=== PATIENT | female | born 1950 | race Two or more races ===

== ENCOUNTER 2017-11-10 07:34 | Emergency (ER) | payer MEDICAID, MEDICARE ==
[~2017-11-10] VITALS: Ht 162.6 cm; Wt 81.6 kg
[2017-11-10 07:50] VITALS: BP 157/88
--- NOTE | 2017-11-10 08:16 | Emergency Room Report ---
History of Present Illness General Chief Complaint: Upper Respiratory Illness Source: Patient, Family Member Present Illness HPI 67-year-old female walks in with approximately one week of URI symptoms including cough, and documented fever yesterday. Was seen by PMD, given Z-Cruz, ibuprofen and cough medicine which she has taken without improvement. Denies chest pain, shortness of breath, sore throat, ear infection, headache, abdominal pain, nausea vomiting. Patient's also here with similar symptoms - he was prescribed Tamiflu from this facility a few days ago but unable to find it to shortage of medicine. Allergies: Coded Allergies: No Known Allergies (Unverified , 11/10/17) Patient History Past Medical History: none Past Surgical History: none Pertinent Family History: none Social History: Denies: smoking, alcohol use, drug use Last Menstrual Period: na Now: No Immunizations: UTD Reviewed Nursing Documentation: PMH: Agreed, PSxH: Agreed Nursing Documentation-PMH Past Medical History: No History, Except For Hx Hypertension: Yes Review of Systems All Other Systems: negative except mentioned in HPI Physical Exam Vital Signs Date Time Temp Pulse Resp B/P (MAP) Pulse Ox O2 Delivery O2 Flow Rate FiO2 11/10/17 07:41 101.3 105 20 157/88 97 Room Air Sp02 EP Interpretation: reviewed, normal General Appearance: normal inspection, well appearing, no apparent distress, alert, GCS 15, non-toxic Head: normocephalic, atraumatic Eyes: bilateral eye PERRL, bilateral eye EOMI ENT: normal ENT inspection, hearing grossly normal, normal pharynx, no angioedema, normal voice, TMs + canals normal, uvula midline, moist mucus membranes Neck: normal inspection, full range of motion, supple, thyroid normal, no meningismus, no bony tend Respiratory: normal inspection, no rhonchi, no respiratory distress, no retraction, no accessory muscle use, no wheezing, crackles, speaking full sentences Cardiovascular #1: regular rate, rhythm, no edema, no JVD, normal capillary refill Gastrointestinal: normal inspection, normal bowel sounds, non tender, soft, no mass, no peritonitis, non-distended, no guarding, no hernia, no pulsatile mass Genitourinary: no CVA tenderness Musculoskeletal: normal inspection, back normal, normal range of motion, no calf tenderness, pelvis stable, Javier's Sign negative Neurologic: normal inspection, alert, oriented x3, responsive, hemp fiber taker off III-XII nml as tested, motor strength/tone normal, cerebellar normal, normal gait, speech normal Psychiatric: normal inspection, judgement/insight normal, mood/affect normal, no suicidal/homicidal ideation, no delusions Skin: normal inspection, normal color, no rash Lymphatic: normal inspection, no adenopathy Medical Decision Making Diagnostic Impression: Primary Impression: Upper respiratory infection Qualified Codes: J06.9 - Acute upper respiratory infection, unspecified; B97.89 - Other viral agents as the cause of diseases classified elsewhere Additional Impressions: Influenza-like illness Atypical pneumonia ER Course 67-year-old female with influenza-like symptoms, vital signs significant for fever and tachycardia. On exam, auscultation of lungs indicates some crackles however chest x-ray does not show any obvious lobar pneumonia strong concern for atypical pneumonia versus influenza however is already on z- pack Will treat withTamiflu given fever yesterday Otherwise well-appearing, nonseptic appearing close primary care followup disposition: Patient is to be discharged to home. Prescriptions given are tamiflu Patient is instructed to follow up with their primary care doctor within 5 days. Strict return precautions discussed with patient such as fever, chills, worsening/severe pain, nausea, vomiting, which may indicate severe illness. Patient verbalizes understanding and agrees with plan. Please note that this Emergency Department Report was dictated using [employer] technology software, occasionally this can lead to erroneous entry secondary to interpretation by the dictation equipment Chest X-Ray Diagnostic Results Chest X-Ray Diagnostic Results : Chest X-Ray Ordered: Yes # of Views/Limited/Complete: 1 View Indication: Other - fever EP Interpretation: Yes Interpretation: no consolidation, no effusion, no pneumothorax, no acute cardiopulmonary disease Impression: No acute disease Electronically Signed by: Dr Dylon Lorenzo MD Last Vital Signs Date Time Temp Pulse Resp B/P (MAP) Pulse Ox O2 Delivery O2 Flow Rate FiO2 11/10/17 07:41 101.3 105 20 157/88 97 Room Air Status: improved Disposition: HOME, SELF-CARE DYLON LORENZO M.D. Nov 10, 2017 08:16
[2017-11-10] MEDS ORDERED: TAMIFLU75 MG ORAL (08:17)
[2017-11-10 08:30] VITALS: BP 131/77
--- NOTE | 2017-11-10 10:17 | Diagnostic Imaging Report ---
Indication: Shortness of breath Technique: One view of the chest Comparison: none Findings: Lungs and pleural spaces are clear. Heart size is normal Impression: No acute process
== END 2017-11-10 08:25 | disposition home or self-care (01) ==
LOC: EMR 08:20
DX: J06.9 Acute upper respiratory infection, unspecified (principal); J11.1 Influenza due to unidentified influenza virus with other respiratory manifestations; J18.9 Pneumonia, unspecified organism; I10 Essential (primary) hypertension
CPT/HCPCS: 71045; 99283

== ENCOUNTER 2018-12-01 13:55 | Emergency (ER) | payer MEDICARE, MEDICAID ==
[~2018-12-01] VITALS: Ht 162.6 cm; Wt 81.6 kg
[~2018-12-01 13:55] MED LIST: TAMIFLU75 MG ORAL
--- NOTE | 2018-12-01 14:08 | NUR ---
ED Nurse Note: Pt came in from home due to ALEXANDER on L side x 10 days, no head injury recently. Pt takes Tylenol and Advil at home but pain still persists. AOx4, VSS. Will cont to monitor.
[2018-12-01] MEDS ORDERED: Acetaminophen 500mg (ES) tab ORAL ONE (14:15)
[2018-12-01 14:49] VITALS: BP 151/75
--- NOTE | 2018-12-01 15:43 | Emergency Room Report ---
History of Present Illness General Chief Complaint: Headache Source: Patient Present Illness HPI 66-year-old female presents ED for evaluation. Complaining of headache 10 days. Denies any trauma. Headache is left-sided, throbbing, 10 out of 10, nonradiating. Denies photophobia or blurry vision. Denies nausea or vomiting. Denies neck stiffness. Denies earache or sore throat. Denies fevers or chills. No other aggravating relieving factors. Denies any other associated symptoms Allergies: Coded Allergies: No Known Allergies (Unverified , 11/10/17) Patient History Past Medical History: HTN Past Surgical History: none Pertinent Family History: none Social History: Denies: smoking, alcohol use, drug use Now: No Immunizations: UTD Reviewed Nursing Documentation: PMH: Agreed; PSxH: Agreed Nursing Documentation-PMH Hx Hypertension: Yes Review of Systems All Other Systems: negative except mentioned in HPI Physical Exam Vital Signs Date Time Temp Pulse Resp B/P (MAP) Pulse Ox O2 Delivery O2 Flow Rate FiO2 12/01/18 13:57 98.2 100 22 170/91 96 Room Air Sp02 EP Interpretation: reviewed, normal General Appearance: no apparent distress, alert, GCS 15, non-toxic Head: normocephalic, atraumatic Eyes: bilateral eye normal inspection, bilateral eye PERRL ENT: hearing grossly normal, normal pharynx, no angioedema, normal voice Neck: full range of motion, supple, no meningismus, no bony tend, supple/symm/ no masses Respiratory: chest non-tender, lungs clear, normal breath sounds, speaking full sentences Cardiovascular #1: regular rate, rhythm, no edema Cardiovascular #2: 2+ carotid (R), 2+ carotid (L), 2+ radial (R), 2+ radial (L) , 2+ dorsalis pedis (R), 2+ dorsalis pedis (L) Gastrointestinal: normal bowel sounds, non tender, soft, non-distended, no guarding, no rebound Rectal: deferred Genitourinary: normal inspection, no CVA tenderness Musculoskeletal: back normal, gait/station normal, normal range of motion, non- tender Neurologic: alert, oriented x3, responsive, motor strength/tone normal, sensory intact, speech normal Psychiatric: judgement/insight normal, memory normal, mood/affect normal, no suicidal/homicidal ideation Reflexes: 3+ bicep (R), 3+ bicep (L), 3+ tricep (R), 3+ tricep (L), 3+ knee (R) , 3+ knee (L) Skin: normal color, no rash, warm/dry, well hydrated Lymphatic: no adenopathy Medical Decision Making Diagnostic Impression: Primary Impression: Headache Qualified Codes: R51 - Headache ER Course Hospital Course 66 yo F presents with headache x 1 days Differential diagnoses include: tension headache, migraine, dehydration, intracranial bleed Clinical course Patient placed on stretcher. After initial history and physical I ordered pain meds, CT CT head no acute process On reassessment headache is improved. No focal deficits. No blurry vision, no nuchal rigidity. Reassurance given. Safe for discharge or close outpatient follow-up. States she has a PMD i. I feel this is a highly complex case requiring extensive working including EKG/Rhythm strip, Xray/CT/US, Blood/urine lab work, repeat exams while in ED, and administration of strong opiates/narcotics for pain control, admission to hospital or close patient follow up. Diagnosis - headache stable and discharged to home with Rx Tylenol. f/up with PMD. return to ED if symptoms recur/worsen. CT/MRI/US Diagnostic Results CT/MRI/US Diagnostic Results : Imaging Test Ordered: CT Head Impression no acute process Last Vital Signs Date Time Temp Pulse Resp B/P (MAP) Pulse Ox O2 Delivery O2 Flow Rate FiO2 12/01/18 14:49 98.3 93 20 151/75 95 Room Air Status: improved Disposition: HOME, SELF-CARE Condition: Stable Scripts Acetaminophen* (TYLENOL EXTRA STRENGTH*) 500 Mg Tablet 500 MG ORAL Q8H PRN for Prn Headache/Temp > 101, #30 TAB 0 Refills Prov: Jean-Paul Stuart MD 12/01/18 Referrals: NON PHYSICIAN (PCP) Jean-Paul Stuart MD Dec 01, 2018 15:43
--- NOTE | 2018-12-01 15:58 | Diagnostic Imaging Report ---
Indications: Headache Technique: Spiral acquisitions obtained through the brain. Angled axial and coronal 5 x 5 mm slices were reconstructed. Total dose length product 1298.67 mGycm. CTDI vol(s) 70.38 mGy. Dose reduction achieved using automated exposure control Comparison: None. Findings: No acute intracranial hemorrhage or edema. No mass effect nor midline shift. Normal carrera-white differentiation. Visualized orbits and sinuses are unremarkable. Impression: Negative The CT scanner at [facility] is accredited by the [employer] and the scans are performed using protocols designed to limit radiation exposure to as low as reasonably achievable to attain images of sufficient resolution adequate for diagnostic evaluation.
[2018-12-01] MEDS ORDERED: TYLENOL EXTRA500 MG ORAL (16:19)
[2018-12-01 16:22] VITALS: BP 144/79
--- NOTE | 2018-12-01 16:22 | NUR ---
ED Nurse Note: Pt is ready to be discharged by ERMD. Discharge paper and prescription given, patient verbalized understanding of discharge instruction. AOx4, VSS. Wristband removed. Pt ambulated out with steady gait with all belongings.
== END 2018-12-01 16:22 | disposition home or self-care (01) ==
LOC: EDBD 13:55 → EMR 14:35
DX: R51 Headache (principal); I10 Essential (primary) hypertension
CPT/HCPCS: 70450; 99284

== ENCOUNTER 2020-05-27 13:51 | Emergency (ER) | payer MEDICAID, MEDICARE, OTHER ==
[~2020-05-27] VITALS: Ht 154.9 cm; Wt 82.1 kg
[~2020-05-27 13:51] MED LIST changes: +TYLENOL EXTRA500 MG ORAL
--- NOTE | 2020-05-27 14:41 | Emergency Room Report ---
History of Present Illness General Chief Complaint: Lower Extremity Injury Source: Patient, Family Member Present Illness HPI History of present illness: 88-year-old female with no prior medical history presents status post mechanical trip and fall 1 month ago. Patient was accompanied by her [id number] who states that patient has been reluctant to come to the emergency department for her pain. She has been ambulating on her left lower extremity despite pain. She took an over-the- counter medication this morning that seemed to help. When she saw her primary care doctor, he sent her to the emergency department for possible ultrasound for a mass on her lateral left calf. Patient denies chest pain, hemoptysis, history of blood clots, recent surgery, recent immobilization, fever, cough, chills, head trauma, loss of consciousness, weakness, vision changes, neck/back pain, or other complaints. Patient is not on blood thinner medications. She states that the fall happened 1 month ago when she was coming down the stairs and slipped at the bottom and got her leg stuck in the door. She denies pain anywhere else in her body. The patient's symptoms were [gradual] onset, severity was moderate, duration since 30 days. Past medical history: Denies Past surgical history: Denies Smoking: Denies Alcohol use: Denies Drug use: Denies Review of systems: CONST: No fevers or chills, No night sweats PULMONARY: No productive cough, No shortness of breath CARDIAC: No chest pain, No palpitations GI: No vomiting, No diarrhea , No melena_or_BRBPR : No dysuria, No hematuria, No discharge NEURO: No new_focal_weakness_or_numbness, No confusion, No vision changes Musculoskeletal: Left lower extremity pain and swelling 14 point Review of Systems is otherwise negative except per HPI Physical Exam: GENERAL: Awake_alert_ nontoxic, no acute distress Spo2 96% on [RA], [normal] EYES: Extraocular muscles are intact. Conjunctivae clear. Lids without swelling ENT: External nose and ear normal_in_appearance. Oropharynx clear. Head_ atraumatic, Moist_oral_mucosa NECK: No JVD. No meningismus. No thyromegaly. Supple. Trachea midline RESP: Normal respiratory effort. Symmetric rise. No stridor. Clear_to_ auscultation_No_rales_No_wheezes CARDIAC: Regular rate and regular rhythm on_auscultation No_significant pedal edema. ABDOMEN: Soft. Nondistended. Nontender_No_rebound_or_guarding. MSK: Normal muscle tone, without rigidity. Left lower extremity: Patient has mild nonfluctuant/ indurated mass to the lateral mid calf. No pain with palpation. No cellulitis. No palpable crepitus. Ecchymosis to the left medial ankle proximal to the medial malleolus. Compartments are soft and compressible. No deformity. Full range of motion of the ankle and the knee. Sensation is intact to light touch. Cap refill less than 2 seconds x 5 toes. No cellulitis. SKIN: Warm and dry. No visible cyanosis or pallor NEUROLOGIC: Alert, oriented x3. Motor_and_sensation_grossly_intact. No truncal ataxia. Gait_normal Psych: Normal mood and affect, normal judgment and insight - COORDINATION OF CARE Case was discussed with: Patient and family Any imaging that were ordered were interpreted as part of the medical decision making: Medical Decision Making/Plan: Differential diagnosis includes musculoskeletal pain, fracture, dislocation, soft tissue infection such as cellulitis or abscess, cyst vs DVT DOUBT necrotizing fasciitis, compartment syndrome, septic arthritis, arterial occlusion, among others. Patient is hemodynamically stable and well-appearing. Xrays of the ankle and tib/fib are within normal limits, compartments are soft, the patient is able to bear weight and has no neurologic deficits. No evidence of fracture, dislocation or compartment syndrome at this time. There is mild ecchymosis to the medial malleolus also noted to have . Small possibly drainable fluid collection to the left mid calf. Ultrasound of the left lower extremity shows hematoma versus abscess. Patient has follow-up with PMD for referral to IR for consultation. Offered bedside incision and drainage, however patient declines because she wants a more sterile environment. Will discharge with clindamycin. Recommend wound check in 2 to 3 days.. Distally the patient has capillary refill <2 seconds and strong pulses. There is no pallor or pain out of proportion to exam. There is no significant swelling or venous engorgement. The patient has no significant DVT risk factors or known hypercoagulable disorder. No evidence of arterial occlusion or deep venous thrombosis. The associated joints have full range of motion without any significant pain or restriction in mobility. There is no crepitus or pain out of proportion to exam and the patient is afebrile and nontoxic. No evidence of septic arthritis , necrotizing fasciitis, or soft tissue infection such as abscess or cellulitis. However, the patient was informed that occult fractures or foreign bodies are not always apparent on their first visit and understand to follow up with their regular doctor for a reevaluation within the next 2-3 days for a reevaluation, to ensure their symptoms completely resolve. Allergies: Coded Allergies: No Known Allergies (Unverified , 11/10/17) COVID-19 Screening Contact w/high risk pt: No Experienced COVID-19 symptoms?: No COVID-19 Testing performed ENVIRONMENTAL MARKETER: No Nursing Documentation-[facility] Past Medical History: No Stated History Hx Hypertension: Yes Physical Exam Vital Signs Date Time Temp Pulse Resp B/P (MAP) Pulse Ox O2 Delivery O2 Flow Rate FiO2 05/27/20 14:07 98.2 82 16 161/75 (103) 94 Room Air Medical Decision Making Diagnostic Impression: Primary Impression: Hematoma of left lower leg Additional Impression: Leg pain Other X-Ray Diagnostic Results Other X-Ray Diagnostic Results : PA Scribe Text Left tibia /Fibula X-ray: Views: [ 2 ] view(s) No fracture. Normal alignment. Soft tissues normal. Joint spaces normal. Indication: [Pain] Impression: [no acute disease] The X-ray(s) were independently viewed and interpreted contemporaneously - Electronically signed by Shereen marsh DO Left ankle x-ray: Views: [ 2 ] view(s) No fracture. Normal alignment. Soft tissues normal. Joint spaces normal. Indication: [Pain] Impression: [no acute disease] The X-ray(s) were independently viewed and interpreted contemporaneously - Electronically signed by Shereen marsh DO Reevaluation Time: 16:01 Last Vital Signs Date Time Temp Pulse Resp B/P (MAP) Pulse Ox O2 Delivery O2 Flow Rate FiO2 05/27/20 14:07 98.2 82 16 161/75 (103) 94 Room Air Status: improved Disposition: HOME, SELF-CARE Admit Decision Time: 16:01 Condition: Stable Scripts Clindamycin Hcl (CLINDAMYCIN HCL) 300 Mg Capsule 300 MG ORAL THREE TIMES A DAY, #21 CAP Prov: Shereen Barreto D.O. 05/27/20 Naproxen* (NAPROXEN*) 500 Mg Tablet.dr 500 MG ORAL TWICE A DAY for 10 Days, #22 TAB Prov: Shereen Barreto D.O. 05/27/20 Acetaminophen* (TYLENOL EXTRA STRENGTH*) 500 Mg Tablet 500 MG ORAL Q8HR PRN for Mild Pain/Temp > 100.5 for 7 Days, #28 TAB 0 Refills Prov: Shereen Barreto D.O. 05/27/20 Patient Instructions: Foot Contusion Shereen Barreto D.O. May 27, 2020 14:41
[2020-05-27] MEDS ORDERED: Acetaminophen 500mg (ES) tab ORAL ONE (14:45)
[2020-05-27] MEDS ORDERED: TYLENOL EXTRA500 MG ORAL (14:58)
[2020-05-27] MEDS ORDERED: NAPROXEN500 M1 ORAL ×2 (14:58→16:09)
--- NOTE | 2020-05-27 16:57 | Diagnostic Imaging Report ---
History: MASS Exam: US VENOUS LEFT LOWER EXTREMITY Comparison: None available IMPRESSION: No evidence of DVT within the left lower extremity. Complex hypoechoic area measuring 4.5 x 1.4 x 5 cm lateral left calf is nonspecific with considerations including hematoma or abscess among others and requires further clinical correlation.
[2020-05-27 17:05] VITALS: BP 150/72
[2020-05-27] MEDS ORDERED: CLINDAMYCIN HC300 MG ORAL (17:05)
--- NOTE | 2020-05-27 19:06 | Diagnostic Imaging Report ---
INDICATION: Pain TECHNIQUE: XRAY Ankle Compl Min 3v L Multiple views of the None were obtained COMPARISON: None FINDINGS: No acute fracture or dislocation. Talar dome is maintained. Ankle mortise is preserved on these nonstress views. No significant ankle joint effusion. Mild diffuse soft tissue swelling around the ankle. IMPRESSION: No acute fracture or dislocation.
--- NOTE | 2020-05-27 19:10 | Diagnostic Imaging Report ---
INDICATION: Pain TECHNIQUE: XRAY Leg Lower Tib Fib 2v L Multiple views of the None were obtained COMPARISON: None FINDINGS: No acute fracture or dislocation. Joint spaces are maintained. There is focal soft tissue swelling with increased subcutaneous density overlying the mid and posterior fibula. IMPRESSION: 1. No acute fracture or dislocation. 2. Focal soft tissue swelling overlying posterolateral fibula which could reflect soft tissue infection or hematoma.
== END 2020-05-27 17:05 | disposition home or self-care (01) ==
LOC: EMR 14:30
DX: M79.605 Pain in left leg (principal); S80.12XA Contusion of left lower leg, initial encounter; W01.0XXA Fall on same level from slipping, tripping and stumbling without subsequent striking against object, initial encounter; Y92.9 Unspecified place or not applicable; I10 Essential (primary) hypertension
CPT/HCPCS: 93971; 99284

== ENCOUNTER 2020-11-14 01:31 | Inpatient (IN) | payer MEDICARE ==
[2020-11-14] VITALS (7 sets, daily range): BP systolic 130–140; BP diastolic 60–83
[~2020-11-14] VITALS: Ht 154.9 cm; Wt 81.6 kg
[~2020-11-14 01:31] MED LIST changes: +CLINDAMYCIN HC300 MG ORAL; +NAPROXEN500 M1 ORAL
[2020-11-14] MEDS ORDERED: dexAMETHasone 10mg/ml Inj IV ONE (01:45)
[2020-11-14] MEDS ORDERED: Albuterol/Ipratropium 3ml neb HHN ONE (01:45)
--- NOTE | 2020-11-14 01:50 | Emergency Room Report ---
History of Present Illness General Chief Complaint: SOB Source: Patient Present Illness HPI Patient is a 68-year-old female past medical history of obesity, hypertension and diagnosed with COVID-19 on November 07, 2020 who presents to the ER complaining of shortness of breath. Patient states that her symptoms have been getting progressively worse since the time of her diagnosis. She complains of body aches, chills, fatigue, chest pain, shortness of breath and cough. She states that she feels like her shortness of breath is getting worse. Patient also states that she is a current smoker. She states that her is sick with COVID-19 at home as well. She denies any abdominal pain, vomiting or diarrhea. She states that she has not taken any medications today. Allergies: Coded Allergies: No Known Allergies (Unverified , 11/10/17) COVID-19 Screening Contact w/high risk pt: No Experienced COVID-19 symptoms?: No Patient History Reviewed Nursing Documentation: PMH: Agreed; PSxH: Agreed Nursing Documentation-PMH Hx Hypertension: Yes Review of Systems All Other Systems: negative except mentioned in HPI Physical Exam Sp02 EP Interpretation: abnormal General Appearance: alert, GCS 15, non-toxic, moderate distress Head: normocephalic, atraumatic Eyes: bilateral eye normal inspection, bilateral eye PERRL ENT: hearing grossly normal, normal pharynx, no angioedema, normal voice Neck: full range of motion, supple/symm/no masses Respiratory: respiratory distress, rhonchi, other - Tachypneic Cardiovascular #1: tachycardia Gastrointestinal: normal bowel sounds, non tender, soft, non-distended, no guarding, no rebound Rectal: deferred Genitourinary: no CVA tenderness Musculoskeletal: normal range of motion Neurologic: passport support manager III-XII nml as tested, oriented x3 Psychiatric: no suicidal/homicidal ideation Skin: no rash Lymphatic: no adenopathy Procedures Critical Care Time Critical Care Time Total critical care time: Approximately [] minutes. Due to a high probability of clinically significant, life threatening deterioration, the patient required my highest level of preparedness to intervene emergently and I personally spent this critical care time directly and personally managing the patient. This critical care time included obtaining a history; examining the patient; pulse oximetry; ordering and review of studies; arranging urgent treatment with de velopment of a management plan; evaluation of patient's response to treatment; frequent reassessment; and, discussions with other providers.This critical care time was performed to assess and manage the high probability of imminent, life- threatening deterioration that could result in multi-organ failure. It was exclusive of separately billable procedures and treating other patients and teaching time. Please see MDM section and the rest of the note for further information on patient assessment and treatment. Total critical care time: Approximately 35 minutes. Due to a high probability of clinically significant, life threatening deterioration, the patient required my highest level of preparedness to intervene emergently and I personally spent this critical care time directly and personally managing the patient. This critical care time included obtaining a history; examining the patient; pulse oximetry; ordering and review of studies; arranging urgent treatment with development of a management plan; evaluation of patient's response to treatment; frequent reassessment; and, discussions with other providers.This critical care time was performed to assess and manage the high probability of imminent, life- threatening deterioration that could result in multi-organ failure. It was exclusive of separately billable procedures and treating other patients and teaching time. Please see MDM section and the rest of the note for further information on patient assessment and treatment. Medical Decision Making Diagnostic Impression: Primary Impression: COVID-19 Additional Impressions: Pneumonia Hypoxia ER Course Patient given nebulizer treatment, IV Decadron and supplemental oxygen. Patient satting 96% and respiratory rate is improved to the low to mid 20s. Patient's chest x-ray demonstrates bilateral pulmonary infiltrates. Blood cultures have been sent. Lactate is normal. Patient started on vancomycin as well as ceftri axone. Patient has reported history of positive COVID-19 test 8 days ago. Patient's D-dimer elevated and patient started on Lovenox. Patient will be admitted for further treatment and evaluation. Laboratory Tests Test 11/14/20 01:51 11/14/20 01:54 Arterial Blood pH 7.511 (7.350-7.450) Arterial Blood Partial Pressure CO2 32.1 mmHg (35.0-45.0) L Arterial Blood Partial Pressure O2 55.4 mmHg (75.0-100.0) L Arterial Blood HCO3 25.4 mmol/L (22.0-26.0) Arterial Blood Oxygen Saturation 91.4 % (95-100) L Arterial Blood Base Excess 2.7 (-2-2) H Ted Test Positive White Blood Count 5.7 K/UL (4.8-10.8) Red Blood Count 4.44 M/UL (4.20-5.40) Hemoglobin 13.5 G/DL (12.0-16.0) Hematocrit 39.5 % (37.0-47.0) Mean Corpuscular Volume 89 FL (80-99) Mean Corpuscular Hemoglobin 30.4 PG (27.0-31.0) Mean Corpuscular Hemoglobin Concent 34.2 G/DL (32.0-36.0) Red Cell Distribution Width 11.9 % (11.6-14.8) Platelet Count 189 K/UL (150-450) Mean Platelet Volume 6.7 FL (6.5-10.1) Neutrophils (%) (Auto) % (45.0-75.0) Lymphocytes (%) (Auto) % (20.0-45.0) Monocytes (%) (Auto) % (1.0-10.0) Eosinophils (%) (Auto) % (0.0-3.0) Basophils (%) (Auto) % (0.0-2.0) Prothrombin Time 11.4 SEC (9.30-11.50) Prothrombin Time INR 1.0 (0.9-1.1) Activated Partial Thromboplast Time 33 SEC (23-33) D-Dimer 0.58 mg/L FEU (0.00-0.49) H Urine Color Pale yellow Urine Appearance Clear Urine pH 8 (4.5-8.0) Urine Specific Manning 1.015 (1.005-1.035) Urine Protein 2+ (NEGATIVE) H Urine Glucose (UA) Negative (NEGATIVE) Urine Ketones Negative (NEGATIVE) Urine Blood 1+ (NEGATIVE) H Urine Nitrite Negative (NEGATIVE) Urine Bilirubin Negative (NEGATIVE) Urine Urobilinogen Normal MG/DL (0.0-1.0) Urine Leukocyte Esterase Negative (NEGATIVE) Urine RBC 0-2 /HPF (0 - 2) Urine WBC 0-2 /HPF (0 - 2) Urine Squamous Epithelial Cells Few /LPF (NONE/OCC) Urine Bacteria None /HPF (NONE) Sodium Level 134 MMOL/L (136-145) L Potassium Level 3.3 MMOL/L (3.5-5.1) L Chloride Level 100 MMOL/L (98-107) Carbon Dioxide Level 29 MMOL/L (21-32) Anion Gap 5 mmol/L (5-15) Blood Urea Nitrogen 7 mg/dL (7-18) Creatinine 0.8 MG/DL (0.55-1.30) Estimated Glomerular Filtration Rate > 60 mL/min (>60) Glucose Level 188 MG/DL (74-106) H Lactic Acid Level 0.70 mmol/L (0.4-2.0) Calcium Level 8.3 MG/DL (8.5-10.1) L Magnesium Level 1.7 MG/DL (1.8-2.4) L Ferritin 787 NG/ML (8-388) H Total Bilirubin 0.4 MG/DL (0.2-1.0) Aspartate Amino Transferase (AST) 71 U/L (15-37) H Alanine Aminotransferase (ALT) 65 U/L (12-78) Alkaline Phosphatase 136 U/L (46-116) H Lactate Dehydrogenase 413 U/L (81-234) H Total Creatine Kinase 206 U/L (26-308) Troponin I 0.007 ng/mL (0.000-0.056) C-Reactive Protein, Quantitative Pending Pro-B-Type Natriuretic Peptide 233 pg/mL (0-125) H Total Protein 7.2 G/DL (6.4-8.2) Albumin 3.1 G/DL (3.4-5.0) L Globulin 4.1 g/dL Albumin/Globulin Ratio 0.8 (1.0-2.7) L Lipase 207 U/L (73-393) Microbiology Date/Time Source Procedure Growth Status 11/14/20 01:54 Nasal Nares - Final Complete 11/14/20 01:54 Nasal Nares - Final Complete EKG Diagnostic Results Troponin ordered: Yes When was troponin ordered?: Nov 14, 2020 EKG Time: 01:46 EP Interpretation: Dannielle Bermudez MD Rate: tachycardiac - 109 bpm Rhythm: other - Sinus tachycardia ST Segments: no acute changes ASA given to the pt in ED: No Rhythm Strip Diag. Results Rhythm Strip Time: 01:50 EP Interpretation: yes - Dannielle Bermudez MD Rate: 108 bpm Rhythm: no PVC's, no ectopy, other - Sinus tachycardia Chest X-Ray Diagnostic Results Chest X-Ray Diagnostic Results : Chest X-Ray Ordered: Yes # of Views/Limited/Complete: 1 View Indication: Shortness of Breath EP Interpretation: Yes Interpretation: no pneumothorax, other - bilateral patchy infiltrates Impression: Other - pneumonia Electronically Signed by: Dannielle Bermudez MD Disposition: ADMITTED INPATIENT - SDU Condition: Critical Physician Consult: Dr. Gannon Additional Instructions: Please note that this report is being documented using [employer] technology. This can lead to erroneous entry secondary to incorrect interpretation by the dictating instrument. Dannielel Bermudez M.D. Nov 14, 2020 01:50
--- NOTE | 2020-11-14 02:05 | NUR ---
ED Nurse Note: PT walked in from home, she is ambulatory and walks with a steady gait, states that she has been tested positive for covid a couple of days ago. She says that she has been feeling short of breath with chest pain. Pt was hypoxic on assement placed on 2LNC SPO2 99%. EKG done at bedside, labs sent, urine sent, line placed. RT did ABG. Pt is resting comfortably, tachypneic, vitals stable as docuemented
[2020-11-14 02:08] LABS: HEMATOCRIT 39.5 % (37.0-47.0); HEMOGLOBIN 13.5 G/DL (12.0-16.0); MEAN CORPUSCULAR VOLUME 89 FL (80-99); PLATELET COUNT 189 K/UL (150-450); RED BLOOD COUNT 4.44 M/UL (4.20-5.40); RED CELL DISTRIBUTION WIDTH 11.9 % (11.6-14.8); WHITE BLOOD COUNT 5.7 K/UL (4.8-10.8)
[2020-11-14 02:11] LABS: APPEARANCE,URINE CLEAR; BILIRUBIN, URINE NEGATIVE (NEGATIVE); COLOR,URINE PALE YELLOW; GLUCOSE, URINE (UA) NEGATIVE (NEGATIVE); KETONES,URINE NEGATIVE (NEGATIVE); LEUKOCYTE ESTERASE ,URINE NEGATIVE (NEGATIVE); NITRITE,URINE NEGATIVE (NEGATIVE); PH,URINE 8 (4.5-8.0); PROTEIN,URINE 2+ (NEGATIVE); UROBILINOGEN,URINE NORMAL MG/DL (0.0-1.0)
[2020-11-14 02:32] LABS: ANION GAP 5 mmol/L (5-15); BLOOD UREA NITROGEN 7 mg/dL (7-18); CALCIUM 8.3 MG/DL (8.5-10.1); CARBON DIOXIDE 29 MMOL/L (21-32); CHLORIDE 100 MMOL/L (98-107); CREATININE 0.8 MG/DL (0.55-1.30); POTASSIUM 3.3 MMOL/L (3.5-5.1); SODIUM 134 MMOL/L (136-145)
[2020-11-14 02:38] LABS: ALANINE AMINOTRANSFERASE 65 U/L (12-78); ALBUMIN 3.1 G/DL (3.4-5.0); ALBUMIN/GLOBULIN RATIO 0.8 (1.0-2.7); ALKALINE PHOSPHATASE 136 U/L (46-116); ASPARTATE AMINO TRANSFERASE 71 U/L (15-37); BILIRUBIN,TOTAL 0.4 MG/DL (0.2-1.0); CREATINE KINASE 206 U/L (26-308); FERRITIN 787 NG/ML (8-388); LACTATE DEHYDROGENASE 413 U/L (81-234)
[2020-11-14] MEDS ORDERED: cefTRIAXone 2 GM in NS 55 ML IVPB ONE (02:45)
[2020-11-14] MEDS ORDERED: Azithromycin 500 MG in NS 275 ML IV ONE (02:45)
[2020-11-14] MEDS ORDERED: Enoxaparin 40mg Inj SUBQ SCH (03:00)
--- NOTE | 2020-11-14 04:18 | NUR ---
ED Nurse Note: PT is resting comfortably. Request to lower her bed and turn off the lights. Breathing is even, unlabored, with less chest pain.
--- NOTE | 2020-11-14 06:43 | NUR ---
ED Nurse Note: Gave report to Julia GOMES
--- NOTE | 2020-11-14 06:45 | NUR ---
NURSE NOTES: Received report from ELISEO Goetz. awaiting negative pressure room set up by engineering
--- NOTE | 2020-11-14 07:02 | NUR ---
TRANSFER TO FLOOR: Patient transferred to [facility] as ordered, per ER MD . Report given to Julia GOMES. Belongings sent with pt. She is axox4 vitals are stable as documented. Plan of care endorsed. We wish her well on her journey.
--- NOTE | 2020-11-14 07:24 | NUR ---
NURSE NOTES: Found Pt in room from ER. Pt is stable on 4LPM NC, even respirations. no s/s or complaint of distress. skin intact. LFA 20g SL, asymptomatic and intact. Pt asking to use bathroom, BSC provided bedside. Pt supervised back to bed without assistance required, steady gait. tele monitor applied. Pt reports being comfortable, Pt placed in bed, low and locked, call light in reach and bed alarm on. Pt verbalized understanding to call for help.
--- NOTE | 2020-11-14 07:29 | NUR ---
NURSE NOTES: Contacted [facility] for admitting orders. Addendum: 11/14/20 at 0731 by Julia Alarcon RN RN BOWEN Story to put in admitting orders.
--- NOTE | 2020-11-14 11:47 | Diagnostic Imaging Report ---
Indication: Shortness of breath Technique: XRAY Chest 1v Comparison: 11/10/2017 Findings: There are patchy bilateral infiltrates, right greater than left. Heart is enlarged but stable in size compared to prior exam. No significant pleural effusion. No pneumothorax. No acute stenotic. Impression: Patchy bilateral digits concerning for multifocal pneumonia, particularly viral pneumonia. Clinical correlation and follow-up recommended.
--- NOTE | 2020-11-14 12:36 | NUR ---
CASE MANAGEMENT:REVIEW 68 YR OLD FEMALE WALKED IN TO ER CC: SUBSTERNAL CHEST PAIN. SATS 88% ON RA PMH: TESTED COVID POSITIVE AT THE BEGINNING OF THE MONTH SI: COVID PNA. HYPOXIA 98.4 115 26 125/73 89% ON RA K-3.3 GLUCOSE+188 CA-8.3 MAG-1.7 PH+7.5 PCO2-32.1 PO2-55.4 IS: PLACED ON 2L/NC DUONEB HHN IV DECADRON X1 IV AZITHROMYCIN X1 IV ROCEPHIN X1 LOVENOX SQ X1 CXR BLOOD CX : TO TELEMETRY UNIT DCP: FROM HOME
--- NOTE | 2020-11-14 12:53 | Cardiology Report ---
APPROVED REPORT EKG Measurement Heart [id number] <Conclusion> Sinus tachycardia Otherwise normal ECG
--- NOTE | 2020-11-14 13:05 | History & Physical ---
History and Physical History & Physicial Attending physician: Dr. Gannon Reason for admission: COVID-19, hypoxia HPI: This is a 68-year-old female with past medical history of obesity, and hypertension, who presented to the ER for evaluation of shortness of breath. Patient reported that she tested positive for COVID-19 on 11/07/2020 from an outsi de source. She states that her symptoms have been progressively worsening since the time of diagnosis. Associated symptoms include body aches, chills, fatigue, chest pain, shortness of breath, and cough. She reports that she is a current smoker. She also reports her is sick with COVID-19 at home as well. She denies any abdominal pain, vomiting, or diarrhea. Initial laboratory studies show unremarkable CBC, mild hyponatremia, mild hypokalemia, hyperglycemia, mild hypocalcemia, elevated AST, elevated alk phos, elevated LDH, mildly elevated BNP, elevated D-dimer, and respiratory alkalosis. Chest x-ray shows patchy bilateral infiltrates. Patient received Lovenox, ceftriaxone and azithromycin, dexamethasone, and albuterol in the ER and was admitted for further management. PMHx: Obesity, hypertension Meds: Acetaminophen, naproxen Allergies: No known allergies FHx: Unknown Personal/Social Hx: Current smoker ROS: Negative except mentioned in HPI PE: VS: BP 135/72, HR 103, RR 26, wt 81 kg, ht 155 cm General: On evaluation today patient is laying in bed with normal work of breathing on 3 L of oxygen via nasal cannula. Patient is not in acute distress. HEENT: Head examination reveals that the head is normocephalic, atraumatic without deformity or unusual swelling. Pupils are round, reactive to light and accomodation normally. There is no nystagmus, lid lag or exophthalmos. Nasal mucosa is pink. Vision is normal. Chest and Lung: regular work of breathing, rhonchi noted Cardiovascular: Revelas normal S1, S2 without murmurs, rubs or clicks. Tachycardia Abdomen: Soft with no tenderness or organomegaly Rectal: Deferred Musculoskeletal: There is no tenderness to plapation. Range of motion is normal Neurological: Cranial nerves II to XII are intact. Gait is normal without ataxia. DTRs are normal. Babinski is downgoing. Laboratory data: Lab testing shows WBC 5.7, hemoglobin 13.5, hematocrit 39.5 Chemistries sodium 134, potassium 3.3, glucose 188, calcium 8.3, magnesium 1.7, ferritin 787, AST 71, alk phos 136, LDH 413, BNP 233 Coagulation panel shows D-dimer of 0.58 ABG shows pH of 7.5, PCO2 32.1, PO2 55.4 Impression and recommendation: 1. Elevated inflammatory markers -We will initiate Lovenox 2. Elevated AST, possibly secondary to #4 - trend LFTs - pt also c/o mild abd pain and back pain - Would appreciate GI consult 3. Hyperglycemia without history of diabetes mellitus - A1c ordered - Accu-checks - we will initate insuline sliding scale 4. Pneumonia, likely COVID-19 related - observe off Abx 5. Hypoxia -Currently saturating well on 2-3L NC -Continue monitoring SaO2 and keep it >90% -We will initiate dexamethasone (11/14-) The care for this patient was discussed with my supervising physician. Time spent for this case was approximately 31 minutes. Dominic Toro Nov 14, 2020 13:05
[2020-11-14] MEDS: NovoLOG Insulin Flexpen SUBQ SCH ×2 (16:19→20:25)
--- NOTE | 2020-11-14 17:20 | NUR ---
NURSE HAND-OFF REPORT: Important Events on Shift: admission from ER Patient Status: fc, stable Diet: ccho low, regular texture Pending Orders: Pending Results/Labs: Pending MD notification: Latest Vital Signs: Temperature 98.4 , Pulse 100 , B/P 137 /70 , Respiratory Rate 24 , O2 SAT 93 , Nasal Cannula, O2 Flow Rate 4.0 . Vital Sign Comment: EKG Rhythm: Sinus Rhythm Rhythm change?: N MD Notified?: - MD Response: Latest Rosen Fall Score: 20 Fall Risk: Low Risk Safety Measures: Call light , Bed Alarm Zone 1, Side Rails Side Rails x2, Bed position Low and Locked. Fall Precautions: Yellow Socks Yellow Gown Door Sign Patient Fall Education Report to be given.. Addendum: 11/14/20 at 1944 by Julia Alarcon RN RN NURSE NOTES: Pt stable. Report given to ismael GOMES
--- NOTE | 2020-11-14 18:11 | NUR ---
NURSE NOTES: Pt blood sugar elevated at 1600, left message for Dr Gannon/Muna to see if we could change fluids from d5ns w/kcl to ns w/kcl. awaiting call back Addendum: 11/14/20 at 1943 by Julia Alarcon RN RN Dr Gannon agree, order akcnowledged and carried ouit
--- NOTE | 2020-11-14 19:55 | NUR ---
NURSE NOTES: Report received from Julia GOMES. Patient is laying in bed awake. Patient is AOX4 and able to make needs known, but is only Vietnamese speaking. IV site is asymptomatic, patent, and intact in left AC 20G; no bleeding or erythema noted. no SOB noted.Patient is on 2 l NC. S/l at this time. Patient is not reporting pain at this time. Bed in lowest position locked and side rails up x2. Belonging and call light with in reach. Patient is on wound care mattress for wound care management. Will continue plan of care.
[2020-11-14] MEDS: NS w/KCl 20mEq 1000ml 1,000 ML IV SCH (20:24)
[2020-11-15] VITALS: BP 131/71
[2020-11-15 04:00] VITALS: BP 143/73
--- NOTE | 2020-11-15 05:04 | NUR ---
NURSE NOTES: Left message for Dr. Gannon regarding pt change in O2. pt was on NC 3L but desaturated to 88-89% called RT and pt was placed on Non-rebreather 15L and is now Saturating at 94%. Will continue to monitor.
[2020-11-15] MEDS: NovoLOG Insulin Flexpen SUBQ SCH ×4 (06:23→21:04)
--- NOTE | 2020-11-15 07:22 | NUR ---
NURSE NOTES: Received patient in bed. Awake, A/O x4. Serbian speaking. On 5L NC. Patient denies pain. IV in the Left AC, infusing IVF as ordered. Bed low and locked, side rails up x2, call light within reach with return demonstration.
--- NOTE | 2020-11-15 07:58 | General Progress Note ---
Subjective ROS Limited/Unobtainable: Yes Allergies: Coded Allergies: No Known Allergies (Unverified , 11/10/17) Objective Last 24 Hour Vital Signs Date Time Temp Pulse Resp B/P (MAP) Pulse Ox O2 Delivery O2 Flow Rate FiO2 11/15/20 04:00 98.4 92 24 143/73 (96) 97 11/15/20 04:00 98 11/15/20 00:00 92 11/15/20 00:00 98.1 92 24 131/71 (91) 96 11/14/20 21:00 Nasal Cannula 4.0 11/14/20 20:00 97 11/14/20 20:00 98.4 90 24 130/72 (91) 90 11/14/20 16:00 98.4 100 24 137/70 (92) 93 11/14/20 15:58 98 11/14/20 12:00 98.6 103 26 135/72 (93) 93 11/14/20 12:00 97 11/14/20 09:00 Nasal Cannula 4.0 11/14/20 08:53 Nasal Cannula 4.0 11/14/20 08:00 98.9 100 28 138/67 (90) 93 Intake and Output 11/14/20 11/15/20 19:00 07:00 Intake Total 620 ml 325 ml Balance 620 ml 325 ml Intake Oral 620 ml IV Total 325 ml # Voids 5 Laboratory Tests 11/14/20 16:14: POC Whole Blood Glucose 347H 11/14/20 20:22: POC Whole Blood Glucose 316H Height (Feet): 5 Height (Inches): 1.00 Weight (Pounds): 180 General Appearance: alert EENT: normal ENT inspection Neck: supple Cardiovascular: normal rate Respiratory/Chest: decreased breath sounds Abdomen: hypoactive bowel sounds Extremities: non-tender Assessment/Plan Assessment/Plan: Covid positive PNA mild transaminitismost likely due to above DM smoker repeat lfys abd us if needed covid care will Jose Armando Huffman MD Nov 15, 2020 07:58
[2020-11-15 08:00] VITALS: BP 128/66
--- NOTE | 2020-11-15 08:06 | NUR ---
NURSE HAND-OFF REPORT: Important Events on Shift: patient was placed on non-rebreather 15L message was left Tirmizi. Patient Status: O2 saturation 95% Diet: CCHO Low Pending Orders: Pending Results/Labs: AM labs Pending MD notification: Latest Vital Signs: Temperature 98.4 , Pulse 98 , B/P 143 /73 , Respiratory Rate 24 , O2 SAT 97 , Nasal Cannula, O2 Flow Rate 4.0 . Vital Sign Comment: EKG Rhythm: Sinus Rhythm Rhythm change?: N MD Notified?: - MD Response: Latest Rosen Fall Score: 20 Fall Risk: Low Risk Safety Measures: Call light , Bed Alarm Zone 1, Side Rails Side Rails x2, Bed position Low and Locked. Fall Precautions: Yellow Socks Yellow Gown Door Sign Patient Fall Education Report given to .
[2020-11-15] MEDS: dexAMETHasone 10mg/ml Inj IV SCH (08:29)
[2020-11-15] MEDS: Enoxaparin 40mg Inj SUBQ SCH (08:38)
[2020-11-15 08:39] LABS: HEMATOCRIT 40.4 % (37.0-47.0); HEMOGLOBIN 13.9 G/DL (12.0-16.0); MEAN CORPUSCULAR VOLUME 88 FL (80-99); PLATELET COUNT 252 K/UL (150-450); RED BLOOD COUNT 4.57 M/UL (4.20-5.40); RED CELL DISTRIBUTION WIDTH 12.7 % (11.6-14.8)
[2020-11-15 08:59] LABS: ALANINE AMINOTRANSFERASE 84 U/L (12-78); ALBUMIN 2.8 G/DL (3.4-5.0); ALBUMIN/GLOBULIN RATIO 0.7 (1.0-2.7); ALKALINE PHOSPHATASE 131 U/L (46-116); ANION GAP 7 mmol/L (5-15); ASPARTATE AMINO TRANSFERASE 114 U/L (15-37); BILIRUBIN,TOTAL 0.3 MG/DL (0.2-1.0); BLOOD UREA NITROGEN 15 mg/dL (7-18); CALCIUM 8.8 MG/DL (8.5-10.1); CARBON DIOXIDE 28 MMOL/L (21-32); CHLORIDE 107 MMOL/L (98-107); CREATININE 0.7 MG/DL (0.55-1.30); POTASSIUM 3.5 MMOL/L (3.5-5.1); SODIUM 142 MMOL/L (136-145)
[2020-11-15] MEDS ORDERED: Enoxaparin 40mg Inj SUBQ SCH (09:00)
--- NOTE | 2020-11-15 10:52 | Pulmonology Progress Note ---
Subjective ROS Limited/Unobtainable: Yes Interval Events: Saturations wprse today Constitutional: Reports: no symptoms HEENT: Repors: no symptoms Respiratory: Reports: shortness of breath Cardiovascular: Reports: no symptoms Gastrointestinal/Abdominal: Reports: no symptoms Neurologic: Reports: other - Dizziness Allergies: Coded Allergies: No Known Allergies (Unverified , 11/10/17) Objective Last 24 Hour Vital Signs Date Time Temp Pulse Resp B/P (MAP) Pulse Ox O2 Delivery O2 Flow Rate FiO2 11/15/20 08:00 112 11/15/20 08:00 Nasal Cannula 5.0 11/15/20 08:00 98.2 99 24 128/66 (86) 91 11/15/20 04:00 98.4 92 24 143/73 (96) 97 11/15/20 04:00 98 11/15/20 00:00 92 11/15/20 00:00 98.1 92 24 131/71 (91) 96 11/14/20 21:00 Nasal Cannula 4.0 11/14/20 20:00 97 11/14/20 20:00 98.4 90 24 130/72 (91) 90 11/14/20 16:00 98.4 100 24 137/70 (92) 93 11/14/20 15:58 98 11/14/20 12:00 98.6 103 26 135/72 (93) 93 11/14/20 12:00 97 Intake and Output 11/14/20 11/15/20 19:00 07:00 Intake Total 620 ml 485 ml Balance 620 ml 485 ml Intake Oral 620 ml 160 ml IV Total 325 ml # Voids 5 2 General Appearance: no acute distress HEENT: normocephalic Respiratory: chest wall non-tender Cardiovascular: normal peripheral pulses Abdomen: normal bowel sounds Microbiology Date/Time Source Procedure Growth Status 11/14/20 01:54 Nasal Nares - Final Complete 11/14/20 01:54 Nasal Nares - Final Complete Laboratory Tests 11/14/20 16:14: POC Whole Blood Glucose 347H 11/14/20 20:22: POC Whole Blood Glucose 316H 11/15/20 07:05: White Blood Count 13.0#H, Red Blood Count 4.57, Hemoglobin 13.9, Hematocrit 40.4, Mean Corpuscular Volume 88, Mean Corpuscular Hemoglobin 30.4, Mean Corpuscular Hemoglobin Concent 34.4, Red Cell Distribution Width 12.7, Platelet Count 252, Mean Platelet Volume 5.4L, Neutrophils (%) (Auto) , Lymphocytes (%) (Auto) , Monocytes (%) (Auto) , Eosinophils (%) (Auto) , Basophils (%) (Auto) , Differential Total Cells Counted 100, Neutrophils % (Manual) 89H, Lymphocytes % (Manual) 5L, Monocytes % (Manual) 6, Eosinophils % (Manual) 0, Basophils % (Manual) 0, Band Neutrophils 0, Platelet Estimate Adequate, Platelet Morphology Normal, Red Blood Cell Morphology Normal, Sodium Level 142, Potassium Level 3.5, Chloride Level 107, Carbon Dioxide Level 28, Anion Gap 7, Blood Urea Nitrogen 15, Creatinine 0.7, Estimat Glomerular Filtration Rate > 60, Glucose Level 272H, Calcium Level 8.8, Total Bilirubin 0.3, Aspartate Amino Transf (AST/SGOT) 114H, Alanine Aminotransferase (ALT/SGPT) 84H, Alkaline Phosphatase 131H, Total Protein 7.0, Albumin 2.8L, Globulin 4.2, Albumin/Globulin Ratio 0.7L Current Medications Medications (Trade) Dose Ordered Sig/Kayla Route PRN Reason Start Time Stop Time Status Last Admin Dose Admin Acetaminophen (Tylenol) 650 mg Q6H PRN ORAL For Headache 11/14/20 13:15 12/14/20 13:14 11/15/20 10:28 Albuterol Sulfate (Proventil MDI) 2 puff Q4H PRN INH Shortness of Breath 11/15/20 10:30 02/13/21 10:29 UNV Dexamethasone Sodium Phosphate (Decadron 10mg/ ml Inj) 6 mg DAILY IV 11/15/20 09:00 11/23/20 09:01 11/15/20 08:29 Dextrose (Dextrose 50%) 25 ml Q30M PRN IV Hypoglycemia 11/14/20 13:15 02/12/21 13:14 Dextrose (Dextrose 50%) 50 ml Q30M PRN IV Hypoglycemia 11/14/20 13:15 02/12/21 13:14 Enoxaparin Sodium (Lovenox) 40 mg DAILY SUBQ 11/15/20 09:00 02/13/21 08:59 11/15/20 08:38 Insulin Aspart (NovoLOG) BEFORE MEALS AND HS SUBQ 11/14/20 16:30 02/12/21 16:29 11/15/20 06:23 Potassium Chloride/Sodium Chloride 1,000 ml @ 50 mls/hr Q20H IV 11/14/20 20:00 12/14/20 19:59 11/14/20 20:24 Assessment/Plan Assessment/Plan Impression 1. Elevated inflammatory markers -Continue Lovenox 2. Elevated AST - trend LFTs - pt also c/o mild abd pain and back pain - Would appreciate GI consult 3. Hyperglycemia without history of diabetes mellitus - A1c ordered - Accu-checks - we will initate insuline sliding scale 4. Pneumonia, likely COVID-19 related 5. Hypoxia - PLAN: Contd current treatment plan WBC 13.0 Secondary to steroids Currently saturating 90% at 5L/min refusing non breather Continue monitoring SaO2 and keep it >90% The care for this patient was discussed with my supervising physician. Thien Patterson NP Nov 15, 2020 10:52 Jose Elias Gannon MD Nov 15, 2020 15:12
[2020-11-15 12:00] VITALS: BP 155/74
[2020-11-15] MEDS: Albuterol 90mcg Inhaler 8gm INH PRN ×3 (12:18→21:17)
[2020-11-15 16:00] VITALS: BP 153/76
[2020-11-15] MEDS: NS w/KCl 20mEq 1000ml 1,000 ML IV SCH (16:11)
[2020-11-15] MEDS: Azithromycin 500 MG in D5W 275 ML IV SCH (16:58)
[2020-11-15] MEDS: cefTRIAXone 1 GM in D5W 55 ML IVPB SCH (16:58)
--- NOTE | 2020-11-15 19:22 | NUR ---
NURSE HAND-OFF REPORT: Important Events on Shift:[IV antibiotics, proventil inhaler, tylenol, nonrebreather] Patient Status: [FULL CODE/stable] Diet: [CCHO low] Pending Orders: [] Pending Results/Labs:[] Pending MD notification:[] Latest Vital Signs: Temperature 97.8 , Pulse 109 , B/P 153 /76 , Respiratory Rate 23 , O2 SAT 92 , Nasal Cannula, O2 Flow Rate 5.0 . Vital Sign Comment: [] EKG Rhythm: Sinus Tachycardia Rhythm change?: N Notified?: Eitan Bansal NP, MD Response: No New Orders Received Latest Rosen Fall Score: 20 Fall Risk: Low Risk Safety Measures: Call light , Bed Alarm Zone 1, Side Rails Side Rails x2, Bed position Low and Locked. Fall Precautions: Yellow Socks Yellow Gown Door Sign Patient Fall Education Report given to [Kailash GOMES].
--- NOTE | 2020-11-15 19:30 | NUR ---
NURSE NOTES: Report received from ELISEO Preciado. Patient is awake on bed, alert and oriented x 4. Cardica monitor is in place, shows sinus tachycardia, on 110's-120-'s and MD aware. On CCHO (Low), instructed and amenable. Per RN, patient can ambulate with steady gait. IV site is on left AC g-20 running NS + 20 meqs @ 50 cc/hour that is patent and intact. Safety measures are in place, bed in lowest and locked position, side rails up x 2, bedside table and call light button place within reach, will continue plan of care.
[2020-11-15 20:00] VITALS: BP 159/92
[2020-11-15] MEDS ORDERED: Loading Dose:Remdesivir 200mg/NS 210ml IV SCH ×2 (21:00)
--- NOTE | 2020-11-15 21:50 | NUR ---
NURSE NOTES: Noted that patient desaturate even on a little exertion, 86-88% on non rebreather mask, instructed on bedrest, place purewick on. Will closely monitor.
[2020-11-16] VITALS: BP 156/90
--- NOTE | 2020-11-16 | NUR ---
NURSE NOTES: Patient is sating 88-89% at this time denies any shortness of breath nor chest pain, place on high fowlers position, instructed to call for any assistance needed. Will closely monitor.
[2020-11-16 04:00] VITALS: BP 160/85
--- NOTE | 2020-11-16 04:10 | NUR ---
NURSE NOTES: Noted patient's oxygen saturation is 84-85%, using her accessory muscle to breath, called RT and spoke with Roberta and informed me that no BIPAP available at this time, will call MD.
--- NOTE | 2020-11-16 04:30 | NUR ---
NURSE NOTES: Received order from Dr. Gannon, to place the patient on a prone position.
[2020-11-16 05:35] LABS: HEMATOCRIT 40.6 % (37.0-47.0); HEMOGLOBIN 13.7 G/DL (12.0-16.0); MEAN CORPUSCULAR VOLUME 88 FL (80-99); PLATELET COUNT 279 K/UL (150-450); RED BLOOD COUNT 4.63 M/UL (4.20-5.40); RED CELL DISTRIBUTION WIDTH 13.4 % (11.6-14.8); WHITE BLOOD COUNT 14.5 K/UL (4.8-10.8)
[2020-11-16 05:36] LABS: INR 1.1 (0.9-1.1)
[2020-11-16 05:40] LABS: ALANINE AMINOTRANSFERASE 83 U/L (12-78); ALBUMIN 2.5 G/DL (3.4-5.0); ALBUMIN/GLOBULIN RATIO 0.6 (1.0-2.7); ALKALINE PHOSPHATASE 123 U/L (46-116); ANION GAP 7 mmol/L (5-15); ASPARTATE AMINO TRANSFERASE 89 U/L (15-37); BILIRUBIN,TOTAL 0.3 MG/DL (0.2-1.0); BLOOD UREA NITROGEN 12 mg/dL (7-18); CALCIUM 8.4 MG/DL (8.5-10.1); CARBON DIOXIDE 29 MMOL/L (21-32); CHLORIDE 107 MMOL/L (98-107); CREATININE 0.7 MG/DL (0.55-1.30); POTASSIUM 3.7 MMOL/L (3.5-5.1); SODIUM 142 MMOL/L (136-145)
[2020-11-16] MEDS: NovoLOG Insulin Flexpen SUBQ SCH ×4 (05:55→20:11)
[2020-11-16] MEDS: NS w/KCl 20mEq 1000ml 1,000 ML IV SCH (06:09)
--- NOTE | 2020-11-16 06:28 | General Progress Note ---
Subjective ROS Limited/Unobtainable: No Allergies: Coded Allergies: No Known Allergies (Unverified , 11/10/17) Objective Last 24 Hour Vital Signs Date Time Temp Pulse Resp B/P (MAP) Pulse Ox O2 Delivery O2 Flow Rate FiO2 11/16/20 04:00 97.9 117 20 160/85 (110) 87 11/16/20 03:54 123 11/16/20 00:00 97.7 104 20 156/90 (112) 88 11/15/20 23:52 102 11/15/20 21:00 Non-Rebreather 15.0 11/15/20 20:00 102 11/15/20 20:00 97.2 117 22 159/92 (114) 88 11/15/20 16:00 97.8 116 23 153/76 (101) 92 11/15/20 16:00 109 11/15/20 12:00 98.6 112 22 155/74 (101) 93 11/15/20 12:00 117 11/15/20 08:00 112 11/15/20 08:00 Nasal Cannula 5.0 11/15/20 08:00 98.2 99 24 128/66 (86) 91 Intake and Output 11/15/20 11/16/20 19:00 07:00 Intake Total 950 ml 360 ml Balance 950 ml 360 ml Intake Oral 400 ml 360 ml IV Total 550 ml # Voids 2 3 Laboratory Tests 11/15/20 07:05: White Blood Count 13.0#H, Red Blood Count 4.57, Hemoglobin 13.9, Hematocrit 40.4, Mean Corpuscular Volume 88, Mean Corpuscular Hemoglobin 30.4, Mean Corpuscular Hemoglobin Concent 34.4, Red Cell Distribution Width 12.7, Platelet Count 252, Mean Platelet Volume 5.4L, Neutrophils (%) (Auto) , Lymphocytes (%) (Auto) , Monocytes (%) (Auto) , Eosinophils (%) (Auto) , Basophils (%) (Auto) , Differential Total Cells Counted 100, Neutrophils % (Manual) 89H, Lymphocytes % (Manual) 5L, Monocytes % (Manual) 6, Eosinophils % (Manual) 0, Basophils % (Manual) 0, Band Neutrophils 0, Platelet Estimate Adequate, Platelet Morphology Normal, Red Blood Cell Morphology Normal, Sodium Level 142, Potassium Level 3.5, Chloride Level 107, Carbon Dioxide Level 28, Anion Gap 7, Blood Urea Nitrogen 15, Creatinine 0.7, Estimat Glomerular Filtration Rate > 60, Glucose Level 272H, Calcium Level 8.8, Total Bilirubin 0.3, Aspartate Amino Transf (AST/SGOT) 114H, Alanine Aminotransferase (ALT/SGPT) 84H, Alkaline Phosphatase 131H, Total Protein 7.0, Albumin 2.8L, Globulin 4.2, Albumin/Globulin Ratio 0.7L 11/15/20 12:05: POC Whole Blood Glucose [Pending] 11/16/20 04:00: White Blood Count 14.5H, Red Blood Count 4.63, Hemoglobin 13.7, Hematocrit 40.6, Mean Corpuscular Volume 88, Mean Corpuscular Hemoglobin 29.6, Mean Corpuscular Hemoglobin Concent 33.7, Red Cell Distribution Width 13.4, Platelet Count 279, Mean Platelet Volume 5.5L, Neutrophils (%) (Auto) , Lymphocytes (%) (Auto) , Monocytes (%) (Auto) , Eosinophils (%) (Auto) , Basophils (%) (Auto) , Neutrophils % (Manual) [Pending], Lymphocytes % (Manual) [Pending], Platelet Estimate [Pending], Platelet Morphology [Pending], Sodium Level 142, Potassium Level 3.7, Chloride Level 107, Carbon Dioxide Level 29, Anion Gap 7, Blood Urea Nitrogen 12, Creatinine 0.7, Estimat Glomerular Filtration Rate > 60, Glucose Level 220H, Calcium Level 8.4L, Total Bilirubin 0.3, Aspartate Amino Transf (AST/SGOT) 89H, Alanine Aminotransferase (ALT/SGPT) 83H, Alkaline Phosphatase 123H, Total Protein 6.8, Albumin 2.5L, Globulin 4.3, Albumin/Globulin Ratio 0.6L , Prothrombin Time 11.7H, Prothromb Time International Ratio 1.1, Hepatitis A IgM Antibody [Pending], Hepatitis B Surface Antigen [Pending], Hepatitis B Core IgM Antibody [Pending], Hepatitis C Antibody [Pending] Height (Feet): 5 Height (Inches): 1.00 Weight (Pounds): 180 General Appearance: no apparent distress EENT: normal ENT inspection Neck: supple Cardiovascular: normal rate Respiratory/Chest: decreased breath sounds Abdomen: hypoactive bowel sounds Extremities: non-tender Assessment/Plan Assessment/Plan: Covid positive PNA mild transaminitis most likely due to above>>>>improving DM smoker repeat LFTS abd us if needed fu hepatitis panel covid care will fu Jose Armando Andrews MD Nov 16, 2020 06:28
[2020-11-16] MEDS: Albuterol 90mcg Inhaler 8gm INH PRN ×4 (07:30→19:32)
--- NOTE | 2020-11-16 07:30 | NUR ---
NURSE HAND-OFF REPORT: Important Events on Shift: Patient has beed desaturating the whole night, lowest is 84% and Dr. Gannon aware, ordered to position the patient in prone position and oxygen went up to 87-89 %. Patient Status: Patient is awake still having a hard time to catch up her breath, plan of care endorsed. Diet: CCHO(Low) Pending Orders: Chest xray Pending Results/Labs:AM lab result Pending MD notification:stable Latest Vital Signs: Temperature 97.9 , Pulse 117 , B/P 160 /85 , Respiratory Rate 20 , O2 SAT 87 , Nasal Cannula, O2 Flow Rate 15.0 . Vital Sign Comment: EKG Rhythm: Sinus Tachycardia Rhythm change?: N MD Notified?: Eitan Bansal NP, MD Response: No New Orders Received Latest Rosen Fall Score: 30 Fall Risk: Medium Risk Safety Measures: Call light Within Reach, Bed Alarm Zone 1, Side Rails Side Rails x2, Bed position Low and Locked. Fall Precautions: Yellow Socks Yellow Gown Door Sign Patient Fall Education Report given to ELISEO Preciado.
--- NOTE | 2020-11-16 07:39 | NUR ---
NURSE NOTES: Received patient in bed. Awake, A/O x4. On Nonrebreather 15 L. Patient denies pain. IV in the Left AC, infusing IVF as ordered. Bed low and locked, side rails up x2, call lighty within reach with return demonstration.
[2020-11-16 08:00] VITALS: BP 155/78
[2020-11-16] MEDS: dexAMETHasone 10mg/ml Inj IV SCH (08:09)
[2020-11-16] MEDS: Enoxaparin 40mg Inj SUBQ SCH (08:21)
--- NOTE | 2020-11-16 10:00 | Diagnostic Imaging Report ---
EXAM: XR Chest, 1 View CLINICAL HISTORY: ABN CHST TECHNIQUE: Frontal view of the chest. COMPARISON: Chest radiograph November 14, 2020. FINDINGS/IMPRESSION: Severe bilateral airspace consolidations, consistent with severe multifocal infiltrates, which have significantly increased when compared to November 14, 2020. Respiratory status should be evaluated. No pneumothorax. Cardiomegaly.
--- NOTE | 2020-11-16 10:16 | NUR ---
NURSE NOTES: Patient laying in prone position. Patient educated on deep breathing exercises with frequent reminders. O2 sat at 94% in prone position. Dr alcazar made aware with new order for high flow O2 with nonrebreather, hold off on ICU transfer.
--- NOTE | 2020-11-16 10:59 | Pulmonology Progress Note ---
Subjective ROS Limited/Unobtainable: No Interval Events: Saturations wprse today Constitutional: Reports: no symptoms HEENT: Repors: no symptoms Respiratory: Reports: shortness of breath, dyspnea at rest Cardiovascular: Reports: no symptoms Gastrointestinal/Abdominal: Reports: no symptoms Neurologic: Reports: other - Dizziness Allergies: Coded Allergies: No Known Allergies (Unverified , 11/10/17) Objective Last 24 Hour Vital Signs Date Time Temp Pulse Resp B/P (MAP) Pulse Ox O2 Delivery O2 Flow Rate FiO2 11/16/20 08:02 Non-Rebreather 15.0 11/16/20 08:00 97.2 120 26 155/78 (103) 90 11/16/20 08:00 128 11/16/20 04:00 97.9 117 20 160/85 (110) 87 11/16/20 03:54 123 11/16/20 00:00 97.7 104 20 156/90 (112) 88 11/15/20 23:52 102 11/15/20 21:00 Non-Rebreather 15.0 11/15/20 20:00 102 11/15/20 20:00 97.2 117 22 159/92 (114) 88 11/15/20 16:00 97.8 116 23 153/76 (101) 92 11/15/20 16:00 109 11/15/20 12:00 98.6 112 22 155/74 (101) 93 11/15/20 12:00 117 Intake and Output 11/15/20 11/16/20 19:00 07:00 Intake Total 950 ml 360 ml Balance 950 ml 360 ml Intake Oral 400 ml 360 ml IV Total 550 ml # Voids 2 3 General Appearance: no acute distress HEENT: normocephalic Respiratory: chest wall non-tender Cardiovascular: normal peripheral pulses Abdomen: normal bowel sounds Microbiology Date/Time Source Procedure Growth Status 11/14/20 01:54 Nasal Nares - Final Complete 11/14/20 01:54 Nasal Nares - Final Complete 11/14/20 01:54 Blood Blood Culture - Preliminary NO GROWTH AFTER 48 HOURS Resulted 11/14/20 01:40 Blood Blood Culture - Preliminary NO GROWTH AFTER 48 HOURS Resulted Laboratory Tests 11/15/20 12:05: POC Whole Blood Glucose [Pending] 11/16/20 04:00: White Blood Count 14.5H, Red Blood Count 4.63, Hemoglobin 13.7, Hematocrit 40.6, Mean Corpuscular Volume 88, Mean Corpuscular Hemoglobin 29.6, Mean Corpuscular Hemoglobin Concent 33.7, Red Cell Distribution Width 13.4, Platelet Count 279, Mean Platelet Volume 5.5L, Neutrophils (%) (Auto) , Lymphocytes (%) (Auto) , Monocytes (%) (Auto) , Eosinophils (%) (Auto) , Basophils (%) (Auto) , Differential Total Cells Counted 100, Neutrophils % (Manual) 89H, Lymphocytes % (Manual) 4L, Monocytes % (Manual) 7, Eosinophils % (Manual) 0, Basophils % (Manual) 0, Band Neutrophils 0, Platelet Estimate Adequate, Platelet Morphology Normal, Red Blood Cell Morphology Normal, Prothrombin Time 11.7H, Prothromb Time International Ratio 1.1, Sodium Level 142, Potassium Level 3.7, Chloride Level 107, Carbon Dioxide Level 29, Anion Gap 7, Blood Urea Nitrogen 12, Creatinine 0.7, Estimat Glomerular Filtration Rate > 60, Glucose Level 220H, Calcium Level 8.4L, Total Bilirubin 0.3, Aspartate Amino Transf (AST/SGOT) 89H, Alanine Ren otransferase (ALT/SGPT) 83H, Alkaline Phosphatase 123H, Total Protein 6.8, Albumin 2.5L, Globulin 4.3, Albumin/Globulin Ratio 0.6L, Hepatitis A IgM Antibody [Pending], Hepatitis B Surface Antigen [Pending], Hepatitis B Core IgM Antibody [Pending], Hepatitis C Antibody [Pending] Current Medications Medications (Trade) Dose Ordered Sig/Kayla Route PRN Reason Start Time Stop Time Status Last Admin Dose Admin Acetaminophen (Tylenol) 650 mg Q6H PRN ORAL For Headache 11/14/20 13:15 12/14/20 13:14 11/16/20 08:10 Albuterol Sulfate (Proventil MDI) 2 puff Q4H PRN INH Shortness of Breath 11/15/20 10:30 02/13/21 10:29 11/16/20 07:30 Azithromycin 500 mg/Dextrose 275 ml @ 275 mls/hr Q24HRS IV 11/15/20 16:30 11/21/20 17:29 11/15/20 16:58 Ceftriaxone Sodium 1 gm/ Dextrose 55 ml @ 110 mls/hr Q24H IVPB 11/15/20 16:30 11/22/20 16:29 11/15/20 16:58 Dexamethasone Sodium Phosphate (Decadron 10mg/ ml Inj) 6 mg DAILY IV 11/15/20 09:00 11/23/20 09:01 11/16/20 08:09 Dextrose (Dextrose 50%) 25 ml Q30M PRN IV Hypoglycemia 11/14/20 13:15 02/12/21 13:14 Dextrose (Dextrose 50%) 50 ml Q30M PRN IV Hypoglycemia 11/14/20 13:15 02/12/21 13:14 Enoxaparin Sodium (Lovenox) 40 mg DAILY SUBQ 11/15/20 09:00 02/13/21 08:59 11/16/20 08:21 Insulin Aspart (NovoLOG) BEFORE MEALS AND HS SUBQ 11/14/20 16:30 02/12/21 16:29 11/16/20 05:55 Potassium Chloride/Sodium Chloride 1,000 ml @ 50 mls/hr Q20H IV 11/14/20 20:00 12/14/20 19:59 11/16/20 06:09 Remdesivir 100 mg/ Sodium Chloride 250 ml @ 250 mls/hr Q24H IV 11/16/20 21:00 11/19/20 21:59 Assessment/Plan Assessment/Plan Impression 1. Elevated inflammatory markers -We will initiate Lovenox 2. Elevated AST - trend LFTs - pt also c/o mild abd pain and back pain - Would appreciate GI consult 3. Hyperglycemia without history of diabetes mellitus - A1c ordered - Accu-checks - we will initate insuline sliding scale 4. Pneumonia, likely COVID-19 related CXR Severe bilateral airspace consolidations, consistent with severe multifocal infiltrates, which have significantly increased. No pneumothorax. Cardiomegaly. 5. Hypoxia 6. Elevated WBC Defer to ID - PLAN Currently saturating 92-94% non breather 15L pron position, will add Hi Flow oxygen therapy, if condition doesn't improve will transfer patient to ICU Continue monitoring SaO2 and keep it >92% Started on Azithromycin and Ceftriaxone I/V Will monitor closely Above plan was discussed with supervising physician. Thien Patterson NP Nov 16, 2020 10:58
[2020-11-16 12:00] VITALS: BP 132/86
[2020-11-16 16:00] VITALS: BP 150/64
[2020-11-16] MEDS ORDERED: NS 275ml ONE (16:12)
[2020-11-16] MEDS: Azithromycin 500 MG in D5W 275 ML IV SCH (17:09)
[2020-11-16] MEDS: cefTRIAXone 1 GM in D5W 55 ML IVPB SCH (17:10)
--- NOTE | 2020-11-16 19:32 | NUR ---
NURSE HAND-OFF REPORT: Important Events on Shift:[HIGH flow O2 NC, transfer to ICU] Patient Status: [FULL CODE] Diet: [CCHO low] Pending Orders: [transfer to ICU] Pending Results/Labs:[] Pending MD notification:[] Latest Vital Signs: Temperature 97.9 , Pulse 114 , B/P 150 /64 , Respiratory Rate 25 , O2 SAT 92 , Nasal Cannula, O2 Flow Rate 50.0 . Vital Sign Comment: [] EKG Rhythm: Sinus Tachycardia Rhythm change?: N MD Notified?: Eitan Bansal NP, MD Response: No New Orders Received Latest Rosen Fall Score: 30 Fall Risk: Medium Risk Safety Measures: Call light Within Reach, Bed Alarm Zone 1, Side Rails Side Rails x2, Bed position Low and Locked. Fall Precautions: Yellow Socks Yellow Gown Door Sign Patient Fall Education Report given to [Kailash GOMES].
--- NOTE | 2020-11-16 19:35 | NUR ---
NURSE NOTES: Report received from ELISEO Preciado. Patient is awake on bed, alert and oriented x 4. On oxygen via non rebreather with high flow 50L, 100% Fi02 and sating 91-92% at this time. On CCHO (Low), instructed and amenable. IV site is on right hand running NS + 20 meqs kcl @ 50 cc/hour and IV site is on left AC g-20 saline locked that is patent and intact. Safety measures are in place, bed in lowest and locked position, side rails up x 2, call light button and bedside table within reach, instructed to call for any assistance needed, will continue plan of care.
[2020-11-16 20:00] VITALS: BP 145/65
[2020-11-16] MEDS: Maintenance Dose:Remdesivir 100mg/NS 230ml x 4 Doses IV SCH ×2 (20:07)
--- NOTE | 2020-11-16 20:45 | NUR ---
NURSE NOTES: Patient has a fever of 100.6, cooling measures provided. Will call MD for order.
--- NOTE | 2020-11-16 20:50 | NUR ---
NURSE NOTES: Called Dr. Gannon and awaiting for call back.
[2020-11-17] VITALS: BP 147/60
[2020-11-17] MEDS: Albuterol 90mcg Inhaler 8gm INH PRN ×2 (00:46→06:04)
[2020-11-17 04:00] VITALS: BP 148/67
[2020-11-17 05:11] LABS: HEMATOCRIT 40.6 % (37.0-47.0); HEMOGLOBIN 14.1 G/DL (12.0-16.0); MEAN CORPUSCULAR VOLUME 87 FL (80-99); PLATELET COUNT 270 K/UL (150-450); RED BLOOD COUNT 4.68 M/UL (4.20-5.40); RED CELL DISTRIBUTION WIDTH 13.3 % (11.6-14.8); WHITE BLOOD COUNT 17.4 K/UL (4.8-10.8)
[2020-11-17 05:31] LABS: INR 1.1 (0.9-1.1)
[2020-11-17 05:42] LABS: ALANINE AMINOTRANSFERASE 89 U/L (12-78); ALBUMIN 2.5 G/DL (3.4-5.0); ALBUMIN/GLOBULIN RATIO 0.6 (1.0-2.7); ALKALINE PHOSPHATASE 127 U/L (46-116); ANION GAP 8 mmol/L (5-15); ASPARTATE AMINO TRANSFERASE 84 U/L (15-37); BILIRUBIN,TOTAL 0.5 MG/DL (0.2-1.0); BLOOD UREA NITROGEN 16 mg/dL (7-18); CALCIUM 8.4 MG/DL (8.5-10.1); CARBON DIOXIDE 28 MMOL/L (21-32); CHLORIDE 105 MMOL/L (98-107); CREATININE 0.8 MG/DL (0.55-1.30); POTASSIUM 3.3 MMOL/L (3.5-5.1); SODIUM 141 MMOL/L (136-145)
[2020-11-17] MEDS: NovoLOG Insulin Flexpen SUBQ SCH ×4 (06:07→21:17)
--- NOTE | 2020-11-17 07:39 | NUR ---
NURSE HAND-OFF REPORT: Important Events on Shift: Patient has been sating 88-90% on non-rebreather and 15 Liters and high flow 50L and Fio2 100%. Patient hasd a fever as well band resolved on cooling measures. Patient Status: Patient is awake on bed, sating 89-90%. Plan of care endorsed. Diet: CCHO (Low) Pending Orders: none Pending Results/Labs:AM lab result Pending MD notification:none Latest Vital Signs: Temperature 99.5 , Pulse 100 , B/P 148 /67 , Respiratory Rate 32 , O2 SAT 90 , Nasal Cannula, O2 Flow Rate 50.0 . Vital Sign Comment: stable EKG Rhythm: Sinus Rhythm Rhythm change?: N MD Notified?: Eitan Bansal NP, MD Response: No New Orders Received Latest Rosen Fall Score: 30 Fall Risk: Medium Risk Safety Measures: Call light Within Reach, Bed Alarm Zone 1, Side Rails Side Rails x2, Bed position Low and Locked. Fall Precautions: Yellow Socks Yellow Gown Door Sign Patient Fall Education Report given to ELISEO Hollis.
--- NOTE | 2020-11-17 07:55 | NUR ---
NURSE NOTES: Report received from Katie GOMES. Patient seen on rounds, awake and sitting up in bed, on NRM at 15lpm and high flow at Fi02 100% sats 88%. PIV on left AC patent and intact, PIV on right hand infusing NS + 20meqs KCL at 50cc/hr. Purewick on and draining. Commode at bedside. Bed low and locked, siderails up x2, call light placed within reach and instructed to call nurse for assistance. Will continue to monitor.
[2020-11-17 08:00] VITALS: BP 99/79
--- NOTE | 2020-11-17 08:06 | NUR ---
NURSE NOTES: Placed call to RT to reassess patient and inquire about bipap. RT will call back.
[2020-11-17] MEDS: dexAMETHasone 10mg/ml Inj IV SCH (09:14)
[2020-11-17] MEDS: Enoxaparin 40mg Inj SUBQ SCH (09:16)
[2020-11-17] MEDS: NS w/KCl 20mEq 1000ml 1,000 ML IV SCH (09:18)
[2020-11-17 12:00] VITALS: BP 166/82
--- NOTE | 2020-11-17 13:15 | Consultation ---
DATE OF CONSULTATION: 11/17/2020 INFECTIOUS DISEASES CONSULTATION CONSULTING PHYSICIAN: Arthur Blair MD. REFERRING PHYSICIAN: Jose Elias Gannon MD. REASON FOR CONSULTATION: COVID-19 pneumonia. HISTORY OF PRESENTING ILLNESS: This is a 68-year-old lady with history of obesity and hypertension who came in with shortness of breath. She was found to have COVID-19 pneumonia. She also has body aches, fever and chills along with fatigue, chest pain, and cough. An Infectious Diseases consultation has been obtained for antibiotics. PAST MEDICAL HISTORY: 1. History of obesity. 2. Hypertension. SOCIAL HISTORY: She is a smoker. She does not drink or use drugs. FAMILY HISTORY: Noncontributory. REVIEW OF SYSTEMS: RESPIRATORY: She has fever and chills. She has cough. She has shortness of breath. She has chest pain. CARDIAC: She has chest pain. No palpitation. No dizziness. No syncope. GASTROINTESTINAL: No nausea. No vomiting. No abdominal pain. No diarrhea. MUSCULOSKELETAL: She has body aches and fatigue. MEDICATIONS: As an inpatient, she is on Remdesivir, azithromycin, ceftriaxone, albuterol dexamethasone, enoxaparin, potassium, insulin, Tylenol. ALLERGIES: No known drug allergies. PHYSICAL EXAMINATION: VITAL SIGNS: Temperature 98.6, T-max of 100.6, pulse of 85, respiratory rate 24, blood pressure 99/79, O2 saturation of 92% on 15 liters of oxygen. Examination deferred due to COVID-19. LABORATORY AND DIAGNOSTIC DATA: White count 17.4, hemoglobin 14.1, hematocrit 40.6, MCV 87, platelet count 270, neutrophils of 85%. Sodium 141, potassium 3.3, chloride 105, bicarb 28, BUN 16, creatinine 0.8, glucose 190, calcium 8.4. Total bilirubin 0.5, AST 84, ALT 89, alkaline phosphatase 127. Total protein 6.6, albumin 2.5. Lipase 207. UA showing 0 to 2 white cells. Blood cultures are negative. Nasal swab was negative for influenza A and B. Chest x-ray on 11/16/2019 showed severe bilateral airspace consolidations consistent with severe multifocal infiltrate. ASSESSMENT: This is a 68-year-old lady with history of obesity and hypertension who comes in with fever, cough, shortness of breath, and chest pain and is found to have. 1. COVID-19 pneumonia. She is on 15 liters of oxygen with O2 saturation of 92%. 2. Obesity. 3. Hypertension. 4. Leukocytosis is likely secondary to steroids. PLAN: 1. Continue Remdesivir day #3. 2. Continue dexamethasone day#4. 3. Continue ceftriaxone. 4. Discontinue azithromycin. 5. Continue isolation. I would like to thank, Dr. Gannon, for this consultation. Arthur Blair M.D. DR: Shahid JOB#: [id number] CC: Jose Elias Gannon M.D.; Fax#: [phone]
--- NOTE | 2020-11-17 13:39 | NUR ---
NURSE NOTES: Updated PA Dominic Toro, sats ranging from 85-92%. Pt sats drop to 85% when sitting up, eating and with exertion. Spoke with RT and currently no bipap machine available. Also given contact number for daughter Tonya, they would like to speak with him or Dr. Gannon re: updates.
[2020-11-17] MEDS ORDERED: Tubing IV Secondary IV ONE (13:41)
--- NOTE | 2020-11-17 13:55 | NUR ---
NURSE NOTES: Patient placed on prone position, sats at 86-87%. Notified RT.
[2020-11-17] MEDS ORDERED: Enoxaparin 80mg Inj SUBQ SCH ×2 (14:00→21:00)
--- NOTE | 2020-11-17 14:05 | Pulmonology Progress Note ---
Subjective ROS Limited/Unobtainable: Yes Interval Events: Saturations worse today Constitutional: Reports: no symptoms HEENT: Repors: no symptoms Respiratory: Reports: shortness of breath, dyspnea at rest Cardiovascular: Reports: no symptoms Gastrointestinal/Abdominal: Reports: no symptoms Neurologic: Reports: other - Dizziness Allergies: Coded Allergies: No Known Allergies (Unverified , 11/10/17) Objective Last 24 Hour Vital Signs Date Time Temp Pulse Resp B/P (MAP) Pulse Ox O2 Delivery O2 Flow Rate FiO2 11/17/20 12:00 99.7 115 24 166/82 (110) 90 11/17/20 12:00 113 11/17/20 09:00 Non-Rebreather 15.0 11/17/20 08:00 112 11/17/20 08:00 98.6 85 24 99/79 (86) 92 11/17/20 07:30 92 High Flow 50.0 100 11/17/20 07:30 108 22 92 High Flow 50.0 100 11/17/20 04:00 100 11/17/20 04:00 99.5 114 32 148/67 (94) 90 11/17/20 02:44 96 High Flow 50.0 100 11/17/20 00:00 113 11/17/20 00:00 99.6 112 35 147/60 (89) 91 11/16/20 23:26 87 High Flow 50.0 100 11/16/20 23:00 99.8 11/16/20 22:00 100.3 11/16/20 21:00 Non-Rebreather 15.0 11/16/20 20:00 100.6 108 37 145/65 (91) 91 11/16/20 20:00 110 11/16/20 19:41 115 26 91 High Flow 50.0 100 11/16/20 19:41 91 High Flow 50.0 100 11/16/20 16:00 114 11/16/20 16:00 97.9 114 25 150/64 (92) 92 11/16/20 14:08 92 High Flow 50.0 100 Intake and Output 11/16/20 11/17/20 19:00 07:00 Intake Total 400 ml 350 ml Balance 400 ml 350 ml Intake Oral 400 ml 350 ml # Voids 2 3 General Appearance: no acute distress HEENT: normocephalic Respiratory: chest wall non-tender Cardiovascular: normal peripheral pulses Abdomen: normal bowel sounds Laboratory Tests 11/17/20 04:00: White Blood Count 17.4H, Red Blood Count 4.68, Hemoglobin 14.1, Hematocrit 40.6, Mean Corpuscular Volume 87, Mean Corpuscular Hemoglobin 30.2, Mean Corpuscular Hemoglobin Concent 34.7, Red Cell Distribution Width 13.3, Platelet Count 270, Mean Platelet Volume 5.2L, Neutrophils (%) (Auto) , Lymphocytes (%) (Auto) , Monocytes (%) (Auto) , Eosinophils (%) (Auto) , Basophils (%) (Auto) , Differential Total Cells Counted 100, Neutrophils % (Manual) 85H, Lymphocytes % (Manual) 7L, Monocytes % (Manual) 8, Eosinophils % (Manual) 0, Basophils % (Manual) 0, Band Neutrophils 0, Platelet Estimate Adequate, Platelet Morphology Normal, Red Blood Cell Morphology Normal, Prothrombin Time 12.3H, Prothromb Time International Ratio 1.1, Sodium Level 141, Potassium Level 3.3L, Chloride Level 105, Carbon Dioxide Level 28, Anion Gap 8, Blood Urea Nitrogen 16, Creatinine 0.8, Estimat Glomerular Filtration Rate > 60, Glucose Level 190H, Calcium Level 8.4L, Total Bilirubin 0.5, Aspartate Amino Transf (AST/SGOT) 84H, Alanine Aminotransferase (ALT/SGPT) 89H, Alkaline Phosphatase 127H, Total Protein 6.6, Albumin 2.5L, Globulin 4.1, Albumin/Globulin Ratio 0.6L 11/17/20 06:06: POC Whole Blood Glucose [Pending] Current Medications Medications (Trade) Dose Ordered Sig/Kayla Route PRN Reason Start Time Stop Time Status Last Admin Dose Admin Acetaminophen (Tylenol) 650 mg Q6H PRN ORAL For Headache 11/14/20 13:15 12/14/20 13:14 11/16/20 08:10 Albuterol Sulfate (Proventil MDI) 2 puff Q4H PRN INH Shortness of Breath 11/15/20 10:30 02/13/21 10:29 11/17/20 06:04 Ceftriaxone Sodium 1 gm/ Dextrose 55 ml @ 110 mls/hr Q24H IVPB 11/15/20 16:30 11/22/20 16:29 11/16/20 17:10 Dexamethasone Sodium Phosphate (Decadron 10mg/ ml Inj) 6 mg DAILY IV 11/15/20 09:00 11/23/20 09:01 11/17/20 09:14 Dextrose (Dextrose 50%) 25 ml Q30M PRN IV Hypoglycemia 11/14/20 13:15 02/12/21 13:14 Dextrose (Dextrose 50%) 50 ml Q30M PRN IV Hypoglycemia 11/14/20 13:15 02/12/21 13:14 Enoxaparin Sodium (Lovenox) 40 mg DAILY SUBQ 11/15/20 09:00 02/13/21 08:59 11/17/20 09:16 Insulin Aspart (NovoLOG) BEFORE MEALS AND HS SUBQ 11/14/20 16:30 02/12/21 16:29 11/17/20 12:21 Potassium Chloride/Sodium Chloride 1,000 ml @ 50 mls/hr Q20H IV 11/14/20 20:00 12/14/20 19:59 11/17/20 09:18 Remdesivir 100 mg/ Sodium Chloride 250 ml @ 250 mls/hr Q24H IV 11/16/20 21:00 11/19/20 21:59 11/16/20 20:07 Assessment/Plan Assessment/Plan 1. Elevated inflammatory markers -Will increase Lovenox to full dose 2. Elevated AST - trend LFTs 3. Hyperglycemia without history of diabetes mellitus - A1c ordered - Accu-checks - Continue insulin sliding scale 4. Pneumonia, likely COVID-19 related CXR Severe bilateral airspace consolidations, consistent with severe multifocal infiltrates, which have significantly increased. No pneumothorax. Cardiomegaly. Seen by ID On Remdesiver, broad spectrum abx and steroids 5. Hypoxia; on Hi flow o2 and NRBM Jose Elias Gannon MD Nov 17, 2020 14:05
[2020-11-17] MEDS ORDERED: Enoxaparin 40mg Inj SUBQ SCH (14:06)
--- NOTE | 2020-11-17 14:12 | NUR ---
CASE MANAGEMENT:REVIEW SI;COVID PNA. HYPOXIA. 100.6 115 37 99/79 87% 50L HIGH FLOW FIO2 100% WBC 17.4 K+ 3.3 GLU+ 190 AST 84 ALT 89 ALP 127 ALB 2.5 CXR 11/16/20 ~ Severe bilateral airspace consolidations, consistent with severe multifocal infiltrates, which have significantly increased when compared to November 14, 2020. Respiratory status should be evaluated. IS;LOVENOX SQ Q12 LASIX IV QD REMDESIVIR IV Q24 ROCEPHIN IV QD DECADRON IV QDC KCL IV TELE STATUS DCP;FROM HOME
[2020-11-17] MEDS: Docusate 100mg cap ORAL SCH ×2 (14:19→18:00)
--- NOTE | 2020-11-17 14:45 | NUR ---
NURSE NOTES: Left urgent message with Dr. Gannon, patient sats 87-89% on high flow O2 and NRM, pt placed on proning position. RT came to reassess and hightest O2 sat 89%. Awaiting callback.
--- NOTE | 2020-11-17 15:07 | NUR ---
NURSE NOTES: Charge nurse Alicja Hughes updated re: patient's sats (85-87%) and she placed another call to Dr. Gannon. Awaiting response.
[2020-11-17 16:00] VITALS: BP 153/82
[2020-11-17] MEDS: cefTRIAXone 1 GM in D5W 55 ML IVPB SCH (17:26)
--- NOTE | 2020-11-17 19:26 | NUR ---
NURSE HAND-OFF REPORT: Important Events on Shift: Patient pending transfer to ICU; ER MD ordered another stat ABG; endorsed to NOC shift Patient Status: Guarded Diet: CCHO Low Pending Orders: Transfer to ICU Pending Results/Labs: Stat ABG Pending notification: ABG results Latest Vital Signs: Temperature 98.4 , Pulse 128 , B/P 153 /82 , Respiratory Rate 22 , O2 SAT 93 , Nasal Cannula, O2 Flow Rate 50.0 . Vital Sign Comment: EKG Rhythm: Sinus Tachycardia Rhythm change?: N Notified?: Eitan Bansal NP, MD Response: No New Orders Received Latest Rosen Fall Score: 30 Fall Risk: Medium Risk Safety Measures: Call light Within Reach, Bed Alarm Zone 1, Side Rails Side Rails x2, Bed position Low and Locked. Fall Precautions: Yellow Socks Yellow Gown Door Sign Patient Fall Education Report given to Ki GOMES.
--- NOTE | 2020-11-17 19:30 | NUR ---
NURSE NOTES: Report received from Rosangela GOMES. Pt A+OX4 [place] speaking. Patient seen lying down in bed, on NonRebreather at 15 LPM and High Flow at 50 LPM Fi02 100% saturating 91%. PIV on left AC patent and intact, PIV on right hand patent and intact. Purewick on and draining. Commode at bedside. Bed low and locked, siderails up x2, call light placed within reach and instructed to call nurse for assistance. Will continue to monitor.
[2020-11-17 20:00] VITALS: BP 153/82
--- NOTE | 2020-11-17 20:30 | NUR ---
NURSE NOTES: Stat ABG's done by RT Nicole ordered by Dr. Barreto in ED. saw ABG results. She ordered pt to go to ICU to be intubated but since there are no nurses in ICU she said pt has to stay in Tele overnight. Pt saturating 91% on Nonrebreather 15L and High Flow 50 LPM FiO2 100%. Continue to monitor.
[2020-11-17] MEDS: Maintenance Dose:Remdesivir 100mg/NS 230ml x 4 Doses IV SCH ×2 (21:00)
[2020-11-18] VITALS (30 sets, daily range): BP systolic 76–177; BP diastolic 50–140
[2020-11-18] MEDS: NovoLOG Insulin Flexpen SUBQ SCH ×4 (06:30→21:20)
[2020-11-18 07:09] LABS: HEMATOCRIT 43.3 % (37.0-47.0); HEMOGLOBIN 14.6 G/DL (12.0-16.0); MEAN CORPUSCULAR VOLUME 90 FL (80-99); PLATELET COUNT 290 K/UL (150-450); RED BLOOD COUNT 4.81 M/UL (4.20-5.40); RED CELL DISTRIBUTION WIDTH 11.7 % (11.6-14.8); WHITE BLOOD COUNT 19.2 K/UL (4.8-10.8)
[2020-11-18 07:28] LABS: INR 1.2 (0.9-1.1)
[2020-11-18 07:36] LABS: ALANINE AMINOTRANSFERASE 80 U/L (12-78); ALBUMIN 2.5 G/DL (3.4-5.0); ALBUMIN/GLOBULIN RATIO 0.6 (1.0-2.7); ALKALINE PHOSPHATASE 153 U/L (46-116); ANION GAP 9 mmol/L (5-15); ASPARTATE AMINO TRANSFERASE 65 U/L (15-37); BILIRUBIN,DIRECT 0.3 MG/DL (0.0-0.3); BILIRUBIN,TOTAL 0.9 MG/DL (0.2-1.0); BLOOD UREA NITROGEN 18 mg/dL (7-18); CALCIUM 7.7 MG/DL (8.5-10.1); CARBON DIOXIDE 29 MMOL/L (21-32); CHLORIDE 102 MMOL/L (98-107); CREATININE 0.6 MG/DL (0.55-1.30); SODIUM 140 MMOL/L (136-145)
--- NOTE | 2020-11-18 08:00 | NUR ---
NURSE HAND-OFF REPORT: Important Events on Shift:[TRANSFER TO ICU] Patient Status: [] Diet: [NPO] Pending Orders: [] Pending Results/Labs:[] Pending MD notification:[] Latest Vital Signs: Temperature 97.9 , Pulse 110 , B/P 157 /80 , Respiratory Rate 22 , O2 SAT 90 , Nasal Cannula, O2 Flow Rate 50.0 . Vital Sign Comment: [] EKG Rhythm: Sinus Tachycardia Rhythm change?: N MD Notified?: Eitan Bansal NP, MD Response: No New Orders Received Latest Rosen Fall Score: 30 Fall Risk: Medium Risk Safety Measures: Call light Within Reach, Bed Alarm Zone 1, Side Rails Side Rails x2, Bed position Low and Locked. Fall Precautions: Yellow Socks Yellow Gown Door Sign Patient Fall Education Report given to [MILES GOMES].
--- NOTE | 2020-11-18 08:07 | General Progress Note ---
Subjective ROS Limited/Unobtainable: No Allergies: Coded Allergies: No Known Allergies (Unverified , 11/10/17) Objective Last 24 Hour Vital Signs Date Time Temp Pulse Resp B/P (MAP) Pulse Ox O2 Delivery O2 Flow Rate FiO2 11/18/20 04:00 113 11/18/20 04:00 97.9 110 22 157/80 (105) 90 11/18/20 03:42 86 High Flow 50.0 100 11/18/20 00:00 97.1 112 22 159/81 (107) 90 11/18/20 00:00 132 11/17/20 23:42 89 High Flow 50.0 100 11/17/20 21:00 Non-Rebreather 15.0 11/17/20 20:00 96.8 110 22 153/82 (105) 91 11/17/20 20:00 122 11/17/20 18:58 94 High Flow 50.0 100 11/17/20 18:58 110 22 94 High Flow 50.0 100 11/17/20 16:00 98.4 123 22 153/82 (105) 93 11/17/20 16:00 128 11/17/20 14:20 89 High Flow 50.0 100 11/17/20 12:00 99.7 115 24 166/82 (110) 90 11/17/20 12:00 113 11/17/20 11:30 90 High Flow 50.0 100 11/17/20 09:00 Non-Rebreather 15.0 Intake and Output 11/17/20 11/18/20 19:00 07:00 Intake Total 300 ml Output Total 1200 ml Balance -900 ml Intake Oral 300 ml Output Urine Total 1200 ml # Voids 2 Laboratory Tests 11/17/20 16:55: Arterial Blood pH 7.500H, Arterial Blood Partial Pressure CO2 39.2, Arterial Blood Partial Pressure O2 40.3*L, Arterial Blood HCO3 29.9H, Arterial Blood Oxygen Saturation 81.3*L, Arterial Blood Base Excess 6.3H, Ted Test Positive 11/17/20 19:35: Arterial Blood pH 7.520H, Arterial Blood Partial Pressure CO2 31.4L, Arterial Blood Partial Pressure O2 50.9L, Arterial Blood HCO3 25.1, Arterial Blood Oxygen Saturation 88.6*L, Arterial Blood Base Excess 3.0H, Ted Test Positive 11/18/20 06:48: White Blood Count 19.2H, Red Blood Count 4.81, Hemoglobin 14.6, Hematocrit 43.3, Mean Corpuscular Volume 90, Mean Corpuscular Hemoglobin 30.4, Mean Corpuscular Hemoglobin Concent 33.8, Red Cell Distribution Width 11.7, Platelet Count 290, Mean Platelet Volume 6.0L, Neutrophils (%) (Auto) , Lymphocytes (%) (Auto) , Monocytes (%) (Auto) , Eosinophils (%) (Auto) , Basophils (%) (Auto) , Neutrophils % (Manual) [Pending], Lymphocytes % (Manual) [Pending], Platelet Estimate [Pending], Platelet Morphology [Pending], Prothrombin Time 12.8H, Prothromb Time International Ratio 1.2H, Sodium Level 140, Potassium Level 3.0L, Chloride Level 102, Carbon Dioxide Level 29, Anion Gap 9, Blood Urea Nitrogen 18, Creatinine 0.6, Estimat Glomerular Filtration Rate > 60, Glucose Level 175H, Calcium Level 7.7L, Total Bilirubin 0.9, Direct Bilirubin 0.3, Aspartate Amino Transf (AST/SGOT) 65H, Alanine Aminotransferase (ALT/SGPT) 80H, Alkaline Phosphatase 153H, Total Protein 6.8, Albumin 2.5L, Globulin 4.3, Albumin/Globulin Ratio 0.6L Height (Feet): 5 Height (Inches): 1.00 Weight (Pounds): 180 General Appearance: no apparent distress EENT: normal ENT inspection Neck: supple Cardiovascular: normal rate Respiratory/Chest: decreased breath sounds Abdomen: normal bowel sounds, non tender, soft Extremities: non-tender Assessment/Plan Assessment/Plan: Covid positive PNA mild transaminitis most likely due to above>>>>improving DM smoker repeat LFTS abd us if needed fu hepatitis panel>>> neg covid care will fu Jose Armando Andrews MD Nov 18, 2020 08:07
--- NOTE | 2020-11-18 08:38 | NUR ---
NURSE NOTES: Pt received report from ELISEO Emerson. Transferred from for respiratory distress. Pt on high flow 50L/min 100%, with a non rebreather on top; O2sat remains 88-90%. Will collect STAT ABG and report to Dr Gannon for further orders.
[2020-11-18] MEDS: Docusate 100mg cap ORAL SCH ×2 (09:00→17:35)
--- NOTE | 2020-11-18 09:22 | Infectious Diseases Prog Note ---
Assessment/Plan Assessment/Plan A; 1. COVID-19 pneumonia. 2. Obesity. 3. Hypertension. 4. Leukocytosis is likely secondary to steroids. 5. Hypoxemia 6. Elevated transaminase PLAN: 1. Continue Remdesivir day #4 2. Continue dexamethasone day#5 3. Continue ceftriaxone. 4. Continue isolation. Subjective ROS Limited/Unobtainable: Yes Constitutional: Denies: fever Respiratory: Reports: shortness of breath Allergies: Coded Allergies: No Known Allergies (Unverified , 11/10/17) Objective Last 24 Hour Vital Signs Date Time Temp Pulse Resp B/P (MAP) Pulse Ox O2 Delivery O2 Flow Rate FiO2 11/18/20 08:30 109 38 167/69 (101) 88 11/18/20 08:00 99.1 113 43 154/77 (102) 89 11/18/20 04:00 113 11/18/20 04:00 97.9 110 22 157/80 (105) 90 11/18/20 03:42 86 High Flow 50.0 100 11/18/20 00:00 97.1 112 22 159/81 (107) 90 11/18/20 00:00 132 11/17/20 23:42 89 High Flow 50.0 100 11/17/20 21:00 Non-Rebreather 15.0 11/17/20 20:00 96.8 110 22 153/82 (105) 91 11/17/20 20:00 122 11/17/20 18:58 94 High Flow 50.0 100 11/17/20 18:58 110 22 94 High Flow 50.0 100 11/17/20 16:00 98.4 123 22 153/82 (105) 93 11/17/20 16:00 128 11/17/20 14:20 89 High Flow 50.0 100 11/17/20 12:00 99.7 115 24 166/82 (110) 90 11/17/20 12:00 113 11/17/20 11:30 90 High Flow 50.0 100 Height (Feet): 5 Height (Inches): 1.00 Weight (Pounds): 180 HEENT: mucous membranes moist Respiratory/Chest: other - oxyen with NRB , high flow nasal cannula Cardiovascular: tachycardia Abdomen: soft, non tender Extremities: no edema Neurologic/Psychiatric: alert, responsive Laboratory Tests Test 11/17/20 16:55 11/17/20 19:35 11/18/20 06:48 Arterial Blood pH 7.500 (7.350-7.450) 7.520 (7.350-7.450) Arterial Blood Partial Pressure CO2 39.2 mmHg (35.0-45.0) 31.4 mmHg (35.0-45.0) L Arterial Blood Partial Pressure O2 40.3 mmHg (75.0-100.0) 50.9 mmHg (75.0-100.0) L Arterial Blood HCO3 29.9 mmol/L (22.0-26.0) H 25.1 mmol/L (22.0-26.0) Arterial Blood Oxygen Saturation 81.3 % (95-100) *L 88.6 % (95-100) *L Arterial Blood Base Excess 6.3 (-2-2) H 3.0 (-2-2) H Ted Test Positive Positive White Blood Count 19.2 K/UL (4.8-10.8) H Red Blood Count 4.81 M/UL (4.20-5.40) Hemoglobin 14.6 G/DL (12.0-16.0) Hematocrit 43.3 % (37.0-47.0) Mean Corpuscular Volume 90 FL (80-99) Mean Corpuscular Hemoglobin 30.4 PG (27.0-31.0) Mean Corpuscular Hemoglobin Concent 33.8 G/DL (32.0-36.0) Red Cell Distribution Width 11.7 % (11.6-14.8) Platelet Count 290 K/UL (150-450) Mean Platelet Volume 6.0 FL (6.5-10.1) L Neutrophils (%) (Auto) % (45.0-75.0) Lymphocytes (%) (Auto) % (20.0-45.0) Monocytes (%) (Auto) % (1.0-10.0) Eosinophils (%) (Auto) % (0.0-3.0) Basophils (%) (Auto) % (0.0-2.0) Neutrophils % (Manual) Pending Lymphocytes % (Manual) Pending Platelet Estimate Pending Platelet Morphology Pending Prothrombin Time 12.8 SEC (9.30-11.50) H Prothromb Time International Ratio 1.2 (0.9-1.1) H Sodium Level 140 MMOL/L (136-145) Potassium Level 3.0 MMOL/L (3.5-5.1) L Chloride Level 102 MMOL/L (98-107) Carbon Dioxide Level 29 MMOL/L (21-32) Anion Gap 9 mmol/L (5-15) Blood Urea Nitrogen 18 mg/dL (7-18) Creatinine 0.6 MG/DL (0.55-1.30) Estimat Glomerular Filtration Rate > 60 mL/min (>60) Glucose Level 175 MG/DL (74-106) H Calcium Level 7.7 MG/DL (8.5-10.1) L Total Bilirubin 0.9 MG/DL (0.2-1.0) Direct Bilirubin 0.3 MG/DL (0.0-0.3) Aspartate Amino Transf (AST/SGOT) 65 U/L (15-37) H Alanine Aminotransferase (ALT/SGPT) 80 U/L (12-78) H Alkaline Phosphatase 153 U/L (46-116) H Total Protein 6.8 G/DL (6.4-8.2) Albumin 2.5 G/DL (3.4-5.0) L Globulin 4.3 g/dL Albumin/Globulin Ratio 0.6 (1.0-2.7) L Current Medications Medications (Trade) Dose Ordered Sig/Kayla Route PRN Reason Start Time Stop Time Status Last Admin Dose Admin Acetaminophen (Tylenol) 650 mg Q6H PRN ORAL For Headache 11/14/20 13:15 12/14/20 13:14 11/16/20 08:10 Albuterol Sulfate (Proventil MDI) 2 puff Q4H PRN INH Shortness of Breath 11/15/20 10:30 02/13/21 10:29 11/17/20 06:04 Ceftriaxone Sodium 1 gm/ Dextrose 55 ml @ 110 mls/hr Q24H IVPB 11/15/20 16:30 11/22/20 16:29 11/17/20 17:26 Dexamethasone Sodium Phosphate (Decadron 10mg/ ml Inj) 6 mg DAILY IV 11/15/20 09:00 11/23/20 09:01 11/17/20 09:14 Dextrose (Dextrose 50%) 25 ml Q30M PRN IV Hypoglycemia 11/14/20 13:15 02/12/21 13:14 Dextrose (Dextrose 50%) 50 ml Q30M PRN IV Hypoglycemia 11/14/20 13:15 02/12/21 13:14 Docusate Sodium (Colace) 100 mg TWICE A DAY ORAL 11/17/20 14:15 12/17/20 14:14 11/17/20 14:19 Enoxaparin Sodium (Lovenox) 80 mg EVERY 12 HOURS SUBQ 11/17/20 21:00 02/15/21 20:59 11/17/20 21:06 Furosemide (Lasix) 40 mg DAILY IV 11/17/20 14:00 12/17/20 13:59 11/17/20 14:08 Insulin Aspart (NovoLOG) BEFORE MEALS AND HS SUBQ 11/14/20 16:30 02/12/21 16:29 11/17/20 21:17 Remdesivir 100 mg/ Sodium Chloride 250 ml @ 250 mls/hr Q24H IV 11/16/20 21:00 11/19/20 21:59 11/17/20 21:00 Herminio Reid MD Nov 18, 2020 09:22
[2020-11-18] MEDS: dexAMETHasone 10mg/ml Inj IV SCH (09:58)
[2020-11-18] MEDS: Enoxaparin 100mg Inj SUBQ SCH ×2 (10:00→21:06)
--- NOTE | 2020-11-18 10:00 | NUR ---
NURSE NOTES: Helped pt onto bedpan. Had a BM. Awaiting ABG draw. Pt remains on high flow with a non rebreather. O2sat 87%
--- NOTE | 2020-11-18 10:15 | NUR ---
NURSE NOTES: Dr Gannon at bedside assessing pt. Updated him on pt's current condition. Advised for pt to be proned and/or try to lay side to side. Pt currently placed on her left side and tolerating.
--- NOTE | 2020-11-18 10:54 | NUR ---
NURSE NOTES: Left message for Dr Gannon in regards to pt's ABG
--- NOTE | 2020-11-18 12:27 | Pulmonology Progress Note ---
Subjective ROS Limited/Unobtainable: Yes Interval Events: Now in ICU; on BiPAP HEENT: Repors: no symptoms Respiratory: Reports: no symptoms, shortness of breath, dyspnea at rest Cardiovascular: Reports: no symptoms Gastrointestinal/Abdominal: Reports: no symptoms Neurologic: Reports: other - Dizziness Allergies: Coded Allergies: No Known Allergies (Unverified , 11/10/17) Objective Last 24 Hour Vital Signs Date Time Temp Pulse Resp B/P (MAP) Pulse Ox O2 Delivery O2 Flow Rate FiO2 11/18/20 11:30 114 18 76/61 (66) 85 11/18/20 11:00 113 39 160/90 (113) 87 11/18/20 10:30 109 43 153/64 (93) 92 11/18/20 10:00 117 42 155/79 (104) 91 11/18/20 09:30 116 40 170/129 (143) 90 11/18/20 09:00 108 38 168/65 (99) 90 11/18/20 08:30 109 38 167/69 (101) 88 11/18/20 08:00 Non-Rebreather 15.0 11/18/20 08:00 99.1 113 43 154/77 (102) 89 11/18/20 08:00 113 11/18/20 06:50 111 24 92 High Flow 55.0 100 11/18/20 06:50 92 High Flow 55.0 100 11/18/20 04:00 113 11/18/20 04:00 97.9 110 22 157/80 (105) 90 11/18/20 03:42 86 High Flow 50.0 100 11/18/20 00:00 97.1 112 22 159/81 (107) 90 11/18/20 00:00 132 11/17/20 23:42 89 High Flow 50.0 100 11/17/20 21:00 Non-Rebreather 15.0 11/17/20 20:00 96.8 110 22 153/82 (105) 91 11/17/20 20:00 122 11/17/20 18:58 94 High Flow 50.0 100 11/17/20 18:58 110 22 94 High Flow 50.0 100 11/17/20 16:00 98.4 123 22 153/82 (105) 93 11/17/20 16:00 128 11/17/20 14:20 89 High Flow 50.0 100 Intake and Output 11/17/20 11/18/20 18:59 06:59 Intake Total 300 ml Output Total 1200 ml Balance -900 ml Intake Oral 300 ml Output Urine Total 1200 ml # Voids 2 General Appearance: no acute distress HEENT: normocephalic Respiratory: chest wall non-tender Cardiovascular: normal peripheral pulses Abdomen: normal bowel sounds Laboratory Tests 11/17/20 16:55: Arterial Blood pH 7.500H, Arterial Blood Partial Pressure CO2 39.2, Arterial Blood Partial Pressure O2 40.3*L, Arterial Blood HCO3 29.9H, Arterial Blood Oxygen Saturation 81.3*L, Arterial Blood Base Excess 6.3H, Ted Test Positive 11/17/20 19:35: Arterial Blood pH 7.520H, Arterial Blood Partial Pressure CO2 31.4L, Arterial Blood Partial Pressure O2 50.9L, Arterial Blood HCO3 25.1, Arterial Blood Oxygen Saturation 88.6*L, Arterial Blood Base Excess 3.0H, Ted Test Positive 11/18/20 06:48: White Blood Count 19.2H, Red Blood Count 4.81, Hemoglobin 14.6, Hematocrit 43.3, Mean Corpuscular Volume 90, Mean Corpuscular Hemoglobin 30.4, Mean Corpuscular Hemoglobin Concent 33.8, Red Cell Distribution Width 11.7, Platelet Count 290, Mean Platelet Volume 6.0L, Neutrophils (%) (Auto) , Lymphocytes (%) (Auto) , Monocytes (%) (Auto) , Eosinophils (%) (Auto) , Basophils (%) (Auto) , Differential Total Cells Counted 100, Neutrophils % (Manual) 83H, Lymphocytes % (Manual) 5L, Monocytes % (Manual) 12H, Eosinophils % (Manual) 0, Basophils % (Manual) 0, Band Neutrophils 0, Platelet Estimate Adequate, Platelet Morphology Normal, Red Blood Cell Morphology Normal, Prothrombin Time 12.8H, Prothromb Time International Ratio 1.2H, Sodium Level 140, Potassium Level 3.0L, Chloride Level 102, Carbon Dioxide Level 29, Anion Gap 9, Blood Urea Nitrogen 18, Creatinine 0.6, Estimat Glomerular Filtration Rate > 60, Glucose Level 175H, Calcium Level 7.7L, Total Bilirubin 0.9, Direct Bilirubin 0.3, Aspartate Amino Transf (AST/SGOT) 65H, Alanine Aminotransferase (ALT/SGPT) 80H, Alkaline Phosphatase 153H, Total Protein 6.8, Albumin 2.5L, Globulin 4.3, Albumin/Globulin Ratio 0.6L 11/18/20 10:14: Arterial Blood pH 7.485H, Arterial Blood Partial Pressure CO2 42.3, Arterial Blood Partial Pressure O2 47.2*L, Arterial Blood HCO3 31.2H, Arterial Blood Oxygen Saturation 85.2*L, Arterial Blood Base Excess 7.0H, Ted Test Positive 11/18/20 12:12: POC Whole Blood Glucose 226H Current Medications Medications (Trade) Dose Ordered Sig/Kayla Route PRN Reason Start Time Stop Time Status Last Admin Dose Admin Acetaminophen (Tylenol) 650 mg Q6H PRN ORAL For Headache 11/14/20 13:15 12/14/20 13:14 11/16/20 08:10 Albuterol Sulfate (Proventil MDI) 2 puff Q4H PRN INH Shortness of Breath 11/15/20 10:30 02/13/21 10:29 11/17/20 06:04 Ceftriaxone Sodium 1 gm/ Dextrose 55 ml @ 110 mls/hr Q24H IVPB 11/15/20 16:30 11/22/20 16:29 11/17/20 17:26 Dexamethasone Sodium Phosphate (Decadron 10mg/ ml Inj) 6 mg DAILY IV 11/15/20 09:00 11/23/20 09:01 11/18/20 09:58 Dextrose (Dextrose 50%) 25 ml Q30M PRN IV Hypoglycemia 11/14/20 13:15 02/12/21 13:14 Dextrose (Dextrose 50%) 50 ml Q30M PRN IV Hypoglycemia 11/14/20 13:15 02/12/21 13:14 Docusate Sodium (Colace) 100 mg TWICE A DAY ORAL 11/17/20 14:15 12/17/20 14:14 11/17/20 14:19 Enoxaparin Sodium (Lovenox) 80 mg EVERY 12 HOURS SUBQ 11/18/20 10:00 02/16/21 09:59 11/18/20 10:00 Furosemide (Lasix) 40 mg DAILY IV 11/17/20 14:00 12/17/20 13:59 11/18/20 09:58 Insulin Aspart (NovoLOG) BEFORE MEALS AND HS SUBQ 11/14/20 16:30 02/12/21 16:29 11/17/20 21:17 Remdesivir 100 mg/ Sodium Chloride 250 ml @ 250 mls/hr Q24H IV 11/16/20 21:00 11/19/20 21:59 11/17/20 21:00 Assessment/Plan Assessment/Plan 1. Elevated inflammatory markers -Will continue Lovenox to full dose 2. Elevated AST - trend LFTs 3. Hyperglycemia without history of diabetes mellitus - A1c ordered - Accu-checks - Continue insulin sliding scale 4. Pneumonia, likely COVID-19 related CXR Severe bilateral airspace consolidations, consistent with severe multifocal infiltrates, which have significantly increased. No pneumothorax. Cardiomegaly. Seen by ID On Remdesiver, broad spectrum abx and steroids 5. Hypoxia; started on BiPAP Jose Elias Gannon MD Nov 18, 2020 12:27
--- NOTE | 2020-11-18 12:30 | NUR ---
NURSE NOTES: Pt placed on BiPAP /, 100%; O2sat reads 95% on coater brake linings.
[2020-11-18] MEDS: LORazepam Inj 2mg/ml 1ml IV PRN (12:54)
--- NOTE | 2020-11-18 14:10 | NUR ---
NURSE NOTES: Pt anxious at times, taking off her BiPAP and then desaturating to the 70's. Pt requires frequent reminders to keep mask on.
--- NOTE | 2020-11-18 15:17 | NUR ---
CASE MANAGEMENT:REVIEW 11/18/20 SI: PNA LIKELY COVID 99.3 116 27 159/71 99% ON BIPAP W/100% FIO2 WBC+19.2 K-3.0 IS: IV REMDESIVIR Q24 IV LASIX QD LOVENOX SQ Q12 IV ROCEPHIN Q24 IV DECADRON QD : ICU STATUS DCP: FROM HOME
--- NOTE | 2020-11-18 15:55 | NUR ---
NURSE NOTES: Pt remains on BiPAP 28/04, 100%. O2sat varies between 88-96%. Pt continues to require frequent reminders to keep mask on. Pt remains NPO while on BiPAP.
[2020-11-18] MEDS: cefTRIAXone 1 GM in D5W 55 ML IVPB SCH (16:16)
[2020-11-18] MEDS ORDERED: Azithromycin 500 MG in NS 275 ML IV SCH (16:30)
--- NOTE | 2020-11-18 16:50 | NUR ---
NURSE NOTES: Spoke to pt's daughter in law, Shivani. Updated her on pt's current condition and answered all of her questions
--- NOTE | 2020-11-18 17:31 | NUR ---
NURSE NOTES: Pt cleaned and linens changed. Gown changed. Ice packs put on pt for c/o feeling hot. temp 99.3. Will continue to monitor.
--- NOTE | 2020-11-18 19:03 | NUR ---
NURSE HAND-OFF REPORT: Latest Vital Signs: Temperature 99.3 , Pulse 110 , B/P 161 /95 , Respiratory Rate 36 , O2 SAT 96 , BiPAP 100%. Vital Sign Comment: EKG Rhythm: Sinus Tachycardia Rhythm change?: N MD Notified?: MD Response: Latest Rosen Fall Score: 30 Fall Risk: Medium Risk Safety Measures: Call light Within Reach, Bed Alarm Zone 1, Side Rails Side Rails x2, Bed position Low and Locked. Fall Precautions: Yellow Socks Yellow Gown Door Sign Patient Fall Education Report given to ELISEO Nugent.
--- NOTE | 2020-11-18 19:17 | NUR ---
NURSE NOTES: Received patient from ELISEO Shahid. Will continue plan of care.
--- NOTE | 2020-11-18 20:00 | NUR ---
NURSE NOTES: Received patient on BiPAP 28/04 @ 100%. O2sat:93% Alert and oriented x4 mainly belarusian speaking. NPO status at the moment. IV sites: Left A/C 20g and right hand 22g running TKO. Isolation precautions noted. Patient able to turn and reposition herself, encourage to prone position but patient gets anxiety and becomes tachycardic. Safety measures in place; bed low, locked and alarm is on. Will continue plan of care.
[2020-11-18] MEDS: Dyna-Hex 2% Top Sol 2oz TOPIC SCH (20:40)
[2020-11-18] MEDS: Maintenance Dose:Remdesivir 100mg/NS 230ml x 4 Doses IV SCH ×2 (21:06)
--- NOTE | 2020-11-18 22:00 | NUR ---
NURSE NOTES: Oral care provided and small amount of ice chips given.
[2020-11-19] VITALS (24 sets, daily range): BP systolic 117–167; BP diastolic 50–95
--- NOTE | 2020-11-19 | NUR ---
NURSE NOTES: Patient is comfortable in bed and watching TV. Shows no signs of distress. O2sat:100%
--- NOTE | 2020-11-19 02:00 | NUR ---
NURSE NOTES: Patient is now sleeping, encouraged to turn and reposition.
--- NOTE | 2020-11-19 04:00 | NUR ---
NURSE NOTES: Patient is sleeping comfortably on BiPAP, no changes in settings.
[2020-11-19 05:44] LABS: HEMATOCRIT 43.3 % (37.0-47.0); HEMOGLOBIN 14.4 G/DL (12.0-16.0); INR 1.3 (0.9-1.1); MEAN CORPUSCULAR VOLUME 87 FL (80-99); PLATELET COUNT 299 K/UL (150-450); RED BLOOD COUNT 4.96 M/UL (4.20-5.40); RED CELL DISTRIBUTION WIDTH 11.8 % (11.6-14.8); WHITE BLOOD COUNT 16.6 K/UL (4.8-10.8)
--- NOTE | 2020-11-19 06:00 | NUR ---
NURSE NOTES: Assisted in repositioning/pulled up in bed. Patient is now awake and watching TV. Accucheck resulted 192; 4 units Novolog given subq
[2020-11-19] MEDS: NovoLOG Insulin Flexpen SUBQ SCH ×4 (06:15→21:30)
[2020-11-19 06:18] LABS: ALANINE AMINOTRANSFERASE 58 U/L (12-78); ALBUMIN 2.4 G/DL (3.4-5.0); ALBUMIN/GLOBULIN RATIO 0.6 (1.0-2.7); ALKALINE PHOSPHATASE 147 U/L (46-116); ANION GAP 9 mmol/L (5-15); ASPARTATE AMINO TRANSFERASE 48 U/L (15-37); BILIRUBIN,DIRECT 0.3 MG/DL (0.0-0.3); BILIRUBIN,TOTAL 0.7 MG/DL (0.2-1.0); BLOOD UREA NITROGEN 25 mg/dL (7-18); CALCIUM 8.7 MG/DL (8.5-10.1); CARBON DIOXIDE 32 MMOL/L (21-32); CHLORIDE 105 MMOL/L (98-107); CREATININE 0.7 MG/DL (0.55-1.30); POTASSIUM 2.8 MMOL/L (3.5-5.1); SODIUM 145 MMOL/L (136-145)
--- NOTE | 2020-11-19 07:18 | NUR ---
NURSE HAND-OFF REPORT: Latest Vital Signs: Temperature 99.3 , Pulse 101 , B/P 153 /63 , Respiratory Rate 33 , O2 SAT 83 , BiPAP 22/6 @ 100%FiO2 . Vital Sign Comment: EKG Rhythm: Sinus Tachycardia Rhythm change?: N Notified?: Eitan Bansal NP, MD Response: No New Orders Received Latest Rosen Fall Score: 30 Fall Risk: Medium Risk Safety Measures: Call light Within Reach, Bed Alarm Zone 1, Side Rails Side Rails x2, Bed position Low and Locked. Fall Precautions: Yellow Socks Yellow Gown Door Sign Patient Fall Education Report given to .
[2020-11-19] MEDS: dexAMETHasone 10mg/ml Inj IV SCH (08:56)
[2020-11-19] MEDS: Docusate 100mg cap ORAL SCH ×2 (08:57→16:49)
[2020-11-19] MEDS: Enoxaparin 100mg Inj SUBQ SCH ×2 (08:58→21:51)
--- NOTE | 2020-11-19 09:13 | General Progress Note ---
Subjective ROS Limited/Unobtainable: No Allergies: Coded Allergies: No Known Allergies (Unverified , 11/10/17) Objective Last 24 Hour Vital Signs Date Time Temp Pulse Resp B/P (MAP) Pulse Ox O2 Delivery O2 Flow Rate FiO2 11/19/20 07:00 101 33 153/63 (93) 83 11/19/20 06:00 107 39 153/74 (100) 87 11/19/20 05:00 101 35 158/62 (94) 98 11/19/20 04:00 Bi-pap 11/19/20 04:00 99.3 104 36 155/75 (101) 91 11/19/20 03:06 103 11/19/20 03:00 104 33 144/66 (92) 84 11/19/20 02:30 109 42 93 100 11/19/20 02:00 96 31 130/51 (77) 84 11/19/20 01:00 92 29 150/65 (93) 97 11/19/20 00:00 99.0 101 35 141/84 (103) 100 11/19/20 00:00 Bi-pap 11/18/20 23:44 98 11/18/20 23:08 97 38 100 100 11/18/20 23:00 92 34 135/50 (78) 100 11/18/20 22:00 108 34 143/60 (87) 91 11/18/20 21:00 104 37 126/78 (94) 86 11/18/20 20:30 98 30 130/61 (84) 90 11/18/20 20:19 105 11/18/20 20:00 98.9 106 22 122/62 (82) 97 11/18/20 20:00 Bi-pap 11/18/20 19:28 94 Bi-Pap 100 11/18/20 19:28 101 37 94 Bi-Pap 100 11/18/20 19:27 101 37 94 100 11/18/20 19:00 99 35 124/67 (86) 100 11/18/20 18:30 104 12 177/140 (152) 98 11/18/20 18:00 110 36 161/95 (117) 96 11/18/20 17:30 111 37 121/93 (102) 100 11/18/20 17:00 110 38 121/93 (102) 90 11/18/20 17:00 106 33 144/67 (92) 86 11/18/20 16:30 110 32 147/111 (123) 86 11/18/20 16:00 99.3 108 30 148/107 (121) 95 11/18/20 16:00 104 11/18/20 16:00 Bi-pap 11/18/20 15:30 130 31 132/117 (122) 68 11/18/20 15:00 115 42 153/68 (96) 90 11/18/20 14:30 100 33 138/68 (91) 94 11/18/20 14:00 117 36 141/79 (99) 90 11/18/20 13:30 113 28 141/79 (99) 95 11/18/20 13:24 108 24 121/81 98 11/18/20 13:00 104 44 156/135 (142) 97 11/18/20 12:54 104 35 144/65 91 11/18/20 12:35 102 50 91 100 11/18/20 12:30 102 40 144/66 (92) 93 11/18/20 12:00 108 11/18/20 12:00 Bi-pap 11/18/20 12:00 99.3 116 27 159/71 (100) 99 11/18/20 11:30 114 18 76/61 (66) 85 11/18/20 11:00 88 High Flow 55.0 100 11/18/20 11:00 113 39 160/90 (113) 87 11/18/20 10:30 109 43 153/64 (93) 92 11/18/20 10:00 117 42 155/79 (104) 91 11/18/20 09:30 116 40 170/129 (143) 90 Intake and Output 11/18/20 11/19/20 19:00 07:00 Intake Total 55 ml 250 ml Output Total 490 ml 480 ml Balance -435 ml -230 ml IV Total 55 ml 250 ml Output Urine Total 490 ml 480 ml # Voids 2 # Bowel Movements 1 Laboratory Tests 11/18/20 10:14: Arterial Blood pH 7.485H, Arterial Blood Partial Pressure CO2 42.3, Arterial Blood Partial Pressure O2 47.2*L, Arterial Blood HCO3 31.2H, Arterial Blood Oxy gen Saturation 85.2*L, Arterial Blood Base Excess 7.0H, Ted Test Positive 11/18/20 12:12: POC Whole Blood Glucose 226H 11/18/20 16:27: POC Whole Blood Glucose 200H 11/19/20 04:15: White Blood Count 16.6H, Red Blood Count 4.96, Hemoglobin 14.4, Hematocrit 43.3, Mean Corpuscular Volume 87, Mean Corpuscular Hemoglobin 29.1, Mean Corpuscular Hemoglobin Concent 33.3, Red Cell Distribution Width 11.8, Platelet Count 299, Mean Platelet Volume 6.6, Neutrophils (%) (Auto) , Lymphocytes (%) (Auto) , Monocytes (%) (Auto) , Eosinophils (%) (Auto) , Basophils (%) (Auto) , Differential Total Cells Counted 100, Neutrophils % (Manual) 89H, Lymphocytes % (Manual) 4L, Monocytes % (Manual) 7, Eosinophils % (Manual) 0, Basophils % (Manual) 0, Band Neutrophils 0, Platelet Estimate Adequate, Platelet Morphology Normal, Red Blood Cell Morphology Normal, Prothrombin Time 13.7H, Prothromb Time International Ratio 1.3H, Sodium Level 145, Potassium Level 2.8L, Chloride Level 105, Carbon Dioxide Level 32, Anion Gap 9, Blood Urea Nitrogen 25H, Creatinine 0.7, Estimat Glomerular Filtration Rate > 60, Glucose Level 204H, Calcium Level 8.7, Total Bilirubin 0.7, Direct Bilirubin 0.3, Aspartate Amino Transf (AST/ SGOT) 48H, Alanine Aminotransferase (ALT/SGPT) 58, Alkaline Phosphatase 147H, Total Protein 6.7, Albumin 2.4L, Globulin 4.3, Albumin/Globulin Ratio 0.6L 11/19/20 05:59: POC Whole Blood Glucose [Pending] 11/19/20 09:04: Arterial Blood pH [Pending], Arterial Blood Partial Pressure CO2 [Pending], Arterial Blood Partial Pressure O2 [Pending], Arterial Blood HCO3 [Pending], Arterial Blood Oxygen Saturation [Pending], Arterial Blood Base Excess [Pending], Ted Test [Pending] Height (Feet): 5 Height (Inches): 1.00 Weight (Pounds): 180 General Appearance: mild distress EENT: normal ENT inspection Neck: supple Cardiovascular: normal rate Respiratory/Chest: decreased breath sounds Abdomen: hypoactive bowel sounds Extremities: non-tender Assessment/Plan Assessment/Plan: Covid positive PNA mild transaminitis most likely due to above>>>>improving DM smoker on BIPAP NPO repeat LFTS abd us if needed fu hepatitis panel>>> neg covid care NPO plan NGT if gets intubated will fu Jose Armando Andrews MD Nov 19, 2020 09:13
--- NOTE | 2020-11-19 09:34 | NUR ---
NURSE NOTES: Dr. Gannon called and reported. Orders recieved. Addendum: 11/19/20 at 1939 by ANALI CURRY RN Reported Dawson.
--- NOTE | 2020-11-19 10:15 | NUR ---
NURSE NOTES: Bipap settings changed. Addendum: 11/19/20 at 1938 by ANALI CURRY RN Patient proned at this time.
--- NOTE | 2020-11-19 10:48 | Infectious Diseases Prog Note ---
Assessment/Plan Assessment/Plan antibiotics : ceftriaxone, remdesivir A 1. covid 19 pneumonia on 100 % Fi O2 with saturation 100 % 2. Obesity. 3. Hypertension. 4. Leukocytosis improving P 1. Complete Remdesivir day # 5. 2. Continue dexamethasone day#6. 3. Continue ceftriaxone. 4. Continue isolation. Subjective ROS Limited/Unobtainable: Yes Allergies: Coded Allergies: No Known Allergies (Unverified , 11/10/17) Objective Last 24 Hour Vital Signs Date Time Temp Pulse Resp B/P (MAP) Pulse Ox O2 Delivery O2 Flow Rate FiO2 11/19/20 10:00 102 32 151/75 (100) 100 11/19/20 09:00 104 35 149/57 (87) 100 11/19/20 08:00 Bi-pap 11/19/20 08:00 101 11/19/20 08:00 102 33 133/58 (83) 88 11/19/20 07:24 107 39 97 Bi-Pap 100 11/19/20 07:24 107 39 97 100 11/19/20 07:24 97 Bi-Pap 100 11/19/20 07:00 101 33 153/63 (93) 83 11/19/20 06:00 107 39 153/74 (100) 87 11/19/20 05:00 101 35 158/62 (94) 98 11/19/20 04:00 Bi-pap 11/19/20 04:00 99.3 104 36 155/75 (101) 91 11/19/20 03:06 103 11/19/20 03:00 104 33 144/66 (92) 84 11/19/20 02:30 109 42 93 100 11/19/20 02:00 96 31 130/51 (77) 84 11/19/20 01:00 92 29 150/65 (93) 97 11/19/20 00:00 99.0 101 35 141/84 (103) 100 11/19/20 00:00 Bi-pap 11/18/20 23:44 98 11/18/20 23:08 97 38 100 100 11/18/20 23:00 92 34 135/50 (78) 100 11/18/20 22:00 108 34 143/60 (87) 91 11/18/20 21:00 104 37 126/78 (94) 86 11/18/20 20:30 98 30 130/61 (84) 90 11/18/20 20:19 105 11/18/20 20:00 98.9 106 22 122/62 (82) 97 11/18/20 20:00 Bi-pap 11/18/20 19:28 94 Bi-Pap 100 11/18/20 19:28 101 37 94 Bi-Pap 100 11/18/20 19:27 101 37 94 100 11/18/20 19:00 99 35 124/67 (86) 100 11/18/20 18:30 104 12 177/140 (152) 98 11/18/20 18:00 110 36 161/95 (117) 96 11/18/20 17:30 111 37 121/93 (102) 100 11/18/20 17:00 110 38 121/93 (102) 90 11/18/20 17:00 106 33 144/67 (92) 86 11/18/20 16:30 110 32 147/111 (123) 86 11/18/20 16:00 99.3 108 30 148/107 (121) 95 11/18/20 16:00 104 11/18/20 16:00 Bi-pap 11/18/20 15:30 130 31 132/117 (122) 68 11/18/20 15:00 115 42 153/68 (96) 90 11/18/20 14:30 100 33 138/68 (91) 94 11/18/20 14:00 117 36 141/79 (99) 90 11/18/20 13:30 113 28 141/79 (99) 95 11/18/20 13:24 108 24 121/81 98 11/18/20 13:00 104 44 156/135 (142) 97 11/18/20 12:54 104 35 144/65 91 11/18/20 12:35 102 50 91 100 11/18/20 12:30 102 40 144/66 (92) 93 11/18/20 12:00 108 11/18/20 12:00 Bi-pap 11/18/20 12:00 99.3 116 27 159/71 (100) 99 11/18/20 11:30 114 18 76/61 (66) 85 11/18/20 11:00 88 High Flow 55.0 100 11/18/20 11:00 113 39 160/90 (113) 87 Height (Feet): 5 Height (Inches): 1.00 Weight (Pounds): 180 HEENT: other - on bipap Laboratory Tests Test 11/18/20 12:12 11/18/20 16:27 11/19/20 04:15 11/19/20 05:59 POC Whole Blood Glucose 226 MG/DL (74-106) H 200 MG/DL (74-106) H Pending White Blood Count 16.6 K/UL (4.8-10.8) H Red Blood Count 4.96 M/UL (4.20-5.40) Hemoglobin 14.4 G/DL (12.0-16.0) Hematocrit 43.3 % (37.0-47.0) Mean Corpuscular Volume 87 FL (80-99) Mean Corpuscular Hemoglobin 29.1 PG (27.0-31.0) Mean Corpuscular Hemoglobin Concent 33.3 G/DL (32.0-36.0) Red Cell Distribution Width 11.8 % (11.6-14.8) Platelet Count 299 K/UL (150-450) Mean Platelet Volume 6.6 FL (6.5-10.1) Neutrophils (%) (Auto) % (45.0-75.0) Lymphocytes (%) (Auto) % (20.0-45.0) Monocytes (%) (Auto) % (1.0-10.0) Eosinophils (%) (Auto) % (0.0-3.0) Basophils (%) (Auto) % (0.0-2.0) Differential Total Cells Counted 100 Neutrophils % (Manual) 89 % (45-75) H Lymphocytes % (Manual) 4 % (20-45) L Monocytes % (Manual) 7 % (1-10) Eosinophils % (Manual) 0 % (0-3) Basophils % (Manual) 0 % (0-2) Band Neutrophils 0 % (0-8) Platelet Estimate Adequate Platelet Morphology Normal Red Blood Cell Morphology Normal Prothrombin Time 13.7 SEC (9.30-11.50) H Prothromb Time International Ratio 1.3 (0.9-1.1) H Sodium Level 145 MMOL/L (136-145) Potassium Level 2.8 MMOL/L (3.5-5.1) L Chloride Level 105 MMOL/L (98-107) Carbon Dioxide Level 32 MMOL/L (21-32) Anion Gap 9 mmol/L (5-15) Blood Urea Nitrogen 25 mg/dL (7-18) H Creatinine 0.7 MG/DL (0.55-1.30) Estimat Glomerular Filtration Rate > 60 mL/min (>60) Glucose Level 204 MG/DL (74-106) H Calcium Level 8.7 MG/DL (8.5-10.1) Total Bilirubin 0.7 MG/DL (0.2-1.0) Direct Bilirubin 0.3 MG/DL (0.0-0.3) Aspartate Amino Transf (AST/SGOT) 48 U/L (15-37) H Alanine Aminotransferase (ALT/SGPT) 58 U/L (12-78) Alkaline Phosphatase 147 U/L (46-116) H Total Protein 6.7 G/DL (6.4-8.2) Albumin 2.4 G/DL (3.4-5.0) L Globulin 4.3 g/dL Albumin/Globulin Ratio 0.6 (1.0-2.7) L Test 11/19/20 09:04 Arterial Blood pH 7.543 (7.350-7.450) Arterial Blood Partial Pressure CO2 39.3 mmHg (35.0-45.0) Arterial Blood Partial Pressure O2 56.0 mmHg (75.0-100.0) L Arterial Blood HCO3 33.1 mmol/L (22.0-26.0) H Arterial Blood Oxygen Saturation 90.2 % (95-100) L Arterial Blood Base Excess 9.8 (-2-2) *H Ted Test Positive Current Medications Medications (Trade) Dose Ordered Sig/Kayla Route PRN Reason Start Time Stop Time Status Last Admin Dose Admin Acetaminophen (Tylenol) 650 mg Q6H PRN ORAL For Headache 11/14/20 13:15 12/14/20 13:14 11/16/20 08:10 Albuterol Sulfate (Proventil MDI) 2 puff Q4H PRN INH Shortness of Breath 11/15/20 10:30 02/13/21 10:29 11/17/20 06:04 Ceftriaxone Sodium 1 gm/ Dextrose 55 ml @ 110 mls/hr Q24H IVPB 11/15/20 16:30 11/22/20 16:29 11/18/20 16:16 Chlorhexidine Gluconate (Leora-Hex 2%) 1 applic BEDTIME TOPIC 11/18/20 21:00 02/16/21 20:59 Dexamethasone Sodium Phosphate (Decadron 10mg/ ml Inj) 6 mg DAILY IV 11/15/20 09:00 11/23/20 09:01 11/19/20 08:56 Dextrose (Dextrose 50%) 25 ml Q30M PRN IV Hypoglycemia 11/14/20 13:15 02/12/21 13:14 Dextrose (Dextrose 50%) 50 ml Q30M PRN IV Hypoglycemia 11/14/20 13:15 02/12/21 13:14 Docusate Sodium (Colace) 100 mg TWICE A DAY ORAL 11/17/20 14:15 12/17/20 14:14 11/17/20 14:19 Enoxaparin Sodium (Lovenox) 80 mg EVERY 12 HOURS SUBQ 11/18/20 10:00 02/16/21 09:59 11/19/20 08:58 Furosemide (Lasix) 40 mg DAILY IV 11/17/20 14:00 12/17/20 13:59 11/18/20 09:58 Insulin Aspart (NovoLOG) BEFORE MEALS AND HS SUBQ 11/14/20 16:30 02/12/21 16:29 11/19/20 06:15 Lorazepam (Ativan 2mg/ml 1ml) 0.25 mg Q6H PRN IV For Anxiety 11/18/20 12:45 11/25/20 12:44 11/18/20 12:54 Remdesivir 100 mg/ Sodium Chloride 250 ml @ 250 mls/hr Q24H IV 11/16/20 21:00 11/19/20 21:59 11/18/20 21:06 Arthur Blair MD Nov 19, 2020 10:48
--- NOTE | 2020-11-19 11:06 | NUR ---
RADIOLOGY DEPT., CHEST X-RAY DONE.-P.DYE
--- NOTE | 2020-11-19 12:26 | Diagnostic Imaging Report ---
Indication: Cough Technique: One view of the chest Comparison: 11/16/2020 Findings: Bilateral infiltrates are extensive, but nonetheless have improved considerably since the previous exam. Previously demonstrated left upper lung area of air trapping is not evident. Pleural spaces are clear. Heart size is upper limits of normal. Impression: Considerably improved but still extensive bilateral infiltrates, since prior exam of 3 days earlier
[2020-11-19] MEDS: NS 200 ML IVPB SCH ×2 (12:27→13:00)
--- NOTE | 2020-11-19 13:00 | NUR ---
NURSE NOTES: Patient stable at this time. No s/sx of pain or distress.
--- NOTE | 2020-11-19 13:28 | NUR ---
Operations Systems SpecialistCsw SI: COVID PNA T 99.5 9(ax), HR 112, RR 28, BP 131/74 BIPAP 22/6 FiO2 100%, O@ sat 98% WBC 16.6, K+ 2.8L, BUN 25 IS: Remdisivir IV QD Lasix IV QD Lovenox SQ q12h Rocephin IV q 24 h Decadron IV QD ICU Status
--- NOTE | 2020-11-19 15:00 | NUR ---
NURSE NOTES: ABG obtained after patient complaining of feeling dizzy and lightheaded. ABG improved. Patient now states that she feels better after patient was repositioned.
[2020-11-19] MEDS: cefTRIAXone 1 GM in D5W 55 ML IVPB SCH (16:49)
--- NOTE | 2020-11-19 17:00 | NUR ---
NURSE NOTES: Patient cleaned and repositioned.
--- NOTE | 2020-11-19 17:12 | Pulmonology Progress Note ---
Subjective ROS Limited/Unobtainable: Yes Interval Events: Now in ICU; on BiPAP HEENT: Repors: no symptoms Respiratory: Reports: no symptoms, shortness of breath, dyspnea at rest Cardiovascular: Reports: no symptoms Gastrointestinal/Abdominal: Reports: no symptoms Neurologic: Reports: other - Dizziness Allergies: Coded Allergies: No Known Allergies (Unverified , 11/10/17) Objective Last 24 Hour Vital Signs Date Time Temp Pulse Resp B/P (MAP) Pulse Ox O2 Delivery O2 Flow Rate FiO2 11/19/20 16:00 93 11/19/20 15:35 100 33 96 100 11/19/20 15:00 96 27 131/58 (82) 92 11/19/20 14:00 97 34 122/62 (82) 94 11/19/20 13:00 112 28 131/74 (93) 98 11/19/20 12:00 Bi-pap 11/19/20 12:00 96 30 132/60 (84) 98 11/19/20 12:00 102 11/19/20 11:05 99 34 98 100 11/19/20 11:00 102 22 117/85 (96) 98 11/19/20 10:00 102 32 151/75 (100) 100 11/19/20 10:00 99 33 139/55 (83) 100 11/19/20 09:00 104 35 149/57 (87) 100 11/19/20 09:00 107 33 159/84 (109) 89 11/19/20 08:00 Bi-pap 11/19/20 08:00 101 11/19/20 08:00 99.5 101 30 152/67 (95) 100 11/19/20 08:00 102 33 133/58 (83) 88 11/19/20 07:24 107 39 97 Bi-Pap 100 11/19/20 07:24 107 39 97 100 11/19/20 07:24 97 Bi-Pap 100 11/19/20 07:00 101 33 153/63 (93) 83 11/19/20 06:00 107 39 153/74 (100) 87 11/19/20 05:00 101 35 158/62 (94) 98 11/19/20 04:00 Bi-pap 11/19/20 04:00 99.3 104 36 155/75 (101) 91 11/19/20 03:06 103 11/19/20 03:00 104 33 144/66 (92) 84 11/19/20 02:30 109 42 93 100 11/19/20 02:00 96 31 130/51 (77) 84 11/19/20 01:00 92 29 150/65 (93) 97 11/19/20 00:00 99.0 101 35 141/84 (103) 100 11/19/20 00:00 Bi-pap 11/18/20 23:44 98 11/18/20 23:08 97 38 100 100 11/18/20 23:00 92 34 135/50 (78) 100 11/18/20 22:00 108 34 143/60 (87) 91 11/18/20 21:00 104 37 126/78 (94) 86 11/18/20 20:30 98 30 130/61 (84) 90 11/18/20 20:19 105 11/18/20 20:00 98.9 106 22 122/62 (82) 97 11/18/20 20:00 Bi-pap 11/18/20 19:28 94 Bi-Pap 100 11/18/20 19:28 101 37 94 Bi-Pap 100 11/18/20 19:27 101 37 94 100 11/18/20 19:00 99 35 124/67 (86) 100 11/18/20 18:30 104 12 177/140 (152) 98 11/18/20 18:00 110 36 161/95 (117) 96 11/18/20 17:30 111 37 121/93 (102) 100 Intake and Output 11/18/20 11/19/20 19:00 07:00 Intake Total 55 ml 250 ml Output Total 490 ml 480 ml Balance -435 ml -230 ml IV Total 55 ml 250 ml Output Urine Total 490 ml 480 ml # Voids 2 # Bowel Movements 1 General Appearance: no acute distress HEENT: normocephalic Respiratory: chest wall non-tender Cardiovascular: normal peripheral pulses Abdomen: normal bowel sounds Laboratory Tests 11/19/20 04:15: White Blood Count 16.6H, Red Blood Count 4.96, Hemoglobin 14.4, Hematocrit 43.3, Mean Corpuscular Volume 87, Mean Corpuscular Hemoglobin 29.1, Mean Corpuscular Hemoglobin Concent 33.3, Red Cell Distribution Width 11.8, Platelet Count 299, Mean Platelet Volume 6.6, Neutrophils (%) (Auto) , Lymphocytes (%) (Auto) , Monocytes (%) (Auto) , Eosinophils (%) (Auto) , Basophils (%) (Auto) , Differential Total Cells Counted 100, Neutrophils % (Manual) 89H, Lymphocytes % (Manual) 4L, Monocytes % (Manual) 7, Eosinophils % (Manual) 0, Basophils % (Manu al) 0, Band Neutrophils 0, Platelet Estimate Adequate, Platelet Morphology Normal, Red Blood Cell Morphology Normal, Prothrombin Time 13.7H, Prothromb Time International Ratio 1.3H, Sodium Level 145, Potassium Level 2.8L, Chloride Level 105, Carbon Dioxide Level 32, Anion Gap 9, Blood Urea Nitrogen 25H, Creatinine 0.7, Estimat Glomerular Filtration Rate > 60, Glucose Level 204H, Calcium Level 8.7, Total Bilirubin 0.7, Direct Bilirubin 0.3, Aspartate Amino Transf (AST/SGOT) 48H, Alanine Aminotransferase (ALT/SGPT) 58, Alkaline Phosphatase 147H, Total Protein 6.7, Albumin 2.4L, Globulin 4.3, Albumin/Globulin Ratio 0.6L 11/19/20 05:59: POC Whole Blood Glucose [Pending] 11/19/20 09:04: Arterial Blood pH 7.543H, Arterial Blood Partial Pressure CO2 39.3, Arterial Blood Partial Pressure O2 56.0L, Arterial Blood HCO3 33.1H, Arterial Blood Oxygen Saturation 90.2L, Arterial Blood Base Excess 9.8*H, Ted Test Positive 11/19/20 12:46: Arterial Blood pH 7.461H, Arterial Blood Partial Pressure CO2 50.2H, Arterial Blood Partial Pressure O2 109.4H, Arterial Blood HCO3 35.0H, Arterial Blood Oxygen Saturation 98.1, Arterial Blood Base Excess 9.4*H, Ted Test Positive Current Medications Medications (Trade) Dose Ordered Sig/Kayla Route PRN Reason Start Time Stop Time Status Last Admin Dose Admin Acetaminophen (Tylenol) 650 mg Q6H PRN ORAL For Headache 11/14/20 13:15 12/14/20 13:14 11/16/20 08:10 Albuterol Sulfate (Proventil MDI) 2 puff Q4H PRN INH Shortness of Breath 11/15/20 10:30 02/13/21 10:29 11/17/20 06:04 Ceftriaxone Sodium 1 gm/ Dextrose 55 ml @ 110 mls/hr Q24H IVPB 11/15/20 16:30 11/22/20 16:29 11/19/20 16:49 Chlorhexidine Gluconate (Leora-Hex 2%) 1 applic BEDTIME TOPIC 11/18/20 21:00 02/16/21 20:59 Dexamethasone Sodium Phosphate (Decadron 10mg/ ml Inj) 6 mg DAILY IV 11/15/20 09:00 11/23/20 09:01 11/19/20 08:56 Dextrose (Dextrose 50%) 25 ml Q30M PRN IV Hypoglycemia 11/14/20 13:15 02/12/21 13:14 Dextrose (Dextrose 50%) 50 ml Q30M PRN IV Hypoglycemia 11/14/20 13:15 02/12/21 13:14 Docusate Sodium (Colace) 100 mg TWICE A DAY ORAL 11/17/20 14:15 12/17/20 14:14 11/17/20 14:19 Enoxaparin Sodium (Lovenox) 80 mg EVERY 12 HOURS SUBQ 11/18/20 10:00 02/16/21 09:59 11/19/20 08:58 Furosemide (Lasix) 40 mg DAILY IV 11/17/20 14:00 12/17/20 13:59 11/18/20 09:58 Insulin Aspart (NovoLOG) BEFORE MEALS AND HS SUBQ 11/14/20 16:30 02/12/21 16:29 11/19/20 06:15 Lorazepam (Ativan 2mg/ml 1ml) 0.25 mg Q6H PRN IV For Anxiety 11/18/20 12:45 11/25/20 12:44 11/18/20 12:54 Potassium Chloride 100 ml @ 100 mls/hr Q1H IVPB 11/19/20 16:00 11/19/20 19:59 11/19/20 16:49 Remdesivir 100 mg/ Sodium Chloride 250 ml @ 250 mls/hr Q24H IV 11/16/20 21:00 11/19/20 21:59 11/18/20 21:06 Assessment/Plan Assessment/Plan 1. Elevated inflammatory markers -Will continue Lovenox to full dose 2. Elevated AST - trend LFTs 3. Hyperglycemia without history of diabetes mellitus - A1c ordered - Accu-checks - Continue insulin sliding scale 4. Pneumonia, likely COVID-19 related CXR 11/16. Severe bilateral airspace consolidations, consistent with severe multifocal infiltrates, which have significantly increased. No pneumothorax. Cardiomegaly. Seen by ID On Remdesiver, broad spectrum abx and steroids 5. Hypoxia; continue on BiPAP; settings adjusted Jose Elias Gannon MD Nov 19, 2020 17:12
--- NOTE | 2020-11-19 19:15 | NUR ---
NURSE NOTES: Received patient from ELISEO Beckett. Will continue plan of care.
--- NOTE | 2020-11-19 19:34 | NUR ---
NURSE HAND-OFF REPORT: Latest Vital Signs: Temperature 98.6 , Pulse 100 , B/P 139 /80 , Respiratory Rate 31 , O2 SAT 86 , Nasal Cannula, O2 Flow Rate 55.0 . Vital Sign Comment: STABLE EKG Rhythm: Sinus Rhythm Rhythm change?: N Notified?: Eitan Bansal NP, MD Response: No New Orders Received Latest Rosen Fall Score: 30 Fall Risk: Medium Risk Safety Measures: Call light Within Reach, Bed Alarm Zone 1, Side Rails Side Rails x2, Bed position Low and Locked. Fall Precautions: Yellow Socks Yellow Gown Door Sign Patient Fall Education Report given to Jovanna wilks. Plan of care endorsed.
--- NOTE | 2020-11-19 19:37 | NUR ---
NURSE NOTES: Patient proned for 45 min. Unable to tolerated more. Will attempt again later.
--- NOTE | 2020-11-19 20:00 | NUR ---
NURSE NOTES: Received patient on BiPAP 24/10 @ 100%. O2sat:92% Alert and oriented x4 mainly stateless speaking. NPO status at the moment. IV sites: Left A/C 20g and right hand 22g running TKO and KCL @ 100ml/hr. Isolation precautions noted. Patient able to turn and reposition herself, encourage to prone position but unable to tolerate earlier and states she becomes dizzy. Safety measures in place; bed low, locked and alarm is on. Will continue plan of care.
[2020-11-19] MEDS: Dyna-Hex 2% Top Sol 2oz TOPIC SCH (21:00)
--- NOTE | 2020-11-19 22:00 | NUR ---
NURSE NOTES: IV infiltrated earlier and patient complains of discomfort on the left upper arm. Warm packs placed; no complaints since.
[2020-11-19] MEDS: Maintenance Dose:Remdesivir 100mg/NS 230ml x 4 Doses IV SCH ×2 (22:11)
[2020-11-20] VITALS (24 sets, daily range): BP systolic 132–180; BP diastolic 46–117
--- NOTE | 2020-11-20 | NUR ---
NURSE NOTES: Patient turns and repositions herself and attempts to get into the prone position as much as she can tolerate. RT at bedside to change into a bigger BiPAP mask.
--- NOTE | 2020-11-20 02:00 | NUR ---
NURSE NOTES: BiPAP remains at 18/12 @ 100%, oral care and a&d given to prevent from dryness and cracking of the lips and mouth.
--- NOTE | 2020-11-20 04:00 | NUR ---
NURSE NOTES: Patient did not tolerate supine, prone and side lying positions. She is currently in high fowlers and tolerating; O2sat:98% BiPAP 18/12 @ 80%.
[2020-11-20] MEDS: NovoLOG Insulin Flexpen SUBQ SCH ×4 (05:40→20:35)
--- NOTE | 2020-11-20 06:00 | NUR ---
NURSE NOTES: Bed bath given, linens changed, oral care. Patient is comfortable in high fowlers position; FiO2: 80% O2sat:97%. ABG and CXR follow up ordered for this AM
[2020-11-20 06:13] LABS: HEMATOCRIT 43.6 % (37.0-47.0); HEMOGLOBIN 14.1 G/DL (12.0-16.0); MEAN CORPUSCULAR VOLUME 90 FL (80-99); PLATELET COUNT 307 K/UL (150-450); RED BLOOD COUNT 4.87 M/UL (4.20-5.40); RED CELL DISTRIBUTION WIDTH 12.3 % (11.6-14.8); WHITE BLOOD COUNT 15.7 K/UL (4.8-10.8)
[2020-11-20 06:24] LABS: ALANINE AMINOTRANSFERASE 56 U/L (12-78); ALBUMIN 2.3 G/DL (3.4-5.0); ALBUMIN/GLOBULIN RATIO 0.5 (1.0-2.7); ALKALINE PHOSPHATASE 125 U/L (46-116); ANION GAP 6 mmol/L (5-15); ASPARTATE AMINO TRANSFERASE 38 U/L (15-37); BILIRUBIN,TOTAL 0.5 MG/DL (0.2-1.0); BLOOD UREA NITROGEN 30 mg/dL (7-18); CALCIUM 8.6 MG/DL (8.5-10.1); CARBON DIOXIDE 33 MMOL/L (21-32); CHLORIDE 110 MMOL/L (98-107); CREATININE 0.7 MG/DL (0.55-1.30); POTASSIUM 3.5 MMOL/L (3.5-5.1); SODIUM 148 MMOL/L (136-145)
--- NOTE | 2020-11-20 07:09 | NUR ---
NURSE HAND-OFF REPORT: Latest Vital Signs: Temperature 97.4 , Pulse 90 , B/P 172 /84 , Respiratory Rate 30 , O2 SAT 98 , Nasal Cannula, O2 Flow Rate 55.0 . Vital Sign Comment: Stable EKG Rhythm: Sinus Rhythm Rhythm change?: N Notified?: Eitan Bansal NP, MD Response: No New Orders Received Latest Rosen Fall Score: 30 Fall Risk: Medium Risk Safety Measures: Call light Within Reach, Bed Alarm Zone 1, Side Rails Side Rails x2, Bed position Low and Locked. Fall Precautions: Yellow Socks Yellow Gown Door Sign Patient Fall Education Report given to .
--- NOTE | 2020-11-20 07:20 | NUR ---
RESPIRATORY NOTE: PT received stable on BIPAP 24/10 RR:14, 80%. Alarms are on and audible. Foam tape replaced. Face inspected no wounds found. PT is refusing Full face mask and she says she prefers facial mask. No s/s of respiratory distress noted at this time. Will continue to monitor.
--- NOTE | 2020-11-20 08:28 | Infectious Diseases Prog Note ---
Assessment/Plan Assessment/Plan A; 1. COVID-19 pneumonia. 2. Obesity. 3. Hypertension. 4. Leukocytosis is likely secondary to steroids. 5. Hypoxemia 6. Elevated transaminase PLAN: 1. Finished Remdesivir course 2. Continue dexamethasone day#7 3. Continue ceftriaxone. 4. Continue isolation. Subjective ROS Limited/Unobtainable: Yes Constitutional: Reports: other - looks better today; Denies: fever Allergies: Coded Allergies: No Known Allergies (Unverified , 11/10/17) Objective Last 24 Hour Vital Signs Date Time Temp Pulse Resp B/P (MAP) Pulse Ox O2 Delivery O2 Flow Rate FiO2 11/20/20 07:00 90 30 172/84 (113) 98 11/20/20 06:00 77 20 159/69 (99) 97 11/20/20 05:00 76 23 152/75 (100) 98 11/20/20 04:00 97.4 85 28 161/74 (103) 97 11/20/20 04:00 Bi-pap 11/20/20 03:31 79 11/20/20 03:30 82 30 97 80 11/20/20 03:00 90 28 169/117 (134) 97 11/20/20 02:00 79 21 176/82 (113) 99 11/20/20 01:00 86 28 167/97 (120) 82 11/20/20 00:00 Bi-pap 11/20/20 00:00 98.2 77 21 161/104 (123) 84 11/19/20 23:20 82 11/19/20 23:10 95 31 98 100 11/19/20 23:00 94 27 167/58 (94) 86 11/19/20 22:00 96 30 146/73 (97) 91 11/19/20 21:00 101 32 138/79 (98) 84 11/19/20 20:16 93 32 91 Bi-Pap 100 11/19/20 20:15 Bi-Pap 11/19/20 20:00 97.9 95 32 123/87 (99) 94 11/19/20 20:00 Bi-pap 11/19/20 19:48 92 11/19/20 19:20 93 32 91 100 11/19/20 19:00 100 31 139/80 (99) 86 11/19/20 18:00 98.6 99 29 153/95 (114) 99 1/13/21 17:00 99 24 122/50 (74) 99 11/19/20 16:00 Bi-pap 11/19/20 16:00 98 26 153/65 (94) 87 11/19/20 16:00 93 11/19/20 15:35 100 33 96 100 11/19/20 15:00 96 27 131/58 (82) 92 11/19/20 14:00 97 34 122/62 (82) 94 11/19/20 13:00 112 28 131/74 (93) 98 11/19/20 12:00 Bi-pap 11/19/20 12:00 96 30 132/60 (84) 98 11/19/20 12:00 102 11/19/20 11:05 99 34 98 100 11/19/20 11:00 102 22 117/85 (96) 98 11/19/20 10:00 102 32 151/75 (100) 100 11/19/20 10:00 99 33 139/55 (83) 100 11/19/20 09:00 104 35 149/57 (87) 100 11/19/20 09:00 107 33 159/84 (109) 89 Height (Feet): 5 Height (Inches): 1.00 Weight (Pounds): 180 HEENT: mucous membranes moist Respiratory/Chest: other - on BIPAP Cardiovascular: normal rate Abdomen: soft, non tender Extremities: no edema Neurologic/Psychiatric: other - sleeping Laboratory Tests Test 11/19/20 09:04 11/19/20 12:46 11/20/20 04:00 Arterial Blood pH 7.543 (7.350-7.450) 7.461 (7.350-7.450) Arterial Blood Partial Pressure CO2 39.3 mmHg (35.0-45.0) 50.2 mmHg (35.0-45.0) H Arterial Blood Partial Pressure O2 56.0 mmHg (75.0-100.0) L 109.4 mmHg (75.0-100.0) H Arterial Blood HCO3 33.1 mmol/L (22.0-26.0) H 35.0 mmol/L (22.0-26.0) H Arterial Blood Oxygen Saturation 90.2 % (95-100) L 98.1 % (95-100) Arterial Blood Base Excess 9.8 (-2-2) *H 9.4 (-2-2) *H Ted Test Positive Positive White Blood Count 15.7 K/UL (4.8-10.8) H Red Blood Count 4.87 M/UL (4.20-5.40) Hemoglobin 14.1 G/DL (12.0-16.0) Hematocrit 43.6 % (37.0-47.0) Mean Corpuscular Volume 90 FL (80-99) Mean Corpuscular Hemoglobin 29.0 PG (27.0-31.0) Mean Corpuscular Hemoglobin Concent 32.3 G/DL (32.0-36.0) Red Cell Distribution Width 12.3 % (11.6-14.8) Platelet Count 307 K/UL (150-450) Mean Platelet Volume 6.5 FL (6.5-10.1) Neutrophils (%) (Auto) % (45.0-75.0) Lymphocytes (%) (Auto) % (20.0-45.0) Monocytes (%) (Auto) % (1.0-10.0) Eosinophils (%) (Auto) % (0.0-3.0) Basophils (%) (Auto) % (0.0-2.0) Neutrophils % (Manual) Pending Lymphocytes % (Manual) Pending Platelet Estimate Pending Platelet Morphology Pending Sodium Level 148 MMOL/L (136-145) H Potassium Level 3.5 MMOL/L (3.5-5.1) Chloride Level 110 MMOL/L (98-107) H Carbon Dioxide Level 33 MMOL/L (21-32) H Anion Gap 6 mmol/L (5-15) Blood Urea Nitrogen 30 mg/dL (7-18) H Creatinine 0.7 MG/DL (0.55-1.30) Estimat Glomerular Filtration Rate > 60 mL/min (>60) Glucose Level 250 MG/DL (74-106) H Calcium Level 8.6 MG/DL (8.5-10.1) Total Bilirubin 0.5 MG/DL (0.2-1.0) Aspartate Amino Transf (AST/SGOT) 38 U/L (15-37) H Alanine Aminotransferase (ALT/SGPT) 56 U/L (12-78) Alkaline Phosphatase 125 U/L (46-116) H Total Protein 6.5 G/DL (6.4-8.2) Albumin 2.3 G/DL (3.4-5.0) L Globulin 4.2 g/dL Albumin/Globulin Ratio 0.5 (1.0-2.7) L Current Medications Medications (Trade) Dose Ordered Sig/Kayla Route PRN Reason Start Time Stop Time Status Last Admin Dose Admin Acetaminophen (Tylenol) 650 mg Q6H PRN ORAL For Headache 11/14/20 13:15 12/14/20 13:14 11/16/20 08:10 Albuterol Sulfate (Proventil MDI) 2 puff Q4H PRN INH Shortness of Breath 11/15/20 10:30 02/13/21 10:29 11/17/20 06:04 Ceftriaxone Sodium 1 gm/ Dextrose 55 ml @ 110 mls/hr Q24H IVPB 11/15/20 16:30 11/22/20 16:29 11/19/20 16:49 Chlorhexidine Gluconate (Leora-Hex 2%) 1 applic BEDTIME TOPIC 11/18/20 21:00 02/16/21 20:59 Dexamethasone Sodium Phosphate (Decadron 10mg/ ml Inj) 6 mg DAILY IV 11/15/20 09:00 11/23/20 09:01 11/19/20 08:56 Dextrose (Dextrose 50%) 25 ml Q30M PRN IV Hypoglycemia 11/14/20 13:15 02/12/21 13:14 Dextrose (Dextrose 50%) 50 ml Q30M PRN IV Hypoglycemia 11/14/20 13:15 02/12/21 13:14 Docusate Sodium (Colace) 100 mg TWICE A DAY ORAL 11/17/20 14:15 12/17/20 14:14 11/17/20 14:19 Enoxaparin Sodium (Lovenox) 80 mg EVERY 12 HOURS SUBQ 11/18/20 10:00 02/16/21 09:59 11/19/20 21:51 Furosemide (Lasix) 40 mg DAILY IV 11/17/20 14:00 12/17/20 13:59 11/18/20 09:58 Insulin Aspart (NovoLOG) BEFORE MEALS AND HS SUBQ 11/14/20 16:30 02/12/21 16:29 11/20/20 05:40 Lorazepam (Ativan 2mg/ml 1ml) 0.25 mg Q6H PRN IV For Anxiety 11/18/20 12:45 11/25/20 12:44 11/18/20 12:54 Herminio Reid MD Nov 20, 2020 08:28
--- NOTE | 2020-11-20 08:39 | NUR ---
RD ASSESSMENT & RECOMMENDATIONS SEE CARE ACTIVITY FOR COMPLETE ASSESSMENT DAILY ESTIMATED NEEDS: Needs based on Pulmonary 56.3kg abw 22-28 kcals/kg 0960-2047 total kcals 1.2-2 g protein/kg 68-113 g total protein Fluid per MD, on lasix mL/kg total fluid mLs NUTRITION DIAGNOSIS: Predicted inadequate energy intake r/t Covid 19 PNA as evidenced by pt in resp distress, on bipap, NPO unable to tolerate oral po. CURRENT DIET: NPO (PO DIET RECOMMENDATIONS: CCHO LOW DIET/ TEXTURE PER VINYL WELDER AND FABRICATOR) ENTERAL NUTRITION RECOMMENDATIONS: Glucerna 1.5 @40ml/hr x24 hrs to provide 960ml, 1440 kcal, 79g pro, 729ml free H2O - As medically appropriate or should pt require oral intubation rec to obtain GI access, initiate non oral feeds of Glucerna 1.5 @20ml/hr for 6 hrs. - Advance as tolerated 10ml/hr q4-6 hrs to goal. - Flush per MD. HOB over 30 degrees TPN Comment: Consult RD for TPN recs w/ prolonged BIPAP use and prolonged NPO status ADDITIONAL RECOMMENDATIONS: 1) On lasix, monitor lytes, replete as needed Check weight daily on calibrated bed scale 2) NPO, on bipap-> rec TPN w/ prolonged NPO status (TF recs above should pt require oral intubation)
[2020-11-20] MEDS: Docusate 100mg cap ORAL SCH ×2 (09:00→16:31)
--- NOTE | 2020-11-20 09:12 | NUR ---
RADIOLOGY DEPT., CHEST X-RAY DONE.-P.DYE
[2020-11-20] MEDS: dexAMETHasone 10mg/ml Inj IV SCH (09:52)
[2020-11-20] MEDS: Enoxaparin 100mg Inj SUBQ SCH ×2 (09:53→20:31)
--- NOTE | 2020-11-20 11:28 | NUR ---
[facility] SPECIALIST NOTE Pt is currently on bibap and she is monolingual Tajik. SW spoke w/ pt's daughter Tonya and daughter in law, Shivani and obtained information. Pt resides w/ her at [address] [place] [address]. Pt does not have AD. Pt has financial POA, her . PT is ambulatory w/o DME and independent w/ ADLs. PT does not have hx of mental illness and substance abuse. PT remains full code. Primary contact: Tonya Diego (daughter) [phone] Secondary contact: Shivani Diego (daughter in law) [phone]
--- NOTE | 2020-11-20 13:14 | General Progress Note ---
Subjective ROS Limited/Unobtainable: No Allergies: Coded Allergies: No Known Allergies (Unverified , 11/10/17) Objective Last 24 Hour Vital Signs Date Time Temp Pulse Resp B/P (MAP) Pulse Ox O2 Delivery O2 Flow Rate FiO2 11/20/20 11:00 91 26 167/86 (113) 89 11/20/20 10:00 88 22 180/89 (119) 97 11/20/20 09:00 93 30 167/79 (108) 94 11/20/20 08:00 Bi-pap 11/20/20 08:00 97.9 86 26 176/79 (111) 100 11/20/20 07:00 90 30 172/84 (113) 98 11/20/20 06:00 77 20 159/69 (99) 97 11/20/20 05:00 76 23 152/75 (100) 98 11/20/20 04:00 97.4 85 28 161/74 (103) 97 11/20/20 04:00 Bi-pap 11/20/20 03:31 79 11/20/20 03:30 82 30 97 80 11/20/20 03:00 90 28 169/117 (134) 97 11/20/20 02:00 79 21 176/82 (113) 99 11/20/20 01:00 86 28 167/97 (120) 82 11/20/20 00:00 Bi-pap 11/20/20 00:00 98.2 77 21 161/104 (123) 84 11/19/20 23:20 82 11/19/20 23:10 95 31 98 100 11/19/20 23:00 94 27 167/58 (94) 86 11/19/20 22:00 96 30 146/73 (97) 91 11/19/20 21:00 101 32 138/79 (98) 84 11/19/20 20:16 93 32 91 Bi-Pap 100 11/19/20 20:15 Bi-Pap 11/19/20 20:00 97.9 95 32 123/87 (99) 94 11/19/20 20:00 Bi-pap 11/19/20 19:48 92 11/19/20 19:20 93 32 91 100 11/19/20 19:00 100 31 139/80 (99) 86 11/19/20 18:00 98.6 99 29 153/95 (114) 99 11/19/20 17:00 99 24 122/50 (74) 99 11/19/20 16:00 Bi-pap 11/19/20 16:00 98 26 153/65 (94) 87 11/19/20 16:00 93 11/19/20 15:35 100 33 96 100 11/19/20 15:00 96 27 131/58 (82) 92 11/19/20 14:00 97 34 122/62 (82) 94 Intake and Output 11/19/20 11/20/20 19:00 07:00 Intake Total 200 ml Output Total 400 ml 685 ml Balance -200 ml -685 ml IV Total 200 ml Output Urine Total 400 ml 685 ml Laboratory Tests 11/20/20 04:00: White Blood Count 15.7H, Red Blood Count 4.87, Hemoglobin 14.1, Hematocrit 43.6, Mean Corpuscular Volume 90, Mean Corpuscular Hemoglobin 29.0, Mean Corpuscular Hemoglobin Concent 32.3, Red Cell Distribution Width 12.3, Platelet Count 307, Mean Platelet Volume 6.5, Neutrophils (%) (Auto) , Lymphocytes (%) (Auto) , Monocytes (%) (Auto) , Eosinophils (%) (Auto) , Basophils (%) (Auto) , Differential Total Cells Counted 100, Neutrophils % (Manual) 93H, Lymphocytes % (Manual) 4L, Monocytes % (Manual) 3, Eosinophils % (Manual) 0, Basophils % (Manual) 0, Band Neutrophils 0, Platelet Estimate Adequate, Platelet Morphology Normal, Red Blood Cell Morphology Normal, Sodium Level 148H, Potassium Level 3.5, Chloride Level 110H, Carbon Dioxide Level 33H, Anion Gap 6, Blood Urea Nitrogen 30H, Creatinine 0.7, Estimat Glomerular Filtration Rate > 60, Glucose Level 250H, Calcium Level 8.6, Total Bilirubin 0.5, Aspartate Amino Transf (AST/SGOT) 38H, Alanine Aminotransferase (ALT/SGPT) 56, Alkaline Phosphatase 125H, Total Protein 6.5, Albumin 2.3L, Globulin 4.2, Albumin/Globulin Ratio 0.5L 11/20/20 09:20: Arterial Blood pH 7.459H, Arterial Blood Partial Pressure CO2 44.5, Arterial Blood Partial Pressure O2 91.6, Arterial Blood HCO3 30.9H, Arterial Blood Oxygen Saturation 96.8, Arterial Blood Base Excess 6.2H, Ted Test Positive Height (Feet): 5 Height (Inches): 1.00 Weight (Pounds): 180 General Appearance: lethargic EENT: TMs normal Neck: supple Cardiovascular: tachycardia Respiratory/Chest: decreased breath sounds Abdomen: hypoactive bowel sounds Extremities: non-tender Assessment/Plan Assessment/Plan: Covid positive PNA mild transaminitis most likely due to above>>>>improving DM smoker on BIPAP NPO repeat LFTS abd us if needed fu hepatitis panel>>> neg covid care NPO plan NGT if gets intubated will fu Jose Armando Andrews MD Nov 20, 2020 13:14
--- NOTE | 2020-11-20 13:23 | Diagnostic Imaging Report ---
Indication: Cough Technique: One view of the chest Comparison: 11/19/2020 Findings: Bilateral infiltrates are unchanged. The heart size is normal. Impression: Unchanged, over one day, findings as above.
--- NOTE | 2020-11-20 15:16 | NUR ---
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
[2020-11-20] MEDS: cefTRIAXone 1 GM in D5W 55 ML IVPB SCH (16:30)
--- NOTE | 2020-11-20 16:56 | Pulmonology Progress Note ---
Subjective ROS Limited/Unobtainable: No Interval Events: Now in ICU; on BiPAP Constitutional: Reports: other - looks better today; Denies: fever HEENT: Repors: no symptoms Respiratory: Reports: no symptoms, shortness of breath, dyspnea at rest Cardiovascular: Reports: no symptoms Gastrointestinal/Abdominal: Reports: no symptoms Neurologic: Reports: other - Dizziness Allergies: Coded Allergies: No Known Allergies (Unverified , 11/10/17) Objective Last 24 Hour Vital Signs Date Time Temp Pulse Resp B/P (MAP) Pulse Ox O2 Delivery O2 Flow Rate FiO2 11/20/20 16:00 97.7 98 27 166/78 (107) 95 11/20/20 16:00 100 11/20/20 16:00 Bi-pap 11/20/20 15:00 100 34 166/78 (107) 91 11/20/20 14:00 84 23 158/72 (100) 92 11/20/20 13:00 81 26 149/58 (88) 86 11/20/20 12:00 83 11/20/20 12:00 83 28 150/82 (104) 86 11/20/20 12:00 Bi-pap 11/20/20 11:00 91 26 167/86 (113) 89 11/20/20 10:00 88 22 180/89 (119) 97 11/20/20 09:00 93 30 167/79 (108) 94 11/20/20 08:00 82 11/20/20 08:00 Bi-pap 11/20/20 08:00 97.9 86 26 176/79 (111) 100 11/20/20 07:00 90 30 172/84 (113) 98 11/20/20 06:00 77 20 159/69 (99) 97 11/20/20 05:00 76 23 152/75 (100) 98 11/20/20 04:00 97.4 85 28 161/74 (103) 97 11/20/20 04:00 Bi-pap 11/20/20 03:31 79 11/20/20 03:30 82 30 97 80 11/20/20 03:00 90 28 169/117 (134) 97 11/20/20 02:00 79 21 176/82 (113) 99 11/20/20 01:00 86 28 167/97 (120) 82 11/20/20 00:00 Bi-pap 11/20/20 00:00 98.2 77 21 161/104 (123) 84 11/19/20 23:20 82 11/19/20 23:10 95 31 98 100 11/19/20 23:00 94 27 167/58 (94) 86 11/19/20 22:00 96 30 146/73 (97) 91 11/19/20 21:00 101 32 138/79 (98) 84 11/19/20 20:16 93 32 91 Bi-Pap 100 11/19/20 20:15 Bi-Pap 11/19/20 20:00 97.9 95 32 123/87 (99) 94 11/19/20 20:00 Bi-pap 11/19/20 19:48 92 11/19/20 19:20 93 32 91 100 11/19/20 19:00 100 31 139/80 (99) 86 11/19/20 18:00 98.6 99 29 153/95 (114) 99 11/19/20 17:00 99 24 122/50 (74) 99 Intake and Output 11/19/20 11/20/20 19:00 07:00 Intake Total 200 ml Output Total 400 ml 685 ml Balance -200 ml -685 ml IV Total 200 ml Output Urine Total 400 ml 685 ml General Appearance: no acute distress HEENT: normocephalic Respiratory: chest wall non-tender Cardiovascular: normal peripheral pulses Abdomen: normal bowel sounds Laboratory Tests 11/20/20 04:00: White Blood Count 15.7H, Red Blood Count 4.87, Hemoglobin 14.1, Hematocrit 43.6, Mean Corpuscular Volume 90, Mean Corpuscular Hemoglobin 29.0, Mean Corpuscular Hemoglobin Concent 32.3, Red Cell Distribution Width 12.3, Platelet Count 307, Mean Platelet Volume 6.5, Neutrophils (%) (Auto) , Lymphocytes (%) (Auto) , Monocytes (%) (Auto) , Eosinophils (%) (Auto) , Basophils (%) (Auto) , Differential Total Cells Counted 100, Neutrophils % (Manual) 93H, Lymphocytes % (Manual) 4L, Monocytes % (Manual) 3, Eosinophils % (Manual) 0, Basophils % (Manual) 0, Band Neutrophils 0, Platelet Estimate Adequate, Platelet Morphology Normal, Red Blood Cell Morphology Normal, Sodium Level 148H, Potassium Level 3.5, Chloride Level 110H, Carbon Dioxide Level 33H, Anion Gap 6, Blood Urea Nitrogen 30H, Creatinine 0.7, Estimat Glomerular Filtration Rate > 60, Glucose Level 250H, Calcium Level 8.6, Total Bilirubin 0.5, Aspartate Amino Transf (AST/SGOT) 38H, Alanine Aminotransferase (ALT/SGPT) 56, Alkaline Phosphatase 125H, Total Protein 6.5, Albumin 2.3L, Globulin 4.2, Albumin/Globulin Ratio 0.5L 11/20/20 09:20: Arterial Blood pH 7.459H, Arterial Blood Partial Pressure CO2 44.5, Arterial Blood Partial Pressure O2 91.6, Arterial Blood HCO3 30.9H, Arterial Blood Oxygen Saturation 96.8, Arterial Blood Base Excess 6.2H, Ted Test Positive Current Medications Medications (Trade) Dose Ordered Sig/Kayla Route PRN Reason Start Time Stop Time Status Last Admin Dose Admin Acetaminophen (Tylenol) 650 mg Q6H PRN ORAL For Headache 11/14/20 13:15 12/14/20 13:14 11/16/20 08:10 Albuterol Sulfate (Proventil MDI) 2 puff Q4H PRN INH Shortness of Breath 11/15/20 10:30 02/13/21 10:29 11/17/20 06:04 Ceftriaxone Sodium 1 gm/ Dextrose 55 ml @ 110 mls/hr Q24H IVPB 11/15/20 16:30 11/22/20 16:29 11/20/20 16:30 Chlorhexidine Gluconate (Leora-Hex 2%) 1 applic BEDTIME TOPIC 11/18/20 21:00 02/16/21 20:59 Dexamethasone Sodium Phosphate (Decadron 10mg/ ml Inj) 6 mg DAILY IV 11/15/20 09:00 11/23/20 09:01 11/20/20 09:52 Dextrose (Dextrose 50%) 25 ml Q30M PRN IV Hypoglycemia 11/14/20 13:15 02/12/21 13:14 Dextrose (Dextrose 50%) 50 ml Q30M PRN IV Hypoglycemia 11/14/20 13:15 02/12/21 13:14 Docusate Sodium (Colace) 100 mg TWICE A DAY ORAL 11/17/20 14:15 12/17/20 14:14 11/17/20 14:19 Enoxaparin Sodium (Lovenox) 80 mg EVERY 12 HOURS SUBQ 11/18/20 10:00 02/16/21 09:59 11/20/20 09:53 Furosemide (Lasix) 40 mg DAILY IV 11/17/20 14:00 12/17/20 13:59 11/20/20 09:53 Insulin Aspart (NovoLOG) BEFORE MEALS AND HS SUBQ 11/14/20 16:30 02/12/21 16:29 11/20/20 16:31 Lorazepam (Ativan 2mg/ml 1ml) 0.25 mg Q6H PRN IV For Anxiety 11/18/20 12:45 11/25/20 12:44 11/18/20 12:54 Assessment/Plan Assessment/Plan 1. Elevated inflammatory markers -Will continue Lovenox to full dose 2. Elevated AST - trend LFTs 3. Hyperglycemia without history of diabetes mellitus - A1c ordered - Accu-checks - Continue insulin sliding scale 4. Pneumonia, likely COVID-19 related CXR Severe bilateral airspace consolidations, consistent with severe multifocal infiltrates, which have significantly increased. No pneumothorax. Cardiomegaly. Seen by ID On Remdesiver, broad spectrum abx and steroids 5. Hypoxia; continue on BiPAP; settings adjusted Jose Elias Gannon MD Nov 20, 2020 16:56
--- NOTE | 2020-11-20 19:24 | NUR ---
NURSE HAND-OFF REPORT: Latest Vital Signs: Temperature 97.7 , Pulse 93 , B/P 135 /46 , Respiratory Rate 36 , O2 SAT 91 , Nasal Cannula, O2 Flow Rate 55.0 . Vital Sign Comment: STABLE EKG Rhythm: Sinus Rhythm Rhythm change?: N Notified?: Eitan Bansal NP, MD Response: No New Orders Received Latest Rosen Fall Score: 30 Fall Risk: Medium Risk Safety Measures: Call light Within Reach, Bed Alarm Zone 1, Side Rails Side Rails x2, Bed position Low and Locked. Fall Precautions: Yellow Socks Yellow Gown Door Sign Patient Fall Education Report given to Jovanna GOMES. Patient stable. Plan of care endorsed.
--- NOTE | 2020-11-20 19:25 | NUR ---
NURSE NOTES: Received report from ELISEO Beckett. Will monitor and assess pt.
--- NOTE | 2020-11-20 20:00 | NUR ---
NURSE NOTES: Upon assessment pt is A/Ox4, [place] speaking. Able to make needs known. Responsive to verbal and tactile stimuli. PERRLA. EKG shows SR at 91 BPM. Pt on BiPAP with settings of 18/12 at 60% fiO2 saturating 98%. Currently NPO. Right hand IV #20 and AC #22 gauge patent and intact currently TKO. Garcia draining well to gravity. Bed kept in lowest and locked position. Bed alarm on. Side rails up x3. Call light within reach. Will continue to monitor.
--- NOTE | 2020-11-20 22:04 | NUR ---
NURSE NOTES: No cardiopulmonary distress noted. Pt self repositioned to prone position. Will monitor.
[2020-11-21] VITALS (24 sets, daily range): BP systolic 100–166; BP diastolic 50–100
--- NOTE | 2020-11-21 00:20 | NUR ---
NURSE NOTES: Pt appears to be resting comfortably in bed. RT observed at bedside. Continued at current settings saturating 100%. Will monitor.
--- NOTE | 2020-11-21 02:28 | NUR ---
NURSE NOTES: Pt request for bedpan but no BM after 30 minutes. Bed bath provided. No distress noted.
--- NOTE | 2020-11-21 04:33 | NUR ---
NURSE NOTES: Pt resting comfortably. When asked if patient has pain she nods her head. V/S Stable. Will monitor.
[2020-11-21 05:36] LABS: HEMATOCRIT 44.9 % (37.0-47.0); HEMOGLOBIN 14.4 G/DL (12.0-16.0); MEAN CORPUSCULAR VOLUME 90 FL (80-99); PLATELET COUNT 336 K/UL (150-450); RED BLOOD COUNT 4.98 M/UL (4.20-5.40); RED CELL DISTRIBUTION WIDTH 12.3 % (11.6-14.8); WHITE BLOOD COUNT 12.9 K/UL (4.8-10.8)
[2020-11-21] MEDS: NovoLOG Insulin Flexpen SUBQ SCH ×4 (05:42→21:20)
[2020-11-21 05:53] LABS: ANION GAP 7 mmol/L (5-15); BLOOD UREA NITROGEN 33 mg/dL (7-18); CALCIUM 8.8 MG/DL (8.5-10.1); CARBON DIOXIDE 34 MMOL/L (21-32); CHLORIDE 114 MMOL/L (98-107); CREATININE 0.8 MG/DL (0.55-1.30); POTASSIUM 3.2 MMOL/L (3.5-5.1); SODIUM 155 MMOL/L (136-145)
--- NOTE | 2020-11-21 06:59 | NUR ---
NURSE HAND-OFF REPORT: Latest Vital Signs: Temperature 98.1 , Pulse 106 , B/P 130 /84 , Respiratory Rate 28 , O2 SAT 98 , Nasal Cannula, O2 Flow Rate 55.0 . Vital Sign Comment: WNL EKG Rhythm: Sinus Rhythm Rhythm change?: N Notified?: Eitan Bansal NP, MD Response: No New Orders Received Latest Rosen Fall Score: 30 Fall Risk: Medium Risk Safety Measures: Call light Within Reach, Bed Alarm Zone 1, Side Rails Side Rails x3, Bed position Low and Locked. Fall Precautions: Yellow Socks Yellow Gown Door Sign Patient Fall Education Report given to ELISEO Beckett.
[2020-11-21] MEDS: Docusate 100mg cap ORAL SCH ×2 (08:48→17:36)
[2020-11-21] MEDS: dexAMETHasone 10mg/ml Inj IV SCH (08:48)
[2020-11-21] MEDS: Enoxaparin 100mg Inj SUBQ SCH ×2 (08:49→21:19)
--- NOTE | 2020-11-21 11:02 | NUR ---
NURSE NOTES: NOK callled and phone given to Dr. Gannon who updated them on patient condition.
--- NOTE | 2020-11-21 11:43 | Infectious Diseases Prog Note ---
Assessment/Plan Assessment/Plan antibiotics : ceftriaxone A 1. covid 19 pneumonia on 50 % Fi O2 with saturation 99 % s/p remdesivir 2. Obesity. 3. Hypertension. 4. Leukocytosis improving P 1. Continue dexamethasone day#8. 2. Continue ceftriaxone. 3. Continue isolation. Subjective ROS Limited/Unobtainable: Yes Allergies: Coded Allergies: No Known Allergies (Unverified , 11/10/17) Objective Last 24 Hour Vital Signs Date Time Temp Pulse Resp B/P (MAP) Pulse Ox O2 Delivery O2 Flow Rate FiO2 11/21/20 08:16 Bi-pap 11/21/20 08:16 50 11/21/20 07:00 104 24 134/81 (98) 99 11/21/20 06:00 106 28 130/84 (99) 98 11/21/20 05:00 86 25 137/55 (82) 100 11/21/20 04:50 50 11/21/20 04:00 Bi-pap 11/21/20 04:00 87 11/21/20 04:00 98.1 100 27 143/54 (83) 100 11/21/20 03:54 97 27 100 60 11/21/20 03:00 89 26 153/62 (92) 100 11/21/20 02:00 94 26 140/100 (113) 99 11/21/20 01:00 96 20 162/82 (108) 95 11/21/20 00:00 Bi-pap 11/21/20 00:00 98.6 93 27 152/82 (105) 97 11/21/20 00:00 104 11/21/20 00:00 60 11/20/20 23:54 91 32 96 60 11/20/20 23:00 84 15 139/60 (86) 95 11/20/20 22:00 100 15 159/70 (99) 100 11/20/20 21:00 88 27 151/52 (85) 98 11/20/20 20:00 99.1 98 27 145/62 (89) 97 11/20/20 20:00 91 11/20/20 20:00 Bi-pap 11/20/20 20:00 60 11/20/20 19:54 96 33 98 60 11/20/20 19:00 93 36 135/46 (75) 91 11/20/20 18:00 99 30 146/63 (90) 97 11/20/20 17:00 108 30 132/109 (117) 86 11/20/20 16:00 97.7 98 27 166/78 (107) 95 11/20/20 16:00 100 11/20/20 16:00 Bi-pap 11/20/20 15:00 100 34 166/78 (107) 91 11/20/20 14:34 98 33 93 60 11/20/20 14:00 84 23 158/72 (100) 92 11/20/20 13:00 81 26 149/58 (88) 86 11/20/20 12:00 83 11/20/20 12:00 83 28 150/82 (104) 86 11/20/20 12:00 98.0 11/20/20 12:00 Bi-pap Height (Feet): 5 Height (Inches): 1.00 Weight (Pounds): 180 HEENT: other - on bipap Laboratory Tests Test 11/21/20 03:46 11/21/20 07:54 White Blood Count 12.9 K/UL (4.8-10.8) H Red Blood Count 4.98 M/UL (4.20-5.40) Hemoglobin 14.4 G/DL (12.0-16.0) Hematocrit 44.9 % (37.0-47.0) Mean Corpuscular Volume 90 FL (80-99) Mean Corpuscular Hemoglobin 29.0 PG (27.0-31.0) Mean Corpuscular Hemoglobin Concent 32.1 G/DL (32.0-36.0) Red Cell Distribution Width 12.3 % (11.6-14.8) Platelet Count 336 K/UL (150-450) Mean Platelet Volume 6.9 FL (6.5-10.1) Neutrophils (%) (Auto) % (45.0-75.0) Lymphocytes (%) (Auto) % (20.0-45.0) Monocytes (%) (Auto) % (1.0-10.0) Eosinophils (%) (Auto) % (0.0-3.0) Basophils (%) (Auto) % (0.0-2.0) Sodium Level 155 MMOL/L (136-145) H Potassium Level 3.2 MMOL/L (3.5-5.1) L Chloride Level 114 MMOL/L (98-107) H Carbon Dioxide Level 34 MMOL/L (21-32) H Anion Gap 7 mmol/L (5-15) Blood Urea Nitrogen 33 mg/dL (7-18) H Creatinine 0.8 MG/DL (0.55-1.30) Estimat Glomerular Filtration Rate > 60 mL/min (>60) Glucose Level 218 MG/DL (74-106) H Calcium Level 8.8 MG/DL (8.5-10.1) Arterial Blood pH 7.529 (7.350-7.450) Arterial Blood Partial Pressure CO2 45.1 mmHg (35.0-45.0) H Arterial Blood Partial Pressure O2 75.6 mmHg (75.0-100.0) Arterial Blood HCO3 36.8 mmol/L (22.0-26.0) H Arterial Blood Oxygen Saturation 95.4 % (95-100) Arterial Blood Base Excess 12.4 (-2-2) *H Ted Test Positive Current Medications Medications (Trade) Dose Ordered Sig/Kayla Route PRN Reason Start Time Stop Time Status Last Admin Dose Admin Acetaminophen (Tylenol) 650 mg Q6H PRN ORAL For Headache 11/14/20 13:15 12/14/20 13:14 11/16/20 08:10 Albuterol Sulfate (Proventil MDI) 2 puff Q4H PRN INH Shortness of Breath 11/15/20 10:30 02/13/21 10:29 11/17/20 06:04 Ceftriaxone Sodium 1 gm/ Dextrose 55 ml @ 110 mls/hr Q24H IVPB 11/15/20 16:30 11/22/20 16:29 11/20/20 16:30 Dexamethasone Sodium Phosphate (Decadron 10mg/ ml Inj) 6 mg DAILY IV 11/15/20 09:00 11/23/20 09:01 11/21/20 08:48 Dextrose (Dextrose 50%) 25 ml Q30M PRN IV Hypoglycemia 11/14/20 13:15 02/12/21 13:14 Dextrose (Dextrose 50%) 50 ml Q30M PRN IV Hypoglycemia 11/14/20 13:15 02/12/21 13:14 Docusate Sodium (Colace) 100 mg TWICE A DAY ORAL 11/17/20 14:15 12/17/20 14:14 11/21/20 08:48 Enoxaparin Sodium (Lovenox) 80 mg EVERY 12 HOURS SUBQ 11/18/20 10:00 02/16/21 09:59 11/21/20 08:49 Furosemide (Lasix) 40 mg DAILY IV 11/17/20 14:00 12/17/20 13:59 11/21/20 08:49 Insulin Aspart (NovoLOG) BEFORE MEALS AND HS SUBQ 11/14/20 16:30 02/12/21 16:29 11/21/20 05:42 Lorazepam (Ativan 2mg/ml 1ml) 0.25 mg Q6H PRN IV For Anxiety 11/18/20 12:45 11/25/20 12:44 11/18/20 12:54 Arthur Blair MD Nov 21, 2020 11:43
--- NOTE | 2020-11-21 12:32 | General Progress Note ---
Subjective ROS Limited/Unobtainable: No Allergies: Coded Allergies: No Known Allergies (Unverified , 11/10/17) Objective Last 24 Hour Vital Signs Date Time Temp Pulse Resp B/P (MAP) Pulse Ox O2 Delivery O2 Flow Rate FiO2 11/21/20 12:00 91 11/21/20 11:00 100 29 142/53 (82) 100 11/21/20 10:00 96 31 141/50 (80) 100 11/21/20 09:00 99 28 131/99 (110) 100 11/21/20 08:16 Bi-pap 11/21/20 08:16 50 11/21/20 08:00 98.4 100 30 143/58 (86) 87 11/21/20 08:00 87 11/21/20 07:00 104 24 134/81 (98) 99 11/21/20 06:00 106 28 130/84 (99) 98 11/21/20 05:00 86 25 137/55 (82) 100 11/21/20 04:50 50 11/21/20 04:00 Bi-pap 11/21/20 04:00 87 11/21/20 04:00 98.1 100 27 143/54 (83) 100 11/21/20 03:54 97 27 100 60 11/21/20 03:00 89 26 153/62 (92) 100 11/21/20 02:00 94 26 140/100 (113) 99 11/21/20 01:00 96 20 162/82 (108) 95 11/21/20 00:00 Bi-pap 11/21/20 00:00 98.6 93 27 152/82 (105) 97 11/21/20 00:00 104 11/21/20 00:00 60 11/20/20 23:54 91 32 96 60 11/20/20 23:00 84 15 139/60 (86) 95 11/20/20 22:00 100 15 159/70 (99) 100 11/20/20 21:00 88 27 151/52 (85) 98 11/20/20 20:00 99.1 98 27 145/62 (89) 97 11/20/20 20:00 91 11/20/20 20:00 Bi-pap 11/20/20 20:00 60 11/20/20 19:54 96 33 98 60 11/20/20 19:00 93 36 135/46 (75) 91 11/20/20 18:00 99 30 146/63 (90) 97 11/20/20 17:00 108 30 132/109 (117) 86 11/20/20 16:00 97.7 98 27 166/78 (107) 95 11/20/20 16:00 100 11/20/20 16:00 Bi-pap 11/20/20 15:00 100 34 166/78 (107) 91 11/20/20 14:34 98 33 93 60 11/20/20 14:00 84 23 158/72 (100) 92 11/20/20 13:00 81 26 149/58 (88) 86 Intake and Output 11/20/20 11/21/20 19:00 07:00 Output Total 1125 ml 505 ml Balance -1125 ml -505 ml Output Urine Total 1125 ml 505 ml Laboratory Tests 11/21/20 03:46: White Blood Count 12.9H, Red Blood Count 4.98, Hemoglobin 14.4, Hematocrit 44.9, Mean Corpuscular Volume 90, Mean Corpuscular Hemoglobin 29.0, Mean Corpuscular Hemoglobin Concent 32.1, Red Cell Distribution Width 12.3, Platelet Count 336, Mean Platelet Volume 6.9, Neutrophils (%) (Auto) , Lymphocytes (%) (Auto) , Monocytes (%) (Auto) , Eosinophils (%) (Auto) , Basophils (%) (Auto) , Sodium Level 155H, Potassium Level 3.2L, Chloride Level 114H, Carbon Dioxide Level 34H, Anion Gap 7, Blood Urea Nitrogen 33H, Creatinine 0.8, Estimat Glomerular Filtration Rate > 60, Glucose Level 218H, Calcium Level 8.8 11/21/20 07:54: Arterial Blood pH 7.529H, Arterial Blood Partial Pressure CO2 45.1H, Arterial Blood Partial Pressure O2 75.6, Arterial Blood HCO3 36.8H, Arterial Blood Oxygen Saturation 95.4, Arterial Blood Base Excess 12.4*H, Ted Test Positive Height (Feet): 5 Height (Inches): 1.00 Weight (Pounds): 180 General Appearance: no apparent distress EENT: PERRL/EOMI Neck: supple Cardiovascular: normal rate Respiratory/Chest: accessory muscle use Abdomen: normal bowel sounds, non tender, soft Extremities: non-tender Assessment/Plan Assessment/Plan: Covid positive PNA mild transaminitis most likely due to above>>>>improving DM smoker on BIPAP NPO repeat LFTS abd us if needed fu hepatitis panel>>> neg covid care NPO plan NGT if gets intubated will fu Jose Armando Andrews MD Nov 21, 2020 12:31
--- NOTE | 2020-11-21 13:05 | NUR ---
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
--- NOTE | 2020-11-21 13:16 | Diagnostic Imaging Report ---
Indication: Shortness of breath Technique: One view of the chest Comparison: 11/20/2020 Findings: Bilateral infiltrates are unchanged. The heart size is upper limits of normal. The pleural spaces are clear Impression: Unchanged, over one day, findings as above.
--- NOTE | 2020-11-21 13:47 | Pulmonology Progress Note ---
Subjective ROS Limited/Unobtainable: No Interval Events: Now in ICU; on BiPAP Constitutional: Reports: other - looks better today; Denies: fever HEENT: Repors: no symptoms Respiratory: Reports: no symptoms, shortness of breath, dyspnea at rest Cardiovascular: Reports: no symptoms Gastrointestinal/Abdominal: Reports: no symptoms Neurologic: Reports: other - Dizziness Allergies: Coded Allergies: No Known Allergies (Unverified , 11/10/17) Objective Last 24 Hour Vital Signs Date Time Temp Pulse Resp B/P (MAP) Pulse Ox O2 Delivery O2 Flow Rate FiO2 11/21/20 12:00 91 11/21/20 11:00 100 29 142/53 (82) 100 11/21/20 10:00 96 31 141/50 (80) 100 11/21/20 09:00 99 28 131/99 (110) 100 11/21/20 08:16 Bi-pap 11/21/20 08:16 50 11/21/20 08:00 98.4 100 30 143/58 (86) 87 11/21/20 08:00 87 11/21/20 07:00 104 24 134/81 (98) 99 11/21/20 06:00 106 28 130/84 (99) 98 11/21/20 05:00 86 25 137/55 (82) 100 11/21/20 04:50 50 11/21/20 04:00 Bi-pap 11/21/20 04:00 87 11/21/20 04:00 98.1 100 27 143/54 (83) 100 11/21/20 03:54 97 27 100 60 11/21/20 03:00 89 26 153/62 (92) 100 11/21/20 02:00 94 26 140/100 (113) 99 11/21/20 01:00 96 20 162/82 (108) 95 11/21/20 00:00 Bi-pap 11/21/20 00:00 98.6 93 27 152/82 (105) 97 11/21/20 00:00 104 11/21/20 00:00 60 11/20/20 23:54 91 32 96 60 11/20/20 23:00 84 15 139/60 (86) 95 11/20/20 22:00 100 15 159/70 (99) 100 11/20/20 21:00 88 27 151/52 (85) 98 11/20/20 20:00 99.1 98 27 145/62 (89) 97 11/20/20 20:00 91 11/20/20 20:00 Bi-pap 11/20/20 20:00 60 11/20/20 19:54 96 33 98 60 11/20/20 19:00 93 36 135/46 (75) 91 11/20/20 18:00 99 30 146/63 (90) 97 11/20/20 17:00 108 30 132/109 (117) 86 11/20/20 16:00 97.7 98 27 166/78 (107) 95 11/20/20 16:00 100 11/20/20 16:00 Bi-pap 11/20/20 15:00 100 34 166/78 (107) 91 11/20/20 14:34 98 33 93 60 11/20/20 14:00 84 23 158/72 (100) 92 Intake and Output 11/20/20 11/21/20 19:00 07:00 Output Total 1125 ml 505 ml Balance -1125 ml -505 ml Output Urine Total 1125 ml 505 ml General Appearance: no acute distress HEENT: normocephalic Respiratory: chest wall non-tender Cardiovascular: normal peripheral pulses Abdomen: normal bowel sounds Laboratory Tests 11/21/20 03:46: White Blood Count 12.9H, Red Blood Count 4.98, Hemoglobin 14.4, Hematocrit 44.9, Mean Corpuscular Volume 90, Mean Corpuscular Hemoglobin 29.0, Mean Corpuscular Hemoglobin Concent 32.1, Red Cell Distribution Width 12.3, Platelet Count 336, Mean Platelet Volume 6.9, Neutrophils (%) (Auto) , Lymphocytes (%) (Auto) , Monocytes (%) (Auto) , Eosinophils (%) (Auto) , Basophils (%) (Auto) , Sodium Level 155H, Potassium Level 3.2L, Chloride Level 114H, Carbon Dioxide Level 34H, Anion Gap 7, Blood Urea Nitrogen 33H, Creatinine 0.8, Estimat Glomerular Filtration Rate > 60, Glucose Level 218H, Calcium Level 8.8 11/21/20 07:54: Arterial Blood pH 7.529H, Arterial Blood Partial Pressure CO2 45.1H, Arterial Blood Partial Pressure O2 75.6, Arterial Blood HCO3 36.8H, Arterial Blood Oxygen Saturation 95.4, Arterial Blood Base Excess 12.4*H, Ted Test Positive Current Medications Medications (Trade) Dose Ordered Sig/Kayla Route PRN Reason Start Time Stop Time Status Last Admin Dose Admin Acetaminophen (Tylenol) 650 mg Q6H PRN ORAL For Headache 11/14/20 13:15 12/14/20 13:14 11/16/20 08:10 Albuterol Sulfate (Proventil MDI) 2 puff Q4H PRN INH Shortness of Breath 11/15/20 10:30 02/13/21 10:29 11/17/20 06:04 Ceftriaxone Sodium 1 gm/ Dextrose 55 ml @ 110 mls/hr Q24H IVPB 11/15/20 16:30 11/28/20 23:59 11/20/20 16:30 Dexamethasone Sodium Phosphate (Decadron 10mg/ ml Inj) 6 mg DAILY IV 11/15/20 09:00 11/23/20 09:01 11/21/20 08:48 Dextrose (Dextrose 50%) 25 ml Q30M PRN IV Hypoglycemia 11/14/20 13:15 02/12/21 13:14 Dextrose (Dextrose 50%) 50 ml Q30M PRN IV Hypoglycemia 11/14/20 13:15 02/12/21 13:14 Docusate Sodium (Colace) 100 mg TWICE A DAY ORAL 11/17/20 14:15 12/17/20 14:14 11/21/20 08:48 Enoxaparin Sodium (Lovenox) 80 mg EVERY 12 HOURS SUBQ 11/18/20 10:00 02/16/21 09:59 11/21/20 08:49 Furosemide (Lasix) 40 mg DAILY IV 11/17/20 14:00 12/17/20 13:59 11/21/20 08:49 Insulin Aspart (NovoLOG) BEFORE MEALS AND HS SUBQ 11/14/20 16:30 02/12/21 16:29 11/21/20 12:47 Lorazepam (Ativan 2mg/ml 1ml) 0.25 mg Q6H PRN IV For Anxiety 11/18/20 12:45 11/25/20 12:44 11/18/20 12:54 Assessment/Plan Assessment/Plan 1. Elevated inflammatory markers -Will continue Lovenox to full dose 2. Elevated AST - trend LFTs 3. Hyperglycemia without history of diabetes mellitus - A1c ordered - Accu-checks - Continue insulin sliding scale 4. Pneumonia, likely COVID-19 related CXR 11/16. Severe bilateral airspace consolidations, consistent with severe multifocal infiltrates, which have significantly increased. No pneumothorax. Cardiomegaly. Seen by ID On Remdesiver, broad spectrum abx and steroids 5. Hypoxia; continue on BiPAP; settings adjusted - FiO2 now 45% Jose Elias Gannon MD Nov 21, 2020 13:47
--- NOTE | 2020-11-21 14:24 | NUR ---
RADIOLOGY DEPT., CHEST X-RAY DONE.-P.DYE
[2020-11-21] MEDS: cefTRIAXone 1 GM in D5W 55 ML IVPB SCH (17:18)
--- NOTE | 2020-11-21 19:17 | NUR ---
NURSE HAND-OFF REPORT: Latest Vital Signs: Temperature 99.2 , Pulse 121 , B/P 111 /81 , Respiratory Rate 34 , O2 SAT 96 , Nasal Cannula, O2 Flow Rate 55.0 . Vital Sign Comment: STABLE EKG Rhythm: Sinus Rhythm Rhythm change?: N Notified?: Eitan Bansal NP, MD Response: No New Orders Received Latest Rosen Fall Score: 30 Fall Risk: Medium Risk Safety Measures: Call light Within Reach, Bed Alarm Zone 1, Side Rails Side Rails x3, Bed position Low and Locked. Fall Precautions: Yellow Socks Yellow Gown Door Sign Patient Fall Education Report given to Jovanna GOMES. Plan of care endorsed.
--- NOTE | 2020-11-21 19:18 | NUR ---
NURSE NOTES: Received patient from ELISEO Beckett. Will continue plan of care
[2020-11-21] MEDS: LORazepam Inj 2mg/ml 1ml IV PRN (19:48)
--- NOTE | 2020-11-21 20:00 | NUR ---
NURSE NOTES: Patient complaints of right side pain. CXR ordered and done; awaiting results. Patient repositioned and padding changed. New IV inserted to the left hand 22g b/c patient continuously occluded IV in the right A/C
--- NOTE | 2020-11-21 20:25 | Diagnostic Imaging Report ---
EXAM: XR Chest, 1 View CLINICAL HISTORY: Follow-up infiltrates TECHNIQUE: Frontal view of the chest. COMPARISON: Chest x-ray 11/21/2020 8:03 AM FINDINGS: Lungs: Grossly stable multifocal opacities throughout both lungs. Pleural space: There is a new small right apical pneumothorax. Heart: Unremarkable. No cardiomegaly. Mediastinum: Unremarkable. Bones/joints: Unremarkable. IMPRESSION: 1. New small right apical pneumothorax. 2. Multifocal opacities throughout both lungs are grossly stable <MYCVCSECTION> Communications: 11/21/20 20:55 Call Doctor Regarding Pneumothorax, called Nurse Jovanna; report seen by Dr. Gannon who declined to speak with Dr. Richardson on 11/21 20:55 (-08:00)
--- NOTE | 2020-11-21 20:30 | NUR ---
NURSE NOTES: STAT Rad called and asked to speak with MD; would not relay message through RN. CXR report up in system and Dr. Gannon informed; ordered to take patient off BiPAP and place on non-rebreather mask. Informed RT.
--- NOTE | 2020-11-21 22:00 | NUR ---
NURSE NOTES: Patient is restless; non compliant with the non-rebreather.
--- NOTE | 2020-11-21 23:23 | NUR ---
NURSE NOTES: Informed Dr. Gannon that patient has persistent cough, congestion and unable to expectorate. Robituassin w/ codeine 5ml ordered PRN q6.
[2020-11-21] MEDS ORDERED: guaiFENesin w/Codeine 5ml Liq ud ORAL PRN (23:30)
[2020-11-22] VITALS (24 sets, daily range): BP systolic 95–176; BP diastolic 53–118
--- NOTE | 2020-11-22 | NUR ---
NURSE NOTES: Robitussin and codeine given with syringe slowly to prevent from coughing, wasting medication and aspirating. Turned and repositioned.
--- NOTE | 2020-11-22 02:15 | NUR ---
NURSE NOTES: Bed bath given, linens changed, IV sites wrapped with kerlix; patient seen to be picking at sites.
--- NOTE | 2020-11-22 04:00 | NUR ---
NURSE NOTES: Patient continues to be non-compliant with IVs and non-rebreather mask. Is seen to scratch off IV and pulls off mask. Re-orientation done and patient monitored at close range.
[2020-11-22 04:56] LABS: HEMATOCRIT 46.3 % (37.0-47.0); HEMOGLOBIN 14.7 G/DL (12.0-16.0); MEAN CORPUSCULAR VOLUME 92 FL (80-99); PLATELET COUNT 312 K/UL (150-450); RED BLOOD COUNT 5.04 M/UL (4.20-5.40); RED CELL DISTRIBUTION WIDTH 12.3 % (11.6-14.8); WHITE BLOOD COUNT 14.3 K/UL (4.8-10.8)
--- NOTE | 2020-11-22 06:00 | NUR ---
NURSE NOTES: Patient continues to pull off non-rebreather and will desat. Also attempts to get out of bed, legs are seen hanging out. 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 Restraint education provided.
[2020-11-22 06:10] LABS: ALANINE AMINOTRANSFERASE 45 U/L (12-78); ALBUMIN 2.4 G/DL (3.4-5.0); ALBUMIN/GLOBULIN RATIO 0.6 (1.0-2.7); ALKALINE PHOSPHATASE 105 U/L (46-116); ANION GAP 7 mmol/L (5-15); ASPARTATE AMINO TRANSFERASE 33 U/L (15-37); BILIRUBIN,TOTAL 0.6 MG/DL (0.2-1.0); BLOOD UREA NITROGEN 30 mg/dL (7-18); CALCIUM 8.3 MG/DL (8.5-10.1); CARBON DIOXIDE 32 MMOL/L (21-32); CHLORIDE 121 MMOL/L (98-107); CREATININE 0.7 MG/DL (0.55-1.30); POTASSIUM 3.2 MMOL/L (3.5-5.1); SODIUM 160 MMOL/L (136-145)
[2020-11-22] MEDS: NovoLOG Insulin Flexpen SUBQ SCH ×4 (06:57→21:00)
--- NOTE | 2020-11-22 07:04 | NUR ---
RESPIRATORY NOTE: PT received on NRB mask running @ 15Lpm 100% FiO2. Bipap is at bedside but MD advised to keep her on NRB due to a pneumothorax. Current saturation is 93% on this modality and PT appears comfortable. Soft bilateral restrains are in place. Face was inspected and no wound from the Bipap mask were found. NRB mask was readjusted. Will continue to monitor.
--- NOTE | 2020-11-22 07:32 | NUR ---
NURSE HAND-OFF REPORT: Latest Vital Signs: Temperature 99.9 , Pulse 112 , B/P 152 /58 , Respiratory Rate 30 , O2 SAT 90 , Nasal Cannula, O2 Flow Rate 15.0 . Vital Sign Comment: Stable EKG Rhythm: Sinus Tachycardia Rhythm change?: N Notified?: Eitan Bansal NP, MD Response: No New Orders Received Latest Rosen Fall Score: 30 Fall Risk: Medium Risk Safety Measures: Call light Within Reach, Bed Alarm Zone 1, Side Rails Side Rails x3, Bed position Low and Locked. Fall Precautions: Yellow Socks Yellow Gown Door Sign Patient Fall Education Report given to .
--- NOTE | 2020-11-22 08:45 | NUR ---
NURSE NOTES: entered patient room and introduced myself, patient was able to track staff and respond in German, he is difficult to understand due to the fact the hepa filter is running and high flow oxygen running through the non rebreather mask. she is saturating at 91-94% while on 100 % at rate of 32-35. she is tachycardia at rate of 116-125, she denies any pain or discomfort at her chest, she is restraint for reaching towards her non rebreather mask and continuously removing the mask leading to episodes of having increased respiratory rate of 30-40. she is currently on bilateral wrist restraints for safety. her antoine remains draining clear straw urine.
[2020-11-22] MEDS: Docusate 100mg cap ORAL SCH ×2 (09:06→17:31)
[2020-11-22] MEDS: dexAMETHasone 10mg/ml Inj IV SCH (09:06)
[2020-11-22] MEDS: Enoxaparin 100mg Inj SUBQ SCH (09:07)
--- NOTE | 2020-11-22 10:45 | NUR ---
NURSE NOTES: Dr Gannon called to inform of patient ABG results, currently she is saturating at 98-93% with RR of 35 while on non rebreather mask, she denies any chest pain or discomfort at this time. no orders given to change from non rebreather at this time,
--- NOTE | 2020-11-22 12:30 | NUR ---
NURSE NOTES: Dr. Guzman covering for Dr. Andrews is at the bedside and updated on the patient progress, due to having been placed on bipap, she has not been able to eat or have tube feeding started, no orders given at this time to place an NG-tube or to start on nutrition due to her increased respiratory rate.
--- NOTE | 2020-11-22 12:44 | Infectious Diseases Prog Note ---
Assessment/Plan Assessment/Plan A; 1. COVID-19 pneumonia. 2. Obesity. 3. Hypertension. 4. Leukocytosis is likely secondary to steroids. 5. Hypoxemia 6. Elevated transaminase 7. DM 8. Small pneumothorax PLAN: 1. Finished Remdesivir course 2. Continue dexamethasone day#9 3. Continue ceftriaxone. 4. f/u CXR Subjective ROS Limited/Unobtainable: Yes Constitutional: Reports: fever, other - Gr=009 Psychiatric: Reports: other - on restraint Allergies: Coded Allergies: No Known Allergies (Unverified , 11/10/17) Objective Last 24 Hour Vital Signs Date Time Temp Pulse Resp B/P (MAP) Pulse Ox O2 Delivery O2 Flow Rate FiO2 11/22/20 12:00 99.9 116 33 150/79 (102) 99 11/22/20 12:00 Non-Rebreather 15.0 11/22/20 12:00 15.0 100 11/22/20 11:00 118 41 143/97 (112) 86 11/22/20 10:50 114 35 92 11/22/20 10:00 129 48 151/69 (96) 88 11/22/20 10:00 123 43 147/91 (109) 91 11/22/20 09:00 123 43 147/91 (109) 91 11/22/20 08:00 100.0 120 31 158/67 (97) 89 11/22/20 08:00 15.0 100 11/22/20 08:00 Non-Rebreather 11/22/20 07:04 123 35 93 11/22/20 07:04 93 Non-Rebreather 15.0 100 11/22/20 07:00 112 30 152/58 (89) 90 11/22/20 06:00 109 35 142/78 (99) 91 11/22/20 05:00 116 37 125/93 (104) 90 11/22/20 04:00 Bi-pap 11/22/20 04:00 15.0 11/22/20 04:00 99.9 110 31 143/83 (103) 11/22/20 03:16 105 11/22/20 03:00 105 35 152/60 (90) 11/22/20 02:00 119 40 149/64 (92) 83 11/22/20 01:00 120 42 146/59 (88) 88 11/22/20 00:00 15.0 11/22/20 00:00 99.9 123 38 141/71 (94) 99 11/22/20 00:00 Bi-pap 11/21/20 23:14 143 11/21/20 23:00 136 27 166/89 (114) 95 11/21/20 22:00 135 28 145/63 (90) 89 11/21/20 21:00 119 36 145/59 (87) 90 11/21/20 20:18 112 32 113/99 94 11/21/20 20:00 50 11/21/20 20:00 99.3 111 30 113/99 (104) 100 11/21/20 20:00 Bi-pap 11/21/20 19:48 112 22 111/81 98 11/21/20 19:47 113 11/21/20 19:13 121 34 96 40 11/21/20 19:00 140 28 111/81 (91) 66 11/21/20 18:00 91 24 142/53 (82) 100 11/21/20 17:00 99.2 11/21/20 17:00 96 21 147/67 (93) 100 11/21/20 16:00 Bi-pap 11/21/20 16:00 100 11/21/20 16:00 50 11/21/20 16:00 99 28 150/58 (88) 98 11/21/20 15:03 99 33 98 40 11/21/20 15:00 98 25 139/50 (79) 100 11/21/20 14:00 98 30 130/72 (91) 100 11/21/20 13:00 98.7 100 26 150/64 (92) 100 11/21/20 13:00 102 28 100/74 (83) 100 Height (Feet): 5 Height (Inches): 1.00 Weight (Pounds): 180 HEENT: mucous membranes moist Respiratory/Chest: other - oxygen by NRB mask, JYS6=600% Cardiovascular: tachycardia Abdomen: soft, non tender Neurologic/Psychiatric: alert, responsive Laboratory Tests Test 11/22/20 04:00 11/22/20 08:45 White Blood Count 14.3 K/UL (4.8-10.8) H Red Blood Count 5.04 M/UL (4.20-5.40) Hemoglobin 14.7 G/DL (12.0-16.0) Hematocrit 46.3 % (37.0-47.0) Mean Corpuscular Volume 92 FL (80-99) Mean Corpuscular Hemoglobin 29.2 PG (27.0-31.0) Mean Corpuscular Hemoglobin Concent 31.9 G/DL (32.0-36.0) L Red Cell Distribution Width 12.3 % (11.6-14.8) Platelet Count 312 K/UL (150-450) Mean Platelet Volume 6.7 FL (6.5-10.1) Neutrophils (%) (Auto) % (45.0-75.0) Lymphocytes (%) (Auto) % (20.0-45.0) Monocytes (%) (Auto) % (1.0-10.0) Eosinophils (%) (Auto) % (0.0-3.0) Basophils (%) (Auto) % (0.0-2.0) Differential Total Cells Counted 100 Neutrophils % (Manual) 84 % (45-75) H Lymphocytes % (Manual) 6 % (20-45) L Monocytes % (Manual) 10 % (1-10) Eosinophils % (Manual) 0 % (0-3) Basophils % (Manual) 0 % (0-2) Band Neutrophils 0 % (0-8) Platelet Estimate Adequate Platelet Morphology Normal Red Blood Cell Morphology Normal Sodium Level 160 MMOL/L (136-145) H Potassium Level 3.2 MMOL/L (3.5-5.1) L Chloride Level 121 MMOL/L (98-107) H Carbon Dioxide Level 32 MMOL/L (21-32) Anion Gap 7 mmol/L (5-15) Blood Urea Nitrogen 30 mg/dL (7-18) H Creatinine 0.7 MG/DL (0.55-1.30) Estimat Glomerular Filtration Rate > 60 mL/min (>60) Glucose Level 196 MG/DL (74-106) H Calcium Level 8.3 MG/DL (8.5-10.1) L Total Bilirubin 0.6 MG/DL (0.2-1.0) Aspartate Amino Transf (AST/SGOT) 33 U/L (15-37) Alanine Aminotransferase (ALT/SGPT) 45 U/L (12-78) Alkaline Phosphatase 105 U/L (46-116) Total Protein 6.4 G/DL (6.4-8.2) Albumin 2.4 G/DL (3.4-5.0) L Globulin 4.0 g/dL Albumin/Globulin Ratio 0.6 (1.0-2.7) L Arterial Blood pH 7.485 (7.350-7.450) Arterial Blood Partial Pressure CO2 42.2 mmHg (35.0-45.0) Arterial Blood Partial Pressure O2 54.4 mmHg (75.0-100.0) L Arterial Blood HCO3 31.1 mmol/L (22.0-26.0) H Arterial Blood Oxygen Saturation 89.1 % (95-100) *L Arterial Blood Base Excess 6.9 (-2-2) H Ted Test Positive Current Medications Medications (Trade) Dose Ordered Sig/Kayla Route PRN Reason Start Time Stop Time Status Last Admin Dose Admin Acetaminophen (Tylenol) 650 mg Q6H PRN ORAL For Headache 11/14/20 13:15 12/14/20 13:14 11/16/20 08:10 Albuterol Sulfate (Proventil MDI) 2 puff Q4H PRN INH Shortness of Breath 11/15/20 10:30 02/13/21 10:29 11/17/20 06:04 Ceftriaxone Sodium 1 gm/ Dextrose 55 ml @ 110 mls/hr Q24H IVPB 11/15/20 16:30 11/28/20 23:59 11/21/20 17:18 Dexamethasone Sodium Phosphate (Decadron 10mg/ ml Inj) 6 mg DAILY IV 11/15/20 09:00 11/23/20 09:01 11/22/20 09:06 Dextrose (Dextrose 50%) 25 ml Q30M PRN IV Hypoglycemia 11/14/20 13:15 02/12/21 13:14 Dextrose (Dextrose 50%) 50 ml Q30M PRN IV Hypoglycemia 11/14/20 13:15 02/12/21 13:14 Docusate Sodium (Colace) 100 mg TWICE A DAY ORAL 11/17/20 14:15 12/17/20 14:14 11/22/20 09:06 Enoxaparin Sodium (Lovenox) 80 mg EVERY 12 HOURS SUBQ 11/22/20 21:00 02/16/21 09:59 Guaifenesin/ Codeine Phosphate (Robitussin with codeine) 5 ml Q6H PRN ORAL For Cough 11/21/20 23:30 12/21/20 23:29 11/21/20 23:32 Insulin Aspart (NovoLOG) BEFORE MEALS AND HS SUBQ 11/14/20 16:30 02/12/21 16:29 11/22/20 12:05 Lorazepam (Ativan 2mg/ml 1ml) 0.25 mg Q6H PRN IV For Anxiety 11/18/20 12:45 11/25/20 12:44 11/21/20 19:48 Herminio Reid MD Nov 22, 2020 12:44
--- NOTE | 2020-11-22 13:12 | Diagnostic Imaging Report ---
EXAM: XR Chest, 1 View CLINICAL HISTORY: F/U TECHNIQUE: Frontal view of the chest. COMPARISON: 11/21/20 FINDINGS: Lungs: Low lung volumes, likely related to shallow inspiration. No significant change in bilateral hazy pulmonary densities and increased interstitial markings. Pleural space: No significant change in the right apical pneumothorax, approximately 10%. Heart: Unremarkable. No cardiomegaly. Mediastinum: Unremarkable. Bones/joints: Unremarkable. Tubes, lines and devices: Telemetry leads overlie the thorax. IMPRESSION: 1. No significant change in the small right apical pneumothorax, approximately 10%. 2. Low lung volumes, likely related to shallow inspiration. 3. No significant change in bilateral hazy pulmonary densities and increased interstitial markings.
--- NOTE | 2020-11-22 13:45 | NUR ---
NURSE NOTES: Dr. Reid updated at the bedside regarding the patient antibiotics regiment, to continue patient on ceftriaxone 1gram IVPB, no further orders given at this time.
--- NOTE | 2020-11-22 14:05 | NUR ---
NURSE NOTES: Dominic novak updated on the patient condition and updated on her respiratory status, she was taken of the bipap on 11/21 in the evening after the chest x-ray revealed a small pneumothorax in the right lower lung. patient is saturating at 89-91% with no distress noted, she is able to formulate short sentences to make needs known, order given to administer D5W 500ml once IV for sodium of 160.
--- NOTE | 2020-11-22 14:16 | Pulmonology Progress Note ---
Subjective ROS Limited/Unobtainable: Yes Interval Events: Now in ICU; on BiPAP Constitutional: Reports: fever, other - Fi=161 HEENT: Repors: no symptoms Respiratory: Reports: no symptoms, shortness of breath, dyspnea at rest Cardiovascular: Reports: no symptoms Gastrointestinal/Abdominal: Reports: no symptoms Neurologic: Reports: other - Dizziness Psychiatric: Reports: other - on restraint Allergies: Coded Allergies: No Known Allergies (Unverified , 11/10/17) Objective Last 24 Hour Vital Signs Date Time Temp Pulse Resp B/P (MAP) Pulse Ox O2 Delivery O2 Flow Rate FiO2 11/22/20 12:00 99.9 116 33 150/79 (102) 99 11/22/20 12:00 Non-Rebreather 15.0 11/22/20 12:00 15.0 100 11/22/20 11:00 118 41 143/97 (112) 86 11/22/20 10:50 114 35 92 11/22/20 10:00 129 48 151/69 (96) 88 11/22/20 10:00 123 43 147/91 (109) 91 11/22/20 09:00 123 43 147/91 (109) 91 11/22/20 08:00 100.0 120 31 158/67 (97) 89 11/22/20 08:00 15.0 100 11/22/20 08:00 Non-Rebreather 11/22/20 07:04 123 35 93 11/22/20 07:04 93 Non-Rebreather 15.0 100 11/22/20 07:00 112 30 152/58 (89) 90 11/22/20 06:00 109 35 142/78 (99) 91 11/22/20 05:00 116 37 125/93 (104) 90 11/22/20 04:00 Bi-pap 11/22/20 04:00 15.0 11/22/20 04:00 99.9 110 31 143/83 (103) 11/22/20 03:16 105 11/22/20 03:00 105 35 152/60 (90) 11/22/20 02:00 119 40 149/64 (92) 83 11/22/20 01:00 120 42 146/59 (88) 88 11/22/20 00:00 15.0 11/22/20 00:00 99.9 123 38 141/71 (94) 99 11/22/20 00:00 Bi-pap 11/21/20 23:14 143 11/21/20 23:00 136 27 166/89 (114) 95 11/21/20 22:00 135 28 145/63 (90) 89 11/21/20 21:00 119 36 145/59 (87) 90 11/21/20 20:18 112 32 113/99 94 11/21/20 20:00 50 11/21/20 20:00 99.3 111 30 113/99 (104) 100 11/21/20 20:00 Bi-pap 11/21/20 19:48 112 22 111/81 98 11/21/20 19:47 113 11/21/20 19:13 121 34 96 40 11/21/20 19:00 140 28 111/81 (91) 66 11/21/20 18:00 91 24 142/53 (82) 100 11/21/20 17:00 99.2 11/21/20 17:00 96 21 147/67 (93) 100 11/21/20 16:00 Bi-pap 11/21/20 16:00 100 11/21/20 16:00 50 11/21/20 16:00 99 28 150/58 (88) 98 11/21/20 15:03 99 33 98 40 11/21/20 15:00 98 25 139/50 (79) 100 Intake and Output 11/21/20 11/22/20 19:00 07:00 Output Total 430 ml 900 ml Balance -430 ml -900 ml Output Urine Total 430 ml 900 ml General Appearance: no acute distress HEENT: normocephalic Respiratory: chest wall non-tender Cardiovascular: normal peripheral pulses Abdomen: normal bowel sounds Laboratory Tests 11/22/20 04:00: White Blood Count 14.3H, Red Blood Count 5.04, Hemoglobin 14.7, Hematocrit 46.3, Mean Corpuscular Volume 92, Mean Corpuscular Hemoglobin 29.2, Mean Corpuscular Hemoglobin Concent 31.9L, Red Cell Distribution Width 12.3, Platelet Count 312, Mean Platelet Volume 6.7, Neutrophils (%) (Auto) , Lymphocytes (%) (Auto) , [place] cytes (%) (Auto) , Eosinophils (%) (Auto) , Basophils (%) (Auto) , Differential Total Cells Counted 100, Neutrophils % (Manual) 84H, Lymphocytes % (Manual) 6L, Monocytes % (Manual) 10, Eosinophils % (Manual) 0, Basophils % (Manual) 0, Band Neutrophils 0, Platelet Estimate Adequate, Platelet Morphology Normal, Red Blood Cell Morphology Normal, Sodium Level 160H, Potassium Level 3.2L, Chloride Level 121H, Carbon Dioxide Level 32, Anion Gap 7, Blood Urea Nitrogen 30H, Creatinine 0.7, Estimat Glomerular Filtration Rate > 60, Glucose Level 196H, Calcium Level 8.3L, Total Bilirubin 0.6, Aspartate Amino Transf (AST/SGOT) 33, Alanine Aminotransferase (ALT/SGPT) 45, Alkaline Phosphatase 105, Total Protein 6.4, Albumin 2.4L, Globulin 4.0, Albumin/Globulin Ratio 0.6L 11/22/20 08:45: Arterial Blood pH 7.485H, Arterial Blood Partial Pressure CO2 42.2, Arterial Blood Partial Pressure O2 54.4L, Arterial Blood HCO3 31.1H, Arterial Blood Oxygen Saturation 89.1*L, Arterial Blood Base Excess 6.9H, Ted Test Positive Current Medications Medications (Trade) Dose Ordered Sig/Kayla Route PRN Reason Start Time Stop Time Status Last Admin Dose Admin Acetaminophen (Tylenol) 650 mg Q6H PRN ORAL For Headache 11/14/20 13:15 12/14/20 13:14 11/16/20 08:10 Albuterol Sulfate (Proventil MDI) 2 puff Q4H PRN INH Shortness of Breath 11/15/20 10:30 02/13/21 10:29 11/17/20 06:04 Ceftriaxone Sodium 1 gm/ Dextrose 55 ml @ 110 mls/hr Q24H IVPB 11/15/20 16:30 11/28/20 23:59 11/21/20 17:18 Dexamethasone Sodium Phosphate (Decadron 10mg/ ml Inj) 6 mg DAILY IV 11/15/20 09:00 11/23/20 09:01 11/22/20 09:06 Dextrose (Dextrose 50%) 25 ml Q30M PRN IV Hypoglycemia 11/14/20 13:15 02/12/21 13:14 Dextrose (Dextrose 50%) 50 ml Q30M PRN IV Hypoglycemia 11/14/20 13:15 02/12/21 13:14 Docusate Sodium (Colace) 100 mg TWICE A DAY ORAL 11/17/20 14:15 12/17/20 14:14 11/22/20 09:06 Enoxaparin Sodium (Lovenox) 80 mg EVERY 12 HOURS SUBQ 11/22/20 21:00 02/16/21 09:59 Guaifenesin/ Codeine Phosphate (Robitussin with codeine) 5 ml Q6H PRN ORAL For Cough 11/21/20 23:30 12/21/20 23:29 11/21/20 23:32 Insulin Aspart (NovoLOG) BEFORE MEALS AND HS SUBQ 11/14/20 16:30 02/12/21 16:29 11/22/20 12:05 Lorazepam (Ativan 2mg/ml 1ml) 0.25 mg Q6H PRN IV For Anxiety 11/18/20 12:45 11/25/20 12:44 11/21/20 19:48 Assessment/Plan Assessment/Plan 1. Elevated inflammatory markers -Will continue Lovenox to full dose 2. Elevated AST - trend LFTs 3. Hyperglycemia without history of diabetes mellitus - A1c 7.0 - Accu-checks - Continue insulin sliding scale 4. Pneumonia, likely COVID-19 related CXR Severe bilateral airspace consolidations, consistent with severe multifocal infiltrates, which have significantly increased. No pneumothorax. Cardiomegaly. Seen by ID - CXR 11/21 small pneumothorax -s/p remdesivir - on broad spectrum abx and steroids 5. Hypoxia; - s/p BiPAP - now on 15L NRB since last night, given newly demonstrated small pneumo thorax The care for this patient was discussed with my supervising physician Time spent for this case was approximately 31 minutes Dominic Toro Nov 22, 2020 14:16
--- NOTE | 2020-11-22 16:30 | NUR ---
NURSE NOTES: she remains on bilateral wrist restraint for remaining agitated and continuously removing mask when reposition in the bed, she has been educated on the importance of continuously having the mask to provided 100% of oxygen and maintain her saturations above 90%, she nodes her head in agreement but attempts to remove her mask once the patient notices the nurses are not looking in her direction.
[2020-11-22] MEDS: cefTRIAXone 1 GM in D5W 55 ML IVPB SCH (17:31)
--- NOTE | 2020-11-22 19:34 | NUR ---
NURSE HAND-OFF REPORT: Latest Vital Signs: Temperature 99.9 , Pulse 127 , B/P 162 /72 , Respiratory Rate 40 , O2 SAT 88 , Nasal Cannula, O2 Flow Rate 15.0 . Vital Sign Comment: [] EKG Rhythm: Sinus Tachycardia Rhythm change?: N Notified?: Eitan Bansal NP, MD Response: No New Orders Received Latest Rosen Fall Score: 45 Fall Risk: High Risk Safety Measures: Call light Within Reach, Bed Alarm Zone 1, Side Rails Side Rails x3, Bed position Low and Locked. Fall Precautions: Yellow Socks Yellow Gown Door Sign Patient Fall Education Report given to ELISEO Macias.
--- NOTE | 2020-11-22 20:00 | NUR ---
NURSE NOTES: SBAR received from Fabrice GOMES. Entered patient room and introduced myself, patient was able to track staff and respond in Telugu, she is difficult to understand due to the fact the hepa filter is running and high flow oxygen running through the non rebreather mask. Patient is saturating at 91-98% while on 100 % at rate of 32-35. She is tachycardia at rate of 120-130, she denies any pain or discomfort at her chest, she is restrained for reaching towards her non rebreather mask and continuously removing the mask leading to episodes of having increased respiratory rate of 30-40 and decreasing SpO2. She is currently on bilateral wrist restraints for safety. Her antoine remains draining clear straw urine. Patient is Alert to self, purpose and time.
--- NOTE | 2020-11-22 20:22 | General Progress Note ---
Subjective Allergies: Coded Allergies: No Known Allergies (Unverified , 11/10/17) Subjective above noted patient seen in ICU BIPAP mask changed to FM due to PTX no feeding tube, NPO at this time tachycardic and tachypnic restrained Objective Last 24 Hour Vital Signs Date Time Temp Pulse Resp B/P (MAP) Pulse Ox O2 Delivery O2 Flow Rate FiO2 11/22/20 19:02 93 Non-Rebreather 15.0 100 11/22/20 19:00 127 40 162/72 (102) 88 11/22/20 18:00 109 32 157/68 (97) 96 11/22/20 17:00 119 35 156/79 (104) 83 11/22/20 16:00 99.9 123 39 143/118 (126) 86 11/22/20 16:00 15.0 100 11/22/20 16:00 124 11/22/20 16:00 Non-Rebreather 15.0 11/22/20 15:05 12 31 98 11/22/20 15:00 108 32 144/53 (83) 98 11/22/20 14:00 126 43 112/95 (101) 89 11/22/20 13:00 130 40 158/75 (102) 90 11/22/20 12:00 107 11/22/20 12:00 99.9 116 33 150/79 (102) 99 11/22/20 12:00 Non-Rebreather 15.0 11/22/20 12:00 15.0 100 11/22/20 11:00 118 41 143/97 (112) 86 11/22/20 10:50 114 35 92 11/22/20 10:00 129 48 151/69 (96) 88 11/22/20 10:00 123 43 147/91 (109) 91 11/22/20 09:00 123 43 147/91 (109) 91 11/22/20 08:00 100.0 120 31 158/67 (97) 89 11/22/20 08:00 15.0 100 11/22/20 08:00 115 11/22/20 08:00 Non-Rebreather 11/22/20 07:04 123 35 93 11/22/20 07:04 93 Non-Rebreather 15.0 100 11/22/20 07:00 112 30 152/58 (89) 90 11/22/20 06:00 109 35 142/78 (99) 91 11/22/20 05:00 116 37 125/93 (104) 90 11/22/20 04:00 Bi-pap 11/22/20 04:00 15.0 11/22/20 04:00 99.9 110 31 143/83 (103) 11/22/20 03:16 105 11/22/20 03:00 105 35 152/60 (90) 11/22/20 02:00 119 40 149/64 (92) 83 11/22/20 01:00 120 42 146/59 (88) 88 11/22/20 00:00 15.0 11/22/20 00:00 99.9 123 38 141/71 (94) 99 11/22/20 00:00 Bi-pap 11/21/20 23:14 143 11/21/20 23:00 136 27 166/89 (114) 95 11/21/20 22:00 135 28 145/63 (90) 89 11/21/20 21:00 119 36 145/59 (87) 90 11/21/20 20:18 112 32 113/99 94 Intake and Output 11/21/20 11/22/20 19:00 07:00 Output Total 430 ml 900 ml Balance -430 ml -900 ml Output Urine Total 430 ml 900 ml Laboratory Tests 11/22/20 04:00: White Blood Count 14.3H, Red Blood Count 5.04, Hemoglobin 14.7, Hematocrit 46.3, Mean Corpuscular Volume 92, Mean Corpuscular Hemoglobin 29.2, Mean Corpuscular Hemoglobin Concent 31.9L, Red Cell Distribution Width 12.3, Platelet Count 312, Mean Platelet Volume 6.7, Neutrophils (%) (Auto) , Lymphocytes (%) (Auto) , Monocytes (%) (Auto) , Eosinophils (%) (Auto) , Basophils (%) (Auto) , Differential Total Cells Counted 100, Neutrophils % (Manual) 84H, Lymphocytes % (Manual) 6L, Monocytes % (Manual) 10, Eosinophils % (Manual) 0, Basophils % (Manual) 0, Band Neutrophils 0, Platelet Estimate Adequate, Platelet Morphology Normal, Red Blood Cell Morphology Normal, Sodium Level 160H, Potassium Level 3.2L, Chloride Level 121H, Carbon Dioxide Level 32, Anion Gap 7, Blood Urea Nitrogen 30H, Creatinine 0.7, Estimat Glomerular Filtration Rate > 60, Glucose Level 196H, Calcium Level 8.3L, Total Bilirubin 0.6, Aspartate Amino Transf (AST/SGOT) 33, Alanine Aminotransferase (ALT/SGPT) 45, Alkaline Phosphatase 105, Total Protein 6.4, Albumin 2.4L, Globulin 4.0, Albumin/Globulin Ratio 0.6L 11/22/20 08:45: Arterial Blood pH 7.485H, Arterial Blood Partial Pressure CO2 42.2, Arterial Bl ood Partial Pressure O2 54.4L, Arterial Blood HCO3 31.1H, Arterial Blood Oxygen Saturation 89.1*L, Arterial Blood Base Excess 6.9H, Ted Test Positive Height (Feet): 5 Height (Inches): 1.00 Weight (Pounds): 180 Objective Thin woman on O2 FM restrained exam limited due to COVID infection Assessment/Plan Assessment/Plan: Assessment/Plan Assessment/Plan: Covid positive PNA mild transaminitis most likely due to above>>>>improving DM smoker on BIPAP - cannot get NGT NPO repeat LFTS abd us if needed fu hepatitis panel>>> neg covid care NPO plan NGT if gets intubated will fu Yehuda Guzman MD Nov 22, 2020 20:22
[2020-11-22] MEDS: Enoxaparin 80mg Inj SUBQ SCH (21:00)
--- NOTE | 2020-11-22 22:00 | NUR ---
NURSE NOTES: Patient has temperature of 100.8F cooling measures were given and Tylenol 650mg via PO given. Patient remains Tachy in the 120s and tachypneic in the 30s. Patient does tend to reach towards mask and take it off, reeducated patient on the need to have mask on patient. Patient was repositioned, ROM offered, Patient oral care performed. Garcia care performed, safety measures remain in place, bed in lowest position with bed alarm engaged.
[2020-11-23] VITALS (25 sets, daily range): BP systolic 121–168; BP diastolic 46–104
--- NOTE | 2020-11-23 | NUR ---
NURSE NOTES: Patient is sleeping at time, she is easily awakens with stimulus. Patients HR is 124, Spo2 above 92% while of 100% non rebreather. ROM performed. Oral care given. Cooling measures ongoing.
--- NOTE | 2020-11-23 04:00 | NUR ---
NURSE NOTES: Bed bath given, linens changed, IV sites wrapped with kerlix; Labs drawn, patient seen to be picking at sites.
--- NOTE | 2020-11-23 06:00 | NUR ---
NURSE NOTES: Patient resting in bed and sleeping, HR [address] ST BP normotensive. Patient is lethargic at this time, somnolent. Patient arousable to verbal communication started.
[2020-11-23] MEDS: NovoLOG Insulin Flexpen SUBQ SCH ×4 (06:39→21:11)
[2020-11-23 07:17] LABS: HEMATOCRIT 47.8 % (37.0-47.0); HEMOGLOBIN 14.8 G/DL (12.0-16.0); MEAN CORPUSCULAR VOLUME 92 FL (80-99); PLATELET COUNT 265 K/UL (150-450); RED BLOOD COUNT 5.19 M/UL (4.20-5.40); RED CELL DISTRIBUTION WIDTH 12.5 % (11.6-14.8)
[2020-11-23 08:16] LABS: ALBUMIN 2.3 G/DL (3.4-5.0); ALBUMIN/GLOBULIN RATIO 0.6 (1.0-2.7); BILIRUBIN,TOTAL 0.6 MG/DL (0.2-1.0); CALCIUM 8.9 MG/DL (8.5-10.1); POTASSIUM 3.3 MMOL/L (3.5-5.1)
--- NOTE | 2020-11-23 08:30 | NUR ---
NURSE NOTES: Left message at dr. Gannon exchange regarding the sodium level of 161, awaiting for return call and orders.
[2020-11-23] MEDS: Docusate 100mg cap ORAL SCH ×2 (08:43→18:00)
[2020-11-23] MEDS: dexAMETHasone 10mg/ml Inj IV SCH (08:43)
[2020-11-23] MEDS: Enoxaparin 80mg Inj SUBQ SCH ×2 (08:43→21:09)
--- NOTE | 2020-11-23 10:45 | NUR ---
NURSE NOTES: Dr. Guzman is at the bedside assessing patient and updated on the patient remaining NPO, no orders given at this time.
[2020-11-23] MEDS: LORazepam Inj 2mg/ml 1ml IV PRN (10:51)
--- NOTE | 2020-11-23 11:01 | Diagnostic Imaging Report ---
EXAM: XR Chest, 1 View CLINICAL HISTORY: F/U TECHNIQUE: Frontal view of the chest. COMPARISON: Chest x-ray dated 11/22/20 FINDINGS: Lungs: No significant change in bilateral pulmonary infiltrates. No new consolidation. Pleural space: The right apical pneumothorax is no longer seen in this exam. No evidence of pleural effusion. Heart: Unremarkable. No cardiomegaly. Mediastinum: Unremarkable. Bones/joints: Unremarkable. Tubes, lines and devices: Telemetry leads overlie the thorax. IMPRESSION: 1. The right apical pneumothorax is no longer seen in this exam. 2. No significant change in bilateral pulmonary infiltrates.
--- NOTE | 2020-11-23 11:21 | Pulmonology Progress Note ---
Subjective ROS Limited/Unobtainable: Yes Interval Events: Noted PTX; BiPAP dc Constitutional: Reports: fever, other - [id number] HEENT: Repors: no symptoms Respiratory: Reports: no symptoms, shortness of breath, dyspnea at rest Cardiovascular: Reports: no symptoms Gastrointestinal/Abdominal: Reports: no symptoms Neurologic: Reports: other - Dizziness Psychiatric: Reports: other - on restraint Allergies: Coded Allergies: No Known Allergies (Unverified , 11/10/17) Objective Last 24 Hour Vital Signs Date Time Temp Pulse Resp B/P (MAP) Pulse Ox O2 Delivery O2 Flow Rate FiO2 11/23/20 10:51 131 33 151/83 91 11/23/20 10:00 129 33 151/83 (105) 96 11/23/20 09:00 131 34 134/76 (95) 88 11/23/20 08:00 15.0 100 11/23/20 08:00 99.9 122 36 154/104 (121) 85 11/23/20 08:00 128 11/23/20 08:00 Non-Rebreather 15.0 11/23/20 07:09 89 Non-Rebreather 15.0 100 11/23/20 07:00 119 38 157/70 (99) 87 11/23/20 06:00 120 32 127/73 (91) 89 11/23/20 05:00 110 29 155/58 (90) 92 11/23/20 04:00 119 11/23/20 04:00 15.0 100 11/23/20 04:00 100.0 124 32 145/72 (96) 95 11/23/20 04:00 Non-Rebreather 15.0 11/23/20 03:00 114 33 127/50 (75) 96 11/23/20 02:00 118 30 147/61 (89) 92 11/23/20 01:00 118 28 121/81 (94) 100 11/23/20 00:00 Non-Rebreather 15.0 11/23/20 00:00 100.1 119 25 126/65 (85) 96 11/23/20 00:00 15.0 100 11/23/20 00:00 107 11/22/20 23:00 125 27 146/82 (103) 100 11/22/20 22:49 100.7 11/22/20 22:00 133 32 119/55 (76) 90 11/22/20 21:00 123 32 95/78 (84) 88 11/22/20 20:00 15.0 100 11/22/20 20:00 122 11/22/20 20:00 Non-Rebreather 15.0 11/22/20 20:00 100.8 129 36 176/82 (113) 95 11/22/20 19:02 93 Non-Rebreather 15.0 100 11/22/20 19:00 127 40 162/72 (102) 88 11/22/20 18:00 109 32 157/68 (97) 96 11/22/20 17:00 119 35 156/79 (104) 83 11/22/20 16:00 99.9 123 39 143/118 (126) 86 11/22/20 16:00 15.0 100 11/22/20 16:00 124 11/22/20 16:00 Non-Rebreather 15.0 11/22/20 15:05 12 31 98 11/22/20 15:00 108 32 144/53 (83) 98 11/22/20 14:00 126 43 112/95 (101) 89 11/22/20 13:00 130 40 158/75 (102) 90 11/22/20 12:00 107 11/22/20 12:00 99.9 116 33 150/79 (102) 99 11/22/20 12:00 Non-Rebreather 15.0 11/22/20 12:00 15.0 100 Intake and Output 11/22/20 11/23/20 19:00 07:00 Intake Total 575 ml 275 ml Output Total 715 ml 490 ml Balance -140 ml -215 ml Intake Oral 275 ml IV Total 555 ml Other 20 ml Output Urine Total 715 ml 490 ml General Appearance: no acute distress HEENT: normocephalic Respiratory: chest wall non-tender Cardiovascular: normal peripheral pulses Abdomen: normal bowel sounds Laboratory Tests 11/23/20 06:45: White Blood Count 15.0H, Red Blood Count 5.19, Hemoglobin 14.8, Hematocrit 47.8H , Mean Corpuscular Volume 92, Mean Corpuscular Hemoglobin 28.5, Mean Corpuscular Hemoglobin Concent 31.0L, Red Cell Distribution Width 12.5, Platelet Count 265, Mean Platelet Volume 6.7, Neutrophils (%) (Auto) , Lymphocytes (%) (Auto) , Monocytes (%) (Auto) , Eosinophils (%) (Auto) , Basophils (%) (Auto) , Differential Total Cells Counted 100, Neutrophils % (Manual) 93H, Lymphocytes % (Manual) 4L, Monocytes % (Manual) 3, Eosinophils % (Manual) 0, Basophils % (Manual) 0, Band Neutrophils 0, Platelet Estimate Adequate, Platelet Morphology Normal, Red Blood Cell Morphology Normal, Sodium Level 161*H, Potassium Level 3.3L, Chloride Level 124H, Carbon Dioxide Level 30, Anion Gap 8, Blood Urea Nitrogen 26H, Creatinine 1.0, Estimat Glomerular Filtration Rate 55.3, Glucose Level 267H, Calcium Level 8.9, Total Bilirubin 0.6, Aspartate Amino Transf (AST/SGOT) 47H, Alanine Aminotransferase (ALT/SGPT) 51, Alkaline Phosphatase 103, Total Protein 6.3L, Albumin 2.3L, Globulin 4.0, Albumin/Globulin Ratio 0.6L 11/23/20 08:16: Arterial Blood pH 7.486H, Arterial Blood Partial Pressure CO2 37.6, Arterial Blood Partial Pressure O2 62.1L, Arterial Blood HCO3 27.8H, Arterial Blood Oxygen Saturation 91.6L, Arterial Blood Base Excess 4.3H, Ted Test Positive Current Medications Medications (Trade) Dose Ordered Sig/Kayla Route PRN Reason Start Time Stop Time Status Last Admin Dose Admin Acetaminophen (Tylenol) 650 mg Q6H PRN ORAL For Headache 11/14/20 13:15 12/14/20 13:14 11/22/20 22:19 Albuterol Sulfate (Proventil MDI) 2 puff Q4H PRN INH Shortness of Breath 11/15/20 10:30 02/13/21 10:29 11/17/20 06:04 Ceftriaxone Sodium 1 gm/ Dextrose 55 ml @ 110 mls/hr Q24H IVPB 11/15/20 16:30 11/28/20 23:59 11/22/20 17:31 Dextrose (Dextrose 50%) 25 ml Q30M PRN IV Hypoglycemia 11/14/20 13:15 02/12/21 13:14 Dextrose (Dextrose 50%) 50 ml Q30M PRN IV Hypoglycemia 11/14/20 13:15 02/12/21 13:14 Docusate Sodium (Colace) 100 mg TWICE A DAY ORAL 11/17/20 14:15 12/17/20 14:14 11/23/20 08:43 Enoxaparin Sodium (Lovenox) 80 mg EVERY 12 HOURS SUBQ 11/22/20 21:00 02/16/21 09:59 11/23/20 08:43 Guaifenesin/ Codeine Phosphate (Robitussin with codeine) 5 ml Q6H PRN ORAL For Cough 11/21/20 23:30 12/21/20 23:29 11/21/20 23:32 Insulin Aspart (NovoLOG) BEFORE MEALS AND HS SUBQ 11/14/20 16:30 02/12/21 16:29 11/23/20 06:39 Lorazepam (Ativan 2mg/ml 1ml) 0.25 mg Q6H PRN IV For Anxiety 11/18/20 12:45 11/25/20 12:44 11/23/20 10:51 Assessment/Plan Assessment/Plan 1. Elevated inflammatory markers -Will continue Lovenox full dose 2. Elevated AST - trend LFTs 3. Hyperglycemia without history of diabetes mellitus - A1c ordered - Accu-checks - Continue insulin sliding scale 4. Pneumonia, likely COVID-19 related CXR Severe bilateral airspace consolidations, consistent with severe multifocal infiltrates, which have significantly increased. No pneumothorax. Cardiomegaly. Seen by ID On Remdesiver, broad spectrum abx and steroids Had PTX on CXR 11/22/20 BiPAP dc Now on NRBM May need Hi flow o2 Will start D5W for Jose Elias Clayton MD Nov 23, 2020 11:21
--- NOTE | 2020-11-23 11:38 | NUR ---
NURSE NOTES: Dr Gannon at the bedside and updated on the patient respiratory status and updated on the ABG results, currently saturations are 88-89% on a non rebreather mask at 100% fIO2, respiratory rate is 28-34 and heart rate of 122-131. ordered to have high flow placed on the patient. Addendum: 11/23/20 at 1142 by Fabrice Grier RN also updated on the patient Sodium level at 161 and potassium level of 3.3, ordered to have d5w+20kcl at 75ml/hr.
--- NOTE | 2020-11-23 11:42 | NUR ---
NURSE NOTES: Dr Martin placed on the case by Dr. Gannon, updated on the patient chemistry levels of potassium 3.3 and sodium of 161, Garcia is present with urine remaining above 30ml/hr. no orders given at this time.
--- NOTE | 2020-11-23 12:07 | Consultation ---
Consult Note Consult Note I am asked to evaluate the patient at the request of Dr. Gannon for abnormal electrolyte and fluid management Day 9 of the patient's hospitalization here at [facility] Patient seen, examined, discussed with RN, labs reviewed Patient currently in ICU room F. On high flow oxygen. Being treated for following conditions: Elevated inflammatory inflammatory markers Elevated LFTs Hyperglycemia, hemoglobin A1c 7 Pneumonia COVID-19 Abnormal electrolytes VITAL SIGNS: Temperature 98.6, T-max of 100.6, pulse of 85, respiratory rate 24, blood pressure 99/79, O2 saturation of 92% on 15 liters of oxygen. Examination deferred due to COVID-19. LABORATORY AND DIAGNOSTIC DATA on Nov 17: White count 17.4, hemoglobin 14.1, hematocrit 40.6, MCV 87, platelet count 270, neutrophils of 85%. Sodium 141, potassium 3.3, chloride 105, bicarb 28, BUN 16, creatinine 0.8, glucose 190, calcium 8.4. Total bilirubin 0.5, AST 84, ALT 89, alkaline phosphatase 127. Total protein 6.6, albumin 2.5. Lipase 207. UA showing 0 to 2 white cells. Blood cultures are negative. Nasal swab was negative for influenza A and B. Chest x-ray on 11/16/2019 showed severe bilateral airspace consolidations consistent with severe multifocal infiltrate. Assessment/Plan Hypernatremia Hypokalemia Elevated blood sugar Hypoxia COVID-19 pneumonia Start D5W Potassium supplement Monitor electrolytes Levemir 10 units, monitor blood sugar Vitamin D level Pulmonary support Per orders John Martin MD Nov 23, 2020 12:07
[2020-11-23 12:19] LABS: PHOSPHORUS 3.3 MG/DL (2.5-4.9)
[2020-11-23] MEDS ORDERED: Levemir Flexpen SUBQ SCH ×2 (12:30→21:00)
[2020-11-23] MEDS: D5W w/KCl 20mEq 1,000 ML IV SCH (12:38)
--- NOTE | 2020-11-23 12:45 | NUR ---
NURSE NOTES: d5w+20kcl started at 100ml/hr through left hand 22g, blood return in present through iv tubing and flushes with no leaking or swelling at insertion site when flushing with saline, patient remains on restraint after she was noted to be removing the high flow nasal cannula. skin around the skin assessed and found to be intact,
--- NOTE | 2020-11-23 14:35 | NUR ---
NURSE NOTES: Patient remains on high flow oxygen at 15l/min with fio2 of 100%, remains on restraint for reaching towards the high flow mask and attempt to get out of bed.
[2020-11-23] MEDS: cefTRIAXone 1 GM in D5W 55 ML IVPB SCH (16:30)
--- NOTE | 2020-11-23 17:30 | NUR ---
NURSE NOTES: Patient remains on bilateral wrist restraints, she continues to reach to remove the high flow nasal cannula and attempts to place feet on floor, she is able to move her arms in all range of motion with no impairment, her skin around the wrist remains intact, pulses are present and palpable distally to the restraints. she remains on high floe nasal cannula at 100% fio2 at 55L/min. she also continues to have d5W+20kcl at 100ml/hr., currently the patient remains NPO.
--- NOTE | 2020-11-23 19:16 | NUR ---
NURSE HAND-OFF REPORT: Latest Vital Signs: Temperature 100.7 , Pulse 137 , B/P 168 /79 , Respiratory Rate 38 , O2 SAT 84 , Nasal Cannula, O2 Flow Rate 55.0 . Vital Sign Comment: EKG Rhythm: Sinus Tachycardia Rhythm change?: N Notified?: Eitan Bansal NP, MD Response: No New Orders Received Latest Rosen Fall Score: 45 Fall Risk: High Risk Safety Measures: Call light Within Reach, Bed Alarm Zone 1, Side Rails Side Rails x3, Bed position Low and Locked. Fall Precautions: Yellow Socks Yellow Gown Door Sign Patient Fall Education Report given to ELISEO Antonio.
--- NOTE | 2020-11-23 19:45 | General Progress Note ---
Subjective Allergies: Coded Allergies: No Known Allergies (Unverified , 11/10/17) Subjective above noted patient seen in ICU d/w RN no change overnight on FM O2 agitated, restrained Objective Last 24 Hour Vital Signs Date Time Temp Pulse Resp B/P (MAP) Pulse Ox O2 Delivery O2 Flow Rate FiO2 11/23/20 19:35 93 High Flow 55.0 60 11/23/20 19:00 137 38 168/79 (108) 84 11/23/20 18:20 100.7 11/23/20 18:00 100.8 136 32 152/82 (105) 88 11/23/20 17:00 129 34 143/80 (101) 94 11/23/20 16:00 118 11/23/20 16:00 101.3 124 33 165/70 (101) 100 11/23/20 16:00 55.0 100 11/23/20 16:00 High Flow O2 55.0 11/23/20 15:42 129 38 158/69 (98) 94 11/23/20 15:00 124 35 165/77 (106) 92 11/23/20 14:00 128 41 162/71 (101) 11/23/20 13:00 133 32 161/81 (107) 79 11/23/20 12:00 High Flow O2 55.0 11/23/20 12:00 100.1 130 29 157/79 (105) 86 11/23/20 12:00 55.0 100 11/23/20 12:00 127 11/23/20 11:28 92 High Flow 55.0 60 11/23/20 11:26 128 28 165/76 91 11/23/20 11:00 131 32 165/76 (105) 81 11/23/20 10:51 131 33 151/83 91 11/23/20 10:00 129 33 151/83 (105) 96 11/23/20 09:00 131 34 134/76 (95) 88 11/23/20 08:00 15.0 100 11/23/20 08:00 99.9 122 36 154/104 (121) 85 11/23/20 08:00 128 11/23/20 08:00 Non-Rebreather 15.0 11/23/20 07:09 89 Non-Rebreather 15.0 100 11/23/20 07:00 119 38 157/70 (99) 87 11/23/20 06:00 120 32 127/73 (91) 89 11/23/20 05:00 110 29 155/58 (90) 92 11/23/20 04:00 119 11/23/20 04:00 15.0 100 11/23/20 04:00 100.0 124 32 145/72 (96) 95 11/23/20 04:00 Non-Rebreather 15.0 11/23/20 03:00 114 33 127/50 (75) 96 11/23/20 02:00 118 30 147/61 (89) 92 11/23/20 01:00 118 28 121/81 (94) 100 11/23/20 00:00 Non-Rebreather 15.0 11/23/20 00:00 100.1 119 25 126/65 (85) 96 11/23/20 00:00 15.0 100 11/23/20 00:00 107 11/22/20 23:00 125 27 146/82 (103) 100 11/22/20 22:49 100.7 11/22/20 22:00 133 32 119/55 (76) 90 11/22/20 21:00 123 32 95/78 (84) 88 11/22/20 20:00 15.0 100 11/22/20 20:00 122 11/22/20 20:00 Non-Rebreather 15.0 11/22/20 20:00 100.8 129 36 176/82 (113) 95 Intake and Output 11/22/20 11/23/20 19:00 07:00 Intake Total 575 ml 275 ml Output Total 715 ml 490 ml Balance -140 ml -215 ml Intake Oral 275 ml IV Total 555 ml Other 20 ml Output Urine Total 715 ml 490 ml Laboratory Tests 11/22/20 21:35: POC Whole Blood Glucose [Pending] 11/23/20 06:45: White Blood Count 15.0H, Red Blood Count 5.19, Hemoglobin 14.8, Hematocrit 47.8H , Mean Corpuscular Volume 92, Mean Corpuscular Hemoglobin 28.5, Mean Corpuscular Hemoglobin Concent 31.0L, Red Cell Distribution Width 12.5, Platelet Count 265, Mean Platelet Volume 6.7, Neutrophils (%) (Auto) , Lymphocytes (%) (Auto) , Monocytes (%) (Auto) , Eosinophils (%) (Auto) , Basophils (%) (Auto) , Differential Total Cells Counted 100, Neutrophils % (Manual) 93H, Lymphocytes % (Manual) 4L, Monocytes % (Manual) 3, Eosinophils % (Manual) 0, Basophils % (Manual) 0, Band Neutrophils 0, Platelet Estimate Adequate, Platelet Morphology Normal, Red Blood Cell Morphology Normal, Sodium Level 161*H, Potassium Level 3.3L, Chloride Level 124H, Carbon Dioxide Level 30, Anion Gap 8, Blood Urea Nitrogen 26H, Creatinine 1.0, Estimat Glomerular Filtration Rate 55.3, Glucose Level 267H, Uric Acid 4.4, Calcium Level 8.9, Phosphorus Level 3.3, Magnesium Level 2.7H, Total Bilirubin 0.6, Aspartate Amino Transf (AST/SGOT) 47H, Alanine Aminotransferase (ALT/SGPT) 51, Alkaline Phosphatase 103, Total Protein 6.3L, Albumin 2.3L, Globulin 4.0, Albumin/Globulin Ratio 0.6L 11/23/20 08:16: Arterial Blood pH 7.486H, Arterial Blood Partial Pressure CO2 37.6, Arterial Blood Partial Pressure O2 62.1L, Arterial Blood HCO3 27.8H, Arterial Blood Oxygen Saturation 91.6L, Arterial Blood Base Excess 4.3H, Ted Test Positive 11/23/20 16:38: POC Whole Blood Glucose 279H Height (Feet): 5 Height (Inches): 1.00 Weight (Pounds): 180 Objective Thin woman seen in ICU on O2 FM restrained NCAT, some temporal wasting Coarse BS, ronchi RR abd soft trace edema Assessment/Plan Assessment/Plan: Assessment/Plan Assessment/Plan: Covid positive PNA mild transaminitis most likely due to above>>>>improving DM hypernatremia smoker Not stable for NGT Recommendations repeat LFTS increase free water - D5 W abd us if needed fu hepatitis panel>>> neg covid care NPO plan NGT if gets intubated can consider temporary TPN will Yehuda Weeks MD Nov 23, 2020 19:45
--- NOTE | 2020-11-23 21:29 | NUR ---
NURSE NOTES: received report from phoebe pt ort x2 on >flou 100% with b-pap with o2 sat 88-95% hr s tachy no c/o pain pt npo iv site good infusing well on jamel soft restraint nan complaint reposition and suction
[2020-11-24] VITALS (12 sets, daily range): BP systolic 135–165; BP diastolic 49–100
--- NOTE | 2020-11-24 | NUR ---
NURSE NOTES:repu com temp 101,5 cooling mesures done
[2020-11-24] MEDS: D5W w/KCl 20mEq 1,000 ML IV SCH ×4 (00:03→20:00)
--- NOTE | 2020-11-24 04:00 | NUR ---
NURSE NOTES: complete bed bath oral care and back care done
[2020-11-24 05:43] LABS: HEMATOCRIT 47.8 % (37.0-47.0); HEMOGLOBIN 14.9 G/DL (12.0-16.0); MEAN CORPUSCULAR VOLUME 92 FL (80-99); PLATELET COUNT 228 K/UL (150-450); RED BLOOD COUNT 5.18 M/UL (4.20-5.40); RED CELL DISTRIBUTION WIDTH 12.4 % (11.6-14.8); WHITE BLOOD COUNT 14.7 K/UL (4.8-10.8)
[2020-11-24 05:45] LABS: AMMONIA 24 umol/L (11-32)
[2020-11-24] MEDS: NovoLOG Insulin Flexpen SUBQ SCH ×4 (05:54→21:00)
[2020-11-24 06:20] LABS: ALANINE AMINOTRANSFERASE 50 U/L (12-78); ALBUMIN 2.3 G/DL (3.4-5.0); ALBUMIN/GLOBULIN RATIO 0.6 (1.0-2.7); ALKALINE PHOSPHATASE 102 U/L (46-116); ANION GAP 7 mmol/L (5-15); ASPARTATE AMINO TRANSFERASE 34 U/L (15-37); BILIRUBIN,TOTAL 0.6 MG/DL (0.2-1.0); BLOOD UREA NITROGEN 20 mg/dL (7-18); CALCIUM 8.7 MG/DL (8.5-10.1); CARBON DIOXIDE 29 MMOL/L (21-32); CHLORIDE 119 MMOL/L (98-107); CHOLESTEROL 129 MG/DL (< 200); CREATININE 0.9 MG/DL (0.55-1.30); GAMMA GLUTAMYL TRANSPEPTIDASE 145 U/L (5-85); HDL CHOLESTEROL 27 MG/DL (40-60); LACTATE DEHYDROGENASE 525 U/L (81-234); PHOSPHORUS 2.9 MG/DL (2.5-4.9); POTASSIUM 3.7 MMOL/L (3.5-5.1); SODIUM 155 MMOL/L (136-145); TRIGLYCERIDES 251 MG/DL (30-150)
--- NOTE | 2020-11-24 07:15 | NUR ---
NURSE NOTES: Received patient from Lisa Wilson RN. Patient on high flow nasal cannula at non rebreather mask FiO2 100%. Patient awake, confused, verbal, with bilateral soft wrist restraints. Kept NPO. Bed in lowest position. Bed alarm on. Airborne isolation observed. Will continue plan of care.
--- NOTE | 2020-11-24 07:48 | NUR ---
RD ASSESSMENT & RECOMMENDATIONS SEE CARE ACTIVITY FOR COMPLETE ASSESSMENT DAILY ESTIMATED NEEDS: Needs based on Pulmonary 56.3kg abw 22-28 kcals/kg [id number] total kcals 1.2-2 g protein/kg 68-113 g total protein Fluid per MD NUTRITION DIAGNOSIS: Predicted inadequate energy intake r/t Covid 19 PNA as evidenced by pt in resp distress, now on high flow o2, NPO unable to tolerate oral po. CURRENT DIET: NPO PO DIET RECOMMENDATIONS: WHEN SAFE FOR ORAL DIET-> CCHO LOW DIET/ TEXTURE PER WEB SERVICES MANAGER ENTERAL NUTRITION RECOMMENDATIONS: Glucerna 1.2 @ 45ml/hr x 24 hrs + Prosource 1pkt QD to provide 1080ml, 1296kcal, 65g +11g prot, 870ml free water - As medically appropriate or should pt require oral intubation rec to obtain GI access, initiate non oral feeds of Glucerna 1.2 @ 15ml/hr for 6 hrs. - Advance as tolerated 10ml/hr q4-6 hrs to goal. - Add Prosource 1pkt QD to meet est prot needs. - Flush per MD. HOB over 30 degrees PARENTERAL NUTRITION RECOMMENDATIONS: Consult RD for TPN recs w/ prolonged BIPAP/ high flow o2 use and prolonged NPO status- DAY 6 today ADDITIONAL RECOMMENDATIONS: 1) NPO, on high flow o2-> rec TPN w/ prolonged NPO status (TF recs above should pt require oral intubation) 2) Calibrated bedscale wt 3) Monitor lytes, replete as needed .
--- NOTE | 2020-11-24 08:00 | NUR ---
TRANSFER TO FLOOR: Patient transferred to SDU ROOM 239-2, per DR. CHINO. Report given to HARLAN Pineda RN. Belongings and medications given to HRALAN Pineda RN. Patient remains on nonrebreather mask and hi jc nasal cannula FiO2 100%. Airborne isolation endorsed.
--- NOTE | 2020-11-24 08:00 | NUR ---
NURSE NOTES: Received pt from PSYCHOLOGY TECH Elizabeth, pt is awake and confused, pt high flow NC and non rebreather mask spo2 90% HR 110, Pt is on continues heart monitoring. pt NPO. pt has Garcia cath in place is working well. pt has intact iv access LH 22G and RAC 18G is running well. All needs attended, bed is locked and is in the lowest position, call light within easy reach. will continue to monitor.
[2020-11-24] MEDS: Docusate 100mg cap ORAL SCH ×2 (08:59→17:09)
[2020-11-24] MEDS: Enoxaparin 80mg Inj SUBQ SCH ×2 (09:02→21:00)
[2020-11-24] MEDS: Levemir Flexpen SUBQ SCH ×2 (09:46→21:00)
--- NOTE | 2020-11-24 10:41 | NUR ---
Air Sealing TechnicianFire Systems Inspector SI: COVID PNA T 99.5(ax), HR 108, RR 30, BP 148/71 HI Flow N/C 55, FiO2 100%, O@ sat 91% WBC 14.7, Na+ 155, BUN 20 Cxray Bilateral infiltrates unchanged, Rt pneumothorax no longer seen 11-23-20 IS: Lasix IV QD Lovenox SQ q12h Rocephin IV q 24 h Decadron IV QD Pepcid IVP Q 12 h D5/KCL @ 100cc/hr Step Down Status
--- NOTE | 2020-11-24 10:42 | NUR ---
NURSE NOTES: Dr Sánchez visited pt and is aware about T 99.5 WBC 14.7, NNO. will continue to monitor.
--- NOTE | 2020-11-24 10:54 | Pulmonology Progress Note ---
Subjective ROS Limited/Unobtainable: Yes Interval Events: Noted PTX; BiPAP dc Constitutional: Reports: fever, other - Ls=786.5 HEENT: Repors: no symptoms Respiratory: Reports: no symptoms, shortness of breath, dyspnea at rest Cardiovascular: Reports: no symptoms Gastrointestinal/Abdominal: Reports: no symptoms Neurologic: Reports: other - Dizziness Psychiatric: Reports: other - on restraint Allergies: Coded Allergies: No Known Allergies (Unverified , 11/10/17) Objective Last 24 Hour Vital Signs Date Time Temp Pulse Resp B/P (MAP) Pulse Ox O2 Delivery O2 Flow Rate FiO2 11/24/20 08:00 99.5 108 30 148/71 (96) 91 11/24/20 07:00 111 35 158/98 (118) 85 11/24/20 06:00 96.5 117 33 159/100 (119) 91 11/24/20 05:00 114 30 157/87 (110) 89 11/24/20 04:00 115 11/24/20 04:00 High Flow O2 55.0 11/24/20 04:00 55.0 100 11/24/20 04:00 100.0 118 42 135/61 (85) 91 11/24/20 03:40 10 High Flow 55.0 60 11/24/20 03:00 117 32 165/49 (87) 11/24/20 02:00 127 33 149/82 (104) 92 11/24/20 01:00 117 33 162/56 (91) 11/24/20 00:44 101.5 11/24/20 00:00 101.5 128 36 153/78 (103) 11/24/20 00:00 99 11/24/20 00:00 55.0 100 11/24/20 00:00 High Flow O2 55.0 11/23/20 23:40 100 High Flow 55.0 60 11/23/20 23:00 128 32 152/81 (104) 11/23/20 22:00 132 39 152/46 (81) 99 11/23/20 21:00 132 41 159/61 (93) 11/23/20 20:00 134 11/23/20 20:00 100.0 137 40 143/77 (99) 82 11/23/20 20:00 High Flow O2 55.0 11/23/20 20:00 55.0 100 11/23/20 19:35 93 High Flow 55.0 60 11/23/20 19:00 137 38 168/79 (108) 84 11/23/20 18:20 100.7 11/23/20 18:00 100.8 136 32 152/82 (105) 88 11/23/20 17:00 129 34 143/80 (101) 94 11/23/20 16:00 118 11/23/20 16:00 101.3 124 33 165/70 (101) 100 11/23/20 16:00 55.0 100 11/23/20 16:00 High Flow O2 55.0 11/23/20 15:42 129 38 158/69 (98) 94 11/23/20 15:00 124 35 165/77 (106) 92 11/23/20 14:00 128 41 162/71 (101) 11/23/20 13:00 133 32 161/81 (107) 79 11/23/20 12:00 High Flow O2 55.0 11/23/20 12:00 100.1 130 29 157/79 (105) 86 11/23/20 12:00 55.0 100 11/23/20 12:00 127 11/23/20 11:28 92 High Flow 55.0 60 11/23/20 11:26 128 28 165/76 91 11/23/20 11:00 131 32 165/76 (105) 81 11/23/20 10:51 131 33 151/83 91 Intake and Output 11/23/20 11/24/20 19:00 07:00 Intake Total 751.64922 ml 900 ml Output Total 590 ml 1030 ml Balance 161.30312 ml -130 ml IV Total 691.90541 ml 900 ml Other 60 ml Output Urine Total 590 ml 1030 ml General Appearance: no acute distress HEENT: normocephalic Respiratory: chest wall non-tender Cardiovascular: normal peripheral pulses Abdomen: normal bowel sounds Laboratory Tests 11/23/20 16:38: POC Whole Blood Glucose 279H 11/24/20 05:20: White Blood Count 14.7H, Red Blood Count 5.18, Hemoglobin 14.9, Hematocrit 47.8H , Mean Corpuscular Volume 92, Mean Corpuscular Hemoglobin 28.8, Mean Corpuscular Hemoglobin Concent 31.2L, Red Cell Distribution Width 12.4, Platelet Count 228, Mean Platelet Volume 8.0, Neutrophils (%) (Auto) , Lymphocytes (%) (Auto) , Monocytes (%) (Auto) , Eosinophils (%) (Auto) , Basophils (%) (Auto) , Differential Total Cells Counted 100, Neutrophils % (Manual) 90H, Lymphocytes % (Manual) 3L, Monocytes % (Manual) 7, Eosinophils % (Manual) 0, Basophils % (Manual) 0, Band Neutrophils 0, Platelet Estimate Adequate, Platelet Morphology Normal, Red Blood Cell Morphology Normal, Sodium Level 155H, Potassium Level 3.7, Chloride Level 119H, Carbon Dioxide Level 29, Anion Gap 7, Blood Urea Nitrogen 20H, Creatinine 0.9, Estimat Glomerular Filtration Rate > 60, Glucose Level 343H, Uric Acid 3.5, Calcium Level 8.7, Phosphorus Level 2.9, Magnesium Level 2.5H, Total Bilirubin 0.6, Gamma Glutamyl Transpeptidase 145H, Aspartate Amino Transf (AST/SGOT) 34, Alanine Aminotransferase (ALT/SGPT) 50, Alkaline Phosphatase 102, Ammonia 24, Lactate Dehydrogenase 525H, C-Reactive Protein, Quantitative 4.2H, Pro-B-Type Natriuretic Peptide 239H, Total Protein 6.3L, Albumin 2.3L, Globulin 4.0, Albumin/Globulin Ratio 0.6L, Triglycerides Level 251H, Cholesterol Level 129, LDL Cholesterol 63, HDL Cholesterol 27L, Cholesterol/HDL Ratio 4.8H, Vitamin D 25-Hydroxy [Pending], 25-Hydroxy Vitamin D2 [Pending], 25-Hydroxy Vitamin D3 [Pending], Thyroid Stimulating Hormone (TSH) 0.030L, Free Thyroxine 1.87H, Free Triiodothyronine 1.0L Current Medications Medications (Trade) Dose Ordered Sig/Kayla Route PRN Reason Start Time Stop Time Status Last Admin Dose Admin Acetaminophen (Tylenol) 650 mg Q6H PRN ORAL For Headache 11/14/20 13:15 12/14/20 13:14 11/24/20 00:14 Albuterol Sulfate (Proventil MDI) 2 puff Q4H PRN INH Shortness of Breath 11/15/20 10:30 02/13/21 10:29 11/17/20 06:04 Ceftriaxone Sodium 1 gm/ Dextrose 55 ml @ 110 mls/hr Q24H IVPB 11/15/20 16:30 11/28/20 23:59 11/23/20 16:30 Clonidine HCl (Catapres TTS-2) 1 patch QWEEK TDERMAL 11/24/20 11:00 02/22/21 10:59 Dextrose (Dextrose 50%) 25 ml Q30M PRN IV Hypoglycemia 11/14/20 13:15 02/12/21 13:14 Dextrose (Dextrose 50%) 50 ml Q30M PRN IV Hypoglycemia 11/14/20 13:15 02/12/21 13:14 Dextrose/ Electrolytes 1,000 ml @ 100 mls/hr Q10H IV 11/23/20 12:30 12/23/20 12:29 11/24/20 08:57 Docusate Sodium (Colace) 100 mg TWICE A DAY ORAL 11/17/20 14:15 12/17/20 14:14 11/24/20 08:59 Enoxaparin Sodium (Lovenox) 80 mg EVERY 12 HOURS SUBQ 11/22/20 21:00 02/16/21 09:59 11/24/20 09:02 Famotidine (Pepcid I.v.) 20 mg Q12HR IVP 11/23/20 21:00 12/23/20 20:59 11/24/20 08:59 Guaifenesin/ Codeine Phosphate (Robitussin with codeine) 5 ml Q6H PRN ORAL For Cough 11/21/20 23:30 12/21/20 23:29 11/21/20 23:32 Insulin Aspart (NovoLOG) BEFORE MEALS AND HS SUBQ 11/14/20 16:30 02/12/21 16:29 11/24/20 05:54 Insulin Detemir (Levemir) 10 units Q12HR SUBQ 11/24/20 09:15 02/21/21 20:59 11/24/20 09:46 Lorazepam (Ativan 2mg/ml 1ml) 0.25 mg Q6H PRN IV For Anxiety 11/18/20 12:45 11/25/20 12:44 11/23/20 10:51 Assessment/Plan Assessment/Plan 1. Elevated inflammatory markers -Will continue Lovenox full dose 2. 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 Pneumonia, likely COVID-19 related - CXR 11/16 Severe bilateral airspace consolidations, consistent with severe multifocal infiltrates, which have significantly increased. No pneumothorax. Cardiomegaly. - Had PTX on CXR 11/22/20 - CXR 11/23/20 right PTX no longer visible, no change in infiltrates - now off Remdesiver, and steroids - on broad spectrum abx 5. Hypertension - on clonidine dermal patch 6. Pneumothorax - BiPAP dc - now resolved 7. Hypoxia, due to #4, 5 - Now on NRBM and high flow - encourage proning 8. Hypernatremia - Will start D5W for Na 161 -> 155 9. Leukocytosis - Seen by ID - on ceftriaxone The care for this patient was discussed with my supervising physician Time spent for this case was approximately 31 minutes Dominic Toro Nov 24, 2020 10:54
--- NOTE | 2020-11-24 11:07 | Infectious Diseases Prog Note ---
Assessment/Plan Assessment/Plan antibiotics : ceftriaxone A 1. covid 19 pneumonia on 55 % Fi O2 with saturation 91 % s/p remdesivir s/p dexamethasone 2. Obesity. 3. Hypertension. 4. Leukocytosis improving P 1. start solumedrol 2. Continue ceftriaxone. 3. Continue isolation. Subjective ROS Limited/Unobtainable: Yes Allergies: Coded Allergies: No Known Allergies (Unverified , 11/10/17) Objective Last 24 Hour Vital Signs Date Time Temp Pulse Resp B/P (MAP) Pulse Ox O2 Delivery O2 Flow Rate FiO2 11/24/20 08:00 55.0 100 11/24/20 08:00 99.5 108 30 148/71 (96) 91 11/24/20 07:00 111 35 158/98 (118) 85 11/24/20 06:00 96.5 117 33 159/100 (119) 91 11/24/20 05:00 114 30 157/87 (110) 89 11/24/20 04:00 115 11/24/20 04:00 High Flow O2 55.0 11/24/20 04:00 55.0 100 11/24/20 04:00 100.0 118 42 135/61 (85) 91 11/24/20 03:40 10 High Flow 55.0 60 11/24/20 03:00 117 32 165/49 (87) 11/24/20 02:00 127 33 149/82 (104) 92 11/24/20 01:00 117 33 162/56 (91) 11/24/20 00:44 101.5 11/24/20 00:00 101.5 128 36 153/78 (103) 11/24/20 00:00 99 11/24/20 00:00 55.0 100 11/24/20 00:00 High Flow O2 55.0 11/23/20 23:40 100 High Flow 55.0 60 11/23/20 23:00 128 32 152/81 (104) 11/23/20 22:00 132 39 152/46 (81) 99 11/23/20 21:00 132 41 159/61 (93) 11/23/20 20:00 134 11/23/20 20:00 100.0 137 40 143/77 (99) 82 11/23/20 20:00 High Flow O2 55.0 11/23/20 20:00 55.0 100 11/23/20 19:35 93 High Flow 55.0 60 11/23/20 19:00 137 38 168/79 (108) 84 11/23/20 18:20 100.7 11/23/20 18:00 100.8 136 32 152/82 (105) 88 11/23/20 17:00 129 34 143/80 (101) 94 11/23/20 16:00 118 11/23/20 16:00 101.3 124 33 165/70 (101) 100 11/23/20 16:00 55.0 100 11/23/20 16:00 High Flow O2 55.0 11/23/20 15:42 129 38 158/69 (98) 94 11/23/20 15:00 124 35 165/77 (106) 92 11/23/20 14:00 128 41 162/71 (101) 11/23/20 13:00 133 32 161/81 (107) 79 11/23/20 12:00 High Flow O2 55.0 11/23/20 12:00 100.1 130 29 157/79 (105) 86 11/23/20 12:00 55.0 100 11/23/20 12:00 127 11/23/20 11:28 92 High Flow 55.0 60 11/23/20 11:26 128 28 165/76 91 Height (Feet): 5 Height (Inches): 1.00 Weight (Pounds): 180 Laboratory Tests Test 11/23/20 16:38 11/24/20 05:20 POC Whole Blood Glucose 279 MG/DL (74-106) H White Blood Count 14.7 K/UL (4.8-10.8) H Red Blood Count 5.18 M/UL (4.20-5.40) Hemoglobin 14.9 G/DL (12.0-16.0) Hematocrit 47.8 % (37.0-47.0) H Mean Corpuscular Volume 92 FL (80-99) Mean Corpuscular Hemoglobin 28.8 PG (27.0-31.0) Mean Corpuscular Hemoglobin Concent 31.2 G/DL (32.0-36.0) L Red Cell Distribution Width 12.4 % (11.6-14.8) Platelet Count 228 K/UL (150-450) Mean Platelet Volume 8.0 FL (6.5-10.1) Neutrophils (%) (Auto) % (45.0-75.0) Lymphocytes (%) (Auto) % (20.0-45.0) Monocytes (%) (Auto) % (1.0-10.0) Eosinophils (%) (Auto) % (0.0-3.0) Basophils (%) (Auto) % (0.0-2.0) Differential Total Cells Counted 100 Neutrophils % (Manual) 90 % (45-75) H Lymphocytes % (Manual) 3 % (20-45) L Monocytes % (Manual) 7 % (1-10) Eosinophils % (Manual) 0 % (0-3) Basophils % (Manual) 0 % (0-2) Band Neutrophils 0 % (0-8) Platelet Estimate Adequate Platelet Morphology Normal Red Blood Cell Morphology Normal Sodium Level 155 MMOL/L (136-145) H Potassium Level 3.7 MMOL/L (3.5-5.1) Chloride Level 119 MMOL/L (98-107) H Carbon Dioxide Level 29 MMOL/L (21-32) Anion Gap 7 mmol/L (5-15) Blood Urea Nitrogen 20 mg/dL (7-18) H Creatinine 0.9 MG/DL (0.55-1.30) Estimat Glomerular Filtration Rate > 60 mL/min (>60) Glucose Level 343 MG/DL (74-106) H Uric Acid 3.5 MG/DL (2.6-7.2) Calcium Level 8.7 MG/DL (8.5-10.1) Phosphorus Level 2.9 MG/DL (2.5-4.9) Magnesium Level 2.5 MG/DL (1.8-2.4) H Total Bilirubin 0.6 MG/DL (0.2-1.0) Gamma Glutamyl Transpeptidase 145 U/L (5-85) H Aspartate Amino Transf (AST/SGOT) 34 U/L (15-37) Alanine Aminotransferase (ALT/SGPT) 50 U/L (12-78) Alkaline Phosphatase 102 U/L (46-116) Ammonia 24 umol/L (11-32) Lactate Dehydrogenase 525 U/L (81-234) H C-Reactive Protein, Quantitative 4.2 mg/dL (0.00-0.90) H Pro-B-Type Natriuretic Peptide 239 pg/mL (0-125) H Total Protein 6.3 G/DL (6.4-8.2) L Albumin 2.3 G/DL (3.4-5.0) L Globulin 4.0 g/dL Albumin/Globulin Ratio 0.6 (1.0-2.7) L Triglycerides Level 251 MG/DL (30-150) H Cholesterol Level 129 MG/DL (< 200) LDL Cholesterol 63 mg/dL (<100) HDL Cholesterol 27 MG/DL (40-60) L Cholesterol/HDL Ratio 4.8 (3.3-4.4) H Vitamin D 25-Hydroxy Pending 25-Hydroxy Vitamin D2 Pending 25-Hydroxy Vitamin D3 Pending Thyroid Stimulating Hormone (TSH) 0.030 uiU/mL (0.358-3.740) Free Thyroxine 1.87 NG/DL (0.76-1.46) H Free Triiodothyronine 1.0 pg/mL (2.3-4.2) L Current Medications Medications (Trade) Dose Ordered Sig/Kayla Route PRN Reason Start Time Stop Time Status Last Admin Dose Admin Acetaminophen (Tylenol) 650 mg Q6H PRN ORAL For Headache 11/14/20 13:15 12/14/20 13:14 11/24/20 00:14 Albuterol Sulfate (Proventil MDI) 2 puff Q4H PRN INH Shortness of Breath 11/15/20 10:30 02/13/21 10:29 11/17/20 06:04 Ceftriaxone Sodium 1 gm/ Dextrose 55 ml @ 110 mls/hr Q24H IVPB 11/15/20 16:30 11/28/20 23:59 11/23/20 16:30 Clonidine HCl (Catapres TTS-2) 1 patch QWEEK TDERMAL 11/24/20 11:00 02/22/21 10:59 Dextrose (Dextrose 50%) 25 ml Q30M PRN IV Hypoglycemia 11/14/20 13:15 02/12/21 13:14 Dextrose (Dextrose 50%) 50 ml Q30M PRN IV Hypoglycemia 11/14/20 13:15 02/12/21 13:14 Dextrose/ Electrolytes 1,000 ml @ 100 mls/hr Q10H IV 11/23/20 12:30 12/23/20 12:29 11/24/20 08:57 Docusate Sodium (Colace) 100 mg TWICE A DAY ORAL 11/17/20 14:15 12/17/20 14:14 11/24/20 08:59 Enoxaparin Sodium (Lovenox) 80 mg EVERY 12 HOURS SUBQ 11/22/20 21:00 02/16/21 09:59 11/24/20 09:02 Famotidine (Pepcid I.v.) 20 mg Q12HR IVP 11/23/20 21:00 12/23/20 20:59 11/24/20 08:59 Guaifenesin/ Codeine Phosphate (Robitussin with codeine) 5 ml Q6H PRN ORAL For Cough 11/21/20 23:30 12/21/20 23:29 11/21/20 23:32 Insulin Aspart (NovoLOG) BEFORE MEALS AND HS SUBQ 11/14/20 16:30 02/12/21 16:29 11/24/20 05:54 Insulin Detemir (Levemir) 10 units Q12HR SUBQ 11/24/20 09:15 02/21/21 20:59 11/24/20 09:46 Lorazepam (Ativan 2mg/ml 1ml) 0.25 mg Q6H PRN IV For Anxiety 11/18/20 12:45 11/25/20 12:44 11/23/20 10:51 Arthur Blair MD Nov 24, 2020 11:07
[2020-11-24] MEDS: Solu-MEDROL 40mg Inj IVP SCH ×2 (11:27→21:14)
--- NOTE | 2020-11-24 11:30 | General Progress Note ---
Subjective ROS Limited/Unobtainable: No Allergies: Coded Allergies: No Known Allergies (Unverified , 11/10/17) Objective Last 24 Hour Vital Signs Date Time Temp Pulse Resp B/P (MAP) Pulse Ox O2 Delivery O2 Flow Rate FiO2 11/24/20 11:27 148/71 11/24/20 09:40 105 11/24/20 08:00 55.0 100 11/24/20 08:00 99.5 108 30 148/71 (96) 91 11/24/20 07:00 111 35 158/98 (118) 85 11/24/20 06:00 96.5 117 33 159/100 (119) 91 11/24/20 05:00 114 30 157/87 (110) 89 11/24/20 04:00 115 11/24/20 04:00 High Flow O2 55.0 11/24/20 04:00 55.0 100 11/24/20 04:00 100.0 118 42 135/61 (85) 91 11/24/20 03:40 10 High Flow 55.0 60 11/24/20 03:00 117 32 165/49 (87) 11/24/20 02:00 127 33 149/82 (104) 92 11/24/20 01:00 117 33 162/56 (91) 11/24/20 00:44 101.5 11/24/20 00:00 101.5 128 36 153/78 (103) 11/24/20 00:00 99 11/24/20 00:00 55.0 100 11/24/20 00:00 High Flow O2 55.0 11/23/20 23:40 100 High Flow 55.0 60 11/23/20 23:00 128 32 152/81 (104) 11/23/20 22:00 132 39 152/46 (81) 99 11/23/20 21:00 132 41 159/61 (93) 11/23/20 20:00 134 11/23/20 20:00 100.0 137 40 143/77 (99) 82 11/23/20 20:00 High Flow O2 55.0 11/23/20 20:00 55.0 100 11/23/20 19:35 93 High Flow 55.0 60 11/23/20 19:00 137 38 168/79 (108) 84 1/17/21 18:20 100.7 11/23/20 18:00 100.8 136 32 152/82 (105) 88 11/23/20 17:00 129 34 143/80 (101) 94 11/23/20 16:00 118 11/23/20 16:00 101.3 124 33 165/70 (101) 100 11/23/20 16:00 55.0 100 11/23/20 16:00 High Flow O2 55.0 11/23/20 15:42 129 38 158/69 (98) 94 11/23/20 15:00 124 35 165/77 (106) 92 11/23/20 14:00 128 41 162/71 (101) 11/23/20 13:00 133 32 161/81 (107) 79 11/23/20 12:00 High Flow O2 55.0 11/23/20 12:00 100.1 130 29 157/79 (105) 86 11/23/20 12:00 55.0 100 11/23/20 12:00 127 Intake and Output 11/23/20 11/24/20 18:59 06:59 Intake Total 651.88025 ml 1000 ml Output Total 560 ml 990 ml Balance 91.90875 ml 10 ml IV Total 591.10298 ml 1000 ml Other 60 ml Output Urine Total 560 ml 990 ml Laboratory Tests 11/23/20 16:38: POC Whole Blood Glucose 279H 11/24/20 05:20: White Blood Count 14.7H, Red Blood Count 5.18, Hemoglobin 14.9, Hematocrit 47.8H , Mean Corpuscular Volume 92, Mean Corpuscular Hemoglobin 28.8, Mean Corpuscular Hemoglobin Concent 31.2L, Red Cell Distribution Width 12.4, Platelet Count 228, Mean Platelet Volume 8.0, Neutrophils (%) (Auto) , Lymphocytes (%) (Auto) , Monocytes (%) (Auto) , Eosinophils (%) (Auto) , Basophils (%) (Auto) , Differential Total Cells Counted 100, Neutrophils % (Manual) 90H, Lymphocytes % (Manual) 3L, Monocytes % (Manual) 7, Eosinophils % (Manual) 0, Basophils % (Manual) 0, Band Neutrophils 0, Platelet Estimate Adequate, Platelet Morphology Normal, Red Blood Cell Morphology Normal, Sodium Level 155H, Potassium Level 3.7, Chloride Level 119H, Carbon Dioxide Level 29, Anion Gap 7, Blood Urea Nitrogen 20H, Creatinine 0.9, Estimat Glomerular Filtration Rate > 60, Glucose Level 343H, Uric Acid 3.5, Calcium Level 8.7, Phosphorus Level 2.9, Magnesium Level 2.5H, Total Bilirubin 0.6, Gamma Glutamyl Transpeptidase 145H, Aspartate Amino Transf (AST/SGOT) 34, Alanine Aminotransferase (ALT/SGPT) 50, Alkaline Phosphatase 102, Ammonia 24, Lactate Dehydrogenase 525H, C-Reactive Protein, Quantitative 4.2H, Pro-B-Type Natriuretic Peptide 239H, Total Protein 6.3L, Albumin 2.3L, Globulin 4.0, Albumin/Globulin Ratio 0.6L, Triglycerides Level 251H, Cholesterol Level 129, LDL Cholesterol 63, HDL Cholesterol 27L, Cholesterol/HDL Ratio 4.8H, Vitamin D 25-Hydroxy [Pending], 25-Hydroxy Vitamin D2 [Pending], 25-Hydroxy Vitamin D3 [Pending], Thyroid Stimulating Hormone (TSH) 0.030L, Free Thyroxine 1.87H, Free Triiodothyronine 1.0L Height (Feet): 5 Height (Inches): 1.00 Weight (Pounds): 180 General Appearance: lethargic EENT: normal ENT inspection Neck: supple Cardiovascular: tachycardia Respiratory/Chest: decreased breath sounds Abdomen: hypoactive bowel sounds Extremities: non-tender Assessment/Plan Assessment/Plan: Covid positive PNA mild transaminitis most likely due to above>>>>improving DM smoker on BIPAP NPO repeat LFTS abd us if needed fu hepatitis panel>>> neg covid care NPO plan PICC line placement abd TPN will fu Jose Armando Andrews MD Nov 24, 2020 11:30
--- NOTE | 2020-11-24 12:04 | NUR ---
RD ASSESSMENT & RECOMMENDATIONS SEE CARE ACTIVITY FOR COMPLETE ASSESSMENT DAILY ESTIMATED NEEDS: Needs based on Pulmonary, obesity 56.3kg adjusted body wt 23-28 kcals/kg 2323-2786 total kcals 1-1.5 g protein/kg 56-84 g total protein 25-35 mL/kg 0017-1918 total fluid mLs NUTRITION DIAGNOSIS: Predicted inadequate energy intake r/t Covid 19 PNA as evidenced by pt in resp distress, now on high flow o2, NPO unable to tolerate oral po, pt to start TPN CURRENT DIET: NPO PO DIET RECOMMENDATIONS: WHEN SAFE FOR ORAL DIET-> CCHO LOW DIET/ TEXTURE PER PACKING CLERK ENTERAL NUTRITION RECOMMENDATIONS: Glucerna 1.2 @ 45ml/hr x 24 hrs + Prosource 1pkt QD to provide 1080ml, 1296kcal, 65g +11g prot, 870ml free water - As medically appropriate or should pt require oral intubation rec to obtain GI access, initiate non oral feeds of Glucerna 1.2 @ 15ml/hr for 6 hrs. - Advance as tolerated 10ml/hr q4-6 hrs to goal. - Add Prosource 1pkt QD to meet est prot needs. - Flush per HOB over 30 degrees PARENTERAL NUTRITION RECOMMENDATIONS: D/AA Rate: 63 IL Rate: 7 Total Rate: 70 Volume: 1680 % Dextrose: 14 % AA: 5.0 Energy (kcals/kg): 1358 Protein (g/kg protein): 75 Nonprotein KCALS: 1056 GIR (mg CHO/kg/min): 2.6 % Fat KCALS: 24.7 NCP: N Ratio: 88:1 TPN Comment: * D14% AA 5.0% @ 63ml/hr + IL20% @ 7ml/hr-> total of 70ml/hr, all 3:1 * Initiate TPN slowly @ 20ml/hr x 6hrs, advance slowly as tolerated to goal * TPN @ goal provides 24kcal/1.33g prot per kg adjusted body wt ------ * Rec increasing long acting insulin w/ TPN: FBGs already 200's and 300's * Monitor lytes, replete as needed * Monitor triglyceride trend w/ TPN * Monitor LFTs w/ TPN ADDITIONAL RECOMMENDATIONS: 1) NPO, on high flow o2-> now TPN ordered (TF recs above should pt require oral intubation) 2) Calibrated bedscale wt 3) Monitor BGs closely w/ TPN, rec increasing long acting insulin 4) Monitor triglyceride: 251 (11/24) prior to TPN 5) Monitor LFTs w/ TPN .
--- NOTE | 2020-11-24 12:40 | NUR ---
NURSE NOTES: BOWEN Toro is aware about ABG, PA will F/U. Will continue to monitor.
[2020-11-24] MEDS: LORazepam Inj 2mg/ml 1ml IV PRN ×2 (12:58→21:13)
--- NOTE | 2020-11-24 13:00 | NUR ---
NURSE NOTES: Telephone consent for PICC PLacement got from daughter Johnathon Castaneda ph: [phone] with witness RN Diana and CLEVELAND Corley. electronic communications technician tory is aware.
--- NOTE | 2020-11-24 13:08 | NUR ---
NURSE NOTES: pt tries to take off NC and mask, SPO2 dropped to 80%, BOWEN Toro is aware, Ativan given as order. will continue to monitor.
[2020-11-24] MEDS ORDERED: Heparin1,000 units/500ml Premix(Conc:2 units/ml) INJ PRN (13:45)
[2020-11-24] MEDS ORDERED: Lidocaine 1% Plain 30 ml INJ PRN (13:45)
--- NOTE | 2020-11-24 15:04 | NUR ---
RADIOLOGY NOTE: RIGHT UPPER EXTREMITY PICC LINE PLACEMENT BY DR. JUAN JOSÉ CAMPOS AT 1400 HRS. FA
--- NOTE | 2020-11-24 15:59 | Brief Operative Note ---
Immediate Post Operative Note Operative Note Pre-op Diagnosis: needs IV access Procedure: PICC Post-op Diagnosis: same as pre-op Surgeon: Sobeida Hill Anesthesia: local Specimen: none Complications: none Fluids: none Implant(s) used?: No Dion Hill MD Nov 24, 2020 15:59
--- NOTE | 2020-11-24 16:03 | Diagnostic Imaging Report ---
Indications: Needs long-term IV access Technique: Procedure performed at bedside. Procedural timeout performed. Ultrasound confirms patent compressible right basilic vein. Total sterile technique, including sterile probe cover and sterile gel, sterile gloves, hand hygiene, hat, mask,, sterile gown, large sterile drape, and preparation with 2% chlorhexidine utilized. Local anesthesia with 1% lidocaine. Under real-time ultrasound guidance, puncture basilic vein using 21-gauge needle, passage 0.018 guidewire, exchange for 4 [place] peel-away sheath. 4 [place] Bard dual-lumen power PICC cut to 36 cm. It was inserted through the peel-away sheath. Peel-away sheath and guidewire removed. Catheter fixed to the skin. Both catheter ports aspirated and flushed. Patient tolerated procedure well, without immediate complication. Followup chest x-ray obtained, documents catheter tip position at the innominate venous confluence Note that follow-up chest radiograph also demonstrates a small pneumothorax. This is not evident on the previous day's exam, but is similar in extent to pneumothorax demonstrated on prior chest radiograph 11/22/2020 Impression: Successful bedside placement of right arm PICC under sonographic guidance, as described above. Evidence of small recurrent pneumothorax. This critical value finding was phoned to Dr. Gannon at the time of interpretation
[2020-11-24] MEDS: cefTRIAXone 1 GM in D5W 55 ML IVPB SCH (16:19)
--- NOTE | 2020-11-24 16:45 | NUR ---
NURSE NOTES: Dr Andrews and purvi visited is the morning pt and are aware about BS, they F/U, NNO.
[2020-11-24] MEDS ORDERED: Tubing IV Secondary IV ONE (18:00)
[2020-11-24] MEDS ORDERED: NS 275ml ONE (18:00)
--- NOTE | 2020-11-24 19:41 | NUR ---
NURSE HAND-OFF REPORT: Important Events on Shift:PICC done and pt has TPN 10562. Patient Status: Diet: Pending Orders: Pending Results/Labs: Pending MD notification: Latest Vital Signs: Temperature 97.7 , Pulse 118 , B/P 153 /61 , Respiratory Rate 28 , O2 SAT 90 , Nasal Cannula, O2 Flow Rate 55.0 . Vital Sign Comment: EKG Rhythm: Sinus Tachycardia Rhythm change?: N MD Notified?: Eitan Bansal NP, MD Response: No New Orders Received Latest Rosen Fall Score: 85 Fall Risk: High Risk Safety Measures: Call light Within Reach, Bed Alarm Zone 1, Side Rails Side Rails x3, Bed position Low and Locked. Fall Precautions: Yellow Socks Yellow Gown Door Sign Patient Fall Education Report given to . Pt is awake and confused, no stress noted, endorsed plan of care, endorsed to monitor HR and spo2, HR 111 SPO2 88, ENDORSED TO START tpn [id number] AND DECREASE IV FLUID to 50ml/hr.
--- NOTE | 2020-11-24 19:45 | NUR ---
NURSE NOTES: Important Events on Shift: Received report from Jeremy Pineda RN. Will continue close monitoring and plan of care. Patient Status: FC Diet: TPN @ 1999 Pending Orders: TPN Pending Results/Labs: AM LABS Pending MD notification: NONE Latest Vital Signs: Temperature 98.3 , Pulse 115 , B/P 130 /86 , Respiratory Rate 29 , O2 SAT 93 , Nasal Cannula, O2 Flow Rate 55.0 . Vital Sign Comment: Desatting EKG Rhythm: Sinus Rhythm Rhythm change?: N Notified?: Eitan Bansal NP, MD Response: No New Orders Received Latest Rosen Fall Score: 85 Fall Risk: High Risk Safety Measures: Call light Within Reach, Bed Alarm Zone 1, Side Rails Side Rails x3, Bed position Low and Locked. Fall Precautions: YES Yellow Socks Yellow Gown Door Sign Patient Fall Education
[2020-11-24] MEDS ORDERED: Dextrose 10% 1,000 ML IV PRN (20:00)
[2020-11-24] MEDS ORDERED: FAT EMULSION 20% IV SCH (20:00)
[2020-11-24] MEDS ORDERED: TPN IV SCH (20:00)
[2020-11-24] MEDS ORDERED: Fat Emulsion Iv 20% 250 ML IV SCH (21:00)
[2020-11-25] VITALS: BP 121/87
[2020-11-25 04:00] VITALS: BP 130/86
[2020-11-25] MEDS: LORazepam Inj 2mg/ml 1ml IV PRN ×3 (05:15→22:27)
[2020-11-25] MEDS: NovoLOG Insulin Flexpen SUBQ SCH (05:49)
[2020-11-25 07:03] LABS: HEMATOCRIT 48.8 % (37.0-47.0); HEMOGLOBIN 15.2 G/DL (12.0-16.0); MEAN CORPUSCULAR VOLUME 94 FL (80-99); PLATELET COUNT 203 K/UL (150-450); RED BLOOD COUNT 5.21 M/UL (4.20-5.40); RED CELL DISTRIBUTION WIDTH 12.2 % (11.6-14.8); WHITE BLOOD COUNT 19.7 K/UL (4.8-10.8)
--- NOTE | 2020-11-25 07:30 | NUR ---
NURSE NOTES: Received pt from ELISEO Cheek, pt is awake and confused, pt high flow NC and non rebreather mask spo2 88% HR 118, Pt is on continues heart monitoring. pt NPO and pt has PICC double lumen AHMET TPN 20ml/hr is running well, per night custodian nurse pt couldn't tolerate 70ml/hr and Dr Andrews is aware. pt has intact iv access LH 22G and RAC 18G is running well. pt has Garcia cath in place is working well. All needs attended, bed is locked and is in the lowest position, call light within easy reach. will continue to monitor.
--- NOTE | 2020-11-25 07:35 | General Progress Note ---
Subjective ROS Limited/Unobtainable: No Allergies: Coded Allergies: No Known Allergies (Unverified , 11/10/17) Objective Last 24 Hour Vital Signs Date Time Temp Pulse Resp B/P (MAP) Pulse Ox O2 Delivery O2 Flow Rate FiO2 11/25/20 05:45 115 29 130/86 93 11/25/20 05:15 115 29 130/86 93 11/25/20 04:00 High Flow O2 55.0 11/25/20 04:00 86 11/25/20 04:00 98.3 115 29 130/86 (101) 93 11/25/20 04:00 55.0 100 11/25/20 02:47 92 High Flow 55.0 100 11/25/20 00:00 89 11/25/20 00:00 High Flow O2 55.0 11/25/20 00:00 97.9 111 25 121/87 (98) 93 11/25/20 00:00 55.0 100 11/24/20 22:55 93 High Flow 55.0 100 11/24/20 21:43 89 25 121/86 93 11/24/20 21:13 115 30 152/91 92 11/24/20 20:00 98.1 111 28 151/93 (112) 90 11/24/20 20:00 High Flow O2 55.0 11/24/20 20:00 90 High Flow 55.0 100 11/24/20 20:00 114 11/24/20 16:00 55.0 100 11/24/20 16:00 97.7 118 28 153/61 (91) 90 11/24/20 16:00 High Flow O2 55.0 11/24/20 15:34 114 11/24/20 15:30 90 High Flow 55.0 100 11/24/20 13:28 126 25 130/72 89 11/24/20 12:58 118 25 149/76 89 11/24/20 12:00 55.0 100 11/24/20 12:00 98.1 118 25 149/76 (100) 89 11/24/20 12:00 High Flow O2 55.0 11/24/20 11:56 116 11/24/20 11:27 148/71 11/24/20 11:00 90 High Flow 55.0 100 11/24/20 09:40 105 11/24/20 08:00 55.0 100 1/18/21 08:00 99.5 108 30 148/71 (96) 91 11/24/20 08:00 High Flow O2 55.0 Intake and Output0 11/24/20 11/25/20 19:00 07:00 Intake Total 1155 ml Output Total 700 ml 500 ml Balance 455 ml -500 ml IV Total 1155 ml Output Urine Total 700 ml 500 ml Laboratory Tests 11/24/20 11:36: POC Whole Blood Glucose [Pending] 11/24/20 12:06: Arterial Blood pH 7.458H, Arterial Blood Partial Pressure CO2 38.7, Arterial Blood Partial Pressure O2 53.8L, Arterial Blood HCO3 26.8H, Arterial Blood Oxygen Saturation 89.0*L, Arterial Blood Base Excess 2.9H, Ted Test Positive 11/24/20 16:24: POC Whole Blood Glucose [Pending] 11/24/20 22:13: POC Whole Blood Glucose 358H 11/25/20 04:35: White Blood Count 19.7H, Red Blood Count 5.21, Hemoglobin 15.2, Hematocrit 48.8H , Mean Corpuscular Volume 94, Mean Corpuscular Hemoglobin 29.2, Mean Corpuscular Hemoglobin Concent 31.1L, Red Cell Distribution Width 12.2, Platelet Count 203, Mean Platelet Volume 7.9, Neutrophils (%) (Auto) , Lymphocytes (%) (Auto) , Monocytes (%) (Auto) , Eosinophils (%) (Auto) , Basophils (%) (Auto) , Neutrophils % (Manual) [Pending], Lymphocytes % (Manual) [Pending], Platelet Estimate [Pending], Platelet Morphology [Pending], Sodium Level [Pending], Potassium Level [Pending], Chloride Level [Pending], Carbon Dioxide Level [Pending], Blood Urea Nitrogen [Pending], Creatinine [Pending], Estimat Glomerular Filtration Rate [Pending], Glucose Level [Pending], Calcium Level [Pending], Phosphorus Level [Pending], Magnesium Level [Pending], Total Bilirubi n [Pending], Aspartate Amino Transf (AST/SGOT) [Pending], Alanine Aminotransferase (ALT/SGPT) [Pending], Alkaline Phosphatase [Pending], C- Reactive Protein, Quantitative [Pending], Pro-B-Type Natriuretic Peptide [Pending], Total Protein [Pending], Albumin [Pending], Globulin [Pending] 11/25/20 05:41: POC Whole Blood Glucose 404H 11/25/20 05:47: POC Whole Blood Glucose 418H Height (Feet): 5 Height (Inches): 1.00 Weight (Pounds): 180 General Appearance: no apparent distress EENT: normal ENT inspection Neck: supple Cardiovascular: normal rate Respiratory/Chest: decreased breath sounds Abdomen: normal bowel sounds, non tender, soft Extremities: non-tender, normal inspection Assessment/Plan Assessment/Plan: Covid positive PNA mild transaminitis most likely due to above>>>>improving DM smoker on BIPAP NPO repeat LFTS abd us if needed fu hepatitis panel>>> neg covid care NPO on TPN will fu Jose Armando Andrews MD Nov 25, 2020 07:35
--- NOTE | 2020-11-25 07:44 | NUR ---
NURSE HAND-OFF REPORT: Important Events on Shift: TPN started at 20ml/hr x 6 hrs. Increased @0400, O2 sat decreased to 82%. BG 418. Insulin given as ordered Returned TPN to 20ml/hr. Darryl aware and stated he will start new order for TPN with insulin. Pt to stay at 20ml/hr until new orders received. Patient Status: FC Diet: TPN Pending Orders: Per Darryl Pending Results/Labs: none Pending MD notification: none Latest Vital Signs: Temperature 98.3 , Pulse 115 , B/P 130 /86 , Respiratory Rate 29 , O2 SAT 93 , Nasal Cannula, O2 Flow Rate 55.0 . Vital Sign Comment: EKG Rhythm: Sinus Rhythm Rhythm change?: N Notified?: Eitan Bansal NP, MD Response: No New Orders Received Latest Rosen Fall Score: 85 Fall Risk: High Risk Safety Measures: Call light Within Reach, Bed Alarm Zone 1, Side Rails Side Rails x3, Bed position Low and Locked. Fall Precautions: yes Yellow Socks Yellow Gown Door Sign Patient Fall Education Report given to Jeremy Pineda RN
[2020-11-25 07:56] LABS: ALANINE AMINOTRANSFERASE 48 U/L (12-78); ALBUMIN 2.4 G/DL (3.4-5.0); ALBUMIN/GLOBULIN RATIO 0.6 (1.0-2.7); ALKALINE PHOSPHATASE 113 U/L (46-116); ANION GAP 10 mmol/L (5-15); ASPARTATE AMINO TRANSFERASE 32 U/L (15-37); BILIRUBIN,TOTAL 0.7 MG/DL (0.2-1.0); BLOOD UREA NITROGEN 26 mg/dL (7-18); CALCIUM 8.9 MG/DL (8.5-10.1); CARBON DIOXIDE 24 MMOL/L (21-32); CHLORIDE 110 MMOL/L (98-107); CREATININE 0.8 MG/DL (0.55-1.30); PHOSPHORUS 3.7 MG/DL (2.5-4.9); POTASSIUM 4.1 MMOL/L (3.5-5.1); SODIUM 144 MMOL/L (136-145)
[2020-11-25 09:00] VITALS: BP 143/100
--- NOTE | 2020-11-25 09:00 | NUR ---
NURSE NOTES: Dr Gannon and Thierry Toro visited pt and are aware pt couldn't tolerate prone position, stated OK, NNO. Will continue to monitor.
[2020-11-25] MEDS: Docusate 100mg cap ORAL SCH ×2 (09:02→18:01)
[2020-11-25] MEDS: Enoxaparin 80mg Inj SUBQ SCH ×2 (09:03→20:31)
[2020-11-25] MEDS: Levemir Flexpen SUBQ SCH ×2 (09:04→20:56)
[2020-11-25] MEDS: Solu-MEDROL 40mg Inj IVP SCH ×2 (09:08→20:32)
[2020-11-25] MEDS: D5W w/KCl 20mEq 1,000 ML IV SCH (09:49)
--- NOTE | 2020-11-25 10:00 | NUR ---
NURSE NOTES: Dr Idalia Reid visited pt and is aware about WBC 19.7 and other lab results and V/S, NNO. Will continue to monitor.
[2020-11-25] MEDS ORDERED: Levemir Flexpen SUBQ SCH (11:45)
--- NOTE | 2020-11-25 11:48 | Nephrology Progress Note ---
Assessment/Plan Problem List: (1) COVID-19 (2) Abnormal LFTs (3) Pneumonia (4) Hypoxia Assessment Hypernatremia Hypokalemia Elevated blood sugar Hypoxia COVID-19 pneumonia Plan November 25: Labs reviewed. Electrolytes and renal parameters stable. Blood sugar up. Levemir dose increased. Continue to monitor renal parameters. November 24: Electrolytes improving. Clonidine patch for blood pressure given. On high flow oxygen due to pneumothorax. No BiPAP. Discussed with . Previously: Start D5W Potassium supplement Monitor electrolytes Levemir 10 units, monitor blood sugar Vitamin D level Pulmonary support Per orders Subjective ROS Limited/Unobtainable: Yes Objective Objective Last 24 Hour Vital Signs Date Time Temp Pulse Resp B/P (MAP) Pulse Ox O2 Delivery O2 Flow Rate FiO2 11/25/20 11:30 126 30 143/100 88 11/25/20 09:00 97.7 105 25 143/100 (114) 89 11/25/20 08:38 86 11/25/20 08:06 93 High Flow 55.0 100 11/25/20 05:45 115 29 130/86 93 11/25/20 05:15 115 29 130/86 93 11/25/20 04:00 High Flow O2 55.0 11/25/20 04:00 86 11/25/20 04:00 98.3 115 29 130/86 (101) 93 11/25/20 04:00 55.0 100 11/25/20 02:47 92 High Flow 55.0 100 11/25/20 00:00 89 11/25/20 00:00 High Flow O2 55.0 11/25/20 00:00 97.9 111 25 121/87 (98) 93 11/25/20 00:00 55.0 100 11/24/20 22:55 93 High Flow 55.0 100 11/24/20 21:43 89 25 121/86 93 11/24/20 21:13 115 30 152/91 92 11/24/20 20:00 98.1 111 28 151/93 (112) 90 11/24/20 20:00 High Flow O2 55.0 11/24/20 20:00 90 High Flow 55.0 100 11/24/20 20:00 114 11/24/20 16:00 55.0 100 11/24/20 16:00 97.7 118 28 153/61 (91) 90 11/24/20 16:00 High Flow O2 55.0 11/24/20 15:34 114 11/24/20 15:30 90 High Flow 55.0 100 11/24/20 13:28 126 25 130/72 89 11/24/20 12:58 118 25 149/76 89 11/24/20 12:00 55.0 100 11/24/20 12:00 98.1 118 25 149/76 (100) 89 11/24/20 12:00 High Flow O2 55.0 11/24/20 11:56 116 Intake and Output 11/24/20 11/25/20 19:00 07:00 Intake Total 1155 ml Output Total 700 ml 500 ml Balance 455 ml -500 ml IV Total 1155 ml Output Urine Total 700 ml 500 ml Laboratory Tests 11/24/20 12:06: Arterial Blood pH 7.458H, Arterial Blood Partial Pressure CO2 38.7, Arterial Blood Partial Pressure O2 53.8L, Arterial Blood HCO3 26.8H, Arterial Blood Oxygen Saturation 89.0*L, Arterial Blood Base Excess 2.9H, Ted Test Positive 11/24/20 16:24: POC Whole Blood Glucose [Pending] 11/24/20 22:13: POC Whole Blood Glucose 358H 11/25/20 04:35: White Blood Count 19.7H, Red Blood Count 5.21, Hemoglobin 15.2, Hematocrit 48.8H , Mean Corpuscular Volume 94, Mean Corpuscular Hemoglobin 29.2, Mean Corpuscular Hemoglobin Concent 31.1L, Red Cell Distribution Width 12.2, Platelet Count 203, Mean Platelet Volume 7.9, Neutrophils (%) (Auto) , Lymphocytes (%) (Auto) , Monocytes (%) (Auto) , Eosinophils (%) (Auto) , Basophils (%) (Auto) , Differential Total Cells Counted 100, Neutrophils % (Manual) 94H, Lymphocytes % (Manual) 4L, Monocytes % (Manual) 2, Eosinophils % (Manual) 0, Basophils % (Manual) 0, Band Neutrophils 0, Platelet Estimate Adequate, Platelet Morphology Normal, Red Blood Cell Morphology Normal, Sodium Level 144#, Potassium Level 4.1, Chloride Level 110H, Carbon Dioxide Level 24, Anion Gap 10, Blood Urea Nitrogen 26H, Creatinine 0.8, Estimat Glomerular Filtration Rate > 60, Glucose Level 431H, Calcium Level 8.9, Phosphorus Level 3.7, Magnesium Level 2.6H, Total Bilirubin 0.7, Aspartate Amino Transf (AST/SGOT) 32, Alanine Aminotransferase (ALT/SGPT) 48, Alkaline Phosphatase 113, C-Reactive Protein, Quantitative 2.8H, Pro-B-Type Natriuretic Peptide 166H, Total Protein 6.3L, Albumin 2.4L, Globulin 3.9, Albumin/Globulin Ratio 0.6L 11/25/20 05:41: POC Whole Blood Glucose 404H 11/25/20 05:47: POC Whole Blood Glucose 418H 11/25/20 11:35: POC Whole Blood Glucose 361H Height (Feet): 5 Height (Inches): 1.00 Weight (Pounds): 180 General Appearance: mild distress EENT: other - On high flow oxygen Cardiovascular: tachycardia Respiratory/Chest: decreased breath sounds Abdomen: distended John Martin MD Nov 25, 2020 11:48
[2020-11-25 12:00] VITALS: BP 142/72
[2020-11-25] MEDS: Insulin NovoLOG Flexpen S/S (Mod) SUBQ SCH ×3 (12:28→20:56)
--- NOTE | 2020-11-25 12:30 | NUR ---
NURSE NOTES: pt was anxious, tries to get out of bed and take off NC and MASK, given Ativan as order and pt sleeping.
--- NOTE | 2020-11-25 12:30 | Infectious Diseases Prog Note ---
Assessment/Plan Assessment/Plan A; 1. COVID-19 pneumonia. 2. Obesity. 3. Hypertension. 4. Leukocytosis is likely secondary to steroids. 5. Hypoxemia 6. Elevated transaminase 7. DM 8. Small pneumothorax PLAN: 1. Finished Remdesivir course 2. Continue Solumedrol 3. Continue ceftriaxone. 4. f/u CXR Subjective ROS Limited/Unobtainable: Yes Neurologic: Reports: confusion, other - on restraint Allergies: Coded Allergies: No Known Allergies (Unverified , 11/10/17) Objective Last 24 Hour Vital Signs Date Time Temp Pulse Resp B/P (MAP) Pulse Ox O2 Delivery O2 Flow Rate FiO2 11/25/20 12:00 115 25 142/72 92 11/25/20 12:00 98.2 118 25 142/72 (95) 92 11/25/20 11:30 126 30 143/100 88 11/25/20 11:20 91 High Flow 55.0 100 11/25/20 09:00 97.7 105 25 143/100 (114) 89 11/25/20 08:38 86 11/25/20 08:06 93 High Flow 55.0 100 11/25/20 05:45 115 29 130/86 93 11/25/20 05:15 115 29 130/86 93 11/25/20 04:00 High Flow O2 55.0 11/25/20 04:00 86 11/25/20 04:00 98.3 115 29 130/86 (101) 93 11/25/20 04:00 55.0 100 11/25/20 02:47 92 High Flow 55.0 100 11/25/20 00:00 89 11/25/20 00:00 High Flow O2 55.0 11/25/20 00:00 97.9 111 25 121/87 (98) 93 11/25/20 00:00 55.0 100 11/24/20 22:55 93 High Flow 55.0 100 11/24/20 21:43 89 25 121/86 93 11/24/20 21:13 115 30 152/91 92 11/24/20 20:00 98.1 111 28 151/93 (112) 90 11/24/20 20:00 High Flow O2 55.0 11/24/20 20:00 90 High Flow 55.0 100 11/24/20 20:00 114 11/24/20 16:00 55.0 100 11/24/20 16:00 97.7 118 28 153/61 (91) 90 11/24/20 16:00 High Flow O2 55.0 11/24/20 15:34 114 11/24/20 15:30 90 High Flow 55.0 100 11/24/20 13:28 126 25 130/72 89 11/24/20 12:58 118 25 149/76 89 Height (Feet): 5 Height (Inches): 1.00 Weight (Pounds): 180 HEENT: mucous membranes moist Respiratory/Chest: other - Oxygen by NRB & high flow cannula, VEO8=613% Cardiovascular: tachycardia Abdomen: soft, non tender Neurologic/Psychiatric: disoriented Laboratory Tests Test 11/24/20 16:24 11/24/20 22:13 11/25/20 04:35 11/25/20 05:41 POC Whole Blood Glucose Pending 358 MG/DL (74-106) H 404 MG/DL (74-106) H White Blood Count 19.7 K/UL (4.8-10.8) H Red Blood Count 5.21 M/UL (4.20-5.40) Hemoglobin 15.2 G/DL (12.0-16.0) Hematocrit 48.8 % (37.0-47.0) H Mean Corpuscular Volume 94 FL (80-99) Mean Corpuscular Hemoglobin 29.2 PG (27.0-31.0) Mean Corpuscular Hemoglobin Concent 31.1 G/DL (32.0-36.0) L Red Cell Distribution Width 12.2 % (11.6-14.8) Platelet Count 203 K/UL (150-450) Mean Platelet Volume 7.9 FL (6.5-10.1) Neutrophils (%) (Auto) % (45.0-75.0) Lymphocytes (%) (Auto) % (20.0-45.0) Monocytes (%) (Auto) % (1.0-10.0) Eosinophils (%) (Auto) % (0.0-3.0) Basophils (%) (Auto) % (0.0-2.0) Differential Total Cells Counted 100 Neutrophils % (Manual) 94 % (45-75) H Lymphocytes % (Manual) 4 % (20-45) L Monocytes % (Manual) 2 % (1-10) Eosinophils % (Manual) 0 % (0-3) Basophils % (Manual) 0 % (0-2) Band Neutrophils 0 % (0-8) Platelet Estimate Adequate Platelet Morphology Normal Red Blood Cell Morphology Normal Sodium Level 144 MMOL/L (136-145) # Potassium Level 4.1 MMOL/L (3.5-5.1) Chloride Level 110 MMOL/L (98-107) H Carbon Dioxide Level 24 MMOL/L (21-32) Anion Gap 10 mmol/L (5-15) Blood Urea Nitrogen 26 mg/dL (7-18) H Creatinine 0.8 MG/DL (0.55-1.30) Estimat Glomerular Filtration Rate > 60 mL/min (>60) Glucose Level 431 MG/DL (74-106) H Calcium Level 8.9 MG/DL (8.5-10.1) Phosphorus Level 3.7 MG/DL (2.5-4.9) Magnesium Level 2.6 MG/DL (1.8-2.4) H Total Bilirubin 0.7 MG/DL (0.2-1.0) Aspartate Amino Transf (AST/SGOT) 32 U/L (15-37) Alanine Aminotransferase (ALT/SGPT) 48 U/L (12-78) Alkaline Phosphatase 113 U/L (46-116) C-Reactive Protein, Quantitative 2.8 mg/dL (0.00-0.90) H Pro-B-Type Natriuretic Peptide 166 pg/mL (0-125) H Total Protein 6.3 G/DL (6.4-8.2) L Albumin 2.4 G/DL (3.4-5.0) L Globulin 3.9 g/dL Albumin/Globulin Ratio 0.6 (1.0-2.7) L Test 11/25/20 05:47 11/25/20 11:35 POC Whole Blood Glucose 418 MG/DL (74-106) H 361 MG/DL (74-106) H Current Medications Medications (Trade) Dose Ordered Sig/Kayla Route PRN Reason Start Time Stop Time Status Last Admin Dose Admin Acetaminophen (Tylenol) 650 mg Q6H PRN ORAL For Headache 11/14/20 13:15 12/14/20 13:14 11/24/20 00:14 Albuterol Sulfate (Proventil MDI) 2 puff Q4H PRN INH Shortness of Breath 11/15/20 10:30 02/13/21 10:29 11/17/20 06:04 Ceftriaxone Sodium 1 gm/ Dextrose 55 ml @ 110 mls/hr Q24H IVPB 11/15/20 16:30 11/28/20 23:59 11/24/20 16:19 Clonidine HCl (Catapres TTS-2) 1 patch QWEEK TDERMAL 11/24/20 11:00 02/22/21 10:59 11/24/20 11:27 Dextrose 1,000 ml @ 0 mls/hr Q24H PRN IV PN interrupted or unavailable 11/24/20 20:00 12/24/20 19:59 Dextrose (Dextrose 50%) 25 ml Q30M PRN IV Hypoglycemia 11/24/20 11:30 02/22/21 11:29 Dextrose (Dextrose 50%) 50 ml Q30M PRN IV Hypoglycemia 11/24/20 11:30 02/22/21 11:29 Dextrose/ Electrolytes 1,000 ml @ 50 mls/hr Q20H IV 11/24/20 20:00 12/24/20 19:59 11/25/20 09:49 Docusate Sodium (Colace) 100 mg TWICE A DAY ORAL 11/17/20 14:15 12/17/20 14:14 11/25/20 09:02 Enoxaparin Sodium (Lovenox) 80 mg EVERY 12 HOURS SUBQ 11/22/20 21:00 02/16/21 09:59 11/25/20 09:03 Famotidine (Pepcid I.v.) 20 mg Q12HR IVP 11/23/20 21:00 12/23/20 20:59 11/25/20 09:08 Fat Emulsion Intravenous 168 ml/Amino Acids/ Electrolytes/ Dextrose 1,680 ml @ 70 mls/hr Q24H IV 11/24/20 20:00 11/25/20 19:59 11/24/20 21:15 Fat Emulsion Intravenous 168 ml/Amino Acids/ Electrolytes/ Dextrose 1,680 ml @ 70 mls/hr Q24H IV 11/25/20 20:00 12/25/20 19:59 Guaifenesin/ Codeine Phosphate (Robitussin with codeine) 5 ml Q6H PRN ORAL For Cough 11/21/20 23:30 12/21/20 23:29 11/21/20 23:32 Heparin Sodium/ Sodium Chloride (Heparin 1000 units/500ml Premix) 1,000 unit ONCE PRN INJ PICC PLACEMENT 11/24/20 13:45 11/25/20 23:59 Insulin Aspart (NovoLOG) No Dose Q4HR SUBQ 11/25/20 13:00 02/23/21 12:59 Insulin Detemir (Levemir) 10 units ONCE SUBQ 11/25/20 11:45 11/25/20 13:30 Insulin Detemir (Levemir) 20 units Q12HR SUBQ 11/25/20 21:00 02/21/21 20:59 Lidocaine HCl (Xylocaine 1% 30ml) 30 ml ONCE PRN INJ PICC PLACEMENT 11/24/20 13:45 11/25/20 23:59 Lorazepam (Ativan 2mg/ml 1ml) 0.25 mg Q6H PRN IV For Anxiety 11/18/20 12:45 11/25/20 12:44 11/25/20 11:30 Methylprednisolone Sodium Succinate (Solu-MEDROL) 40 mg EVERY 12 HOURS IVP 11/24/20 11:15 02/22/21 11:14 11/25/20 09:08 Herminio Reid MD Nov 25, 2020 12:30
--- NOTE | 2020-11-25 12:33 | Pulmonology Progress Note ---
Subjective ROS Limited/Unobtainable: Yes Interval Events: PTX resolved; BiPAP dc Constitutional: Reports: fever HEENT: Repors: no symptoms Respiratory: Reports: no symptoms, shortness of breath, dyspnea at rest Cardiovascular: Reports: no symptoms Gastrointestinal/Abdominal: Reports: no symptoms Neurologic: Reports: other - Dizziness Psychiatric: Reports: other - on restraint Allergies: Coded Allergies: No Known Allergies (Unverified , 11/10/17) Objective Last 24 Hour Vital Signs Date Time Temp Pulse Resp B/P (MAP) Pulse Ox O2 Delivery O2 Flow Rate FiO2 11/25/20 12:00 115 25 142/72 92 11/25/20 12:00 98.2 118 25 142/72 (95) 92 11/25/20 11:30 126 30 143/100 88 11/25/20 11:20 91 High Flow 55.0 100 11/25/20 09:00 97.7 105 25 143/100 (114) 89 11/25/20 08:38 86 11/25/20 08:06 93 High Flow 55.0 100 11/25/20 05:45 115 29 130/86 93 11/25/20 05:15 115 29 130/86 93 11/25/20 04:00 High Flow O2 55.0 11/25/20 04:00 86 11/25/20 04:00 98.3 115 29 130/86 (101) 93 11/25/20 04:00 55.0 100 11/25/20 02:47 92 High Flow 55.0 100 11/25/20 00:00 89 11/25/20 00:00 High Flow O2 55.0 11/25/20 00:00 97.9 111 25 121/87 (98) 93 11/25/20 00:00 55.0 100 11/24/20 22:55 93 High Flow 55.0 100 11/24/20 21:43 89 25 121/86 93 11/24/20 21:13 115 30 152/91 92 11/24/20 20:00 98.1 111 28 151/93 (112) 90 11/24/20 20:00 High Flow O2 55.0 11/24/20 20:00 90 High Flow 55.0 100 11/24/20 20:00 114 11/24/20 16:00 55.0 100 11/24/20 16:00 97.7 118 28 153/61 (91) 90 11/24/20 16:00 High Flow O2 55.0 11/24/20 15:34 114 11/24/20 15:30 90 High Flow 55.0 100 11/24/20 13:28 126 25 130/72 89 11/24/20 12:58 118 25 149/76 89 Intake and Output 11/24/20 11/25/20 19:00 07:00 Intake Total 1155 ml Output Total 700 ml 500 ml Balance 455 ml -500 ml IV Total 1155 ml Output Urine Total 700 ml 500 ml General Appearance: no acute distress HEENT: normocephalic Respiratory: chest wall non-tender Cardiovascular: normal peripheral pulses Abdomen: normal bowel sounds Laboratory Tests 11/24/20 16:24: POC Whole Blood Glucose [Pending] 11/24/20 22:13: POC Whole Blood Glucose 358H 11/25/20 04:35: White Blood Count 19.7H, Red Blood Count 5.21, Hemoglobin 15.2, Hematocrit 48.8H , Mean Corpuscular Volume 94, Mean Corpuscular Hemoglobin 29.2, Mean Corpuscular Hemoglobin Concent 31.1L, Red Cell Distribution Width 12.2, Platelet Count 203, Mean Platelet Volume 7.9, Neutrophils (%) (Auto) , Lymphocytes (%) (Auto) , Monocytes (%) (Auto) , Eosinophils (%) (Auto) , Basophils (%) (Auto) , Differential Total Cells Counted 100, Neutrophils % (Manual) 94H, Lymphocytes % (Manual) 4L, Monocytes % (Manual) 2, Eosinophils % (Manual) 0, Basophils % (Manual) 0, Band Neutrophils 0, Platelet Estimate Adequate, Platelet Morphology Normal, Red Blood Cell Morphology Normal, Sodium Level 144#, Potassium Level 4.1, Chloride Level 110H, Carbon Dioxide Level 24, Anion Gap 10, Blood Urea Nitrogen 26H, Creatinine 0.8, Estimat Glomerular Filtration Rate > 60, Glucose Level 431H, Calcium Level 8.9, Phosphorus Level 3.7, Magnesium Level 2.6H, Total Bilirubin 0.7, Aspartate Amino Transf (AST/SGOT) 32, Alanine Aminotransferase (ALT/SGPT) 48, Alkaline Phosphatase 113, C-Reactive Protein, Quantitative 2.8H, Pro-B-Type Natriuretic Peptide 166H, Total Protein 6.3L, Albumin 2.4L, Globulin 3.9, Albumin/Globulin Ratio 0.6L 11/25/20 05:41: POC Whole Blood Glucose 404H 11/25/20 05:47: POC Whole Blood Glucose 418H 11/25/20 11:35: POC Whole Blood Glucose 361H Current Medications Medications (Trade) Dose Ordered Sig/Kayla Route PRN Reason Start Time Stop Time Status Last Admin Dose Admin Acetaminophen (Tylenol) 650 mg Q6H PRN ORAL For Headache 11/14/20 13:15 12/14/20 13:14 11/24/20 00:14 Albuterol Sulfate (Proventil MDI) 2 puff Q4H PRN INH Shortness of Breath 11/15/20 10:30 02/13/21 10:29 11/17/20 06:04 Ceftriaxone Sodium 1 gm/ Dextrose 55 ml @ 110 mls/hr Q24H IVPB 11/15/20 16:30 11/28/20 23:59 11/24/20 16:19 Clonidine HCl (Catapres TTS-2) 1 patch QWEEK TDERMAL 11/24/20 11:00 02/22/21 10:59 11/24/20 11:27 Dextrose 1,000 ml @ 0 mls/hr Q24H PRN IV PN interrupted or unavailable 11/24/20 20:00 12/24/20 19:59 Dextrose (Dextrose 50%) 25 ml Q30M PRN IV Hypoglycemia 11/24/20 11:30 02/22/21 11:29 Dextrose (Dextrose 50%) 50 ml Q30M PRN IV Hypoglycemia 11/24/20 11:30 02/22/21 11:29 Dextrose/ Electrolytes 1,000 ml @ 50 mls/hr Q20H IV 11/24/20 20:00 12/24/20 19:59 11/25/20 09:49 Docusate Sodium (Colace) 100 mg TWICE A DAY ORAL 11/17/20 14:15 12/17/20 14:14 11/25/20 09:02 Enoxaparin Sodium (Lovenox) 80 mg EVERY 12 HOURS SUBQ 11/22/20 21:00 02/16/21 09:59 11/25/20 09:03 Famotidine (Pepcid I.v.) 20 mg Q12HR IVP 11/23/20 21:00 12/23/20 20:59 11/25/20 09:08 Fat Emulsion Intravenous 168 ml/Amino Acids/ Electrolytes/ Dextrose 1,680 ml @ 70 mls/hr Q24H IV 11/24/20 20:00 11/25/20 19:59 11/24/20 21:15 Fat Emulsion Intravenous 168 ml/Amino Acids/ Electrolytes/ Dextrose 1,680 ml @ 70 mls/hr Q24H IV 11/25/20 20:00 12/25/20 19:59 Guaifenesin/ Codeine Phosphate (Robitussin with codeine) 5 ml Q6H PRN ORAL For Cough 11/21/20 23:30 12/21/20 23:29 11/21/20 23:32 Heparin Sodium/ Sodium Chloride (Heparin 1000 units/500ml Premix) 1,000 unit ONCE PRN INJ PICC PLACEMENT 11/24/20 13:45 11/25/20 23:59 Insulin Aspart (NovoLOG) No Dose Q4HR SUBQ 11/25/20 13:00 02/23/21 12:59 Insulin Detemir (Levemir) 10 units ONCE SUBQ 11/25/20 11:45 11/25/20 13:30 Insulin Detemir (Levemir) 20 units Q12HR SUBQ 11/25/20 21:00 02/21/21 20:59 Lidocaine HCl (Xylocaine 1% 30ml) 30 ml ONCE PRN INJ PICC PLACEMENT 11/24/20 13:45 11/25/20 23:59 Lorazepam (Ativan 2mg/ml 1ml) 0.25 mg Q6H PRN IV For Anxiety 11/18/20 12:45 11/25/20 12:44 11/25/20 11:30 Methylprednisolone Sodium Succinate (Solu-MEDROL) 40 mg EVERY 12 HOURS IVP 11/24/20 11:15 02/22/21 11:14 11/25/20 09:08 Assessment/Plan Assessment/Plan 1. Elevated inflammatory markers -Will continue Lovenox full dose 2. 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 Pneumonia, likely COVID-19 related - CXR 11/16 Severe bilateral airspace consolidations, consistent with severe multifocal infiltrates, which have significantly increased. No pneumothorax. Cardiomegaly. - Had PTX on CXR 11/22/20 - CXR 11/23/20 right PTX no longer visible, no change in infiltrates - now off Remdesiver, and steroids - on broad spectrum abx 5. Hypertension - on clonidine dermal patch 6. Pneumothorax - BiPAP dc - now resolved 7. Hypoxia, due to #4, 5 - Now on NRBM and high flow saturating at 88-89% - encourage proning 8. Hypernatremia - Will start D5W for Na 161 -> 155 9. Leukocytosis - Seen by ID - on ceftriaxone Now on TPN The care for this patient was discussed with my supervising physician Time spent for this case was approximately 31 minutes Dominic Toro Nov 25, 2020 12:33
--- NOTE | 2020-11-25 12:45 | NUR ---
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
[2020-11-25 16:00] VITALS: BP 130/99
[2020-11-25] MEDS: cefTRIAXone 1 GM in D5W 55 ML IVPB SCH (16:05)
--- NOTE | 2020-11-25 19:24 | NUR ---
NURSE HAND-OFF REPORT: Important Events on Shift: Patient Status: Diet: Pending Orders: Pending Results/Labs: Pending MD notification: Latest Vital Signs: Temperature 98.0 , Pulse 107 , B/P 130 /99 , Respiratory Rate 24 , O2 SAT 90 , Nasal Cannula, O2 Flow Rate 55.0 . Vital Sign Comment: EKG Rhythm: Sinus Tachycardia Rhythm change?: N MD Notified?: Eitan Bansal NP, MD Response: No New Orders Received Latest Rosen Fall Score: 85 Fall Risk: High Risk Safety Measures: Call light Within Reach, Bed Alarm Zone 1, Side Rails Side Rails x3, Bed position Low and Locked. Fall Precautions: Yellow Socks Yellow Gown Door Sign Patient Fall Education Report given to .Pt is awake, no stress noted, spo2 90% HR 116, endorsed plan of care, endorsed to monitor spo2 and increase TPN to goal 70 if pt tolerate.
--- NOTE | 2020-11-25 19:45 | NUR ---
NURSE NOTES: Received report from ELISEO Luna. Pt is awake, confused, setswana speaking, fatigued. SpO2 90% on high flow NC 55L and NRB 15L fiO2 100%, RR 25. yeast maker shows ST. PICC 2x inserted yesterday, due for dressing change today, running TPN at 20cc to meet goal of 70cc/hr and D5W 20meq 50cc/hr. BW on, pulses and skin intact bilaterally. Fall and aspiration risk noted and reinforced. HOB elevated, call light within reach, side rails x3, bed alarmed, locked, and in lowest position.
[2020-11-25 20:00] VITALS: BP 157/86
[2020-11-25] MEDS: TPN IV SCH (20:32)
[2020-11-25] MEDS: FAT EMULSION 20% IV SCH (20:32)
--- NOTE | 2020-11-25 22:50 | NUR ---
NURSE NOTES: Went into pt's room for oral care and PICC line dressing change. NRB was off, SpO2 87%. NRB placed back on. While prepping for picc line dressing, pt was observed maneuvering her body and face to meet her hands which were on BW restraints, to remove her NRB mask. Educated pt on the importance of not removing any medical equipment. PICC dressing was changed. After oral care, pt was seen attempting to remove her NRB again. Ativan 0.25mg IV was given to keep pt safe. Will reassess. Will continue to monitor.
[2020-11-26] VITALS: BP 155/79
[2020-11-26] MEDS: Insulin NovoLOG Flexpen S/S (Mod) SUBQ SCH ×6 (00:28→20:51)
--- NOTE | 2020-11-26 02:12 | NUR ---
NURSE NOTES: Entered pt room for rounds and found pt without high flow NC and NRB, O2 saturation 76%. Pt is restless and non-adherent. Will continue to closely monitor.
[2020-11-26 04:00] VITALS: BP 149/75
[2020-11-26 04:11] LABS: HEMATOCRIT 44.7 % (37.0-47.0); HEMOGLOBIN 14.4 G/DL (12.0-16.0); MEAN CORPUSCULAR VOLUME 91 FL (80-99); PLATELET COUNT 193 K/UL (150-450); RED BLOOD COUNT 4.94 M/UL (4.20-5.40)
--- NOTE | 2020-11-26 04:30 | NUR ---
NURSE NOTES: Cleaned and turned pt. Removed BW restraints to turn and pt tried to immediately remove her NC and NRB mask. No BM noted. No acute distress or signs of pain noted. Pt seems confused. Will continue to closely monitor. Will continue plan of care.
[2020-11-26 04:39] LABS: WHITE BLOOD COUNT 26.2 K/UL (4.8-10.8)
[2020-11-26 04:40] LABS: ALANINE AMINOTRANSFERASE 49 U/L (12-78); ALBUMIN 2.2 G/DL (3.4-5.0); ALBUMIN/GLOBULIN RATIO 0.6 (1.0-2.7); ALKALINE PHOSPHATASE 113 U/L (46-116); ANION GAP 9 mmol/L (5-15); ASPARTATE AMINO TRANSFERASE 32 U/L (15-37); BILIRUBIN,TOTAL 0.6 MG/DL (0.2-1.0); BLOOD UREA NITROGEN 24 mg/dL (7-18); CALCIUM 8.7 MG/DL (8.5-10.1); CARBON DIOXIDE 25 MMOL/L (21-32); CHLORIDE 112 MMOL/L (98-107); CREATININE 0.8 MG/DL (0.55-1.30); PHOSPHORUS 3.1 MG/DL (2.5-4.9); POTASSIUM 3.6 MMOL/L (3.5-5.1); SODIUM 146 MMOL/L (136-145)
[2020-11-26] MEDS: LORazepam Inj 2mg/ml 1ml IV PRN ×2 (05:05→12:14)
--- NOTE | 2020-11-26 07:17 | NUR ---
NURSE HAND-OFF REPORT: Important Events on Shift:[Pt restless, removing medical devices, T 99.5] Patient Status: [Poor] Diet: [TPN 30cc/hr, goal 70cc/hr] Pending Orders: [NA] Pending Results/Labs:[NA] Pending MD notification:[NA] Latest Vital Signs: Temperature 97.5 , Pulse 113 , B/P 143 /76 , Respiratory Rate 22 , O2 SAT 90 , Nasal Cannula, O2 Flow Rate 55.0 . Vital Sign Comment: [Stable] EKG Rhythm: Sinus Tachycardia Rhythm change?: N Notified?: Eitan Bansal NP, MD Response: No New Orders Received Latest Rosen Fall Score: 85 Fall Risk: High Risk Safety Measures: Call light Within Reach, Bed Alarm Zone 1, Side Rails Side Rails x3, Bed position Low and Locked. Fall Precautions: Yellow Socks Yellow Gown Door Sign Patient Fall Education Report given to [ELISEO Preciado].
--- NOTE | 2020-11-26 07:25 | NUR ---
NURSE NOTES: Received patient in bed. Awake, alert x1, turkish speaking. High Flow O2 and non-rebreather on. Patient denies pain. Bilateral soft wrist restraints in place, active ROM, hands are warm and normal color for ethnicity. AHMET PICC, infusing IVF as ordered. Side rails up x2, bed at the lowest position, bed locked, bed alarm on high sensitivity, call light within reach - unable to return demonstration. Yellow socks on, yellow gown on, patient placed close to the nurse's station for safety and close monitoring.
[2020-11-26] MEDS: Solu-MEDROL 40mg Inj IVP SCH ×2 (08:21→20:51)
[2020-11-26] MEDS: Docusate 100mg cap ORAL SCH ×2 (08:21→17:53)
[2020-11-26] MEDS: Levemir Flexpen SUBQ SCH ×2 (08:34→20:50)
[2020-11-26] MEDS: Enoxaparin 80mg Inj SUBQ SCH ×2 (08:36→20:50)
--- NOTE | 2020-11-26 09:17 | General Progress Note ---
Subjective ROS Limited/Unobtainable: No Allergies: Coded Allergies: No Known Allergies (Unverified , 11/10/17) Objective Last 24 Hour Vital Signs Date Time Temp Pulse Resp B/P (MAP) Pulse Ox O2 Delivery O2 Flow Rate FiO2 11/26/20 07:10 95 High Flow 55.0 100 11/26/20 05:39 113 22 143/76 90 11/26/20 05:05 118 25 149/75 90 11/26/20 04:00 55.0 100 11/26/20 04:00 High Flow O2 55.0 Non-Rebreather 15.0 11/26/20 04:00 97.5 118 25 149/75 (99) 90 11/26/20 04:00 117 11/26/20 03:51 95 High Flow 55.0 100 11/26/20 00:00 55.0 100 11/26/20 00:00 99.5 103 26 155/79 (104) 90 11/26/20 00:00 99 11/26/20 00:00 High Flow O2 55.0 Non-Rebreather 15.0 11/25/20 23:36 92 High Flow 55.0 100 11/25/20 22:57 102 26 155/79 91 11/25/20 22:27 103 28 157/86 90 11/25/20 20:12 113 28 90 High Flow 55.0 100 11/25/20 20:00 98.2 103 25 157/86 (109) 91 11/25/20 20:00 High Flow O2 55.0 Non-Rebreather 15.0 11/25/20 20:00 108 11/25/20 20:00 55.0 100 11/25/20 19:58 90 High Flow 55.0 100 11/25/20 16:00 55.0 100 11/25/20 16:00 98.0 107 24 130/99 (109) 90 11/25/20 16:00 High Flow O2 55.0 11/25/20 15:59 98 11/25/20 15:20 94 High Flow 55.0 100 11/25/20 12:00 115 25 142/72 92 11/25/20 12:00 98.2 118 25 142/72 (95) 92 11/25/20 12:00 High Flow O2 55.0 11/25/20 12:00 55.0 100 11/25/20 11:51 110 11/25/20 11:30 126 30 143/100 88 11/25/20 11:20 91 High Flow 55.0 100 Intake and Output 11/25/20 11/26/20 19:00 07:00 Intake Total 875 ml 770 ml Output Total 400 ml 450 ml Balance 475 ml 320 ml IV Total 875 ml 770 ml Output Urine Total 400 ml 450 ml Laboratory Tests 11/25/20 11:35: POC Whole Blood Glucose 361H 11/25/20 16:13: POC Whole Blood Glucose [Pending] 11/25/20 20:39: POC Whole Blood Glucose 322H 11/26/20 00:25: POC Whole Blood Glucose 386H 11/26/20 03:15: White Blood Count 26.2*H, Red Blood Count 4.94, Hemoglobin 14.4, Hematocrit 44.7, Mean Corpuscular Volume 91, Mean Corpuscular Hemoglobin 29.1, Mean Corpu scular Hemoglobin Concent 32.1, Red Cell Distribution Width 12.0, Platelet Count 193, Mean Platelet Volume 8.6, Neutrophils (%) (Auto) , Lymphocytes (%) (Auto) , Monocytes (%) (Auto) , Eosinophils (%) (Auto) , Basophils (%) (Auto) , Neutrophils % (Manual) [Pending], Lymphocytes % (Manual) [Pending], Platelet Estimate [Pending], Platelet Morphology [Pending], Sodium Level 146H, Potassium Level 3.6, Chloride Level 112H, Carbon Dioxide Level 25, Anion Gap 9, Blood Urea Nitrogen 24H, Creatinine 0.8, Estimat Glomerular Filtration Rate > 60, Glucose Level 380H, Uric Acid 2.7, Calcium Level 8.7, Phosphorus Level 3.1, Magnesium Level 2.3, Total Bilirubin 0.6, Aspartate Amino Transf (AST/SGOT) 32, Alanine Aminotransferase (ALT/SGPT) 49, Alkaline Phosphatase 113, C-Reactive Protein, Quantitative 1.7H, Pro-B-Type Natriuretic Peptide 140H, Total Protein 5.8L, Albumin 2.2L, Globulin 3.6, Albumin/Globulin Ratio 0.6L 11/26/20 05:07: POC Whole Blood Glucose 301H Height (Feet): 5 Height (Inches): 1.00 Weight (Pounds): 180 General Appearance: lethargic EENT: normal ENT inspection Neck: supple Cardiovascular: normal rate Respiratory/Chest: decreased breath sounds Abdomen: hypoactive bowel sounds Extremities: non-tender Assessment/Plan Assessment/Plan: Covid positive PNA mild transaminitis most likely due to above>>>>improving DM smoker on BIPAP NPO repeat LFTS abd us if needed fu hepatitis panel>>> neg covid care NPO on TPN will increase insulin in TPN will fu Jose Armando Andrews MD Nov 26, 2020 09:17
--- NOTE | 2020-11-26 11:06 | Infectious Diseases Prog Note ---
Assessment/Plan Assessment/Plan antibiotics : ceftriaxone A 1. covid 19 pneumonia on 55 % Fi O2 with saturation 93 % s/p remdesivir s/p dexamethasone 2. Obesity. 3. Hypertension. 4. Leukocytosis increased likely secondary to steroids P 1. continue solumedrol 2. Continue ceftriaxone. 3. Continue isolation. Subjective Constitutional: Denies: fever, chills Respiratory: Reports: dry cough; Denies: shortness of breath Gastrointestinal/Abdominal: Reports: nausea; Denies: vomiting, diarrhea Musculoskeletal: Denies: pain Allergies: Coded Allergies: No Known Allergies (Unverified , 11/10/17) Objective Last 24 Hour Vital Signs Date Time Temp Pulse Resp B/P (MAP) Pulse Ox O2 Delivery O2 Flow Rate FiO2 11/26/20 08:00 55.0 100 11/26/20 08:00 High Flow O2 55.0 Non-Rebreather 15.0 11/26/20 07:45 110 11/26/20 07:10 95 High Flow 55.0 100 11/26/20 05:39 113 22 143/76 90 11/26/20 05:05 118 25 149/75 90 11/26/20 04:00 55.0 100 11/26/20 04:00 High Flow O2 55.0 Non-Rebreather 15.0 11/26/20 04:00 97.5 118 25 149/75 (99) 90 11/26/20 04:00 117 11/26/20 03:51 95 High Flow 55.0 100 11/26/20 00:00 55.0 100 11/26/20 00:00 99.5 103 26 155/79 (104) 90 11/26/20 00:00 99 11/26/20 00:00 High Flow O2 55.0 Non-Rebreather 15.0 11/25/20 23:36 92 High Flow 55.0 100 11/25/20 22:57 102 26 155/79 91 11/25/20 22:27 103 28 157/86 90 11/25/20 20:12 113 28 90 High Flow 55.0 100 11/25/20 20:00 98.2 103 25 157/86 (109) 91 11/25/20 20:00 High Flow O2 55.0 Non-Rebreather 15.0 11/25/20 20:00 108 11/25/20 20:00 55.0 100 11/25/20 19:58 90 High Flow 55.0 100 11/25/20 16:00 55.0 100 11/25/20 16:00 98.0 107 24 130/99 (109) 90 11/25/20 16:00 High Flow O2 55.0 11/25/20 15:59 98 11/25/20 15:20 94 High Flow 55.0 100 11/25/20 12:00 115 25 142/72 92 11/25/20 12:00 98.2 118 25 142/72 (95) 92 11/25/20 12:00 High Flow O2 55.0 11/25/20 12:00 55.0 100 11/25/20 11:51 110 11/25/20 11:30 126 30 143/100 88 11/25/20 11:20 91 High Flow 55.0 100 Height (Feet): 5 Height (Inches): 1.00 Weight (Pounds): 180 Laboratory Tests Test 11/25/20 11:35 11/25/20 16:13 11/25/20 20:39 11/26/20 00:25 POC Whole Blood Glucose 361 MG/DL (74-106) H Pending 322 MG/DL (74-106) H 386 MG/DL (74-106) H Test 11/26/20 03:15 11/26/20 05:07 White Blood Count 26.2 K/UL (4.8-10.8) *H Red Blood Count 4.94 M/UL (4.20-5.40) Hemoglobin 14.4 G/DL (12.0-16.0) Hematocrit 44.7 % (37.0-47.0) Mean Corpuscular Volume 91 FL (80-99) Mean Corpuscular Hemoglobin 29.1 PG (27.0-31.0) Mean Corpuscular Hemoglobin Concent 32.1 G/DL (32.0-36.0) Red Cell Distribution Width 12.0 % (11.6-14.8) Platelet Count 193 K/UL (150-450) Mean Platelet Volume 8.6 FL (6.5-10.1) Neutrophils (%) (Auto) % (45.0-75.0) Lymphocytes (%) (Auto) % (20.0-45.0) Monocytes (%) (Auto) % (1.0-10.0) Eosinophils (%) (Auto) % (0.0-3.0) Basophils (%) (Auto) % (0.0-2.0) Differential Total Cells Counted 100 Neutrophils % (Manual) 94 % (45-75) H Lymphocytes % (Manual) 2 % (20-45) L Monocytes % (Manual) 4 % (1-10) Eosinophils % (Manual) 0 % (0-3) Basophils % (Manual) 0 % (0-2) Band Neutrophils 0 % (0-8) Platelet Estimate Adequate Platelet Morphology Normal Red Blood Cell Morphology Normal Sodium Level 146 MMOL/L (136-145) H Potassium Level 3.6 MMOL/L (3.5-5.1) Chloride Level 112 MMOL/L (98-107) H Carbon Dioxide Level 25 MMOL/L (21-32) Anion Gap 9 mmol/L (5-15) Blood Urea Nitrogen 24 mg/dL (7-18) H Creatinine 0.8 MG/DL (0.55-1.30) Estimat Glomerular Filtration Rate > 60 mL/min (>60) Glucose Level 380 MG/DL (74-106) H Uric Acid 2.7 MG/DL (2.6-7.2) Calcium Level 8.7 MG/DL (8.5-10.1) Phosphorus Level 3.1 MG/DL (2.5-4.9) Magnesium Level 2.3 MG/DL (1.8-2.4) Total Bilirubin 0.6 MG/DL (0.2-1.0) Aspartate Amino Transf (AST/SGOT) 32 U/L (15-37) Alanine Aminotransferase (ALT/SGPT) 49 U/L (12-78) Alkaline Phosphatase 113 U/L (46-116) C-Reactive Protein, Quantitative 1.7 mg/dL (0.00-0.90) H Pro-B-Type Natriuretic Peptide 140 pg/mL (0-125) H Total Protein 5.8 G/DL (6.4-8.2) L Albumin 2.2 G/DL (3.4-5.0) L Globulin 3.6 g/dL Albumin/Globulin Ratio 0.6 (1.0-2.7) L POC Whole Blood Glucose 301 MG/DL (74-106) H Current Medications Medications (Trade) Dose Ordered Sig/Kayla Route PRN Reason Start Time Stop Time Status Last Admin Dose Admin Acetaminophen (Tylenol) 650 mg Q6H PRN ORAL For Headache 11/14/20 13:15 12/14/20 13:14 11/24/20 00:14 Albuterol Sulfate (Proventil MDI) 2 puff Q4H PRN INH Shortness of Breath 11/15/20 10:30 02/13/21 10:29 11/17/20 06:04 Ceftriaxone Sodium 1 gm/ Dextrose 55 ml @ 110 mls/hr Q24H IVPB 11/15/20 16:30 11/28/20 23:59 11/25/20 16:05 Clonidine HCl (Catapres TTS-2) 1 patch QWEEK TDERMAL 11/24/20 11:00 02/22/21 10:59 11/24/20 11:27 Dextrose 1,000 ml @ 0 mls/hr Q24H PRN IV PN interrupted or unavailable 11/24/20 20:00 12/24/20 19:59 Dextrose (Dextrose 50%) 25 ml Q30M PRN IV Hypoglycemia 11/24/20 11:30 02/22/21 11:29 Dextrose (Dextrose 50%) 50 ml Q30M PRN IV Hypoglycemia 11/24/20 11:30 02/22/21 11:29 Dextrose/ Electrolytes 1,000 ml @ 50 mls/hr Q20H IV 11/24/20 20:00 12/24/20 19:59 11/25/20 09:49 Docusate Sodium (Colace) 100 mg TWICE A DAY ORAL 11/17/20 14:15 12/17/20 14:14 11/26/20 08:21 Enoxaparin Sodium (Lovenox) 80 mg EVERY 12 HOURS SUBQ 11/22/20 21:00 02/16/21 09:59 11/26/20 08:36 Famotidine (Pepcid I.v.) 20 mg Q12HR IVP 11/23/20 21:00 12/23/20 20:59 11/26/20 08:21 Fat Emulsion Intravenous 168 ml/Amino Acids/ Electrolytes/ Dextrose 1,680 ml @ 70 mls/hr Q24H IV 11/25/20 20:00 12/25/20 19:59 11/25/20 20:32 Guaifenesin/ Codeine Phosphate (Robitussin with codeine) 5 ml Q6H PRN ORAL For Cough 11/21/20 23:30 12/21/20 23:29 11/21/20 23:32 Insulin Aspart (NovoLOG) No Dose Q4HR SUBQ 11/25/20 13:00 02/23/21 12:59 11/26/20 08:35 Insulin Detemir (Levemir) 30 units Q12HR SUBQ 11/26/20 21:00 02/24/21 20:59 Lorazepam (Ativan 2mg/ml 1ml) 0.25 mg Q6H PRN IV For Anxiety 11/25/20 22:00 12/02/20 21:59 11/26/20 05:05 Methylprednisolone Sodium Succinate (Solu-MEDROL) 40 mg EVERY 12 HOURS IVP 11/24/20 11:15 02/22/21 11:14 11/26/20 08:21 Arthur Blair MD Nov 26, 2020 11:05
--- NOTE | 2020-11-26 11:37 | NUR ---
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
[2020-11-26 12:00] VITALS: BP 146/75
[2020-11-26] MEDS: D5W w/KCl 20mEq 1,000 ML IV SCH (12:07)
--- NOTE | 2020-11-26 13:31 | Pulmonology Progress Note ---
Subjective ROS Limited/Unobtainable: No Interval Events: PTX resolved; BiPAP dc Constitutional: Denies: fever, chills HEENT: Repors: no symptoms Respiratory: Reports: no symptoms, shortness of breath, dyspnea at rest Cardiovascular: Reports: no symptoms Gastrointestinal/Abdominal: Reports: nausea; Denies: vomiting, diarrhea Neurologic: Reports: other - Dizziness Psychiatric: Reports: other - on restraint Musculoskeletal: Denies: pain Allergies: Coded Allergies: No Known Allergies (Unverified , 11/10/17) Objective Last 24 Hour Vital Signs Date Time Temp Pulse Resp B/P (MAP) Pulse Ox O2 Delivery O2 Flow Rate FiO2 11/26/20 12:44 115 25 142/60 91 11/26/20 12:14 54 24 146/57 92 11/26/20 12:00 55.0 100 11/26/20 12:00 98.6 130 26 146/75 (98) 92 11/26/20 12:00 High Flow O2 55.0 Non-Rebreather 15.0 11/26/20 11:39 126 11/26/20 11:30 94 High Flow 55.0 100 11/26/20 08:00 55.0 100 11/26/20 08:00 High Flow O2 55.0 Non-Rebreather 15.0 11/26/20 07:45 110 11/26/20 07:10 95 High Flow 55.0 100 11/26/20 05:39 113 22 143/76 90 11/26/20 05:05 118 25 149/75 90 11/26/20 04:00 55.0 100 11/26/20 04:00 High Flow O2 55.0 Non-Rebreather 15.0 11/26/20 04:00 97.5 118 25 149/75 (99) 90 11/26/20 04:00 117 11/26/20 03:51 95 High Flow 55.0 100 11/26/20 00:00 55.0 100 11/26/20 00:00 99.5 103 26 155/79 (104) 90 11/26/20 00:00 99 11/26/20 00:00 High Flow O2 55.0 Non-Rebreather 15.0 11/25/20 23:36 92 High Flow 55.0 100 11/25/20 22:57 102 26 155/79 91 11/25/20 22:27 103 28 157/86 90 11/25/20 20:12 113 28 90 High Flow 55.0 100 11/25/20 20:00 98.2 103 25 157/86 (109) 91 11/25/20 20:00 High Flow O2 55.0 Non-Rebreather 15.0 11/25/20 20:00 108 11/25/20 20:00 55.0 100 11/25/20 19:58 90 High Flow 55.0 100 11/25/20 16:00 55.0 100 11/25/20 16:00 98.0 107 24 130/99 (109) 90 11/25/20 16:00 High Flow O2 55.0 11/25/20 15:59 98 11/25/20 15:20 94 High Flow 55.0 100 Intake and Output 11/25/20 11/26/20 19:00 07:00 Intake Total 875 ml 770 ml Output Total 400 ml 450 ml Balance 475 ml 320 ml IV Total 875 ml 770 ml Output Urine Total 400 ml 450 ml General Appearance: no acute distress HEENT: normocephalic Respiratory: chest wall non-tender Cardiovascular: normal peripheral pulses Abdomen: normal bowel sounds Laboratory Tests 11/25/20 16:13: POC Whole Blood Glucose [Pending] 11/25/20 20:39: POC Whole Blood Glucose 322H 11/26/20 00:25: POC Whole Blood Glucose 386H 11/26/20 03:15: White Blood Count 26.2*H, Red Blood Count 4.94, Hemoglobin 14.4, Hematocrit 44.7, Mean Corpuscular Volume 91, Mean Corpuscular Hemoglobin 29.1, Mean Corpuscular Hemoglobin Concent 32.1, Red Cell Distribution Width 12.0, Platelet Count 193, Mean Platelet Volume 8.6, Neutrophils (%) (Auto) , Lymphocytes (%) (Auto) , Monocytes (%) (Auto) , Eosinophils (%) (Auto) , Basophils (%) (Auto) , Differential Total Cells Counted 100, Neutrophils % (Manual) 94H, Lymphocytes % (Manual) 2L, Monocytes % (Manual) 4, Eosinophils % (Manual) 0, Basophils % (Manual) 0, Band Neutrophils 0, Platelet Estimate Adequate, Platelet Morphology Normal, Red Blood Cell Morphology Normal, Sodium Level 146H, Potassium Level 3.6, Chloride Level 112H, Carbon Dioxide Level 25, Anion Gap 9, Blood Urea Nitrogen 24H, Creatinine 0.8, Estimat Glomerular Filtration Rate > 60, Glucose Level 380H, Uric Acid 2.7, Calcium Level 8.7, Phosphorus Level 3.1, Magnesium Level 2.3, Total Bilirubin 0.6, Aspartate Amino Transf (AST/SGOT) 32, Alanine Aminotransferase (ALT/SGPT) 49, Alkaline Phosphatase 113, C-Reactive Protein, Quantitative 1.7H, Pro-B-Type Natriuretic Peptide 140H, Total Protein 5.8L, Albumin 2.2L, Globulin 3.6, Albumin/Globulin Ratio 0.6L 11/26/20 05:07: POC Whole Blood Glucose 301H Current Medications Medications (Trade) Dose Ordered Sig/Kayla Route PRN Reason Start Time Stop Time Status Last Admin Dose Admin Acetaminophen (Tylenol) 650 mg Q6H PRN ORAL For Headache 11/14/20 13:15 12/14/20 13:14 11/24/20 00:14 Albuterol Sulfate (Proventil MDI) 2 puff Q4H PRN INH Shortness of Breath 11/15/20 10:30 02/13/21 10:29 11/17/20 06:04 Ceftriaxone Sodium 1 gm/ Dextrose 55 ml @ 110 mls/hr Q24H IVPB 11/15/20 16:30 11/28/20 23:59 11/25/20 16:05 Clonidine HCl (Catapres TTS-2) 1 patch QWEEK TDERMAL 11/24/20 11:00 02/22/21 10:59 11/24/20 11:27 Dextrose 1,000 ml @ 0 mls/hr Q24H PRN IV PN interrupted or unavailable 11/24/20 20:00 12/24/20 19:59 Dextrose (Dextrose 50%) 25 ml Q30M PRN IV Hypoglycemia 11/24/20 11:30 02/22/21 11:29 Dextrose (Dextrose 50%) 50 ml Q30M PRN IV Hypoglycemia 11/24/20 11:30 02/22/21 11:29 Dextrose/ Electrolytes 1,000 ml @ 50 mls/hr Q20H IV 11/24/20 20:00 12/24/20 19:59 11/26/20 12:07 Docusate Sodium (Colace) 100 mg TWICE A DAY ORAL 11/17/20 14:15 12/17/20 14:14 11/26/20 08:21 Enoxaparin Sodium (Lovenox) 80 mg EVERY 12 HOURS SUBQ 11/22/20 21:00 02/16/21 09:59 11/26/20 08:36 Famotidine (Pepcid I.v.) 20 mg Q12HR IVP 11/23/20 21:00 12/23/20 20:59 11/26/20 08:21 Fat Emulsion Intravenous 168 ml/Amino Acids/ Electrolytes/ Dextrose 1,680 ml @ 70 mls/hr Q24H IV 11/25/20 20:00 12/25/20 19:59 11/25/20 20:32 Guaifenesin/ Codeine Phosphate (Robitussin with codeine) 5 ml Q6H PRN ORAL For Cough 11/21/20 23:30 12/21/20 23:29 11/21/20 23:32 Insulin Aspart (NovoLOG) No Dose Q4HR SUBQ 11/25/20 13:00 02/23/21 12:59 11/26/20 12:21 Insulin Detemir (Levemir) 30 units Q12HR SUBQ 11/26/20 21:00 02/24/21 20:59 Lorazepam (Ativan 2mg/ml 1ml) 0.25 mg Q6H PRN IV For Anxiety 11/25/20 22:00 12/02/20 21:59 11/26/20 12:14 Methylprednisolone Sodium Succinate (Solu-MEDROL) 40 mg EVERY 12 HOURS IVP 11/24/20 11:15 02/22/21 11:14 11/26/20 08:21 Assessment/Plan Assessment/Plan 1. Elevated inflammatory markers -Will continue Lovenox full dose 2. 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 Pneumonia, likely COVID-19 related - CXR 11/16 Severe bilateral airspace consolidations, consistent with severe multifocal infiltrates, which have significantly increased. No pneumothorax. Cardiomegaly. - Had PTX on CXR 11/22/20 - CXR 11/23/20 right PTX no longer visible, no change in infiltrates - now off Remdesiver, and steroids - on broad spectrum abx 5. Hypertension - on clonidine dermal patch 6. Pneumothorax - BiPAP dc - now resolved 7. Hypoxia, due to #4, 5 - Now on NRBM and high flow saturating at low 90s - encourage proning 8. Hypernatremia - Will start D5W for Na 161 -> 155 9. Leukocytosis; trending up - Seen by ID - on ceftriaxone Now on TPN The care for this patient was discussed with my supervising physician Time spent for this case was approximately 31 minutes Dominic Toro Nov 26, 2020 13:31
--- NOTE | 2020-11-26 13:47 | Nephrology Progress Note ---
Assessment/Plan Problem List: (1) COVID-19 (2) Abnormal LFTs (3) Pneumonia (4) Hypoxia Assessment Hypernatremia Hypokalemia Elevated blood sugar Hypoxia COVID-19 pneumonia Plan November 26: Labs reviewed. Renal parameters stable. Levemir dose increased for high blood sugar. Continue as is. November 25: Labs reviewed. Electrolytes and renal parameters stable. Blood sugar up. Levemir dose increased. Continue to monitor renal parameters. November 24: Electrolytes improving. Clonidine patch for blood pressure given. On high flow oxygen due to pneumothorax. No BiPAP. Discussed with . Previously: Start D5W Potassium supplement Monitor electrolytes Levemir 10 units, monitor blood sugar Vitamin D level Pulmonary support Per orders Subjective ROS Limited/Unobtainable: Yes Objective Objective Last 24 Hour Vital Signs Date Time Temp Pulse Resp B/P (MAP) Pulse Ox O2 Delivery O2 Flow Rate FiO2 11/26/20 12:44 115 25 142/60 91 11/26/20 12:14 54 24 146/57 92 11/26/20 12:00 55.0 100 11/26/20 12:00 98.6 130 26 146/75 (98) 92 11/26/20 12:00 High Flow O2 55.0 Non-Rebreather 15.0 11/26/20 11:39 126 11/26/20 11:30 94 High Flow 55.0 100 11/26/20 08:00 55.0 100 11/26/20 08:00 High Flow O2 55.0 Non-Rebreather 15.0 11/26/20 07:45 110 11/26/20 07:10 95 High Flow 55.0 100 11/26/20 05:39 113 22 143/76 90 11/26/20 05:05 118 25 149/75 90 11/26/20 04:00 55.0 100 11/26/20 04:00 High Flow O2 55.0 Non-Rebreather 15.0 11/26/20 04:00 97.5 118 25 149/75 (99) 90 11/26/20 04:00 117 11/26/20 03:51 95 High Flow 55.0 100 11/26/20 00:00 55.0 100 11/26/20 00:00 99.5 103 26 155/79 (104) 90 11/26/20 00:00 99 11/26/20 00:00 High Flow O2 55.0 Non-Rebreather 15.0 11/25/20 23:36 92 High Flow 55.0 100 11/25/20 22:57 102 26 155/79 91 11/25/20 22:27 103 28 157/86 90 11/25/20 20:12 113 28 90 High Flow 55.0 100 11/25/20 20:00 98.2 103 25 157/86 (109) 91 11/25/20 20:00 High Flow O2 55.0 Non-Rebreather 15.0 11/25/20 20:00 108 11/25/20 20:00 55.0 100 11/25/20 19:58 90 High Flow 55.0 100 11/25/20 16:00 55.0 100 11/25/20 16:00 98.0 107 24 130/99 (109) 90 11/25/20 16:00 High Flow O2 55.0 11/25/20 15:59 98 11/25/20 15:20 94 High Flow 55.0 100 Intake and Output 11/25/20 11/26/20 19:00 07:00 Intake Total 875 ml 770 ml Output Total 400 ml 450 ml Balance 475 ml 320 ml IV Total 875 ml 770 ml Output Urine Total 400 ml 450 ml Current Medications Medications (Trade) Dose Ordered Sig/Kayla Route PRN Reason Start Time Stop Time Status Last Admin Dose Admin Acetaminophen (Tylenol) 650 mg Q6H PRN ORAL For Headache 11/14/20 13:15 12/14/20 13:14 11/24/20 00:14 Albuterol Sulfate (Proventil MDI) 2 puff Q4H PRN INH Shortness of Breath 11/15/20 10:30 02/13/21 10:29 11/17/20 06:04 Ceftriaxone Sodium 1 gm/ Dextrose 55 ml @ 110 mls/hr Q24H IVPB 11/15/20 16:30 11/28/20 23:59 11/25/20 16:05 Clonidine HCl (Catapres TTS-2) 1 patch QWEEK TDERMAL 11/24/20 11:00 02/22/21 10:59 11/24/20 11:27 Dextrose 1,000 ml @ 0 mls/hr Q24H PRN IV PN interrupted or unavailable 11/24/20 20:00 12/24/20 19:59 Dextrose (Dextrose 50%) 25 ml Q30M PRN IV Hypoglycemia 11/24/20 11:30 02/22/21 11:29 Dextrose (Dextrose 50%) 50 ml Q30M PRN IV Hypoglycemia 11/24/20 11:30 02/22/21 11:29 Dextrose/ Electrolytes 1,000 ml @ 50 mls/hr Q20H IV 11/24/20 20:00 12/24/20 19:59 11/26/20 12:07 Docusate Sodium (Colace) 100 mg TWICE A DAY ORAL 11/17/20 14:15 12/17/20 14:14 11/26/20 08:21 Enoxaparin Sodium (Lovenox) 80 mg EVERY 12 HOURS SUBQ 11/22/20 21:00 02/16/21 09:59 11/26/20 08:36 Famotidine (Pepcid I.v.) 20 mg Q12HR IVP 11/23/20 21:00 12/23/20 20:59 11/26/20 08:21 Fat Emulsion Intravenous 168 ml/Amino Acids/ Electrolytes/ Dextrose 1,680 ml @ 70 mls/hr Q24H IV 11/25/20 20:00 12/25/20 19:59 11/25/20 20:32 Guaifenesin/ Codeine Phosphate (Robitussin with codeine) 5 ml Q6H PRN ORAL For Cough 11/21/20 23:30 12/21/20 23:29 11/21/20 23:32 Insulin Aspart (NovoLOG) No Dose Q4HR SUBQ 11/25/20 13:00 02/23/21 12:59 11/26/20 12:21 Insulin Detemir (Levemir) 30 units Q12HR SUBQ 11/26/20 21:00 02/24/21 20:59 Lorazepam (Ativan 2mg/ml 1ml) 0.25 mg Q6H PRN IV For Anxiety 11/25/20 22:00 12/02/20 21:59 11/26/20 12:14 Methylprednisolone Sodium Succinate (Solu-MEDROL) 40 mg EVERY 12 HOURS IVP 11/24/20 11:15 02/22/21 11:14 11/26/20 08:21 Laboratory Tests 11/25/20 16:13: POC Whole Blood Glucose [Pending] 11/25/20 20:39: POC Whole Blood Glucose 322H 11/26/20 00:25: POC Whole Blood Glucose 386H 11/26/20 03:15: White Blood Count 26.2*H, Red Blood Count 4.94, Hemoglobin 14.4, Hematocrit 44.7, Mean Corpuscular Volume 91, Mean Corpuscular Hemoglobin 29.1, Mean Corpuscular Hemoglobin Concent 32.1, Red Cell Distribution Width 12.0, Platelet Count 193, Mean Platelet Volume 8.6, Neutrophils (%) (Auto) , Lymphocytes (%) (Auto) , Monocytes (%) (Auto) , Eosinophils (%) (Auto) , Basophils (%) (Auto) , Differential Total Cells Counted 100, Neutrophils % (Manual) 94H, Lymphocytes % (Manual) 2L, Monocytes % (Manual) 4, Eosinophils % (Manual) 0, Basophils % (Manual) 0, Band Neutrophils 0, Platelet Estimate Adequate, Platelet Morphology Normal, Red Blood Cell Morphology Normal, Sodium Level 146H, Potassium Level 3.6, Chloride Level 112H, Carbon Dioxide Level 25, Anion Gap 9, Blood Urea Nitrogen 24H, Creatinine 0.8, Estimat Glomerular Filtration Rate > 60, Glucose Level 380H, Uric Acid 2.7, Calcium Level 8.7, Phosphorus Level 3.1, Magnesium Level 2.3, Total Bilirubin 0.6, Aspartate Amino Transf (AST/SGOT) 32, Alanine Aminotransferase (ALT/SGPT) 49, Alkaline Phosphatase 113, C-Reactive Protein, Quantitative 1.7H, Pro-B-Type Natriuretic Peptide 140H, Total Protein 5.8L, Albumin 2.2L, Globulin 3.6, Albumin/Globulin Ratio 0.6L 11/26/20 05:07: POC Whole Blood Glucose 301H Height (Feet): 5 Height (Inches): 1.00 Weight (Pounds): 180 General Appearance: lethargic EENT: other - On high flow oxygen on nonrebreather mask Cardiovascular: bradycardia Respiratory/Chest: decreased breath sounds Abdomen: distended John Martin MD Nov 26, 2020 13:47
[2020-11-26 16:00] VITALS: BP 124/75
[2020-11-26] MEDS: cefTRIAXone 1 GM in D5W 55 ML IVPB SCH (16:33)
--- NOTE | 2020-11-26 19:27 | NUR ---
NURSE HAND-OFF REPORT: Important Events on Shift:[PRn ativan] Patient Status: [FULL CODE] Diet: [NPO] Pending Orders: [] Pending Results/Labs:[] Pending MD notification:[] Latest Vital Signs: Temperature 98.2 , Pulse 118 , B/P 124 /75 , Respiratory Rate 26 , O2 SAT 94 , Nasal Cannula, O2 Flow Rate 55.0 . Vital Sign Comment: [] EKG Rhythm: Sinus Tachycardia Rhythm change?: N MD Notified?: Eitan Bansal NP, MD Response: No New Orders Received Latest Rosen Fall Score: 85 Fall Risk: High Risk Safety Measures: Call light Within Reach, Bed Alarm Zone 1, Side Rails Side Rails x3, Bed position Low and Locked. Fall Precautions: Yellow Socks Yellow Gown Door Sign Patient Fall Education Report given to [Belen GOMES].
--- NOTE | 2020-11-26 19:30 | NUR ---
NURSE NOTES: Received patient from ELISEO Preciado under the care of Dr. Gannon for the admitting dx. of hypoxia, PNA, and Covid(+). No [id number] noted. Full code. Fall, aspiration, and isolation precautions obseved and maintained at all times. Patient noted awake and alert to self, with perieds of agitation and confusion. Patient on B soft wrist restraints for pulling on medical devices. Tolerating O2 settings well. On TPN patent and infusing well. Will continue with current plan of care.
[2020-11-26 20:00] VITALS: BP 149/69
[2020-11-26] MEDS: FAT EMULSION 20% IV SCH (20:49)
[2020-11-26] MEDS: TPN IV SCH (20:49)
--- NOTE | 2020-11-26 21:00 | NUR ---
NURSE NOTES: Patient awake and noted with restless bx. Provided with diversion and reorientation. Noted to be effective. Patient tolerating O2 settings well. No acute distress noted. Will continue to monitor.
[2020-11-27] VITALS: BP 141/81
--- NOTE | 2020-11-27 | NUR ---
NURSE NOTES: Patient noted to attempt to remove NRB. Education provided, explained risks and benefits of medical devices. Readjusted soft wrist restraints, Skin noted intact, no discoloration noted. Will continue to monitor.
[2020-11-27] MEDS: Insulin NovoLOG Flexpen S/S (Mod) SUBQ SCH ×6 (01:01→21:08)
--- NOTE | 2020-11-27 03:00 | NUR ---
NURSE NOTES: Noted patient asleep, no distress noted. Tolerating O2 settings well. Will continue to monitor.
[2020-11-27 04:00] VITALS: BP 153/58
[2020-11-27 05:32] LABS: HEMOGLOBIN 14.9 G/DL (12.0-16.0); MEAN CORPUSCULAR VOLUME 90 FL (80-99); PLATELET COUNT 178 K/UL (150-450); RED CELL DISTRIBUTION WIDTH 11.7 % (11.6-14.8)
[2020-11-27 05:50] LABS: WHITE BLOOD COUNT 29.9 K/UL (4.8-10.8)
[2020-11-27 06:02] LABS: ALANINE AMINOTRANSFERASE 66 U/L (12-78); ALBUMIN 2.3 G/DL (3.4-5.0); ALBUMIN/GLOBULIN RATIO 0.6 (1.0-2.7); ALKALINE PHOSPHATASE 134 U/L (46-116); ANION GAP 9 mmol/L (5-15); ASPARTATE AMINO TRANSFERASE 38 U/L (15-37); BILIRUBIN,TOTAL 0.6 MG/DL (0.2-1.0); BLOOD UREA NITROGEN 21 mg/dL (7-18); CALCIUM 8.6 MG/DL (8.5-10.1); CARBON DIOXIDE 25 MMOL/L (21-32); CHLORIDE 109 MMOL/L (98-107); CREATININE 0.7 MG/DL (0.55-1.30); PHOSPHORUS 2.5 MG/DL (2.5-4.9); SODIUM 143 MMOL/L (136-145)
--- NOTE | 2020-11-27 07:05 | NUR ---
NURSE HAND-OFF REPORT: Important Events on Shift: Restraint renewal Patient Status: Stable Diet: NPO TPN Pending Orders: Pending Results/Labs: Pending MD notification: Latest Vital Signs: Temperature 97.9 , Pulse 128 , B/P 153 /58 , Respiratory Rate 20 , O2 SAT 100 , Nasal Cannula, O2 Flow Rate 55.0 . Vital Sign Comment: Stable EKG Rhythm: Sinus Tachycardia Rhythm change?: N MD Notified?: Eitan Bansal NP, MD Response: No New Orders Received Latest Rosen Fall Score: 85 Fall Risk: High Risk Safety Measures: Call light Within Reach, Bed Alarm Zone 1, Side Rails Side Rails x3, Bed position Low and Locked. Fall Precautions: Yellow Socks Yellow Gown Door Sign Patient Fall Education Report given to ELISEO Luna.
--- NOTE | 2020-11-27 07:30 | NUR ---
NURSE NOTES: Received pt from ELISEO Glover, pt is awake and confused, pt high flow NC and non rebreather mask spo2 90% HR 118, Pt is on continues heart monitoring. pt NPO and pt has PICC double lumen AHMET TPN 50ml/hr and D5W 50 ML/hr is running well, pt has intact iv access LH 22G SL. pt has Garcia cath in place is working well. All needs attended, bed is locked and is in the lowest position, call light within easy reach. will continue to monitor.
[2020-11-27 08:00] VITALS: BP 152/83
[2020-11-27] MEDS: D5W w/KCl 20mEq 1,000 ML IV SCH (08:51)
[2020-11-27] MEDS: Solu-MEDROL 40mg Inj IVP SCH ×2 (08:56→20:26)
[2020-11-27] MEDS: Docusate 100mg cap ORAL SCH ×2 (08:56→17:08)
[2020-11-27] MEDS: Enoxaparin 80mg Inj SUBQ SCH ×2 (08:58→20:28)
[2020-11-27] MEDS: Levemir Flexpen SUBQ SCH ×2 (09:00→21:07)
--- NOTE | 2020-11-27 09:00 | NUR ---
RD ASSESSMENT & RECOMMENDATIONS SEE CARE ACTIVITY FOR COMPLETE ASSESSMENT DAILY ESTIMATED NEEDS: Needs based on Pulmonary, obesity 56.3kg adjusted body wt 23-28 kcals/kg 6596-6935 total kcals 1-1.5 g protein/kg 56-84 g total protein 25-35 mL/kg 0941-4983 total fluid mLs NUTRITION DIAGNOSIS: Predicted inadequate energy intake r/t Covid 19 PNA as evidenced by pt in resp distress, now on high flow o2, NPO unable to tolerate oral po, now on TPN. CURRENT DIET: NPO PO DIET RECOMMENDATIONS: WHEN SAFE FOR ORAL DIET-> CCHO LOW DIET/ TEXTURE PER RESIDENTIAL [employer] SAL[employer] ENTERAL NUTRITION RECOMMENDATIONS: Glucerna 1.2 @ 45ml/hr x 24 hrs + Prosource 1pkt QD to provide 1080ml, 1296kcal, 65g +11g prot, 870ml free water - As medically appropriate or should pt require oral intubation rec to obtain GI access, initiate non oral feeds of Glucerna 1.2 @ 15ml/hr for 6 hrs. - Advance as tolerated 10ml/hr q4-6 hrs to goal. - Add Prosource 1pkt QD to meet est prot needs. - Flush per HOB over 30 degrees PARENTERAL NUTRITION RECOMMENDATIONS: D/AA Rate: 63 IL Rate: 7 Total Rate: 70 Volume: 1680 % Dextrose: 14 % AA: 5.0 Energy (kcals/kg): 1358 Protein (g/kg protein): 75 Nonprotein KCALS: 1056 GIR (mg CHO/kg/min): 2.6 % Fat KCALS: 24.7 NCP: N Ratio: 88:1 TPN Comment: * D14% AA 5.0% @ 63ml/hr + IL20% @ 7ml/hr-> total of 70ml/hr, all 3:1 * TPN @ goal provides 24kcal/1.33g prot per kg adjusted body wt * Monitor lytes, replete as needed * Monitor triglyceride trend w/ TPN * Monitor LFTs w/ TPN ADDITIONAL RECOMMENDATIONS: 1) NPO, on high flow o2-> now TPN ordered (TF recs above should pt require oral intubation) 2) Calibrated bedscale wt 3) Monitor BGs closely w/ TPN + Solumedrol, need to adjust insulin -> DC added D5 IVF 4) Monitor triglyceride: 251 (11/24) prior to TPN 5) Monitor LFTs w/ TPN
--- NOTE | 2020-11-27 09:00 | NUR ---
NURSE NOTES: Dr Idalia Reid visited pt and is aware about WBC 29.9, NNO. Will continue to monitor.
[2020-11-27] MEDS: LORazepam Inj 2mg/ml 1ml IV PRN ×2 (09:55→17:06)
--- NOTE | 2020-11-27 11:35 | Infectious Diseases Prog Note ---
Assessment/Plan Assessment/Plan A; 1. COVID-19 pneumonia. 2. Obesity. 3. Hypertension. 4. Leukocytosis is likely secondary to steroids. 5. Hypoxemia 6. Elevated transaminase 7. DM 8. Small pneumothorax PLAN: 1. Finished Remdesivir course 2. Continue Solumedrol 3. Continue ceftriaxone. 4. f/u CXR Subjective ROS Limited/Unobtainable: Yes Gastrointestinal/Abdominal: Reports: other - on TPN Neurologic: Reports: confusion, other - on restraint Allergies: Coded Allergies: No Known Allergies (Unverified , 11/10/17) Objective Last 24 Hour Vital Signs Date Time Temp Pulse Resp B/P (MAP) Pulse Ox O2 Delivery O2 Flow Rate FiO2 11/27/20 10:25 107 23 145/78 92 11/27/20 09:55 120 25 152/83 92 11/27/20 08:00 55.0 100 11/27/20 08:00 97.9 120 25 152/83 (106) 92 11/27/20 08:00 High Flow O2 55.0 Non-Rebreather 15.0 11/27/20 07:44 130 11/27/20 04:00 120 11/27/20 04:00 97.9 128 20 153/58 (89) 100 11/27/20 04:00 High Flow O2 55.0 Non-Rebreather 15.0 11/27/20 04:00 55.0 100 11/27/20 03:28 93 High Flow 55.0 100 11/27/20 00:00 55.0 100 11/27/20 00:00 98.1 130 24 141/81 (101) 88 11/27/20 00:00 High Flow O2 55.0 Non-Rebreather 15.0 11/27/20 00:00 138 11/26/20 23:20 94 High Flow 55.0 100 11/26/20 20:16 110 11/26/20 20:00 55.0 100 11/26/20 20:00 High Flow O2 55.0 Non-Rebreather 15.0 11/26/20 20:00 98.2 109 24 149/69 (95) 96 11/26/20 19:30 93 High Flow 55.0 100 11/26/20 16:00 55.0 100 11/26/20 16:00 118 11/26/20 16:00 98.2 125 26 124/75 (91) 94 11/26/20 16:00 High Flow O2 55.0 Non-Rebreather 15.0 11/26/20 15:00 93 High Flow 55.0 100 11/26/20 12:44 115 25 142/60 91 11/26/20 12:14 54 24 146/57 92 11/26/20 12:00 55.0 100 11/26/20 12:00 98.6 130 26 146/75 (98) 92 11/26/20 12:00 High Flow O2 55.0 Non-Rebreather 15.0 11/26/20 11:39 126 Height (Feet): 5 Height (Inches): 1.00 Weight (Pounds): 180 HEENT: mucous membranes moist Respiratory/Chest: other - on NRB mask, 15 L/min Cardiovascular: tachycardia, other - PICC line Abdomen: soft, non tender Extremities: other - edema Neurologic/Psychiatric: disoriented Laboratory Tests Test 11/26/20 20:47 11/27/20 00:51 11/27/20 03:20 11/27/20 05:44 POC Whole Blood Glucose Pending Pending 331 MG/DL (74-106) H White Blood Count 29.9 K/UL (4.8-10.8) *H Red Blood Count 5.00 M/UL (4.20-5.40) Hemoglobin 14.9 G/DL (12.0-16.0) Hematocrit 45.0 % (37.0-47.0) Mean Corpuscular Volume 90 FL (80-99) Mean Corpuscular Hemoglobin 29.8 PG (27.0-31.0) Mean Corpuscular Hemoglobin Concent 33.1 G/DL (32.0-36.0) Red Cell Distribution Width 11.7 % (11.6-14.8) Platelet Count 178 K/UL (150-450) Mean Platelet Volume 9.8 FL (6.5-10.1) Neutrophils (%) (Auto) % (45.0-75.0) Lymphocytes (%) (Auto) % (20.0-45.0) Monocytes (%) (Auto) % (1.0-10.0) Eosinophils (%) (Auto) % (0.0-3.0) Basophils (%) (Auto) % (0.0-2.0) Differential Total Cells Counted 100 Neutrophils % (Manual) 94 % (45-75) H Lymphocytes % (Manual) 3 % (20-45) L Monocytes % (Manual) 3 % (1-10) Eosinophils % (Manual) 0 % (0-3) Basophils % (Manual) 0 % (0-2) Band Neutrophils 0 % (0-8) Platelet Estimate Adequate Platelet Morphology Normal Red Blood Cell Morphology Normal Sodium Level 143 MMOL/L (136-145) Potassium Level 4.0 MMOL/L (3.5-5.1) Chloride Level 109 MMOL/L (98-107) H Carbon Dioxide Level 25 MMOL/L (21-32) Anion Gap 9 mmol/L (5-15) Blood Urea Nitrogen 21 mg/dL (7-18) H Creatinine 0.7 MG/DL (0.55-1.30) Estimat Glomerular Filtration Rate > 60 mL/min (>60) Glucose Level 317 MG/DL (74-106) H Calcium Level 8.6 MG/DL (8.5-10.1) Phosphorus Level 2.5 MG/DL (2.5-4.9) Magnesium Level 2.3 MG/DL (1.8-2.4) Total Bilirubin 0.6 MG/DL (0.2-1.0) Aspartate Amino Transf (AST/SGOT) 38 U/L (15-37) H Alanine Aminotransferase (ALT/SGPT) 66 U/L (12-78) Alkaline Phosphatase 134 U/L (46-116) H C-Reactive Protein, Quantitative 2.6 mg/dL (0.00-0.90) H Pro-B-Type Natriuretic Peptide 205 pg/mL (0-125) H Total Protein 5.9 G/DL (6.4-8.2) L Albumin 2.3 G/DL (3.4-5.0) L Globulin 3.6 g/dL Albumin/Globulin Ratio 0.6 (1.0-2.7) L Test 11/27/20 09:43 POC Whole Blood Glucose Pending Current Medications Medications (Trade) Dose Ordered Sig/Kayla Route PRN Reason Start Time Stop Time Status Last Admin Dose Admin Acetaminophen (Tylenol) 650 mg Q6H PRN ORAL For Headache 11/14/20 13:15 12/14/20 13:14 11/24/20 00:14 Albuterol Sulfate (Proventil MDI) 2 puff Q4H PRN INH Shortness of Breath 11/15/20 10:30 02/13/21 10:29 11/17/20 06:04 Ceftriaxone Sodium 1 gm/ Dextrose 55 ml @ 110 mls/hr Q24H IVPB 11/15/20 16:30 11/28/20 23:59 11/26/20 16:33 Clonidine HCl (Catapres TTS-2) 1 patch QWEEK TDERMAL 11/24/20 11:00 02/22/21 10:59 11/24/20 11:27 Dextrose 1,000 ml @ 0 mls/hr Q24H PRN IV PN interrupted or unavailable 11/24/20 20:00 12/24/20 19:59 Dextrose (Dextrose 50%) 25 ml Q30M PRN IV Hypoglycemia 11/24/20 11:30 02/22/21 11:29 Dextrose (Dextrose 50%) 50 ml Q30M PRN IV Hypoglycemia 11/24/20 11:30 02/22/21 11:29 Docusate Sodium (Colace) 100 mg TWICE A DAY ORAL 11/17/20 14:15 12/17/20 14:14 11/27/20 08:56 Enoxaparin Sodium (Lovenox) 80 mg EVERY 12 HOURS SUBQ 11/22/20 21:00 02/16/21 09:59 11/27/20 08:58 Famotidine (Pepcid I.v.) 20 mg Q12HR IVP 11/23/20 21:00 12/23/20 20:59 11/27/20 08:57 Fat Emulsion Intravenous 168 ml/Amino Acids/ Electrolytes/ Dextrose 1,680 ml @ 70 mls/hr Q24H IV 11/25/20 20:00 12/25/20 19:59 11/26/20 20:49 Guaifenesin/ Codeine Phosphate (Robitussin with codeine) 5 ml Q6H PRN ORAL For Cough 11/21/20 23:30 12/21/20 23:29 11/21/20 23:32 Insulin Aspart (NovoLOG) No Dose Q4HR SUBQ 11/25/20 13:00 02/23/21 12:59 11/27/20 09:00 Insulin Detemir (Levemir) 30 units Q12HR SUBQ 11/26/20 21:00 02/24/21 20:59 11/27/20 09:00 Lorazepam (Ativan 2mg/ml 1ml) 0.25 mg Q6H PRN IV For Anxiety 11/25/20 22:00 12/02/20 21:59 11/27/20 09:55 Methylprednisolone Sodium Succinate (Solu-MEDROL) 40 mg EVERY 12 HOURS IVP 11/24/20 11:15 02/22/21 11:14 11/27/20 08:56 Hemrinio Reid MD Nov 27, 2020 11:35
--- NOTE | 2020-11-27 11:37 | General Progress Note ---
Subjective ROS Limited/Unobtainable: No Allergies: Coded Allergies: No Known Allergies (Unverified , 11/10/17) Objective Last 24 Hour Vital Signs Date Time Temp Pulse Resp B/P (MAP) Pulse Ox O2 Delivery O2 Flow Rate FiO2 11/27/20 10:25 107 23 145/78 92 11/27/20 09:55 120 25 152/83 92 11/27/20 08:00 55.0 100 11/27/20 08:00 97.9 120 25 152/83 (106) 92 11/27/20 08:00 High Flow O2 55.0 Non-Rebreather 15.0 11/27/20 07:44 130 11/27/20 04:00 120 11/27/20 04:00 97.9 128 20 153/58 (89) 100 11/27/20 04:00 High Flow O2 55.0 Non-Rebreather 15.0 11/27/20 04:00 55.0 100 11/27/20 03:28 93 High Flow 55.0 100 11/27/20 00:00 55.0 100 11/27/20 00:00 98.1 130 24 141/81 (101) 88 11/27/20 00:00 High Flow O2 55.0 Non-Rebreather 15.0 11/27/20 00:00 138 11/26/20 23:20 94 High Flow 55.0 100 11/26/20 20:16 110 11/26/20 20:00 55.0 100 11/26/20 20:00 High Flow O2 55.0 Non-Rebreather 15.0 11/26/20 20:00 98.2 109 24 149/69 (95) 96 11/26/20 19:30 93 High Flow 55.0 100 11/26/20 16:00 55.0 100 11/26/20 16:00 118 11/26/20 16:00 98.2 125 26 124/75 (91) 94 11/26/20 16:00 High Flow O2 55.0 Non-Rebreather 15.0 11/26/20 15:00 93 High Flow 55.0 100 11/26/20 12:44 115 25 142/60 91 11/26/20 12:14 54 24 146/57 92 11/26/20 12:00 55.0 100 11/26/20 12:00 98.6 130 26 146/75 (98) 92 11/26/20 12:00 High Flow O2 55.0 Non-Rebreather 15.0 11/26/20 11:39 126 Intake and Output 11/26/20 11/27/20 19:00 07:00 Intake Total 630 ml Output Total 600 ml 550 ml Balance 30 ml -550 ml IV Total 630 ml Output Urine Total 600 ml 550 ml Laboratory Tests 11/26/20 20:47: POC Whole Blood Glucose [Pending] 11/27/20 00:51: POC Whole Blood Glucose [Pending] 11/27/20 03:20: White Blood Count 29.9*H, Red Blood Count 5.00, Hemoglobin 14.9, Hematocrit 4 5.0, Mean Corpuscular Volume 90, Mean Corpuscular Hemoglobin 29.8, Mean Corpuscular Hemoglobin Concent 33.1, Red Cell Distribution Width 11.7, Platelet Count 178, Mean Platelet Volume 9.8, Neutrophils (%) (Auto) , Lymphocytes (%) (Auto) , Monocytes (%) (Auto) , Eosinophils (%) (Auto) , Basophils (%) (Auto) , Differential Total Cells Counted 100, Neutrophils % (Manual) 94H, Lymphocytes % (Manual) 3L, Monocytes % (Manual) 3, Eosinophils % (Manual) 0, Basophils % (Manu al) 0, Band Neutrophils 0, Platelet Estimate Adequate, Platelet Morphology Normal, Red Blood Cell Morphology Normal, Sodium Level 143, Potassium Level 4.0, Chloride Level 109H, Carbon Dioxide Level 25, Anion Gap 9, Blood Urea Nitrogen 21H, Creatinine 0.7, Estimat Glomerular Filtration Rate > 60, Glucose Level 317H , Calcium Level 8.6, Phosphorus Level 2.5, Magnesium Level 2.3, Total Bilirubin 0.6, Aspartate Amino Transf (AST/SGOT) 38H, Alanine Aminotransferase (ALT/SGPT) 66, Alkaline Phosphatase 134H, C-Reactive Protein, Quantitative 2.6H, Pro-B-Type Natriuretic Peptide 205H, Total Protein 5.9L, Albumin 2.3L, Globulin 3.6, Albumin/Globulin Ratio 0.6L 11/27/20 05:44: POC Whole Blood Glucose 331H 11/27/20 09:43: POC Whole Blood Glucose [Pending] Height (Feet): 5 Height (Inches): 1.00 Weight (Pounds): 180 General Appearance: no apparent distress EENT: normal ENT inspection Neck: supple Cardiovascular: normal rate Respiratory/Chest: decreased breath sounds Abdomen: hypoactive bowel sounds Extremities: non-tender Assessment/Plan Assessment/Plan: Covid positive PNA mild transaminitis most likely due to above>>>>improving DM smoker on BIPAP NPO repeat LFTS abd us if needed fu hepatitis panel>>> neg covid care NPO on TPN will fu Jose Armando Andrews MD Nov 27, 2020 11:37
[2020-11-27 12:00] VITALS: BP 156/75
--- NOTE | 2020-11-27 12:22 | Pulmonology Progress Note ---
Subjective ROS Limited/Unobtainable: No Interval Events: PTX resolved; BiPAP dc Constitutional: Denies: fever, chills HEENT: Repors: no symptoms Respiratory: Reports: no symptoms, shortness of breath, dyspnea at rest Cardiovascular: Reports: no symptoms Gastrointestinal/Abdominal: Reports: other - on TPN Neurologic: Reports: other - Dizziness Psychiatric: Reports: other - on restraint Musculoskeletal: Denies: pain Allergies: Coded Allergies: No Known Allergies (Unverified , 11/10/17) Objective Last 24 Hour Vital Signs Date Time Temp Pulse Resp B/P (MAP) Pulse Ox O2 Delivery O2 Flow Rate FiO2 11/27/20 12:00 97.7 110 22 156/75 (102) 93 11/27/20 12:00 High Flow O2 55.0 Non-Rebreather 15.0 11/27/20 12:00 55.0 100 11/27/20 10:25 107 23 145/78 92 11/27/20 09:55 120 25 152/83 92 11/27/20 08:00 55.0 100 11/27/20 08:00 97.9 120 25 152/83 (106) 92 11/27/20 08:00 High Flow O2 55.0 Non-Rebreather 15.0 11/27/20 07:44 130 11/27/20 04:00 120 11/27/20 04:00 97.9 128 20 153/58 (89) 100 11/27/20 04:00 High Flow O2 55.0 Non-Rebreather 15.0 11/27/20 04:00 55.0 100 11/27/20 03:28 93 High Flow 55.0 100 11/27/20 00:00 55.0 100 11/27/20 00:00 98.1 130 24 141/81 (101) 88 11/27/20 00:00 High Flow O2 55.0 Non-Rebreather 15.0 11/27/20 00:00 138 11/26/20 23:20 94 High Flow 55.0 100 11/26/20 20:16 110 11/26/20 20:00 55.0 100 11/26/20 20:00 High Flow O2 55.0 Non-Rebreather 15.0 11/26/20 20:00 98.2 109 24 149/69 (95) 96 11/26/20 19:30 93 High Flow 55.0 100 11/26/20 16:00 55.0 100 11/26/20 16:00 118 11/26/20 16:00 98.2 125 26 124/75 (91) 94 11/26/20 16:00 High Flow O2 55.0 Non-Rebreather 15.0 11/26/20 15:00 93 High Flow 55.0 100 11/26/20 12:44 115 25 142/60 91 Intake and Output 11/26/20 11/27/20 19:00 07:00 Intake Total 630 ml Output Total 600 ml 550 ml Balance 30 ml -550 ml IV Total 630 ml Output Urine Total 600 ml 550 ml General Appearance: no acute distress HEENT: normocephalic Respiratory: chest wall non-tender Cardiovascular: normal peripheral pulses Abdomen: normal bowel sounds Laboratory Tests 11/26/20 20:47: POC Whole Blood Glucose [Pending] 11/27/20 00:51: POC Whole Blood Glucose [Pending] 11/27/20 03:20: White Blood Count 29.9*H, Red Blood Count 5.00, Hemoglobin 14.9, Hematocrit 45.0 , Mean Corpuscular Volume 90, Mean Corpuscular Hemoglobin 29.8, Mean Corpuscular Hemoglobin Concent 33.1, Red Cell Distribution Width 11.7, Platelet Count 178, Mean Platelet Volume 9.8, Neutrophils (%) (Auto) , Lymphocytes (%) (Auto) , Monocytes (%) (Auto) , Eosinophils (%) (Auto) , Basophils (%) (Auto) , Differential Total Cells Counted 100, Neutrophils % (Manual) 94H, Lymphocytes % (Manual) 3L, Monocytes % (Manual) 3, Eosinophils % (Manual) 0, Basophils % (Manual) 0, Band Neutrophils 0, Platelet Estimate Adequate, Platelet Morphology Normal, Red Blood Cell Morphology Normal, Sodium Level 143, Potassium Level 4.0, Chloride Level 109H, Carbon Dioxide Level 25, Anion Gap 9, Blood Urea Nitrogen 21H, Creatinine 0.7, Estimat Glomerular Filtration Rate > 60, Glucose Level 317H , Calcium Level 8.6, Phosphorus Level 2.5, Magnesium Level 2.3, Total Bilirubin 0.6, Aspartate Amino Transf (AST/SGOT) 38H, Alanine Aminotransferase (ALT/SGPT) 66, Alkaline Phosphatase 134H, C-Reactive Protein, Quantitative 2.6H, Pro-B-Type Natriuretic Peptide 205H, Total Protein 5.9L, Albumin 2.3L, Globulin 3.6, Albumin/Globulin Ratio 0.6L 11/27/20 05:44: POC Whole Blood Glucose 331H 11/27/20 09:43: POC Whole Blood Glucose [Pending] 11/27/20 12:08: POC Whole Blood Glucose 301H Current Medications Medications (Trade) Dose Ordered Sig/Kayla Route PRN Reason Start Time Stop Time Status Last Admin Dose Admin Acetaminophen (Tylenol) 650 mg Q6H PRN ORAL For Headache 11/14/20 13:15 12/14/20 13:14 11/24/20 00:14 Albuterol Sulfate (Proventil MDI) 2 puff Q4H PRN INH Shortness of Breath 11/15/20 10:30 02/13/21 10:29 11/17/20 06:04 Ceftriaxone Sodium 1 gm/ Dextrose 55 ml @ 110 mls/hr Q24H IVPB 11/15/20 16:30 11/28/20 23:59 11/26/20 16:33 Clonidine HCl (Catapres TTS-2) 1 patch QWEEK TDERMAL 11/24/20 11:00 02/22/21 10:59 11/24/20 11:27 Dextrose 1,000 ml @ 0 mls/hr Q24H PRN IV PN interrupted or unavailable 11/24/20 20:00 12/24/20 19:59 Dextrose (Dextrose 50%) 25 ml Q30M PRN IV Hypoglycemia 11/24/20 11:30 02/22/21 11:29 Dextrose (Dextrose 50%) 50 ml Q30M PRN IV Hypoglycemia 11/24/20 11:30 02/22/21 11:29 Docusate Sodium (Colace) 100 mg TWICE A DAY ORAL 11/17/20 14:15 12/17/20 14:14 11/27/20 08:56 Enoxaparin Sodium (Lovenox) 80 mg EVERY 12 HOURS SUBQ 11/22/20 21:00 02/16/21 09:59 11/27/20 08:58 Famotidine (Pepcid I.v.) 20 mg Q12HR IVP 11/23/20 21:00 12/23/20 20:59 11/27/20 08:57 Fat Emulsion Intravenous 168 ml/Amino Acids/ Electrolytes/ Dextrose 1,680 ml @ 70 mls/hr Q24H IV 11/25/20 20:00 12/25/20 19:59 11/26/20 20:49 Guaifenesin/ Codeine Phosphate (Robitussin with codeine) 5 ml Q6H PRN ORAL For Cough 11/21/20 23:30 12/21/20 23:29 11/21/20 23:32 Insulin Aspart (NovoLOG) No Dose Q4HR SUBQ 11/25/20 13:00 02/23/21 12:59 11/27/20 09:00 Insulin Detemir (Levemir) 30 units Q12HR SUBQ 11/26/20 21:00 02/24/21 20:59 11/27/20 09:00 Lorazepam (Ativan 2mg/ml 1ml) 0.25 mg Q6H PRN IV For Anxiety 11/25/20 22:00 12/02/20 21:59 11/27/20 09:55 Methylprednisolone Sodium Succinate (Solu-MEDROL) 40 mg EVERY 12 HOURS IVP 11/24/20 11:15 02/22/21 11:14 11/27/20 08:56 Assessment/Plan Assessment/Plan 1. Elevated inflammatory markers -Will continue Lovenox full dose 2. 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 Pneumonia, likely COVID-19 related - CXR 11/16 Severe bilateral airspace consolidations, consistent with severe multifocal infiltrates, which have significantly increased. No pneumothorax. Cardiomegaly. - Had PTX on CXR 11/22/20 - CXR 11/23/20 right PTX no longer visible, no change in infiltrates - now off Remdesiver, and steroids - on broad spectrum abx - will repeat CXR 11/27 5. Hypertension - on clonidine dermal patch 6. Pneumothorax - BiPAP dc - now resolved 7. Hypoxia, due to #4, 5 - Now on NRBM and high flow saturating at low 90s - encourage proning - will attempt weaning today 8. Hypernatremia - Will start D5W for Na 161 -> 155 9. Leukocytosis; trending up - Seen by ID - on ceftriaxone Now on TPN The care for this patient was discussed with my supervising physician Time spent for this case was approximately 31 minutes Dominic Toro Nov 27, 2020 12:22
--- NOTE | 2020-11-27 12:47 | Nephrology Progress Note ---
Assessment/Plan Problem List: (1) COVID-19 (2) Abnormal LFTs (3) Pneumonia (4) Hypoxia Assessment Hypernatremia Hypokalemia Elevated blood sugar Hypoxia COVID-19 pneumonia Plan November 27: Labs reviewed. Patient on TPN ordered by Dr. Curry. Medication list reviewed. Main IV discontinued. Continue to follow-up renal parameters and electrolytes. Blood pressure stable. November 26: Labs reviewed. Renal parameters stable. Levemir dose increased for high blood sugar. Continue as is. November 25: Labs reviewed. Electrolytes and renal parameters stable. Blood sugar up. Levemir dose increased. Continue to monitor renal parameters. November 24: Electrolytes improving. Clonidine patch for blood pressure given. On high flow oxygen due to pneumothorax. No BiPAP. Discussed with . Previously: Start D5W Potassium supplement Monitor electrolytes Levemir 10 units, monitor blood sugar Vitamin D level Pulmonary support Per orders Subjective ROS Limited/Unobtainable: Yes Objective Objective Last 24 Hour Vital Signs Date Time Temp Pulse Resp B/P (MAP) Pulse Ox O2 Delivery O2 Flow Rate FiO2 11/27/20 12:00 97.7 110 22 156/75 (102) 93 11/27/20 12:00 High Flow O2 55.0 Non-Rebreather 15.0 11/27/20 12:00 55.0 100 11/27/20 11:36 112 11/27/20 10:25 107 23 145/78 92 11/27/20 09:55 120 25 152/83 92 11/27/20 08:00 55.0 100 11/27/20 08:00 97.9 120 25 152/83 (106) 92 11/27/20 08:00 High Flow O2 55.0 Non-Rebreather 15.0 11/27/20 07:44 130 11/27/20 04:00 120 11/27/20 04:00 97.9 128 20 153/58 (89) 100 11/27/20 04:00 High Flow O2 55.0 Non-Rebreather 15.0 11/27/20 04:00 55.0 100 11/27/20 03:28 93 High Flow 55.0 100 11/27/20 00:00 55.0 100 11/27/20 00:00 98.1 130 24 141/81 (101) 88 11/27/20 00:00 High Flow O2 55.0 Non-Rebreather 15.0 11/27/20 00:00 138 11/26/20 23:20 94 High Flow 55.0 100 11/26/20 20:16 110 11/26/20 20:00 55.0 100 11/26/20 20:00 High Flow O2 55.0 Non-Rebreather 15.0 11/26/20 20:00 98.2 109 24 149/69 (95) 96 11/26/20 19:30 93 High Flow 55.0 100 11/26/20 16:00 55.0 100 11/26/20 16:00 118 11/26/20 16:00 98.2 125 26 124/75 (91) 94 11/26/20 16:00 High Flow O2 55.0 Non-Rebreather 15.0 11/26/20 15:00 93 High Flow 55.0 100 Intake and Output 11/26/20 11/27/20 19:00 07:00 Intake Total 630 ml Output Total 600 ml 550 ml Balance 30 ml -550 ml IV Total 630 ml Output Urine Total 600 ml 550 ml Current Medications Medications (Trade) Dose Ordered Sig/Kayla Route PRN Reason Start Time Stop Time Status Last Admin Dose Admin Acetaminophen (Tylenol) 650 mg Q6H PRN ORAL For Headache 11/14/20 13:15 12/14/20 13:14 11/24/20 00:14 Albuterol Sulfate (Proventil MDI) 2 puff Q4H PRN INH Shortness of Breath 11/15/20 10:30 02/13/21 10:29 11/17/20 06:04 Ceftriaxone Sodium 1 gm/ Dextrose 55 ml @ 110 mls/hr Q24H IVPB 11/15/20 16:30 11/28/20 23:59 11/26/20 16:33 Clonidine HCl (Catapres TTS-2) 1 patch QWEEK TDERMAL 11/24/20 11:00 02/22/21 10:59 11/24/20 11:27 Dextrose 1,000 ml @ 0 mls/hr Q24H PRN IV PN interrupted or unavailable 11/24/20 20:00 12/24/20 19:59 Dextrose (Dextrose 50%) 25 ml Q30M PRN IV Hypoglycemia 11/24/20 11:30 02/22/21 11:29 Dextrose (Dextrose 50%) 50 ml Q30M PRN IV Hypoglycemia 11/24/20 11:30 02/22/21 11:29 Docusate Sodium (Colace) 100 mg TWICE A DAY ORAL 11/17/20 14:15 12/17/20 14:14 11/27/20 08:56 Enoxaparin Sodium (Lovenox) 80 mg EVERY 12 HOURS SUBQ 11/22/20 21:00 02/16/21 09:59 11/27/20 08:58 Famotidine (Pepcid I.v.) 20 mg Q12HR IVP 11/23/20 21:00 12/23/20 20:59 11/27/20 08:57 Fat Emulsion Intravenous 168 ml/Amino Acids/ Electrolytes/ Dextrose 1,680 ml @ 70 mls/hr Q24H IV 11/25/20 20:00 12/25/20 19:59 11/26/20 20:49 Guaifenesin/ Codeine Phosphate (Robitussin with codeine) 5 ml Q6H PRN ORAL For Cough 11/21/20 23:30 12/21/20 23:29 11/21/20 23:32 Insulin Aspart (NovoLOG) No Dose Q4HR SUBQ 11/25/20 13:00 02/23/21 12:59 11/27/20 12:29 Insulin Detemir (Levemir) 30 units Q12HR SUBQ 11/26/20 21:00 02/24/21 20:59 11/27/20 09:00 Lorazepam (Ativan 2mg/ml 1ml) 0.25 mg Q6H PRN IV For Anxiety 11/25/20 22:00 12/02/20 21:59 11/27/20 09:55 Methylprednisolone Sodium Succinate (Solu-MEDROL) 40 mg EVERY 12 HOURS IVP 11/24/20 11:15 02/22/21 11:14 11/27/20 08:56 Laboratory Tests 11/26/20 20:47: POC Whole Blood Glucose [Pending] 11/27/20 00:51: POC Whole Blood Glucose [Pending] 11/27/20 03:20: White Blood Count 29.9*H, Red Blood Count 5.00, Hemoglobin 14.9, Hematocrit 45.0, Mean Corpuscular Volume 90, Mean Corpuscular Hemoglobin 29.8, Mean Corpuscular Hemoglobin Concent 33.1, Red Cell Distribution Width 11.7, Platelet Count 178, Mean Platelet Volume 9.8, Neutrophils (%) (Auto) , Lymphocytes (%) (Auto) , Monocytes (%) (Auto) , Eosinophils (%) (Auto) , Basophils (%) (Auto) , Differential Total Cells Counted 100, Neutrophils % (Manual) 94H, Lymphocytes % (Manual) 3L, Monocytes % (Manual) 3, Eosinophils % (Manual) 0, Basophils % (Manual) 0, Band Neutrophils 0, Platelet Estimate Adequate, Platelet Morphology Normal, Red Blood Cell Morphology Normal, Sodium Level 143, Potassium Level 4.0, Chloride Level 109H, Carbon Dioxide Level 25, Anion Gap 9, Blood Urea Nitrogen 21H, Creatinine 0.7, Estimat Glomerular Filtration Rate > 60, Glucose Level 317H , Calcium Level 8.6, Phosphorus Level 2.5, Magnesium Level 2.3, Total Bilirubin 0.6, Aspartate Amino Transf (AST/SGOT) 38H, Alanine Aminotransferase (ALT/SGPT) 66, Alkaline Phosphatase 134H, C-Reactive Protein, Quantitative 2.6H, Pro-B-Type Natriuretic Peptide 205H, Total Protein 5.9L, Albumin 2.3L, Globulin 3.6, Albumin/Globulin Ratio 0.6L 11/27/20 05:44: POC Whole Blood Glucose 331H 11/27/20 09:43: POC Whole Blood Glucose [Pending] 11/27/20 12:08: POC Whole Blood Glucose 301H Height (Feet): 5 Height (Inches): 1.00 Weight (Pounds): 180 General Appearance: lethargic EENT: other - On high flow oxygen and nonrebreather mask Cardiovascular: tachycardia Respiratory/Chest: decreased breath sounds Abdomen: distended John Martin MD Nov 27, 2020 12:47
--- NOTE | 2020-11-27 13:20 | NUR ---
NURSE NOTES: pt is anxious, RN called daughter Kaushik from pt room to speak with pt, nobody answer then called to daughter Lulu, she spoke with pt. will continue to monitor.
--- NOTE | 2020-11-27 14:13 | NUR ---
RADIOLOGY DEPT., CHEST X-RAY DONE.-P.DYE
--- NOTE | 2020-11-27 14:48 | NUR ---
[employer]: COVID PNA T 97.7(ax), HR 110, RR 22, BP 156/75 HI Flow N/C 55, FiO2 100%, O@ sat 95% WBC 29.9, BUN 21 Cxray Bilateral infiltrates unchanged, Rt pneumothorax no longer seen 11-23-20 IS: Lasix IV QD Lovenox SQ q12h Solu-medrol IV Q 12 h Pepcid IVP Q 12 h TPN 70cc/hr Rocephin IV QD Step Down Status
--- NOTE | 2020-11-27 15:07 | Diagnostic Imaging Report ---
Procedure: XRAY Chest 1v Reason for study: Shortness of breath. Comparison films: 11/23/2020. FINDINGS: There is a right PICC line with the tip in the SVC. Bilateral hazy infiltrates are unchanged. Cardiac and mediastinal silhouette are within normal limits. CP angles are sharp. Elevated right hemidiaphragm unchanged. IMPRESSION: Right PICC line in place. No change infiltrates.
[2020-11-27 16:00] VITALS: BP 157/80
[2020-11-27] MEDS: cefTRIAXone 1 GM in D5W 55 ML IVPB SCH (16:43)
--- NOTE | 2020-11-27 19:13 | NUR ---
NURSE HAND-OFF REPORT: Important Events on Shift: Patient Status: Diet: Pending Orders: Pending Results/Labs: Pending MD notification: Latest Vital Signs: Temperature 97.3 , Pulse 110 , B/P 150 /77 , Respiratory Rate 25 , O2 SAT 93 , Nasal Cannula, O2 Flow Rate 55.0 . Vital Sign Comment: EKG Rhythm: Sinus Tachycardia Rhythm change?: N MD Notified?: Eitan Bansal NP, MD Response: No New Orders Received Latest Rosen Fall Score: 85 Fall Risk: High Risk Safety Measures: Call light Within Reach, Bed Alarm Zone 1, Side Rails Side Rails x3, Bed position Low and Locked. Fall Precautions: Yellow Socks Yellow Gown Door Sign Patient Fall Education Report given to . pt is awake and restless, HR 120 SPO2 92%, Endorsed plan of care, endorsed to monitor spo2.
--- NOTE | 2020-11-27 19:18 | NUR ---
NURSE NOTES: Received report from ELISEO Luna. pt is seen anxious, alert to name, confused. verbally responsive but very disappropriate. Pt has restraints bilateral soft wrist restraints, intact and noted palpable pulse with no skin break down. O2 sat noted - 95%, on high flow oxygen. Pt keeps turning his on the side and removing it, reinforced. No pain per pt. AHMET with PICC line double lumen intact and patent running TPN at 70ml/hr. And left hand g22 intact and patent. Garcia draining dark qian urine. Per AM nurse she gave colace, will refer in AM last BM of pt is 11/18. No abdominal distention noted. Bed in lowest position, call light within reach. Continue to plan of care.
--- NOTE | 2020-11-27 19:40 | NUR ---
NURSE NOTES: Noted STAC in the monitor, pt keeps moving and anxious. No pain per pt. Baseline of pt is STAC. Dr. Rdz.
[2020-11-27 20:00] VITALS: BP 150/90
[2020-11-27] MEDS: FAT EMULSION 20% IV SCH (20:27)
[2020-11-27] MEDS: TPN IV SCH (20:27)
[2020-11-27] MEDS ORDERED: NS 275ml ONE (20:46)
--- NOTE | 2020-11-27 20:54 | NUR ---
NURSE NOTES: pt is restless and agitated, denies pain. pt wants to remove her High flow oxygen. Reposition pt. Provided calm environment.
--- NOTE | 2020-11-27 23:27 | NUR ---
NURSE NOTES: Pt is a bit tachypneic, repositioned pt on high weiss's position, flushing temp checked 98.1. Sponge bath given. o2 sat- 95% on high flow oxygen. No bowel movement noted.
[2020-11-28] VITALS (7 sets, daily range): BP systolic 114–170; BP diastolic 60–87
[2020-11-28] MEDS: LORazepam Inj 2mg/ml 1ml IV PRN ×3 (01:38→23:24)
[2020-11-28] MEDS: Insulin NovoLOG Flexpen S/S (Mod) SUBQ SCH ×6 (01:40→21:49)
--- NOTE | 2020-11-28 02:39 | NUR ---
NURSE NOTES: Noted pt is still tachypneic, inspite of positioned high weiss's, Ativan given for agitation. Noted SBP: 166/76, HR: 126 baseline of pt. Pt is flushing and tachypneic. ABG stat ordered. Hydrazaline PRN ordered per Doctor. Will continue to monitor pt.
--- NOTE | 2020-11-28 03:21 | NUR ---
NURSE NOTES: ABG resulted. Ph 7.4, PCO2- 31.9, po2-48.4, o2 satin ABG- 86%, HC03- 21. Dr. Gannon aware, NNO this time. No BIPAP at this time, o2 sat- between 90-94%. Will continue to monitor pt.
--- NOTE | 2020-11-28 04:44 | NUR ---
NURSE NOTES: No BIPAP for now per Dr. Gannon, pt still confused and agitated wants to get out in the bed. O2 sat- 90%.
[2020-11-28 05:32] LABS: HEMATOCRIT 45.8 % (37.0-47.0); HEMOGLOBIN 14.7 G/DL (12.0-16.0); MEAN CORPUSCULAR VOLUME 90 FL (80-99); PLATELET COUNT 142 K/UL (150-450); RED BLOOD COUNT 5.12 M/UL (4.20-5.40); RED CELL DISTRIBUTION WIDTH 11.6 % (11.6-14.8)
--- NOTE | 2020-11-28 05:43 | NUR ---
NURSE NOTES: Pt o2 sat- 92%, high flow oxygen with non rebreather applied and reinforced. Pt kept pulling it by making movements from her face.
[2020-11-28 06:01] LABS: WHITE BLOOD COUNT 30.4 K/UL (4.8-10.8)
--- NOTE | 2020-11-28 07:00 | NUR ---
NURSE HAND-OFF REPORT: Important Events on Shift: pt ABG rechecked, o2 sat in ABG- 86%, PT is tachypneic- Dr. Gannon aware, no bipap at this time per Dr. Gannon. Pt is STAC- Dr. Gannon aware. High bp 170's- Hydralazine PRN given Patient Status: critical and guarded, High bs- 300's Diet: TPN at 70ml/hr Pending Orders: None Pending Results/Labs: none Pending MD notification: none Latest Vital Signs: Temperature 97.9 , Pulse 120 , B/P 114 /60 , Respiratory Rate 26 , O2 SAT 90 , Nasal Cannula, O2 Flow Rate 15.0 . Vital Sign Comment: STA EKG Rhythm: Sinus Tachycardia Rhythm change?: N Notified?: Eitan Bansal NP, MD Response: No New Orders Received Latest Rosen Fall Score: 85 Fall Risk: High Risk Safety Measures: Call light Within Reach, Bed Alarm Zone 1, Side Rails Side Rails x3, Bed position Low and Locked. Fall Precautions: Yellow Socks Yellow Gown Door Sign Patient Fall Education Report given to [Any, RN].
--- NOTE | 2020-11-28 07:42 | NUR ---
Pt received from Princess GOMES. Pt in bed restless. O2 at 85%, high flow nasal canula noted to be out of place. Adjusted and called for RT to come ashish. With proper placement, o2 sat now 92. Bed low and locked, call light near right hand. Pt on bilateral soft wrist restraints for pulling on devices. Pulses present and palpable. Dependent swelling noted to right hand, adjust placement, however restraint on such that passive motion possible. Will monitor this pt regularly as she is restless and canula is at risk of slipping.
[2020-11-28] MEDS: Solu-MEDROL 40mg Inj IVP SCH (08:27)
[2020-11-28] MEDS: Levemir Flexpen SUBQ SCH ×2 (08:29→21:48)
[2020-11-28] MEDS: Docusate 100mg cap ORAL SCH ×2 (09:00→18:00)
[2020-11-28 09:58] LABS: ALANINE AMINOTRANSFERASE 99 U/L (12-78); ALBUMIN 2.1 G/DL (3.4-5.0); ALBUMIN/GLOBULIN RATIO 0.6 (1.0-2.7); ALKALINE PHOSPHATASE 147 U/L (46-116); ANION GAP 10 mmol/L (5-15); ASPARTATE AMINO TRANSFERASE 65 U/L (15-37); BILIRUBIN,TOTAL 0.9 MG/DL (0.2-1.0); BLOOD UREA NITROGEN 19 mg/dL (7-18); CALCIUM 8.5 MG/DL (8.5-10.1); CARBON DIOXIDE 25 MMOL/L (21-32); CHLORIDE 106 MMOL/L (98-107); CREATININE 0.7 MG/DL (0.55-1.30); PHOSPHORUS 3.3 MG/DL (2.5-4.9); POTASSIUM 4.6 MMOL/L (3.5-5.1); SODIUM 140 MMOL/L (136-145)
--- NOTE | 2020-11-28 11:19 | Infectious Diseases Prog Note ---
Assessment/Plan Assessment/Plan antibiotics : ceftriaxone A 1. covid 19 pneumonia on 55 % Fi O2 with saturation 89 % s/p remdesivir s/p dexamethasone 2. Obesity. 3. Hypertension. 4. Leukocytosis increased likely secondary to steroids P 1. continue solumedrol taper dose 2. Continue ceftriaxone. 3. Continue isolation. Subjective ROS Limited/Unobtainable: Yes Allergies: Coded Allergies: No Known Allergies (Unverified , 11/10/17) Objective Last 24 Hour Vital Signs Date Time Temp Pulse Resp B/P (MAP) Pulse Ox O2 Delivery O2 Flow Rate FiO2 11/28/20 08:00 97.7 128 25 134/74 (94) 89 11/28/20 08:00 131 11/28/20 08:00 High Flow O2 100.0 Non-Rebreather 15.0 11/28/20 07:39 92 High Flow 55.0 100 11/28/20 04:45 97.9 120 26 114/60 (78) 90 11/28/20 04:00 98.0 135 26 170/70 (103) 95 11/28/20 04:00 55.0 100 11/28/20 04:00 High Flow O2 55.0 Non-Rebreather 15.0 11/28/20 03:42 131 11/28/20 02:54 166/75 11/28/20 02:08 120 26 158/70 96 11/28/20 01:38 115 26 160/70 95 11/28/20 00:00 High Flow O2 55.0 Non-Rebreather 15.0 11/28/20 00:00 110 11/28/20 00:00 98.1 110 25 144/67 (92) 95 11/27/20 23:45 96 High Flow 55.0 100 11/27/20 20:00 97.7 115 24 150/90 (110) 94 11/27/20 20:00 55.0 100 11/27/20 20:00 119 11/27/20 20:00 High Flow O2 55.0 Non-Rebreather 15.0 11/27/20 19:15 95 High Flow 55.0 100 11/27/20 17:36 110 25 150/77 93 11/27/20 17:06 115 25 157/80 94 11/27/20 16:00 115 11/27/20 16:00 High Flow O2 55.0 Non-Rebreather 15.0 11/27/20 16:00 97.3 112 25 157/80 (105) 94 11/27/20 16:00 55.0 100 11/27/20 15:00 94 High Flow 55.0 100 11/27/20 12:00 97.7 110 22 156/75 (102) 93 11/27/20 12:00 High Flow O2 55.0 Non-Rebreather 15.0 11/27/20 12:00 55.0 100 11/27/20 11:36 112 11/27/20 11:28 92 High Flow 55.0 100 Height (Feet): 5 Height (Inches): 1.00 Weight (Pounds): 180 Laboratory Tests Test 11/27/20 12:08 11/27/20 16:55 11/28/20 03:03 11/28/20 04:47 POC Whole Blood Glucose 301 MG/DL (74-106) H Pending Arterial Blood pH 7.453 (7.350-7.450) Arterial Blood Partial Pressure CO2 31.9 mmHg (35.0-45.0) L Arterial Blood Partial Pressure O2 48.4 mmHg (75.0-100.0) Arterial Blood HCO3 21.8 mmol/L (22.0-26.0) L Arterial Blood Oxygen Saturation 86.0 % (95-100) *L Arterial Blood Base Excess -1.1 (-2-2) Ted Test Positive White Blood Count 30.4 K/UL (4.8-10.8) *H Red Blood Count 5.12 M/UL (4.20-5.40) Hemoglobin 14.7 G/DL (12.0-16.0) Hematocrit 45.8 % (37.0-47.0) Mean Corpuscular Volume 90 FL (80-99) Mean Corpuscular Hemoglobin 28.8 PG (27.0-31.0) Mean Corpuscular Hemoglobin Concent 32.1 G/DL (32.0-36.0) Red Cell Distribution Width 11.6 % (11.6-14.8) Platelet Count 142 K/UL (150-450) L Mean Platelet Volume 10.0 FL (6.5-10.1) Neutrophils (%) (Auto) % (45.0-75.0) Lymphocytes (%) (Auto) % (20.0-45.0) Monocytes (%) (Auto) % (1.0-10.0) Eosinophils (%) (Auto) % (0.0-3.0) Basophils (%) (Auto) % (0.0-2.0) Differential Total Cells Counted 100 Neutrophils % (Manual) 93 % (45-75) H Lymphocytes % (Manual) 2 % (20-45) L Monocytes % (Manual) 5 % (1-10) Eosinophils % (Manual) 0 % (0-3) Basophils % (Manual) 0 % (0-2) Band Neutrophils 0 % (0-8) Platelet Estimate Decreased L Platelet Morphology Normal Red Blood Cell Morphology Normal Sodium Level 140 MMOL/L (136-145) Potassium Level 4.6 MMOL/L (3.5-5.1) Chloride Level 106 MMOL/L (98-107) Carbon Dioxide Level 25 MMOL/L (21-32) Anion Gap 10 mmol/L (5-15) Blood Urea Nitrogen 19 mg/dL (7-18) H Creatinine 0.7 MG/DL (0.55-1.30) Estimat Glomerular Filtration Rate > 60 mL/min (>60) Glucose Level 372 MG/DL (74-106) H Calcium Level 8.5 MG/DL (8.5-10.1) Phosphorus Level 3.3 MG/DL (2.5-4.9) Magnesium Level 2.1 MG/DL (1.8-2.4) Total Bilirubin 0.9 MG/DL (0.2-1.0) Aspartate Amino Transf (AST/SGOT) 65 U/L (15-37) H Alanine Aminotransferase (ALT/SGPT) 99 U/L (12-78) H Alkaline Phosphatase 147 U/L (46-116) H Total Protein 5.9 G/DL (6.4-8.2) L Albumin 2.1 G/DL (3.4-5.0) L Globulin 3.8 g/dL Albumin/Globulin Ratio 0.6 (1.0-2.7) L Current Medications Medications (Trade) Dose Ordered Sig/Kayla Route PRN Reason Start Time Stop Time Status Last Admin Dose Admin Acetaminophen (Tylenol) 650 mg Q6H PRN ORAL For Headache 11/14/20 13:15 12/14/20 13:14 1/22/21 04:09 Albuterol Sulfate (Proventil MDI) 2 puff Q4H PRN INH Shortness of Breath 11/15/20 10:30 02/13/21 10:29 11/17/20 06:04 Ceftriaxone Sodium 1 gm/ Dextrose 55 ml @ 110 mls/hr Q24H IVPB 11/15/20 16:30 11/28/20 23:59 11/27/20 16:43 Clonidine HCl (Catapres TTS-2) 1 patch QWEEK TDERMAL 11/24/20 11:00 02/22/21 10:59 11/24/20 11:27 Dextrose 1,000 ml @ 0 mls/hr Q24H PRN IV PN interrupted or unavailable 11/24/20 20:00 12/24/20 19:59 Dextrose (Dextrose 50%) 25 ml Q30M PRN IV Hypoglycemia 11/24/20 11:30 02/22/21 11:29 Dextrose (Dextrose 50%) 50 ml Q30M PRN IV Hypoglycemia 11/24/20 11:30 02/22/21 11:29 Docusate Sodium (Colace) 100 mg TWICE A DAY ORAL 11/17/20 14:15 12/17/20 14:14 11/27/20 17:08 Enoxaparin Sodium (Lovenox) 80 mg EVERY 12 HOURS SUBQ 11/22/20 21:00 02/16/21 09:59 11/27/20 20:28 Famotidine (Pepcid I.v.) 20 mg Q12HR IVP 11/23/20 21:00 12/23/20 20:59 11/28/20 08:27 Fat Emulsion Intravenous 168 ml/Amino Acids/ Electrolytes/ Dextrose 1,680 ml @ 70 mls/hr Q24H IV 11/25/20 20:00 12/25/20 19:59 11/27/20 20:27 Guaifenesin/ Codeine Phosphate (Robitussin with codeine) 5 ml Q6H PRN ORAL For Cough 11/21/20 23:30 12/21/20 23:29 11/21/20 23:32 Hydralazine HCl (Apresoline) 10 mg Q6H PRN IV For High Blood Pressure 11/28/20 02:45 02/26/21 02:44 11/28/20 02:54 Insulin Aspart (NovoLOG) No Dose Q4HR SUBQ 11/25/20 13:00 02/23/21 12:59 11/28/20 08:30 Insulin Detemir (Levemir) 30 units Q12HR SUBQ 11/26/20 21:00 02/24/21 20:59 11/28/20 08:29 Lorazepam (Ativan 2mg/ml 1ml) 0.25 mg Q6H PRN IV For Anxiety 11/25/20 22:00 12/02/20 21:59 11/28/20 01:38 Methylprednisolone Sodium Succinate (Solu-MEDROL) 40 mg EVERY 12 HOURS IVP 11/24/20 11:15 02/22/21 11:14 11/28/20 08:27 Arthur Blair MD Nov 28, 2020 11:19
--- NOTE | 2020-11-28 11:22 | NUR ---
NURSE NOTES: Discussed platelets trending down. Per Dr. Gannon, ok to give Lovenox. Per , attempted to place pt in prone position. She cannot tolerate, she continues to go on side and saturation only 84%. Placed her back to high [place] where saturation is 89-90%.
--- NOTE | 2020-11-28 11:33 | Pulmonology Progress Note ---
Subjective ROS Limited/Unobtainable: Yes Interval Events: PTX resolved; BiPAP dc Constitutional: Denies: fever, chills HEENT: Repors: no symptoms Respiratory: Reports: no symptoms, shortness of breath, dyspnea at rest Cardiovascular: Reports: no symptoms Gastrointestinal/Abdominal: Reports: other - on TPN Neurologic: Reports: other - Dizziness Psychiatric: Reports: other - on restraint Musculoskeletal: Denies: pain Allergies: Coded Allergies: No Known Allergies (Unverified , 11/10/17) Objective Last 24 Hour Vital Signs Date Time Temp Pulse Resp B/P (MAP) Pulse Ox O2 Delivery O2 Flow Rate FiO2 11/28/20 08:00 97.7 128 25 134/74 (94) 89 11/28/20 08:00 131 11/28/20 08:00 High Flow O2 100.0 Non-Rebreather 15.0 11/28/20 07:39 92 High Flow 55.0 100 11/28/20 04:45 97.9 120 26 114/60 (78) 90 11/28/20 04:00 98.0 135 26 170/70 (103) 95 11/28/20 04:00 55.0 100 11/28/20 04:00 High Flow O2 55.0 Non-Rebreather 15.0 11/28/20 03:42 131 11/28/20 02:54 166/75 11/28/20 02:08 120 26 158/70 96 11/28/20 01:38 115 26 160/70 95 11/28/20 00:00 High Flow O2 55.0 Non-Rebreather 15.0 11/28/20 00:00 110 11/28/20 00:00 98.1 110 25 144/67 (92) 95 11/27/20 23:45 96 High Flow 55.0 100 11/27/20 20:00 97.7 115 24 150/90 (110) 94 11/27/20 20:00 55.0 100 11/27/20 20:00 119 11/27/20 20:00 High Flow O2 55.0 Non-Rebreather 15.0 11/27/20 19:15 95 High Flow 55.0 100 11/27/20 17:36 110 25 150/77 93 11/27/20 17:06 115 25 157/80 94 11/27/20 16:00 115 11/27/20 16:00 High Flow O2 55.0 Non-Rebreather 15.0 11/27/20 16:00 97.3 112 25 157/80 (105) 94 11/27/20 16:00 55.0 100 11/27/20 15:00 94 High Flow 55.0 100 11/27/20 12:00 97.7 110 22 156/75 (102) 93 11/27/20 12:00 High Flow O2 55.0 Non-Rebreather 15.0 11/27/20 12:00 55.0 100 11/27/20 11:36 112 Intake and Output 11/27/20 11/28/20 19:00 07:00 Intake Total 895 ml 770 ml Output Total 500 ml 600 ml Balance 395 ml 170 ml IV Total 895 ml 770 ml Output Urine Total 500 ml 600 ml General Appearance: no acute distress HEENT: normocephalic Respiratory: chest wall non-tender Cardiovascular: normal peripheral pulses Abdomen: normal bowel sounds Laboratory Tests 11/27/20 12:08: POC Whole Blood Glucose 301H 11/27/20 16:55: POC Whole Blood Glucose [Pending] 11/28/20 03:03: Arterial Blood pH 7.453H, Arterial Blood Partial Pressure CO2 31.9L, Arterial Blood Partial Pressure O2 48.4*L, Arterial Blood HCO3 21.8L, Arterial Blood Oxygen Saturation 86.0*L, Arterial Blood Base Excess -1.1, Ted Test Positive 11/28/20 04:47: White Blood Count 30.4*H, Red Blood Count 5.12, Hemoglobin 14.7, Hematocrit 45.8, Mean Corpuscular Volume 90, Mean Corpuscular Hemoglobin 28.8, Mean Corpuscular Hemoglobin Concent 32.1, Red Cell Distribution Width 11.6, Platelet Count 142L, Mean Platelet Volume 10.0, Neutrophils (%) (Auto) , Lymphocytes (%) (Auto) , Monocytes (%) (Auto) , Eosinophils (%) (Auto) , Basophils (%) (Auto) , Differential Total Cells Counted 100, Neutrophils % (Manual) 93H, Lymphocytes % (Manual) 2L, Monocytes % (Manual) 5, Eosinophils % (Manual) 0, Basophils % (Manual) 0, Band Neutrophils 0, Platelet Estimate DecreasedL, Platelet Morphology Normal, Red Blood Cell Morphology Normal, Sodium Level 140, Potassium Level 4.6, Chloride Level 106, Carbon Dioxide Level 25, Anion Gap 10, Blood Urea Nitrogen 19H, Creatinine 0.7, Estimat Glomerular Filtration Rate > 60, Glucose Level 372H, Calcium Level 8.5, Phosphorus Level 3.3, Magnesium Level 2.1, Total Bilirubin 0.9, Aspartate Amino Transf (AST/SGOT) 65H, Alanine Aminotransferase (ALT/SGPT) 99H, Alkaline Phosphatase 147H, Total Protein 5.9L, Albumin 2.1L, Globulin 3.8, Albumin/Globulin Ratio 0.6L Current Medications Medications (Trade) Dose Ordered Sig/Kayla Route PRN Reason Start Time Stop Time Status Last Admin Dose Admin Acetaminophen (Tylenol) 650 mg Q6H PRN ORAL For Headache 11/14/20 13:15 12/14/20 13:14 11/28/20 04:09 Albuterol Sulfate (Proventil MDI) 2 puff Q4H PRN INH Shortness of Breath 11/15/20 10:30 02/13/21 10:29 11/17/20 06:04 Ceftriaxone Sodium 1 gm/ Dextrose 55 ml @ 110 mls/hr Q24H IVPB 11/15/20 16:30 11/28/20 23:59 11/27/20 16:43 Clonidine HCl (Catapres TTS-2) 1 patch QWEEK TDERMAL 11/24/20 11:00 02/22/21 10:59 11/24/20 11:27 Dextrose 1,000 ml @ 0 mls/hr Q24H PRN IV PN interrupted or unavailable 11/24/20 20:00 12/24/20 19:59 Dextrose (Dextrose 50%) 25 ml Q30M PRN IV Hypoglycemia 11/24/20 11:30 02/22/21 11:29 Dextrose (Dextrose 50%) 50 ml Q30M PRN IV Hypoglycemia 11/24/20 11:30 02/22/21 11:29 Docusate Sodium (Colace) 100 mg TWICE A DAY ORAL 11/17/20 14:15 12/17/20 14:14 11/27/20 17:08 Enoxaparin Sodium (Lovenox) 80 mg EVERY 12 HOURS SUBQ 11/22/20 21:00 02/16/21 09:59 11/27/20 20:28 Famotidine (Pepcid I.v.) 20 mg Q12HR IVP 11/23/20 21:00 12/23/20 20:59 11/28/20 08:27 Fat Emulsion Intravenous 168 ml/Amino Acids/ Electrolytes/ Dextrose 1,680 ml @ 70 mls/hr Q24H IV 11/25/20 20:00 12/25/20 19:59 11/27/20 20:27 Guaifenesin/ Codeine Phosphate (Robitussin with codeine) 5 ml Q6H PRN ORAL For Cough 11/21/20 23:30 12/21/20 23:29 11/21/20 23:32 Hydralazine HCl (Apresoline) 10 mg Q6H PRN IV For High Blood Pressure 11/28/20 02:45 02/26/21 02:44 11/28/20 02:54 Insulin Aspart (NovoLOG) No Dose Q4HR SUBQ 11/25/20 13:00 02/23/21 12:59 11/28/20 08:30 Insulin Detemir (Levemir) 30 units Q12HR SUBQ 11/26/20 21:00 02/24/21 20:59 11/28/20 08:29 Lorazepam (Ativan 2mg/ml 1ml) 0.25 mg Q6H PRN IV For Anxiety 11/25/20 22:00 12/02/20 21:59 11/28/20 01:38 Methylprednisolone Sodium Succinate (Solu-MEDROL) 40 mg DAILY IVP 11/29/20 09:00 02/27/21 08:59 Assessment/Plan Assessment/Plan 1. Elevated inflammatory markers -Will continue Lovenox full dose 2. 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 Pneumonia, likely COVID-19 related - CXR 11/16 Severe bilateral airspace consolidations, consistent with severe multifocal infiltrates, which have significantly increased. No pneumothorax. Cardiomegaly. - Had PTX on CXR 11/22/20 - CXR 11/23/20 right PTX no longer visible, no change in infiltrates - now off Remdesiver - Solu-Medrol tapered - on broad spectrum abx - repeat CXR 11/27 no significant change 5. Hypertension - on clonidine dermal patch 6. Pneumothorax - BiPAP dc - now resolved 7. Hypoxia, due to #4, 5 - back on hi flow and NRB saturating at 89% - ABG reviewed; may have to intubate if remains poor - encourage proning 8. Hypernatremia - Will start D5W for Na 161 -> 155 9. Leukocytosis; trending up - Seen by ID - on ceftriaxone 10. Constipation - colace Now on TPN The care for this patient was discussed with my supervising physician Time spent for this case was approximately 31 minutes Dominic Toro Nov 28, 2020 11:33
[2020-11-28] MEDS: Enoxaparin 80mg Inj SUBQ SCH ×2 (11:38→21:05)
--- NOTE | 2020-11-28 11:42 | General Progress Note ---
Subjective ROS Limited/Unobtainable: No Allergies: Coded Allergies: No Known Allergies (Unverified , 11/10/17) Objective Last 24 Hour Vital Signs Date Time Temp Pulse Resp B/P (MAP) Pulse Ox O2 Delivery O2 Flow Rate FiO2 11/28/20 08:00 97.7 128 25 134/74 (94) 89 11/28/20 08:00 131 11/28/20 08:00 High Flow O2 100.0 Non-Rebreather 15.0 11/28/20 07:39 92 High Flow 55.0 100 11/28/20 04:45 97.9 120 26 114/60 (78) 90 11/28/20 04:00 98.0 135 26 170/70 (103) 95 11/28/20 04:00 55.0 100 11/28/20 04:00 High Flow O2 55.0 Non-Rebreather 15.0 11/28/20 03:42 131 11/28/20 02:54 166/75 11/28/20 02:08 120 26 158/70 96 11/28/20 01:38 115 26 160/70 95 11/28/20 00:00 High Flow O2 55.0 Non-Rebreather 15.0 11/28/20 00:00 110 11/28/20 00:00 98.1 110 25 144/67 (92) 95 11/27/20 23:45 96 High Flow 55.0 100 11/27/20 20:00 97.7 115 24 150/90 (110) 94 11/27/20 20:00 55.0 100 11/27/20 20:00 119 11/27/20 20:00 High Flow O2 55.0 Non-Rebreather 15.0 11/27/20 19:15 95 High Flow 55.0 100 11/27/20 17:36 110 25 150/77 93 11/27/20 17:06 115 25 157/80 94 11/27/20 16:00 115 11/27/20 16:00 High Flow O2 55.0 Non-Rebreather 15.0 11/27/20 16:00 97.3 112 25 157/80 (105) 94 11/27/20 16:00 55.0 100 11/27/20 15:00 94 High Flow 55.0 100 11/27/20 12:00 97.7 110 22 156/75 (102) 93 11/27/20 12:00 High Flow O2 55.0 Non-Rebreather 15.0 11/27/20 12:00 55.0 100 Intake and Output 11/27/20 11/28/20 19:00 07:00 Intake Total 895 ml 770 ml Output Total 500 ml 600 ml Balance 395 ml 170 ml IV Total 895 ml 770 ml Output Urine Total 500 ml 600 ml Laboratory Tests 11/27/20 12:08: POC Whole Blood Glucose 301H 11/27/20 16:55: POC Whole Blood Glucose [Pending] 11/28/20 03:03: Arterial Blood pH 7.453H, Arterial Blood Partial Pressure CO2 31.9L, Arterial Blood Partial Pressure O2 48.4*L, Arterial Blood HCO3 21.8L, Arterial Blood O xygen Saturation 86.0*L, Arterial Blood Base Excess -1.1, Ted Test Positive 11/28/20 04:47: White Blood Count 30.4*H, Red Blood Count 5.12, Hemoglobin 14.7, Hematocrit 45.8, Mean Corpuscular Volume 90, Mean Corpuscular Hemoglobin 28.8, Mean Corpuscular Hemoglobin Concent 32.1, Red Cell Distribution Width 11.6, Platelet Count 142L, Mean Platelet Volume 10.0, Neutrophils (%) (Auto) , Lymphocytes (%) (Auto) , Monocytes (%) (Auto) , Eosinophils (%) (Auto) , Basophils (%) (Auto) , Differential Total Cells Counted 100, Neutrophils % (Manual) 93H, Lymphocytes % (Manual) 2L, Monocytes % (Manual) 5, Eosinophils % (Manual) 0, Basophils % (Manual) 0, Band Neutrophils 0, Platelet Estimate DecreasedL, Platelet Morphology Normal, Red Blood Cell Morphology Normal, Sodium Level 140, Potassium Level 4.6, Chloride Level 106, Carbon Dioxide Level 25, Anion Gap 10, Blood Urea Nitrogen 19H, Creatinine 0.7, Estimat Glomerular Filtration Rate > 60, Glucose Level 372H, Calcium Level 8.5, Phosphorus Level 3.3, Magnesium Level 2.1, Total Bilirubin 0.9, Aspartate Amino Transf (AST/SGOT) 65H, Alanine Aminotransferase (ALT/SGPT) 99H, Alkaline Phosphatase 147H, Total Protein 5.9L, Albumin 2.1L, Globulin 3.8, Albumin/Globulin Ratio 0.6L Height (Feet): 5 Height (Inches): 1.00 Weight (Pounds): 180 General Appearance: no apparent distress EENT: normal ENT inspection Neck: supple Cardiovascular: tachycardia Respiratory/Chest: decreased breath sounds Abdomen: hypoactive bowel sounds Pelvis: no active bleeding Assessment/Plan Assessment/Plan: Covid positive PNA mild transaminitis most likely due to above>>>>improving DM smoker on BIPAP NPO repeat LFTS abd us if needed fu hepatitis panel>>> neg covid care NPO on TPN will fu Jose Armando Andrews MD Nov 28, 2020 11:42
--- NOTE | 2020-11-28 11:54 | NUR ---
CASE MANAGEMENT:REVIEW 11/28/20 SI: PNA. PNEUMOTHORAX. HYPOXIA 97.7 128 25 134/74 89% ON HIGH FLOW 02 55L/100% FIO2 WBC+30.4 PLT-142 GLUCOSE+372 AST/ALT+65/99 IS: TPN/IL @70/HR IV ROCEPHIN Q24 IV SOLUMEDROL 40MG QD LEVEMIR SQ Q12 IV PEPCID Q12 LOVENOX SQ Q12 : STEP DOWN UNIT DCP: FROM HOME
--- NOTE | 2020-11-28 13:40 | Nephrology Progress Note ---
Assessment/Plan Problem List: (1) COVID-19 (2) Abnormal LFTs (3) Pneumonia (4) Hypoxia Assessment Hypernatremia Hypokalemia Elevated blood sugar Hypoxia COVID-19 pneumonia Plan November 28: Labs reviewed. On TPN. Electrolytes and renal parameters stable. Full code. On high flow oxygen on nonrebreather mask. November 27: Labs reviewed. Patient on TPN ordered by Dr. Curry. Medication list reviewed. Main IV discontinued. Continue to follow-up renal parameters and electrolytes. Blood pressure stable. November 26: Labs reviewed. Renal parameters stable. Levemir dose increased for high blood sugar. Continue as is. November 25: Labs reviewed. Electrolytes and renal parameters stable. Blood sugar up. Levemir dose increased. Continue to monitor renal parameters. November 24: Electrolytes improving. Clonidine patch for blood pressure given. On high flow oxygen due to pneumothorax. No BiPAP. Discussed with . Previously: Start D5W Potassium supplement Monitor electrolytes Levemir 10 units, monitor blood sugar Vitamin D level Pulmonary support Per orders Subjective ROS Limited/Unobtainable: Yes Objective Objective Last 24 Hour Vital Signs Date Time Temp Pulse Resp B/P (MAP) Pulse Ox O2 Delivery O2 Flow Rate FiO2 11/28/20 12:00 High Flow O2 100.0 Non-Rebreather 15.0 11/28/20 12:00 96.6 122 21 143/87 (105) 98 11/28/20 11:47 96 High Flow 55.0 100 11/28/20 11:32 117 11/28/20 08:00 97.7 128 25 134/74 (94) 89 11/28/20 08:00 131 11/28/20 08:00 High Flow O2 100.0 Non-Rebreather 15.0 11/28/20 07:39 92 High Flow 55.0 100 11/28/20 04:45 97.9 120 26 114/60 (78) 90 11/28/20 04:00 98.0 135 26 170/70 (103) 95 11/28/20 04:00 55.0 100 11/28/20 04:00 High Flow O2 55.0 Non-Rebreather 15.0 11/28/20 03:42 131 11/28/20 02:54 166/75 11/28/20 02:08 120 26 158/70 96 11/28/20 01:38 115 26 160/70 95 11/28/20 00:00 High Flow O2 55.0 Non-Rebreather 15.0 11/28/20 00:00 110 11/28/20 00:00 98.1 110 25 144/67 (92) 95 11/27/20 23:45 96 High Flow 55.0 100 11/27/20 20:00 97.7 115 24 150/90 (110) 94 11/27/20 20:00 55.0 100 11/27/20 20:00 119 11/27/20 20:00 High Flow O2 55.0 Non-Rebreather 15.0 11/27/20 19:15 95 High Flow 55.0 100 11/27/20 17:36 110 25 150/77 93 11/27/20 17:06 115 25 157/80 94 11/27/20 16:00 115 11/27/20 16:00 High Flow O2 55.0 Non-Rebreather 15.0 11/27/20 16:00 97.3 112 25 157/80 (105) 94 11/27/20 16:00 55.0 100 11/27/20 15:00 94 High Flow 55.0 100 Intake and Output 11/27/20 11/28/20 19:00 07:00 Intake Total 895 ml 770 ml Output Total 500 ml 600 ml Balance 395 ml 170 ml IV Total 895 ml 770 ml Output Urine Total 500 ml 600 ml Current Medications Medications (Trade) Dose Ordered Sig/Kayla Route PRN Reason Start Time Stop Time Status Last Admin Dose Admin Acetaminophen (Tylenol) 650 mg Q6H PRN ORAL For Headache 11/14/20 13:15 12/14/20 13:14 11/28/20 04:09 Albuterol Sulfate (Proventil MDI) 2 puff Q4H PRN INH Shortness of Breath 11/15/20 10:30 02/13/21 10:29 11/17/20 06:04 Bisacodyl (Dulcolax) 10 mg ONCE RECTAL 11/28/20 13:30 11/28/20 15:30 Bisacodyl (Dulcolax) 10 mg Q48H PRN RECTAL Constipation 11/28/20 13:06 02/26/21 13:05 Ceftriaxone Sodium 1 gm/ Dextrose 55 ml @ 110 mls/hr Q24H IVPB 11/15/20 16:30 12/01/20 16:29 11/27/20 16:43 Clonidine HCl (Catapres TTS-2) 1 patch QWEEK TDERMAL 11/24/20 11:00 02/22/21 10:59 11/24/20 11:27 Dextrose 1,000 ml @ 0 mls/hr Q24H PRN IV PN interrupted or unavailable 11/24/20 20:00 12/24/20 19:59 Dextrose (Dextrose 50%) 25 ml Q30M PRN IV Hypoglycemia 11/24/20 11:30 02/22/21 11:29 Dextrose (Dextrose 50%) 50 ml Q30M PRN IV Hypoglycemia 11/24/20 11:30 02/22/21 11:29 Docusate Sodium (Colace) 100 mg TWICE A DAY ORAL 11/17/20 14:15 12/17/20 14:14 11/27/20 17:08 Enoxaparin Sodium (Lovenox) 80 mg EVERY 12 HOURS SUBQ 11/22/20 21:00 02/16/21 09:59 11/28/20 11:38 Famotidine (Pepcid I.v.) 20 mg Q12HR IVP 11/23/20 21:00 12/23/20 20:59 11/28/20 08:27 Fat Emulsion Intravenous 168 ml/Amino Acids/ Electrolytes/ Dextrose 1,680 ml @ 70 mls/hr Q24H IV 11/25/20 20:00 12/25/20 19:59 11/27/20 20:27 Guaifenesin/ Codeine Phosphate (Robitussin with codeine) 5 ml Q6H PRN ORAL For Cough 11/21/20 23:30 12/21/20 23:29 11/21/20 23:32 Hydralazine HCl (Apresoline) 10 mg Q6H PRN IV For High Blood Pressure 11/28/20 02:45 02/26/21 02:44 11/28/20 02:54 Insulin Aspart (NovoLOG) No Dose Q4HR SUBQ 11/25/20 13:00 02/23/21 12:59 11/28/20 08:30 Insulin Detemir (Levemir) 30 units Q12HR SUBQ 11/26/20 21:00 02/24/21 20:59 11/28/20 08:29 Lorazepam (Ativan 2mg/ml 1ml) 0.25 mg Q6H PRN IV For Anxiety 11/25/20 22:00 12/02/20 21:59 11/28/20 01:38 Methylprednisolone Sodium Succinate (Solu-MEDROL) 40 mg DAILY IVP 11/29/20 09:00 02/27/21 08:59 Laboratory Tests 11/27/20 16:55: POC Whole Blood Glucose [Pending] 11/28/20 03:03: Arterial Blood pH 7.453H, Arterial Blood Partial Pressure CO2 31.9L, Arterial Blood Partial Pressure O2 48.4*L, Arterial Blood HCO3 21.8L, Arterial Blood Oxygen Saturation 86.0*L, Arterial Blood Base Excess -1.1, Ted Test Positive 11/28/20 04:47: White Blood Count 30.4*H, Red Blood Count 5.12, Hemoglobin 14.7, Hematocrit 45 .8, Mean Corpuscular Volume 90, Mean Corpuscular Hemoglobin 28.8, Mean Corpuscular Hemoglobin Concent 32.1, Red Cell Distribution Width 11.6, Platelet Count 142L, Mean Platelet Volume 10.0, Neutrophils (%) (Auto) , Lymphocytes (%) (Auto) , Monocytes (%) (Auto) , Eosinophils (%) (Auto) , Basophils (%) (Auto) , Differential Total Cells Counted 100, Neutrophils % (Manual) 93H, Lymphocytes % (Manual) 2L, Monocytes % (Manual) 5, Eosinophils % (Manual) 0, Basophils % (Manual) 0, Band Neutrophils 0, Platelet Estimate DecreasedL, Platelet Morphology Normal, Red Blood Cell Morphology Normal, Sodium Level 140, Potassium Level 4.6, Chloride Level 106, Carbon Dioxide Level 25, Anion Gap 10, Blood Urea Nitrogen 19H, Creatinine 0.7, Estimat Glomerular Filtration Rate > 60, Glucose Level 372H, Calcium Level 8.5, Phosphorus Level 3.3, Magnesium Level 2.1, Total Bilirubin 0.9, Aspartate Amino Transf (AST/SGOT) 65H, Alanine Aminotransferase (ALT/SGPT) 99H, Alkaline Phosphatase 147H, Total Protein 5.9L, Albumin 2.1L, Globulin 3.8, Albumin/Globulin Ratio 0.6L Height (Feet): 5 Height (Inches): 1.00 Weight (Pounds): 180 General Appearance: no apparent distress Cardiovascular: tachycardia Respiratory/Chest: decreased breath sounds Abdomen: distended John Martin MD Nov 28, 2020 13:40
[2020-11-28] MEDS: cefTRIAXone 1 GM in D5W 55 ML IVPB SCH (16:00)
--- NOTE | 2020-11-28 18:42 | NUR ---
NURSE HAND-OFF REPORT: Important Events on Shift:[Pt restless throughout shift, tachypnea and tachycardia noted thoroughout shift. Saturation 88-92 at most. Informed sister-in law about her status. Pron position not successful. Py has not had a BP in 10 days, Dr. Andrews and Dr. Gannon made aware, suppository given. ] Patient Status: [Full code] Diet: [TPN] Pending Orders: [] Pending Results/Labs:[] Pending MD notification:[] Latest Vital Signs: Temperature 96.6 , Pulse 144 , B/P 144 /74 , Respiratory Rate 25 , O2 SAT 89 , Nasal Cannula, O2 Flow Rate 15.0 . Vital Sign Comment: [] EKG Rhythm: Sinus Tachycardia Rhythm change?: N Notified?: Eitan Bansal NP, MD Response: No New Orders Received Latest [place] Fall Score: 85 Fall Risk: High Risk Safety Measures: Call light Within Reach, Bed Alarm Zone 1, Side Rails Side Rails x3, Bed position Low and Locked. Fall Precautions: Yellow Socks Yellow Gown Door Sign Patient Fall Education Report given to [Pending RN assignment]. Addendum: 11/28/20 at 1924 by Joanne Quiñonez RN Report given to Lainey GOMES
--- NOTE | 2020-11-28 19:00 | NUR ---
NURSE NOTES: Report received from ELISEO Rubio. Patient is sleeping in Semi-fowlers position on bed. ekg monitor is in place, shows sinus tachycardia at this time, HR of 110-120. On hi flow NC 15L with FIO2 of 10%, saturating 91%. Patient has PICC line on right upper arm double lumen, running TPN. Patient is covid positive, isolation protocol maintained and observed. Patient has bilateral wrist restraints in place; pules felt, no swelling noted, no erythema or bleeding noted. On bedrest, Bed is in lowest position, bed alarm is on. Safety measures are in place, bed in lowest and locked position, side rails up x 3, Patient educated on how to use call light, call light button in bed reachable, instructed to call for any assistance needed. Will continue to monitor.
[2020-11-28] MEDS: TPN IV SCH (21:04)
[2020-11-28] MEDS: FAT EMULSION 20% IV SCH (21:04)
[2020-11-29] VITALS (37 sets, daily range): BP systolic 40–169; BP diastolic 19–107
[2020-11-29] MEDS: Insulin NovoLOG Flexpen S/S (Mod) SUBQ SCH ×6 (00:42→20:31)
[2020-11-29 04:54] LABS: ALANINE AMINOTRANSFERASE 153 U/L (12-78); ALBUMIN/GLOBULIN RATIO 0.5 (1.0-2.7); ALKALINE PHOSPHATASE 156 U/L (46-116); ANION GAP 9 mmol/L (5-15); ASPARTATE AMINO TRANSFERASE 60 U/L (15-37); BILIRUBIN,TOTAL 0.7 MG/DL (0.2-1.0); BLOOD UREA NITROGEN 23 mg/dL (7-18); CALCIUM 8.7 MG/DL (8.5-10.1); CARBON DIOXIDE 26 MMOL/L (21-32); CHLORIDE 111 MMOL/L (98-107); CHOLESTEROL 161 MG/DL (< 200); CREATININE 0.8 MG/DL (0.55-1.30); HDL CHOLESTEROL 24 MG/DL (40-60); POTASSIUM 3.8 MMOL/L (3.5-5.1); SODIUM 146 MMOL/L (136-145); TRIGLYCERIDES 301 MG/DL (30-150)
[2020-11-29 04:55] LABS: PHOSPHORUS 3.3 MG/DL (2.5-4.9)
[2020-11-29 04:58] LABS: HEMOGLOBIN 14.7 G/DL (12.0-16.0); MEAN CORPUSCULAR VOLUME 90 FL (80-99); PLATELET COUNT 172 K/UL (150-450); RED BLOOD COUNT 5.11 M/UL (4.20-5.40); RED CELL DISTRIBUTION WIDTH 11.9 % (11.6-14.8)
[2020-11-29 05:12] LABS: WHITE BLOOD COUNT 32.6 K/UL (4.8-10.8)
[2020-11-29] MEDS: LORazepam Inj 2mg/ml 1ml IV PRN (06:16)
--- NOTE | 2020-11-29 06:30 | NUR ---
NURSE NOTES: left message for Dr. Blair regarding patient Change in WBC from 30.4 to 32.6. Waiting call back.
--- NOTE | 2020-11-29 07:15 | NUR ---
NURSE HAND-OFF REPORT: Important Events on Shift: Patient tolerants Ativan well brings down anxiety and brings up patient O2 satiation. Dr. Krishnamurthy was called to be notified if the in crease of WBC. Patient Status: Diet: TPN Pending Orders: Pending Results/Labs: Pending MD notification: Latest Vital Signs: Temperature 97.9 , Pulse 115 , B/P 125 /90 , Respiratory Rate 24 , O2 SAT 94 , Nasal Cannula, O2 Flow Rate 15.0 . Vital Sign Comment: EKG Rhythm: Sinus Tachycardia Rhythm change?: N Notified?: Eitan Bansal NP, MD Response: No New Orders Received Latest [place] Fall Score: 85 Fall Risk: High Risk Safety Measures: Call light Within Reach, Bed Alarm Zone 1, Side Rails Side Rails x3, Bed position Low and Locked. Fall Precautions: Yellow Socks Yellow Gown Door Sign Patient Fall Education Report given to Julia GOMES.
--- NOTE | 2020-11-29 07:21 | NUR ---
NURSE NOTES: Received report from ELISEO Retana. Pt is in bed, labored and increased RR breathing. pt is appears anxious, per Lainey GOMES MD is aware of Pt condition. pt is in B soft restraints for pulling of medical devices and safety. At this time, Pt is 93% on high flow o2 100% and 15 LPM NRB. R side double lumen PICC noted running TPN at 70cc. Skin intact. Pt bed low and locked, call light in reach and bed alarm on.
--- NOTE | 2020-11-29 08:26 | Infectious Diseases Prog Note ---
Assessment/Plan Assessment/Plan A; 1. COVID-19 pneumonia. 2. Obesity. 3. Hypertension. 4. Leukocytosis is likely secondary to steroids. 5. Hypoxemia 6. Elevated transaminase 7. DM 8. Small pneumothorax PLAN: 1. Finished Remdesivir course 2. Continue Solumedrol 3. Continue ceftriaxone. Subjective ROS Limited/Unobtainable: Yes Constitutional: Denies: fever Gastrointestinal/Abdominal: Reports: other - on TPN Neurologic: Reports: confusion, other - on restraint Allergies: Coded Allergies: No Known Allergies (Unverified , 11/10/17) Objective Last 24 Hour Vital Signs Date Time Temp Pulse Resp B/P (MAP) Pulse Ox O2 Delivery O2 Flow Rate FiO2 11/29/20 06:46 115 24 125/90 94 11/29/20 06:16 115 26 135/62 91 11/29/20 04:00 High Flow O2 100.0 Non-Rebreather 15.0 11/29/20 04:00 97.9 120 24 132/59 (83) 96 11/29/20 03:43 118 11/29/20 03:14 91 High Flow 55.0 100 11/29/20 00:00 High Flow O2 100.0 Non-Rebreather 15.0 11/29/20 00:00 97.9 88 24 145/79 (101) 92 11/28/20 23:52 128 11/28/20 23:30 91 High Flow 55.0 100 11/28/20 23:24 120 24 145/79 95 11/28/20 23:24 99 26 135/83 89 11/28/20 20:00 127 11/28/20 20:00 High Flow O2 100.0 Non-Rebreather 15.0 11/28/20 20:00 97.9 127 24 133/82 (99) 75 11/28/20 19:20 91 High Flow 55.0 100 11/28/20 16:30 144 25 144/74 89 11/28/20 16:00 High Flow O2 100.0 Non-Rebreather 15.0 11/28/20 16:00 138 11/28/20 16:00 96.6 138 24 140/82 (101) 89 11/28/20 16:00 139 25 140/82 89 11/28/20 15:09 90 High Flow 55.0 100 11/28/20 12:00 High Flow O2 100.0 Non-Rebreather 15.0 11/28/20 12:00 96.6 122 21 143/87 (105) 98 11/28/20 11:47 96 High Flow 55.0 100 11/28/20 11:32 117 Height (Feet): 5 Height (Inches): 1.00 Weight (Pounds): 180 HEENT: mucous membranes moist Respiratory/Chest: other - oxygen by NRB mask Cardiovascular: tachycardia, other - left arm PICC line Abdomen: soft, non tender Extremities: no edema Neurologic/Psychiatric: unresponsiveness Laboratory Tests Test 11/28/20 21:26 11/29/20 00:41 11/29/20 03:25 11/29/20 04:57 POC Whole Blood Glucose 171 MG/DL (74-106) H 327 MG/DL (74-106) H 265 MG/DL (74-106) H White Blood Count 32.6 K/UL (4.8-10.8) *H Red Blood Count 5.11 M/UL (4.20-5.40) Hemoglobin 14.7 G/DL (12.0-16.0) Hematocrit 46.0 % (37.0-47.0) Mean Corpuscular Volume 90 FL (80-99) Mean Corpuscular Hemoglobin 28.7 PG (27.0-31.0) Mean Corpuscular Hemoglobin Concent 31.9 G/DL (32.0-36.0) L Red Cell Distribution Width 11.9 % (11.6-14.8) Platelet Count 172 K/UL (150-450) Mean Platelet Volume 10.6 FL (6.5-10.1) H Neutrophils (%) (Auto) % (45.0-75.0) Lymphocytes (%) (Auto) % (20.0-45.0) Monocytes (%) (Auto) % (1.0-10.0) Eosinophils (%) (Auto) % (0.0-3.0) Basophils (%) (Auto) % (0.0-2.0) Neutrophils % (Manual) Pending Lymphocytes % (Manual) Pending Platelet Estimate Pending Platelet Morphology Pending Sodium Level 146 MMOL/L (136-145) H Potassium Level 3.8 MMOL/L (3.5-5.1) Chloride Level 111 MMOL/L (98-107) H Carbon Dioxide Level 26 MMOL/L (21-32) Anion Gap 9 mmol/L (5-15) Blood Urea Nitrogen 23 mg/dL (7-18) H Creatinine 0.8 MG/DL (0.55-1.30) Estimat Glomerular Filtration Rate > 60 mL/min (>60) Glucose Level 306 MG/DL (74-106) H Uric Acid 2.6 MG/DL (2.6-7.2) Calcium Level 8.7 MG/DL (8.5-10.1) Phosphorus Level 3.3 MG/DL (2.5-4.9) Magnesium Level 2.2 MG/DL (1.8-2.4) Total Bilirubin 0.7 MG/DL (0.2-1.0) Aspartate Amino Transf (AST/SGOT) 60 U/L (15-37) H Alanine Aminotransferase (ALT/SGPT) 153 U/L (12-78) H Alkaline Phosphatase 156 U/L (46-116) H C-Reactive Protein, Quantitative 5.8 mg/dL (0.00-0.90) H Pro-B-Type Natriuretic Peptide 298 pg/mL (0-125) H Total Protein 5.7 G/DL (6.4-8.2) L Albumin 2.0 G/DL (3.4-5.0) L Globulin 3.7 g/dL Albumin/Globulin Ratio 0.5 (1.0-2.7) L Triglycerides Level 301 MG/DL (30-150) H Cholesterol Level 161 MG/DL (< 200) LDL Cholesterol 90 mg/dL (<100) HDL Cholesterol 24 MG/DL (40-60) L Cholesterol/HDL Ratio 6.7 (3.3-4.4) H Current Medications Medications (Trade) Dose Ordered Sig/Kayla Route PRN Reason Start Time Stop Time Status Last Admin Dose Admin Acetaminophen (Tylenol) 650 mg Q6H PRN ORAL For Headache 11/14/20 13:15 12/14/20 13:14 11/28/20 04:09 Albuterol Sulfate (Proventil MDI) 2 puff Q4H PRN INH Shortness of Breath 11/15/20 10:30 02/13/21 10:29 11/17/20 06:04 Bisacodyl (Dulcolax) 10 mg Q48H PRN RECTAL Constipation 11/28/20 13:06 02/26/21 13:05 Ceftriaxone Sodium 1 gm/ Dextrose 55 ml @ 110 mls/hr Q24H IVPB 11/15/20 16:30 12/01/20 16:29 11/28/20 16:00 Clonidine HCl (Catapres TTS-2) 1 patch QWEEK TDERMAL 11/24/20 11:00 02/22/21 10:59 11/24/20 11:27 Dextrose 1,000 ml @ 0 mls/hr Q24H PRN IV PN interrupted or unavailable 11/24/20 20:00 12/24/20 19:59 Dextrose (Dextrose 50%) 25 ml Q30M PRN IV Hypoglycemia 11/24/20 11:30 02/22/21 11:29 Dextrose (Dextrose 50%) 50 ml Q30M PRN IV Hypoglycemia 11/24/20 11:30 02/22/21 11:29 Docusate Sodium (Colace) 100 mg TWICE A DAY ORAL 11/17/20 14:15 12/17/20 14:14 11/27/20 17:08 Enoxaparin Sodium (Lovenox) 80 mg EVERY 12 HOURS SUBQ 11/22/20 21:00 02/16/21 09:59 11/28/20 21:05 Famotidine (Pepcid I.v.) 20 mg Q12HR IVP 11/23/20 21:00 12/23/20 20:59 11/28/20 21:04 Fat Emulsion Intravenous 168 ml/Amino Acids/ Electrolytes/ Dextrose 1,680 ml @ 70 mls/hr Q24H IV 11/25/20 20:00 12/25/20 19:59 11/28/20 21:04 Guaifenesin/ Codeine Phosphate (Robitussin with codeine) 5 ml Q6H PRN ORAL For Cough 11/21/20 23:30 12/21/20 23:29 11/21/20 23:32 Hydralazine HCl (Apresoline) 10 mg Q6H PRN IV For High Blood Pressure 11/28/20 02:45 02/26/21 02:44 11/28/20 02:54 Insulin Aspart (NovoLOG) No Dose Q4HR SUBQ 11/25/20 13:00 02/23/21 12:59 11/29/20 05:34 Insulin Detemir (Levemir) 30 units Q12HR SUBQ 11/26/20 21:00 02/24/21 20:59 11/28/20 21:48 Lorazepam (Ativan 2mg/ml 1ml) 0.25 mg Q6H PRN IV For Anxiety 11/25/20 22:00 12/02/20 21:59 11/29/20 06:16 Methylprednisolone Sodium Succinate (Solu-MEDROL) 40 mg DAILY IVP 11/29/20 09:00 02/27/21 08:59 Herminio Reid MD Nov 29, 2020 08:26
[2020-11-29] MEDS: Levemir Flexpen SUBQ SCH ×2 (09:00→20:30)
[2020-11-29] MEDS: Docusate 100mg cap ORAL SCH ×2 (09:00→17:51)
[2020-11-29] MEDS: Enoxaparin 80mg Inj SUBQ SCH ×2 (09:00→19:43)
--- NOTE | 2020-11-29 09:23 | Pulmonology Progress Note ---
Subjective ROS Limited/Unobtainable: Yes Interval Events: PTX resolved; BiPAP dc Constitutional: Denies: fever HEENT: Repors: no symptoms Respiratory: Reports: no symptoms, shortness of breath, dyspnea at rest Cardiovascular: Reports: no symptoms Gastrointestinal/Abdominal: Reports: other - on TPN Neurologic: Reports: other - Dizziness Psychiatric: Reports: other - on restraint Musculoskeletal: Denies: pain Allergies: Coded Allergies: No Known Allergies (Unverified , 11/10/17) Objective Last 24 Hour Vital Signs Date Time Temp Pulse Resp B/P (MAP) Pulse Ox O2 Delivery O2 Flow Rate FiO2 11/29/20 08:00 98.2 76 26 140/60 (86) 95 11/29/20 08:00 High Flow O2 100.0 Non-Rebreather 15.0 11/29/20 08:00 124 11/29/20 06:46 115 24 125/90 94 11/29/20 06:16 115 26 135/62 91 11/29/20 04:00 High Flow O2 100.0 Non-Rebreather 15.0 11/29/20 04:00 97.9 120 24 132/59 (83) 96 11/29/20 03:43 118 11/29/20 03:14 91 High Flow 55.0 100 11/29/20 00:00 High Flow O2 100.0 Non-Rebreather 15.0 11/29/20 00:00 97.9 88 24 145/79 (101) 92 11/28/20 23:52 128 11/28/20 23:30 91 High Flow 55.0 100 11/28/20 23:24 120 24 145/79 95 11/28/20 23:24 99 26 135/83 89 11/28/20 20:00 127 11/28/20 20:00 High Flow O2 100.0 Non-Rebreather 15.0 11/28/20 20:00 97.9 127 24 133/82 (99) 75 11/28/20 19:20 91 High Flow 55.0 100 11/28/20 16:30 144 25 144/74 89 11/28/20 16:00 High Flow O2 100.0 Non-Rebreather 15.0 11/28/20 16:00 138 11/28/20 16:00 96.6 138 24 140/82 (101) 89 11/28/20 16:00 139 25 140/82 89 11/28/20 15:09 90 High Flow 55.0 100 11/28/20 12:00 High Flow O2 100.0 Non-Rebreather 15.0 11/28/20 12:00 96.6 122 21 143/87 (105) 98 11/28/20 11:47 96 High Flow 55.0 100 11/28/20 11:32 117 Intake and Output 11/28/20 11/29/20 19:00 07:00 Intake Total 840 ml 770 ml Output Total 550 ml 900 ml Balance 290 ml -130 ml IV Total 840 ml 770 ml Output Urine Total 550 ml 900 ml General Appearance: no acute distress HEENT: normocephalic Respiratory: chest wall non-tender Cardiovascular: normal peripheral pulses Abdomen: normal bowel sounds Laboratory Tests 11/28/20 21:26: POC Whole Blood Glucose 171H 11/29/20 00:41: POC Whole Blood Glucose 327H 11/29/20 03:25: White Blood Count 32.6*H, Red Blood Count 5.11, Hemoglobin 14.7, Hematocrit 46.0, Mean Corpuscular Volume 90, Mean Corpuscular Hemoglobin 28.7, Mean Corpuscular Hemoglobin Concent 31.9L, Red Cell Distribution Width 11.9, Platelet Count 172, Mean Platelet Volume 10.6H, Neutrophils (%) (Auto) , Lymphocytes (%) (Auto) , Monocytes (%) (Auto) , Eosinophils (%) (Auto) , Basophils (%) (Auto) , Differential Total Cells Counted 100, Neutrophils % (Manual) 88H, Lymphocytes % (Manual) 4L, Monocytes % (Manual) 8, Eosinophils % (Manual) 0, Basophils % (Manual) 0, Band Neutrophils 0, Platelet Estimate Adequate, Platelet Morphology Normal, Red Blood Cell Morphology Normal, Sodium Level 146H, Potassium Level 3.8, Chloride Level 111H, Carbon Dioxide Level 26, Anion Gap 9, Blood Urea Nitrogen 23H, Creatinine 0.8, Estimat Glomerular Filtration Rate > 60, Glucose Level 306H, Uric Acid 2.6, Calcium Level 8.7, Phosphorus Level 3.3, Magnesium Level 2.2, Total Bilirubin 0.7, Aspartate Amino Transf (AST/SGOT) 60H, Alanine Aminotransferase (ALT/SGPT) 153H, Alkaline Phosphatase 156H, C-Reactive Protein, Quantitative 5.8H, Pro-B-Type Natriuretic Peptide 298H, Total Protein 5.7L, Albumin 2.0L, Globulin 3.7, Albumin/Globulin Ratio 0.5L, Triglycerides Level 301H, Cholesterol Level 161, LDL Cholesterol 90, HDL Cholesterol 24L, Cholesterol/HDL Ratio 6.7H 11/29/20 04:57: POC Whole Blood Glucose 265H Current Medications Medications (Trade) Dose Ordered Sig/Kayla Route PRN Reason Start Time Stop Time Status Last Admin Dose Admin Acetaminophen (Tylenol) 650 mg Q6H PRN ORAL For Headache 11/14/20 13:15 12/14/20 13:14 11/28/20 04:09 Albuterol Sulfate (Proventil MDI) 2 puff Q4H PRN INH Shortness of Breath 11/15/20 10:30 02/13/21 10:29 11/17/20 06:04 Bisacodyl (Dulcolax) 10 mg Q48H PRN RECTAL Constipation 11/28/20 13:06 02/26/21 13:05 Ceftriaxone Sodium 1 gm/ Dextrose 55 ml @ 110 mls/hr Q24H IVPB 11/15/20 16:30 12/01/20 16:29 11/28/20 16:00 Clonidine HCl (Catapres TTS-2) 1 patch QWEEK TDERMAL 11/24/20 11:00 02/22/21 10:59 11/24/20 11:27 Dextrose 1,000 ml @ 0 mls/hr Q24H PRN IV PN interrupted or unavailable 11/24/20 20:00 12/24/20 19:59 Dextrose (Dextrose 50%) 25 ml Q30M PRN IV Hypoglycemia 11/24/20 11:30 02/22/21 11:29 Dextrose (Dextrose 50%) 50 ml Q30M PRN IV Hypoglycemia 11/24/20 11:30 02/22/21 11:29 Docusate Sodium (Colace) 100 mg TWICE A DAY ORAL 11/17/20 14:15 12/17/20 14:14 11/27/20 17:08 Enoxaparin Sodium (Lovenox) 80 mg EVERY 12 HOURS SUBQ 11/22/20 21:00 02/16/21 09:59 11/28/20 21:05 Famotidine (Pepcid I.v.) 20 mg Q12HR IVP 11/23/20 21:00 12/23/20 20:59 11/28/20 21:04 Fat Emulsion Intravenous 168 ml/Amino Acids/ Electrolytes/ Dextrose 1,680 ml @ 70 mls/hr Q24H IV 11/25/20 20:00 12/25/20 19:59 11/28/20 21:04 Guaifenesin/ Codeine Phosphate (Robitussin with codeine) 5 ml Q6H PRN ORAL For Cough 11/21/20 23:30 12/21/20 23:29 11/21/20 23:32 Hydralazine HCl (Apresoline) 10 mg Q6H PRN IV For High Blood Pressure 11/28/20 02:45 02/26/21 02:44 11/28/20 02:54 Insulin Aspart (NovoLOG) No Dose Q4HR SUBQ 11/25/20 13:00 02/23/21 12:59 11/29/20 05:34 Insulin Detemir (Levemir) 30 units Q12HR SUBQ 11/26/20 21:00 02/24/21 20:59 11/28/20 21:48 Lorazepam (Ativan 2mg/ml 1ml) 0.25 mg Q6H PRN IV For Anxiety 11/25/20 22:00 12/02/20 21:59 11/29/20 06:16 Methylprednisolone Sodium Succinate (Solu-MEDROL) 40 mg DAILY IVP 11/29/20 09:00 02/27/21 08:59 Assessment/Plan Assessment/Plan 1. Elevated inflammatory markers -Will continue Lovenox full dose 2. Elevated AST - trend LFTs 3. Hyperglycemia without history of diabetes mellitus - A1c ordered - Accu-checks - Continue insulin sliding scale 4. Pneumonia, likely COVID-19 related CXR Severe bilateral airspace consolidations, consistent with severe multifocal infiltrates, which have significantly increased. No pneumothorax. Cardiomegaly. Seen by ID On Remdesiver, broad spectrum abx and steroids Had PTX on CXR 11/22/20 BiPAP dc Now on NRBM Also on Hi FLow Looks somnolent Will check ABg May require intubation Jose Elias Gannon MD Nov 29, 2020 09:23
[2020-11-29] MEDS: Solu-MEDROL 40mg Inj IVP SCH (09:35)
--- NOTE | 2020-11-29 10:18 | General Progress Note ---
Subjective ROS Limited/Unobtainable: No Allergies: Coded Allergies: No Known Allergies (Unverified , 11/10/17) Objective Last 24 Hour Vital Signs Date Time Temp Pulse Resp B/P (MAP) Pulse Ox O2 Delivery O2 Flow Rate FiO2 11/29/20 08:00 98.2 76 26 140/60 (86) 95 11/29/20 08:00 High Flow O2 100.0 Non-Rebreather 15.0 11/29/20 08:00 124 11/29/20 06:46 115 24 125/90 94 11/29/20 06:16 115 26 135/62 91 11/29/20 04:00 High Flow O2 100.0 Non-Rebreather 15.0 11/29/20 04:00 97.9 120 24 132/59 (83) 96 11/29/20 03:43 118 11/29/20 03:14 91 High Flow 55.0 100 11/29/20 00:00 High Flow O2 100.0 Non-Rebreather 15.0 11/29/20 00:00 97.9 88 24 145/79 (101) 92 11/28/20 23:52 128 11/28/20 23:30 91 High Flow 55.0 100 11/28/20 23:24 120 24 145/79 95 11/28/20 23:24 99 26 135/83 89 11/28/20 20:00 127 11/28/20 20:00 High Flow O2 100.0 Non-Rebreather 15.0 11/28/20 20:00 97.9 127 24 133/82 (99) 75 11/28/20 19:20 91 High Flow 55.0 100 11/28/20 16:30 144 25 144/74 89 11/28/20 16:00 High Flow O2 100.0 Non-Rebreather 15.0 11/28/20 16:00 138 11/28/20 16:00 96.6 138 24 140/82 (101) 89 11/28/20 16:00 139 25 140/82 89 11/28/20 15:09 90 High Flow 55.0 100 11/28/20 12:00 High Flow O2 100.0 Non-Rebreather 15.0 11/28/20 12:00 96.6 122 21 143/87 (105) 98 11/28/20 11:47 96 High Flow 55.0 100 11/28/20 11:32 117 Intake and Output 11/28/20 11/29/20 19:00 07:00 Intake Total 840 ml 770 ml Output Total 550 ml 900 ml Balance 290 ml -130 ml IV Total 840 ml 770 ml Output Urine Total 550 ml 900 ml Laboratory Tests 11/28/20 21:26: POC Whole Blood Glucose 171H 11/29/20 00:41: POC Whole Blood Glucose 327H 11/29/20 03:25: White Blood Count 32.6*H, Red Blood Count 5.11, Hemoglobin 14.7, Hematocrit 46.0, Mean Corpuscular Volume 90, Mean Corpuscular Hemoglobin 28.7, Mean Corpuscular Hemoglobin Concent 31.9L, Red Cell Distribution Width 11.9, Platelet Count 172, Mean Platelet Volume 10.6H, Neutrophils (%) (Auto) , Lymphocytes (%) (Auto) , Monocytes (%) (Auto) , Eosinophils (%) (Auto) , Basophils (%) (Auto) , Differential Total Cells Counted 100, Neutrophils % (Manual) 88H, Lymphocytes % (Manual) 4L, Monocytes % (Manual) 8, Eosinophils % (Manual) 0, Basophils % (Manual) 0, Band Neutrophils 0, Platelet Estimate Adequate, Platelet Morphology Normal, Red Blood Cell Morphology Normal, Sodium Level 146H, Potassium Level 3.8, Chloride Level 111H, Carbon Dioxide Level 26, Anion Gap 9, Blood Urea Nitrogen 23H, Creatinine 0.8, Estimat Glomerular Filtration Rate > 60, Glucose Level 306H, Uric Acid 2.6, Calcium Level 8.7, Phosphorus Level 3.3, Magnesium Level 2.2, Total Bilirubin 0.7, Aspartate Amino Transf (AST/SGOT) 60H, Alanine Aminotransferase (ALT/SGPT) 153H, Alkaline Phosphatase 156H, C-Reactive Protein, Quantitative 5.8H, Pro-B-Type Natriuretic Peptide 298H, Total Protein 5.7L, Albumin 2.0L, Globulin 3.7, Albumin/Globulin Ratio 0.5L, Triglycerides Level 301H, Cholesterol Level 161, LDL Cholesterol 90, HDL Cholesterol 24L, Cholesterol/HDL Ratio 6.7H 11/29/20 04:57: POC Whole Blood Glucose 265H 11/29/20 09:39: POC Whole Blood Glucose 397H 11/29/20 09:56: Arterial Blood pH 7.450, Arterial Blood Partial Pressure CO2 39.1, Arterial Blood Partial Pressure O2 39.3*L, Arterial Blood HCO3 26.6H, Arterial Blood Oxygen Saturation 75.9*L, Arterial Blood Base Excess 2.5H, Ted Test Positive Height (Feet): 5 Height (Inches): 1.00 Weight (Pounds): 180 General Appearance: no apparent distress EENT: normal ENT inspection Neck: supple Cardiovascular: normal rate Respiratory/Chest: decreased breath sounds Abdomen: hypoactive bowel sounds Extremities: non-tender Assessment/Plan Assessment/Plan: Covid positive PNA mild transaminitis most likely due to above>>>>improving DM smoker on BIPAP NPO repeat LFTS abd us if needed fu hepatitis panel>>> neg covid care NPO on TPN will fu Jose Armando Andrews MD Nov 29, 2020 10:18
--- NOTE | 2020-11-29 10:22 | NUR ---
NURSE NOTES: Called Dr Gannon to report ABG stat results. Dr Gannon to call ER doctor to intubate Pt. 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 ICU bed at 1100 per shipping and receiving supervisor Addendum: 11/29/20 at 1101 by Julia Alarcon RN RN Awajoe GARCIA MD
--- NOTE | 2020-11-29 11:02 | NUR ---
NURSE NOTES: Pt daughter and daughter in law, chang update on Pt plan of care. Plan per Dr Gannon is to transfer to ICU and intubate Pt.
--- NOTE | 2020-11-29 11:30 | NUR ---
NURSE NOTES: Pt intubated by ER bedside, Gisela. Stat CXR ordered.
--- NOTE | 2020-11-29 11:45 | NUR ---
NURSE NOTES: Awaiting room in ICU, steven, RT bedside BVM Pt. Spo2 93-97%
--- NOTE | 2020-11-29 12:47 | NUR ---
NURSE NOTES: Patient received from SDU. RN Julia. Dr. Gannon called for sedation orders. Awaiting phone call.
--- NOTE | 2020-11-29 12:51 | NUR ---
RADIOLOGY DEPT., CHEST X-RAY FOR E/TT PLCMT PERFORMED BEFORE TRANSFER IN ICU.HORTENSIA
--- NOTE | 2020-11-29 12:55 | Diagnostic Imaging Report ---
EXAM: XR Chest, 1 View CLINICAL HISTORY: S/P INTUB TECHNIQUE: Frontal view of the chest. COMPARISON: Chest radiograph on 11/27/2020 FINDINGS: Hardware: Endotracheal tube terminates in the region of the proximal right mainstem bronchus. Recommend retraction by approximately 3 cm. Right-sided PICC line terminates in the region of the proximal SVC. Lungs/pleura: Opacities throughout the lungs. New small right apical pneumothorax. Heart/mediastinum: Normal. No cardiomegaly. Soft tissues: Unremarkable. Bones: No acute fracture. Upper abdomen: Normal. IMPRESSION: 1. Endotracheal tube terminates in the region of the proximal right mainstem bronchus. Recommend retraction by approximately 3 cm. Right- sided PICC line terminates in the region of the proximal SVC. 2. Opacities throughout the lungs. 3. New small right apical pneumothorax. <MYCVCSECTION> Communications: 11/29/20 13:27 Call Doctor Regarding Pneumothorax, called Dr. Gannon on 11/29 13:27 (-08:00)
--- NOTE | 2020-11-29 12:59 | NUR ---
TRANSFER TO FLOOR: Patient transferred to ICU, per Dr Gannon. Report given to ELISEO Beckett. Belongings and medications. Family, Shivani transfer. Pt transferred without incident.
--- NOTE | 2020-11-29 13:16 | Emergency Room Report ---
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 COVID-19 Screening: Positive COVID-19 COVID-19 Testing Source: clinic Patient History Last Menstrual Period: n/a Nursing Documentation-[facility] Past Medical History: No History, Except For Hx Cardiac Problems: Yes Hx Hypertension: Yes Physical Exam Vital Signs Date Time Temp Pulse Resp B/P (MAP) Pulse Ox O2 Delivery O2 Flow Rate FiO2 11/25/20 08:00 High Flow O2 55.0 11/25/20 08:00 100 11/25/20 08:06 93 11/25/20 08:38 86 11/25/20 09:00 97.7 25 143/100 (114) Procedures Intubation Intubation : Consent: Emergent Intubation Method: orotracheal Tube Size (cm): 7.5 Medications: Etomidate, Rocuronium Breath Sounds after Intubation: equal Intubation Complications: no complications Post Intubation Xray: Yes Attempts: One Patient Tolerated: Well Complications: None Medical Decision Making Diagnostic Impression: Primary Impression: COVID-19 Additional Impressions: Hypoxia Pneumonia ER Course 68-year-old female in ICU. Covid positive. Hypoxic on high flow nasal cannula. Had been previously on BiPAP and developed a pneumothorax. ABG shows significant hypoxia. On evaluation patient appears lethargic. I wore full PPE. Patient sedated. Intubated. Color capnography change. O2 sats improved. Chest x-ray shows ET tube in right mainstem bronchus. Instructed for respiratory therapist to pull back 3 cm. Admitting physician informed of status Chest X-Ray Diagnostic Results Chest X-Ray Diagnostic Results : Chest X-Ray Ordered: Yes # of Views/Limited/Complete: 1 View Indication: Shortness of Breath EP Interpretation: Yes Interpretation: no pneumothorax, other - nick opacities, ET tube in R mainstem bronchus Impression: Other - intubated, COVID pneumonia Electronically Signed by: Electronically signed by Jean-Paul Stuart MD Last Vital Signs Date Time Temp Pulse Resp B/P (MAP) Pulse Ox O2 Delivery O2 Flow Rate FiO2 1/23/21 12:00 Non-Rebreather 100.0 Ambu-Bag 15.0 11/29/20 12:00 138 11/29/20 12:00 98.4 20 169/83 (111) 94 11/29/20 07:25 100 Status: improved Disposition: ADMITTED INPATIENT Condition: Critical Referrals: NON PHYSICIAN (PCP) Additional Instructions: Please note that this report is being documented using DRAGON technology. This can lead to erroneous entry secondary to incorrect interpretation by the dictating instrument. Jean-Paul Stuart MD Nov 29, 2020 13:16
--- NOTE | 2020-11-29 13:30 | NUR ---
CODE BLUE: See Code sheet which remains on paper.
--- NOTE | 2020-11-29 14:20 | Emergency Room Report ---
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 I feel this is a highly complex case requiring extensive working including EKG/Rhythm strip, Xray/CT/US, Blood/urine lab work, repeat exams while in ED, and administration of strong opiates/narcotics for pain control, admission to hospital or close patient follow up. Total time: 30 min bedside evaluation and treatment excludes procedures (EKG). Reason for critical care: Cardiac arrest, reevaluation of ET tube, pneumothorax Possible complications: hypotension, hypertension, VT, shock, arrhythmias, metabolic acidosis, end organ damage, respiratory failure. Interventions: reevaluation of chest x-ray, RT adjusting ET tube, ACLS, chest compressions, Thora vent, repeat chest x-ray Course: Patient intubated for Covid. Chest x-ray shows ET tube in right mainstem bronchus, small right-sided pneumothorax. Patient coded. Chest compressions. Return of circulation. ET tube adjusted. Thora vent placed on right side chest. Repeat chest x-ray shows improved placement of ET tube and resolution of pneumothorax Consultations: nursing staff, EMS, family Performed by: Dr Stuart Tolerated well condition = critical j. because of unstable vital signs this patient had a condition that could potentially threaten life or limb. I feel this is a critical patient who required my full attention while patient was considered critical. Total Critical Care Time excluding procedures was greater than 35 minutes Chest Tube Chest Tube : Consent: Emergent Chest Tube Location: mid axillary line Chest Tube Procedure: betadine prep, sterile drapes applied, sterile dressing applied Anesthesia: 1% Lidocaine Lozada of Air Ness: Yes Number of Attempts: One Tube Drainage: see nurses notes Tube Sutured to Skin: Yes Post Procedure CXR?: Yes Patient Tolerated: Well Complications: None CPR/Code Blue CPR/Code Blue Narrative See CODE BLUE sheet for full narrative Medical Decision Making Diagnostic Impression: Primary Impression: COVID-19 Additional Impressions: Hypoxia Pneumonia ER Course I had previously intubated this patient for Covid pneumonia. Chest x-ray shows ET tube in right mainstem bronchus. There is also small apical pneumothorax. Patient had then coded. Chest compressions and patient regained pulses. Respiratory therapist pulled back ET tube a few centimeters. I used Thora vent and placed into right chest. Repeat chest x-ray shows improved ET tube placement and resolution of pneumothorax Last Vital Signs Date Time Temp Pulse Resp B/P (MAP) Pulse Ox O2 Delivery O2 Flow Rate FiO2 11/29/20 13:04 130 27 100 11/29/20 12:00 Non-Rebreather 100.0 Ambu-Bag 15.0 11/29/20 12:00 98.4 169/83 (111) 94 Status: improved Disposition: ADMITTED INPATIENT Condition: Critical Referrals: NON PHYSICIAN (PCP) Additional Instructions: Please note that this report is being documented using Kliqed technology. This can lead to erroneous entry secondary to incorrect interpretation by the dictating instrument. Jean-Paul Stuart MD Nov 29, 2020 14:20
--- NOTE | 2020-11-29 14:30 | Diagnostic Imaging Report ---
EXAM: XR Chest, 1 View CLINICAL HISTORY: MALPOSITION TECHNIQUE: Frontal view of the chest. COMPARISON: Chest radiograph on 11/29/2020 at 1213 hrs. FINDINGS: Hardware: Interval retraction of the endotracheal tube which now terminates in the region of the mid thoracic trachea, approximately 3.5 cm above the kunal. Stable right-sided PICC line. Lungs/pleura: Similar diffuse lung opacities. Interval placement of a right-sided chest tube with decreased right pneumothorax . Increased elevation of the right hemidiaphragm. Heart/mediastinum: New lucency along the mediastinum, compatible with pneumomediastinum. Soft tissues: Subcutaneous emphysema along the right chest wall/abdominal wall. Bones: No acute fracture. Upper abdomen: Normal. IMPRESSION: 1. Interval retraction of the endotracheal tube which now terminates in the region of the mid thoracic trachea, approximately 3.5 cm above the kunal. 2. Interval placement of a right-sided chest tube with decreased right pneumothorax . 3. New lucency along the mediastinum, compatible with pneumomediastinum. Subcutaneous emphysema along the right chest wall/abdominal wall. 4. Similar diffuse lung opacities.
--- NOTE | 2020-11-29 14:30 | NUR ---
NURSE NOTES: Thoravent inserted by MICHELE Stuart. Placement confirmed via CXR done immediately after placement.
[2020-11-29] MEDS ORDERED: NS 275ml ONE (15:28)
[2020-11-29] MEDS ORDERED: Tubing IV Secondary IV ONE (15:28)
--- NOTE | 2020-11-29 16:14 | Nephrology Progress Note ---
Assessment/Plan Problem List: (1) COVID-19 (2) Abnormal LFTs (3) Pneumonia (4) Hypoxia Assessment Hypernatremia Hypokalemia Elevated blood sugar Hypoxia COVID-19 pneumonia Plan November 29: Patient in ICU now. On mechanical ventilation. Labs reviewed. Continue TPN and monitor electrolyte and renal parameters. Continue per consultants. November 28: Labs reviewed. On TPN. Electrolytes and renal parameters stable. Full code. On high flow oxygen on nonrebreather mask. November 27: Labs reviewed. Patient on TPN ordered by Dr. Curry. Medication list reviewed. Main IV discontinued. Continue to follow-up renal parameters and electrolytes. Blood pressure stable. November 26: Labs reviewed. Renal parameters stable. Levemir dose increased for high blood sugar. Continue as is. November 25: Labs reviewed. Electrolytes and renal parameters stable. Blood sugar up. Levemir dose increased. Continue to monitor renal parameters. November 24: Electrolytes improving. Clonidine patch for blood pressure given. On high flow oxygen due to pneumothorax. No BiPAP. Discussed with . Previously: Start D5W Potassium supplement Monitor electrolytes Levemir 10 units, monitor blood sugar Vitamin D level Pulmonary support Per orders Subjective ROS Limited/Unobtainable: Yes Objective Objective Last 24 Hour Vital Signs Date Time Temp Pulse Resp B/P (MAP) Pulse Ox O2 Delivery O2 Flow Rate FiO2 11/29/20 13:04 130 27 100 11/29/20 12:00 Non-Rebreather 100.0 Ambu-Bag 15.0 11/29/20 12:00 138 11/29/20 12:00 98.4 143 20 169/83 (111) 94 11/29/20 08:00 98.2 76 26 140/60 (86) 95 11/29/20 08:00 High Flow O2 100.0 Non-Rebreather 15.0 11/29/20 08:00 124 11/29/20 07:25 94 High Flow 55.0 100 11/29/20 06:46 115 24 125/90 94 11/29/20 06:16 115 26 135/62 91 11/29/20 04:00 High Flow O2 100.0 Non-Rebreather 15.0 11/29/20 04:00 97.9 120 24 132/59 (83) 96 11/29/20 03:43 118 11/29/20 03:14 91 High Flow 55.0 100 11/29/20 00:00 High Flow O2 100.0 Non-Rebreather 15.0 11/29/20 00:00 97.9 88 24 145/79 (101) 92 11/28/20 23:52 128 11/28/20 23:30 91 High Flow 55.0 100 11/28/20 23:24 120 24 145/79 95 11/28/20 23:24 99 26 135/83 89 11/28/20 20:00 127 11/28/20 20:00 High Flow O2 100.0 Non-Rebreather 15.0 11/28/20 20:00 97.9 127 24 133/82 (99) 75 11/28/20 19:20 91 High Flow 55.0 100 11/28/20 16:30 144 25 144/74 89 Intake and Output 11/28/20 11/29/20 19:00 07:00 Intake Total 840 ml 770 ml Output Total 550 ml 900 ml Balance 290 ml -130 ml IV Total 840 ml 770 ml Output Urine Total 550 ml 900 ml Current Medications Medications (Trade) Dose Ordered Sig/Kayla Route PRN Reason Start Time Stop Time Status Last Admin Dose Admin Acetaminophen (Tylenol) 650 mg Q6H PRN ORAL For Headache 11/14/20 13:15 12/14/20 13:14 11/28/20 04:09 Albuterol Sulfate (Proventil MDI) 2 puff Q4H PRN INH Shortness of Breath 11/15/20 10:30 02/13/21 10:29 11/17/20 06:04 Bisacodyl (Dulcolax) 10 mg Q48H PRN RECTAL Constipation 11/28/20 13:06 02/26/21 13:05 Ceftriaxone Sodium 1 gm/ Dextrose 55 ml @ 110 mls/hr Q24H IVPB 11/15/20 16:30 12/01/20 16:29 11/28/20 16:00 Clonidine HCl (Catapres TTS-2) 1 patch QWEEK TDERMAL 11/24/20 11:00 02/22/21 10:59 11/24/20 11:27 Dextrose 1,000 ml @ 0 mls/hr Q24H PRN IV PN interrupted or unavailable 11/24/20 20:00 12/24/20 19:59 Dextrose (Dextrose 50%) 25 ml Q30M PRN IV Hypoglycemia 11/24/20 11:30 02/22/21 11:29 Dextrose (Dextrose 50%) 50 ml Q30M PRN IV Hypoglycemia 11/24/20 11:30 02/22/21 11:29 Docusate Sodium (Colace) 100 mg TWICE A DAY ORAL 11/17/20 14:15 12/17/20 14:14 11/27/20 17:08 Enoxaparin Sodium (Lovenox) 80 mg EVERY 12 HOURS SUBQ 11/22/20 21:00 02/16/21 09:59 11/29/20 09:00 Famotidine (Pepcid I.v.) 20 mg Q12HR IVP 11/23/20 21:00 12/23/20 20:59 11/29/20 09:37 Fat Emulsion Intravenous 168 ml/Amino Acids/ Electrolytes/ Dextrose 1,680 ml @ 70 mls/hr Q24H IV 11/25/20 20:00 12/25/20 19:59 11/28/20 21:04 Fentanyl Citrate 250 ml @ 1 mls/hr Q24H PRN IV To Patient Comfort 11/29/20 14:45 12/01/20 14:44 Guaifenesin/ Codeine Phosphate (Robitussin with codeine) 5 ml Q6H PRN ORAL For Cough 11/21/20 23:30 12/21/20 23:29 11/21/20 23:32 Hydralazine HCl (Apresoline) 10 mg Q6H PRN IV For High Blood Pressure 11/28/20 02:45 02/26/21 02:44 11/28/20 02:54 Insulin Aspart (NovoLOG) No Dose Q4HR SUBQ 11/25/20 13:00 02/23/21 12:59 11/29/20 12:33 Insulin Detemir (Levemir) 30 units Q12HR SUBQ 11/26/20 21:00 02/24/21 20:59 11/29/20 09:00 Lorazepam (Ativan 2mg/ml 1ml) 0.25 mg Q6H PRN IV For Anxiety 11/25/20 22:00 12/02/20 21:59 11/29/20 06:16 Methylprednisolone Sodium Succinate (Solu-MEDROL) 40 mg DAILY IVP 11/29/20 09:00 02/27/21 08:59 11/29/20 09:35 Norepinephrine Bitartrate 4 mg/ Sodium Chloride 250 ml @ 7.5 mls/hr Q24H IV 11/29/20 14:45 12/02/20 14:31 Laboratory Tests 11/28/20 21:26: POC Whole Blood Glucose 171H 11/29/20 00:41: POC Whole Blood Glucose 327H 11/29/20 03:25: White Blood Count 32.6*H, Red Blood Count 5.11, Hemoglobin 14.7, Hematocrit 46.0, Mean Corpuscular Volume 90, Mean Corpuscular Hemoglobin 28.7, Mean Corpuscular Hemoglobin Concent 31.9L, Red Cell Distribution Width 11.9, Platelet Count 172, Mean Platelet Volume 10.6H, Neutrophils (%) (Auto) , Lymphocytes (%) (Auto) , Monocytes (%) (Auto) , Eosinophils (%) (Auto) , Basophils (%) (Auto) , Differential Total Cells Counted 100, Neutrophils % (Manual) 88H, Lymphocytes % (Manual) 4L, Monocytes % (Manual) 8, Eosinophils % (Manual) 0, Basophils % (Manual) 0, Band Neutrophils 0, Platelet Estimate Adequate, Platelet Morphology Normal, Red Blood Cell Morphology Normal, Sodium Level 146H, Potassium Level 3.8, Chloride Level 111H, Carbon Dioxide Level 26, Anion Gap 9, Blood Urea Nitrogen 23H, Creatinine 0.8, Estimat Glomerular Filtration Rate > 60, Glucose Level 306H, Uric Acid 2.6, Calcium Level 8.7, Phosphorus Level 3.3, Magnesium Level 2.2, Total Bilirubin 0.7, Aspartate Amino Transf (AST/SGOT) 60H, Alanine Aminotransferase (ALT/SGPT) 153H, Alkaline Phosphatase 156H, C-Reactive Protein, Quantitative 5.8H, Pro-B-Type Natriuretic Peptide 298H, Total Protein 5.7L, Albumin 2.0L, Globulin 3.7, Albumin/Globulin Ratio 0.5L, Triglycerides Level 301H, Cholesterol Level 161, LDL Cholesterol 90, HDL Cholesterol 24L, Cholesterol/HDL Ratio 6.7H 11/29/20 04:57: POC Whole Blood Glucose 265H 11/29/20 09:39: POC Whole Blood Glucose 397H 11/29/20 09:56: Arterial Blood pH 7.450, Arterial Blood Partial Pressure CO2 39.1, Arterial Blood Partial Pressure O2 39.3*L, Arterial Blood HCO3 26.6H, Arterial Blood Oxygen Saturation 75.9*L, Arterial Blood Base Excess 2.5H, Ted Test Positive 11/29/20 12:30: POC Whole Blood Glucose 345H Height (Feet): 5 Height (Inches): 1.00 Weight (Pounds): 180 General Appearance: no apparent distress EENT: other - Intubated on ventilator Cardiovascular: tachycardia Respiratory/Chest: decreased breath sounds Abdomen: distended John Martin MD Nov 29, 2020 16:14
--- NOTE | 2020-11-29 16:57 | NUR ---
CASE MANAGEMENT:REVIEW 11/29/20 SI: PNA. PNEUMOTHORAX. HYPOXIA 98.4 138 20 169/83 94% ON 15L/100% NRB PO2-39.3 HCO3+26.6 WBC+32.6 GLUCOSE+306 IS: TPN/IL @70/HR LEVOPHED GTT IV ROCEPHIN Q24 IV SOLUMEDROL 40MG QD LEVEMIR SQ Q12 IV PEPCID Q12 LOVENOX SQ Q12 : NOW IN ICU DCP: FROM HOME
[2020-11-29] MEDS: fentaNYL 2500mcg/NS 250ml 250 ML IV PRN (17:06)
[2020-11-29] MEDS: cefTRIAXone 1 GM in D5W 55 ML IVPB SCH (17:33)
--- NOTE | 2020-11-29 19:30 | NUR ---
NURSE NOTES: Received patient from Leonie GOMES, patient in bed with eyes open, sinus tach on the monitor HR 125. Sats 88%. Orally intubated AC 16, 500 +5 fio2 100%. AHMET picc line noted running TPN @ 75ml/hr, Levophed also running at 8 mcg/min, fentanyl @ 50 mcg/min. Right Thoravent connected to low intermittent suction at this time. No leakage noted. Left hand IV TKO. Garcia cath draining by gravity. Bed in lowest position, side rails upx3. No signs of distress noted. ETT cuff noted with a leak, RT at the bedside. Will continue to monitor.
--- NOTE | 2020-11-29 19:34 | NUR ---
NURSE NOTES: Informed by RT Brain patient ETT balloon leaking. Paged MD Gannon. Awaiting call back.
[2020-11-29] MEDS: FAT EMULSION 20% IV SCH (19:43)
[2020-11-29] MEDS: TPN IV SCH (19:43)
--- NOTE | 2020-11-29 19:50 | NUR ---
NURSE NOTES: Spoke with patients next of kin at this time. Updated given at this time. Also explained to her the need for restraints at this time. Will call back later to check on her.
--- NOTE | 2020-11-29 20:21 | NUR ---
NURSE HAND-OFF REPORT: Latest Vital Signs: Temperature 98.4 , Pulse 128 , B/P 138 /64 , Respiratory Rate 25 , O2 SAT 89 , Endotracheal Tube, O2 Flow Rate . Vital Sign Comment: STABLE EKG Rhythm: Sinus Tachycardia Rhythm change?: N Notified?: Eitan Bansal NP, MD Response: No New Orders Received Latest Rosen Fall Score: 85 Fall Risk: High Risk Safety Measures: Call light Within Reach, Bed Alarm Zone 1, Side Rails Side Rails x3, Bed position Low and Locked. Fall Precautions: Yellow Socks Yellow Gown Door Sign Patient Fall Education Report given to Aissatou GOMES. Plan of care endorsed.
--- NOTE | 2020-11-29 20:44 | NUR ---
NURSE NOTES: Paged MD Gannon again in regards to patient ETT cuff leaking. Awaiting call back. Charge Nurse Chelsea murray at this time.
[2020-11-29] MEDS ORDERED: Dyna-Hex 2% Top Sol 2oz TOPIC ONE (21:00)
--- NOTE | 2020-11-29 22:00 | NUR ---
NURSE NOTES: CHG bath Provided at this time. patient Turned and repositioned. Thoravent remain on low intermittent suction at this time. Some bleeding noted. Continues on levophed @ 6 mcg/min.
[2020-11-30] VITALS (67 sets, daily range): BP systolic 51–168; BP diastolic 22–86
--- NOTE | 2020-11-30 00:30 | NUR ---
NURSE NOTES: BS 330, coverage given as per sliding scale. Pillows removed to provide pressure relief. Bilateral heels floating. Picc line dressing dry and intact. Will continue to monitor.
[2020-11-30] MEDS: Insulin NovoLOG Flexpen S/S (Mod) SUBQ SCH ×6 (00:42→21:09)
--- NOTE | 2020-11-30 02:30 | NUR ---
NURSE NOTES: Left nare NGT inserted. Confirmed placement with Gilberto RN by auscultation.
--- NOTE | 2020-11-30 04:30 | NUR ---
NURSE NOTES: AM Care provided at this time. Patient at RASS -2 at this time. Thoravent vent draining serosanguineous fluid at this time. No signs of leaking. Continues on LIS at this time.
[2020-11-30] MEDS: fentaNYL 2500mcg/NS 250ml 250 ML IV PRN (05:46)
--- NOTE | 2020-11-30 06:24 | NUR ---
NURSE NOTES: Levophed increased to 8 mcg/min, patient SBP 79, 650mg tylenol given via NGT at this time for temp 100.8 axillary.
--- NOTE | 2020-11-30 07:00 | NUR ---
NURSE NOTES: Patient hypotensive. Levophed emergently maxed out.
--- NOTE | 2020-11-30 07:00 | NUR ---
RESPIRATORY NOTE: PT received on AC/VC 16,500,100%,+5. Alarms are on and audible. Vent circuit is secure and out of the way. Chest tube in place on right side. Absent to diminished BS on RT side. Rhonchi on Left side. At this time PT has increased HR:146 and SpO2:88. Sophy GOMES is aware. Will continue to closely monitor.
--- NOTE | 2020-11-30 07:02 | NUR ---
RESPIRATORY NOTE: Audible leak endorsed by night RT. Night RN was notified as well as MD but no new orders. Cuff possibly busted. Seema Charge nurse (AM) and Sophy GOMES. (AM) aware and will once again notify Dr of leak in ETT. PT maintaining VT WNL but SpO2 remains in high 80's. Will continue to monitor.
--- NOTE | 2020-11-30 07:30 | NUR ---
NURSE HAND-OFF REPORT: Latest Vital Signs: Temperature 100.8 , Pulse 133 , B/P 51 /22 , Respiratory Rate 14 , O2 SAT 96 , Mechanical Ventilator, O2 Flow Rate . Vital Sign Comment: EKG Rhythm: Sinus Tachycardia Rhythm change?: N MD Notified?: MD Response: Latest Rosen Fall Score: 75 Fall Risk: High Risk Safety Measures: Call light Within Reach, Bed Alarm Zone 2, Side Rails Side Rails x3, Bed position Low and Locked. Fall Precautions: Door Sign Patient Fall Education Report given to Leonie GOMES.
--- NOTE | 2020-11-30 07:39 | Pulmonology Progress Note ---
Subjective ROS Limited/Unobtainable: Yes Interval Events: Intubated 11/29/20; R thoravent placed Constitutional: Denies: fever HEENT: Repors: no symptoms Respiratory: Reports: no symptoms, shortness of breath, dyspnea at rest Cardiovascular: Reports: no symptoms Gastrointestinal/Abdominal: Reports: other - on TPN Neurologic: Reports: other - Dizziness Psychiatric: Reports: other - on restraint Musculoskeletal: Denies: pain Allergies: Coded Allergies: No Known Allergies (Unverified , 11/10/17) Objective Last 24 Hour Vital Signs Date Time Temp Pulse Resp B/P (MAP) Pulse Ox O2 Delivery O2 Flow Rate FiO2 11/30/20 07:28 51/22 11/30/20 06:30 14 104/53 Mechanical Ventilator 100 11/30/20 06:00 104/53 11/30/20 06:00 133 14 104/53 (70) 96 11/30/20 05:46 25 109/49 Mechanical Ventilator 100 11/30/20 05:30 12 92/59 Mechanical Ventilator 100 11/30/20 05:00 84/49 11/30/20 05:00 100.8 129 14 100/55 (70) 96 11/30/20 04:30 14 107/56 Mechanical Ventilator 100 11/30/20 04:00 99.8 131 14 107/41 (63) 94 11/30/20 04:00 135 11/30/20 04:00 107/56 11/30/20 04:00 Mechanical Ventilator Mechanical Ventilator Mechanical Ventilator 11/30/20 03:30 132 22 100 11/30/20 03:30 15 128/58 Mechanical Ventilator 100 11/30/20 03:15 17 115/54 Mechanical Ventilator 100 11/30/20 03:00 127 25 108/58 (75) 95 11/30/20 03:00 22 130/52 Mechanical Ventilator 100 11/30/20 03:00 128/58 11/30/20 02:45 22 108/58 Mechanical Ventilator 100 11/30/20 02:30 12 91/40 100 11/30/20 02:15 14 97/47 Mechanical Ventilator 100 11/30/20 02:00 115 10 98/47 (64) 96 11/30/20 02:00 19 92/59 Mechanical Ventilator 100 11/30/20 02:00 98/47 11/30/20 01:15 14 106/42 Mechanical Ventilator 100 11/30/20 01:00 113 14 92/46 (61) 96 11/30/20 01:00 98/47 11/30/20 00:43 110/46 11/30/20 00:15 14 92/46 Mechanical Ventilator 100 11/30/20 00:00 111 11/30/20 00:00 105/43 11/30/20 00:00 Mechanical Ventilator Mechanical Ventilator Mechanical Ventilator 11/30/20 00:00 100 11/30/20 00:00 98.7 117 13 105/43 (63) 96 11/29/20 23:15 23 109/49 Mechanical Ventilator 100 11/29/20 23:08 126 17 100 11/29/20 23:00 117 16 97/47 (64) 95 11/29/20 23:00 111/48 11/29/20 22:15 17 97/47 Mechanical Ventilator 100 11/29/20 22:15 117 32 99/44 (62) 95 11/29/20 22:00 20 104/49 100 11/29/20 22:00 99/44 11/29/20 22:00 118 18 103/57 (72) 96 11/29/20 21:45 24 99/44 Mechanical Ventilator 100 11/29/20 21:45 120 18 108/48 (68) 95 11/29/20 21:30 19 103/57 Mechanical Ventilator 100 11/29/20 21:30 122 18 97/52 (67) 93 11/29/20 21:15 122 18 97/52 (67) 93 11/29/20 21:15 19 108/48 Mechanical Ventilator 100 11/29/20 21:00 25 119/59 Mechanical Ventilator 100 11/29/20 21:00 119/59 11/29/20 21:00 114 19 114/54 (74) 93 11/29/20 20:45 19 114/54 Mechanical Ventilator 100 11/29/20 20:45 115 19 102/58 (73) 92 11/29/20 20:30 118 22 117/71 (86) 93 11/29/20 20:30 21 102/58 Mechanical Ventilator 100 11/29/20 20:15 118 19 95/45 (62) 93 11/29/20 20:15 19 96/45 100 11/29/20 20:00 Mechanical Ventilator Mechanical Ventilator Mechanical Ventilator 11/29/20 20:00 19 95/45 Mechanical Ventilator 100 11/29/20 20:00 135/59 11/29/20 20:00 100 11/29/20 20:00 125 11/29/20 20:00 124 33 135/59 (84) 90 11/29/20 19:45 125 29 126/64 (84) 92 11/29/20 19:45 24 135/59 Mechanical Ventilator 100 11/29/20 19:43 24 135/59 Mechanical Ventilator 100 11/29/20 19:30 131 30 114/66 (82) 93 11/29/20 19:30 30 126/64 Mechanical Ventilator 100 11/29/20 19:27 128 25 100 11/29/20 19:26 Mechanical Ventilator 11/29/20 19:15 27 114/66 Mechanical Ventilator 100 11/29/20 19:15 127 27 139/67 (91) 92 11/29/20 19:00 98.3 124 27 138/64 (88) 94 11/29/20 19:00 27 138/64 Endotracheal Tube 100 11/29/20 19:00 138/64 11/29/20 18:15 28 130/71 Endotracheal Tube 100 11/29/20 18:00 28 139/62 Endotracheal Tube 100 11/29/20 18:00 139/62 11/29/20 17:45 28 124/70 Endotracheal Tube 100 11/29/20 17:30 28 122/73 Endotracheal Tube 100 11/29/20 17:30 124/70 11/29/20 17:06 21 107/61 Endotracheal Tube 100 11/29/20 17:00 115/67 11/29/20 16:00 138 11/29/20 16:00 146/77 11/29/20 16:00 137 30 146/77 (100) 89 11/29/20 16:00 Endotracheal Tube Endotracheal Tube 11/29/20 15:45 138 29 129/53 (78) 89 11/29/20 15:30 111/61 11/29/20 15:30 138 27 111/61 (78) 88 11/29/20 15:20 137 31 100 11/29/20 15:15 138 21 135/69 (91) 88 11/29/20 15:15 135/69 11/29/20 15:00 142/60 11/29/20 15:00 153 21 142/60 (87) 87 11/29/20 14:45 157 20 111/79 (90) 87 11/29/20 14:45 111/79 11/29/20 14:30 157 20 121/68 (85) 88 11/29/20 14:15 154 20 128/70 (89) 90 11/29/20 14:00 155 34 144/50 (81) 89 11/29/20 13:50 158 24 158/52 (87) 90 11/29/20 13:38 162 118/45 (69) 67 11/29/20 13:29 169 20 144/107 (119) 74 11/29/20 13:21 176 16 156/89 (111) 72 11/29/20 13:10 95 30 40/19 (26) 11/29/20 13:08 109 27 62/36 (45) 63 11/29/20 13:04 130 27 100 11/29/20 13:04 130 27 81 Mechanical Ventilator 100 11/29/20 13:00 142 27 80/59 (66) 11/29/20 12:51 152 24 147/66 (93) 11/29/20 12:43 160 109/78 (88) 11/29/20 12:00 Non-Rebreather 100.0 Ambu-Bag 15.0 11/29/20 12:00 138 11/29/20 12:00 98.4 143 20 169/83 (111) 94 11/29/20 08:00 98.2 76 26 140/60 (86) 95 11/29/20 08:00 High Flow O2 100.0 Non-Rebreather 15.0 11/29/20 08:00 124 Intake and Output 11/29/20 11/30/20 19:00 07:00 Intake Total 162.66 ml 1304.50 ml Output Total 420 ml 740 ml Balance -257.34 ml 564.50 ml IV Total 162.66 ml 1304.50 ml Output Urine Total 420 ml 740 ml General Appearance: no acute distress HEENT: normocephalic Respiratory: chest wall non-tender Cardiovascular: normal peripheral pulses Abdomen: normal bowel sounds Laboratory Tests 11/29/20 09:39: POC Whole Blood Glucose 397H 11/29/20 09:56: Arterial Blood pH 7.450, Arterial Blood Partial Pressure CO2 39.1, Arterial Blood Partial Pressure O2 39.3*L, Arterial Blood HCO3 26.6H, Arterial Blood Oxygen Saturation 75.9*L, Arterial Blood Base Excess 2.5H, Ted Test Positive 11/29/20 12:30: POC Whole Blood Glucose 345H 11/29/20 17:42: Arterial Blood pH 7.321L, Arterial Blood Partial Pressure CO2 47.2H, Arterial Blood Partial Pressure O2 58.2L, Arterial Blood HCO3 23.8, Arterial Blood Oxygen Saturation 89.2*L, Arterial Blood Base Excess -2.6L, Ted Test Positive 11/29/20 19:57: POC Whole Blood Glucose 314H 11/30/20 06:37: White Blood Count [Pending], Red Blood Count [Pending], Hemoglobin [Pending], Hematocrit [Pending], Mean Corpuscular Volume [Pending], Mean Corpuscular Hemoglobin [Pending], Mean Corpuscular Hemoglobin Concent [Pending], Red Cell Distribution Width [Pending], Platelet Count [Pending], Mean Platelet Volume [Pending], Neutrophils (%) (Auto) [Pending], Lymphocytes (%) (Auto) [Pending], Monocytes (%) (Auto) [Pending], Eosinophils (%) (Auto) [Pending], Basophils (%) (Auto) [Pending], Sodium Level [Pending], Potassium Level [Pending], Chloride Level [Pending], Carbon Dioxide Level [Pending], Blood Urea Nitrogen [Pending], Creatinine [Pending], Estimat Glomerular Filtration Rate [Pending], Glucose Level [Pending], Calcium Level [Pending], Phosphorus Level [Pending], Magnesium Level [Pending], Total Bilirubin [Pending], Aspartate Amino Transf (AST/SGOT) [Pending], Alanine Aminotransferase (ALT/SGPT) [Pending], Alkaline Phosphatase [Pending], Total Protein [Pending], Albumin [Pending], Globulin [Pending] Current Medications Medications (Trade) Dose Ordered Sig/Kayla Route PRN Reason Start Time Stop Time Status Last Admin Dose Admin Acetaminophen (Tylenol) 650 mg Q6H PRN ORAL For Headache 11/14/20 13:15 12/14/20 13:14 11/30/20 06:03 Albuterol Sulfate (Proventil MDI) 2 puff Q4H PRN INH Shortness of Breath 11/15/20 10:30 02/13/21 10:29 11/17/20 06:04 Bisacodyl (Dulcolax) 10 mg Q48H PRN RECTAL Constipation 11/28/20 13:06 02/26/21 13:05 Ceftriaxone Sodium 1 gm/ Dextrose 55 ml @ 110 mls/hr Q24H IVPB 11/15/20 16:30 12/01/20 16:29 11/29/20 17:33 Chlorhexidine Gluconate (Leora-Hex 2%) 1 applic DAILY@2000 TOPIC 11/30/20 20:00 02/28/21 19:59 Clonidine HCl (Catapres TTS-2) 1 patch QWEEK TDERMAL 11/24/20 11:00 02/22/21 10:59 11/24/20 11:27 Dextrose 1,000 ml @ 0 mls/hr Q24H PRN IV PN interrupted or unavailable 11/24/20 20:00 12/24/20 19:59 Dextrose (Dextrose 50%) 25 ml Q30M PRN IV Hypoglycemia 11/24/20 11:30 02/22/21 11:29 Dextrose (Dextrose 50%) 50 ml Q30M PRN IV Hypoglycemia 11/24/20 11:30 02/22/21 11:29 Docusate Sodium (Colace) 100 mg TWICE A DAY ORAL 11/17/20 14:15 12/17/20 14:14 11/27/20 17:08 Enoxaparin Sodium (Lovenox) 80 mg EVERY 12 HOURS SUBQ 11/22/20 21:00 02/16/21 09:59 11/29/20 19:43 Famotidine (Pepcid I.v.) 20 mg Q12HR IVP 11/23/20 21:00 12/23/20 20:59 11/29/20 19:42 Fat Emulsion Intravenous 168 ml/Amino Acids/ Electrolytes/ Dextrose 1,680 ml @ 70 mls/hr Q24H IV 11/25/20 20:00 12/25/20 19:59 11/29/20 19:43 Fentanyl Citrate 250 ml @ 1 mls/hr Q24H PRN IV To Patient Comfort 11/29/20 14:45 12/01/20 14:44 11/30/20 05:46 Guaifenesin/ Codeine Phosphate (Robitussin with codeine) 5 ml Q6H PRN ORAL For Cough 11/21/20 23:30 12/21/20 23:29 11/21/20 23:32 Hydralazine HCl (Apresoline) 10 mg Q6H PRN IV For High Blood Pressure 11/28/20 02:45 02/26/21 02:44 11/28/20 02:54 Insulin Aspart (NovoLOG) No Dose Q4HR SUBQ 11/25/20 13:00 02/23/21 12:59 11/30/20 05:50 Insulin Detemir (Levemir) 30 units Q12HR SUBQ 11/26/20 21:00 02/24/21 20:59 11/29/20 20:30 Lorazepam (Ativan 2mg/ml 1ml) 0.25 mg Q6H PRN IV For Anxiety 11/25/20 22:00 12/02/20 21:59 11/29/20 06:16 Methylprednisolone Sodium Succinate (Solu-MEDROL) 40 mg DAILY IVP 11/29/20 09:00 02/27/21 08:59 11/29/20 09:35 Norepinephrine Bitartrate 4 mg/ Sodium Chloride 250 ml @ 7.5 mls/hr Q24H IV 11/29/20 14:45 12/02/20 14:31 11/30/20 00:43 Assessment/Plan Assessment/Plan 1. Elevated inflammatory markers -Will continue Lovenox full dose 2. Elevated AST - trend LFTs 3. Hyperglycemia without history of diabetes mellitus - Accu-checks - Continue insulin sliding scale 4. Pneumonia, likely COVID-19 related -On specific therapies 5. Respiratory Failure - Intubated 11/29/20 -On 100% FiO2; PEEP6 6. R PTX -Thoravent in place Jose Elias Gannon MD Nov 30, 2020 07:39
[2020-11-30 07:54] LABS: HEMATOCRIT 44.9 % (37.0-47.0); HEMOGLOBIN 14.2 G/DL (12.0-16.0); MEAN CORPUSCULAR VOLUME 93 FL (80-99); PLATELET COUNT 135 K/UL (150-450); RED BLOOD COUNT 4.85 M/UL (4.20-5.40); RED CELL DISTRIBUTION WIDTH 12.6 % (11.6-14.8)
[2020-11-30] MEDS: Phenylephrine 50 MG in D5W 245 ML IV SCH (07:59)
[2020-11-30 08:14] LABS: WHITE BLOOD COUNT 40.2 K/UL (4.8-10.8)
--- NOTE | 2020-11-30 08:30 | NUR ---
NURSE NOTES: Phenylephrine started. Vital signs now stable.
[2020-11-30 08:45] LABS: ALANINE AMINOTRANSFERASE 367 U/L (12-78); ALBUMIN 1.8 G/DL (3.4-5.0); ALBUMIN/GLOBULIN RATIO 0.5 (1.0-2.7); ALKALINE PHOSPHATASE 171 U/L (46-116); ANION GAP 6 mmol/L (5-15); ASPARTATE AMINO TRANSFERASE 154 U/L (15-37); BILIRUBIN,TOTAL 1.1 MG/DL (0.2-1.0); BLOOD UREA NITROGEN 28 mg/dL (7-18); CALCIUM 8.4 MG/DL (8.5-10.1); CARBON DIOXIDE 31 MMOL/L (21-32); CHLORIDE 116 MMOL/L (98-107); CREATININE 0.9 MG/DL (0.55-1.30); PHOSPHORUS 4.2 MG/DL (2.5-4.9); POTASSIUM 4.1 MMOL/L (3.5-5.1); SODIUM 153 MMOL/L (136-145)
[2020-11-30 08:51] LABS: BILIRUBIN,DIRECT 0.7 MG/DL (0.0-0.3)
[2020-11-30] MEDS: Docusate 100mg cap ORAL SCH ×2 (09:00→17:44)
[2020-11-30] MEDS: Enoxaparin 80mg Inj SUBQ SCH ×2 (09:00→21:00)
--- NOTE | 2020-11-30 09:04 | NUR ---
NURSE NOTES: ABG reported to Dr. Gannon, vent settings and stat cxr. Informed that Dr. Stuart and Dr. Kramer have been contacted.
[2020-11-30] MEDS: Solu-MEDROL 40mg Inj IVP SCH (09:20)
[2020-11-30] MEDS: Levemir Flexpen SUBQ SCH ×2 (09:23→21:07)
--- NOTE | 2020-11-30 09:31 | Diagnostic Imaging Report ---
EXAM: XR Chest, 1 View CLINICAL HISTORY: SOB TECHNIQUE: Frontal view of the chest. COMPARISON: Chest radiograph November 29, 2020. FINDINGS/IMPRESSION: Interval development of a moderate-severe right-sided pneumothorax with mediastinal shift to the left, likely indicating tension pneumothorax. Otherwise, the lung murdock and tubes/lines are stable. Previous studies pneumomediastinum is less apparent on current study. <MYCVCSECTION> Communications: 11/30/20 09:45 Call Doctor Regarding Other, called Dr. Gannon on 11/30 09:45 (-08:00)
--- NOTE | 2020-11-30 10:30 | NUR ---
NURSE NOTES: Emilient replaced by Dr. Karmer. Procedure uneventful. Dr. Kramer spoke with family prior who consented to procedure with two RN verification. Family called after and reported patient status.
--- NOTE | 2020-11-30 10:36 | Operative Note - PDOC ---
Operative Note Operative Note Date of Operation/Procedure: Nov 30, 2020 Pre-op Diagnosis: right recurrent pneumothorax Procedure: Right tube thoracostomy Thora vent Post-op Diagnosis: same as pre-op Surgeon: Kenneth Kramer MD Anesthesia: local Specimen: none Complications: none Condition: unstable Fluids: none Estimated Blood Loss: minimal Drains: other Implant(s) used?: No Indications for Procedure 68-year-old female intensive care unit high PEEP ventilated Covid positive recently developed right pneumothorax status post Thora vent placement which now seems to be mispositioned though prior the pneumothorax had resolved. Recurrent pneumothorax with shift potential tension surgery called to evaluate patient seen patient evaluate chart reviewed spoke with family consent obtained procedure performed emergently at the bedside in the ICU Description of Procedure Patient was made comfortable at the bedside in supine position she is on fentanyl drip. The prior Thora vent was removed from the right chest wall. The right chest wall was prepped draped in same surgical fashion. Skin incision was utilized and a Thora vent was placed using a push technique with the trocar appr opriately and placed with good feedback and flow. Chest tube placed to Pleur- evac suction and sats O2 with waveform began to slowly improve. Chest x-ray obtained and pneumothorax resolved on the right side. Tube placed appropriately to Pleur-evac suction dressings applied patient taught procedure well. Will monitor. Spoke with the family and if necessary will transition to large-bore chest tube as necessary. Thank you letting participate patient's care ForeignRayna alvaya Nov 30, 2020 10:36
--- NOTE | 2020-11-30 10:47 | Diagnostic Imaging Report ---
EXAM: XR Abdomen, 2 Views CLINICAL HISTORY: NGT TECHNIQUE: Frontal view of the abdomen/pelvis with upright view of the abdomen. COMPARISON: No relevant prior studies available. FINDINGS/IMPRESSION: Enteric feeding tube terminates in the stomach. Persistent right basilar pneumothorax. Extensive subcutaneous emphysema within the right chest/abdominal wall.
--- NOTE | 2020-11-30 10:56 | Diagnostic Imaging Report ---
EXAM: XR Chest, 1 View CLINICAL HISTORY: F/U TECHNIQUE: Frontal view of the chest. COMPARISON: Chest radiograph November 30, 2020. FINDINGS/IMPRESSION: Interval reexpansion of the right lung with a trace residual pneumothorax. Indwelling chest tube demonstrated. The remaining lung murdock are stable. Stable cardiomegaly.
--- NOTE | 2020-11-30 11:00 | Nephrology Progress Note ---
Assessment/Plan Problem List: (1) COVID-19 (2) Abnormal LFTs (3) Pneumonia (4) Hypoxia Assessment Hypernatremia Hypokalemia Elevated blood sugar Hypoxia COVID-19 pneumonia Plan November 30: Remains intubated. Labs reviewed. Serum sodium elevated. On TPN. Discussed with pharmacist. LFTs elevated. Down on Intralipid from 20% to 10%. Patient hypotensive. Clonidine patch discontinued November 29: Patient in ICU now. On mechanical ventilation. Labs reviewed. Continue TPN and monitor electrolyte and renal parameters. Continue per consultants. November 28: Labs reviewed. On TPN. Electrolytes and renal parameters stable. Full code. On high flow oxygen on nonrebreather mask. November 27: Labs reviewed. Patient on TPN ordered by Dr. Curry. Medication list reviewed. Main IV discontinued. Continue to follow-up renal parameters and electrolytes. Blood pressure stable. November 26: Labs reviewed. Renal parameters stable. Levemir dose increased for high blood sugar. Continue as is. November 25: Labs reviewed. Electrolytes and renal parameters stable. Blood sugar up. Levemir dose increased. Continue to monitor renal parameters. November 24: Electrolytes improving. Clonidine patch for blood pressure given. On high flow oxygen due to pneumothorax. No BiPAP. Discussed with . Previously: Start D5W Potassium supplement Monitor electrolytes Levemir 10 units, monitor blood sugar Vitamin D level Pulmonary support Per orders Subjective ROS Limited/Unobtainable: Yes Objective Objective Last 24 Hour Vital Signs Date Time Temp Pulse Resp B/P (MAP) Pulse Ox O2 Delivery O2 Flow Rate FiO2 11/30/20 07:59 140 72/56 11/30/20 07:28 51/22 11/30/20 06:30 14 104/53 Mechanical Ventilator 100 11/30/20 06:00 104/53 11/30/20 06:00 133 14 104/53 (70) 96 11/30/20 05:46 25 109/49 Mechanical Ventilator 100 11/30/20 05:30 12 92/59 Mechanical Ventilator 100 11/30/20 05:00 84/49 11/30/20 05:00 100.8 129 14 100/55 (70) 96 11/30/20 04:30 14 107/56 Mechanical Ventilator 100 11/30/20 04:00 99.8 131 14 107/41 (63) 94 11/30/20 04:00 135 11/30/20 04:00 107/56 11/30/20 04:00 Mechanical Ventilator Mechanical Ventilator Mechanical Ventilator 11/30/20 03:30 132 22 100 11/30/20 03:30 15 128/58 Mechanical Ventilator 100 11/30/20 03:15 17 115/54 Mechanical Ventilator 100 11/30/20 03:00 127 25 108/58 (75) 95 11/30/20 03:00 22 130/52 Mechanical Ventilator 100 11/30/20 03:00 128/58 11/30/20 02:45 22 108/58 Mechanical Ventilator 100 11/30/20 02:30 12 91/40 100 11/30/20 02:15 14 97/47 Mechanical Ventilator 100 11/30/20 02:00 115 10 98/47 (64) 96 11/30/20 02:00 19 92/59 Mechanical Ventilator 100 11/30/20 02:00 98/47 11/30/20 01:15 14 106/42 Mechanical Ventilator 100 11/30/20 01:00 113 14 92/46 (61) 96 11/30/20 01:00 98/47 11/30/20 00:43 110/46 11/30/20 00:15 14 92/46 Mechanical Ventilator 100 11/30/20 00:00 111 11/30/20 00:00 105/43 11/30/20 00:00 Mechanical Ventilator Mechanical Ventilator Mechanical Ventilator 11/30/20 00:00 100 11/30/20 00:00 98.7 117 13 105/43 (63) 96 11/29/20 23:15 23 109/49 Mechanical Ventilator 100 11/29/20 23:08 126 17 100 11/29/20 23:00 117 16 97/47 (64) 95 11/29/20 23:00 111/48 11/29/20 22:15 17 97/47 Mechanical Ventilator 100 11/29/20 22:15 117 32 99/44 (62) 95 11/29/20 22:00 20 104/49 100 11/29/20 22:00 99/44 11/29/20 22:00 118 18 103/57 (72) 96 11/29/20 21:45 24 99/44 Mechanical Ventilator 100 11/29/20 21:45 120 18 108/48 (68) 95 11/29/20 21:30 19 103/57 Mechanical Ventilator 100 11/29/20 21:30 122 18 97/52 (67) 93 11/29/20 21:15 122 18 97/52 (67) 93 11/29/20 21:15 19 108/48 Mechanical Ventilator 100 11/29/20 21:00 25 119/59 Mechanical Ventilator 100 11/29/20 21:00 119/59 11/29/20 21:00 114 19 114/54 (74) 93 11/29/20 20:45 19 114/54 Mechanical Ventilator 100 11/29/20 20:45 115 19 102/58 (73) 92 11/29/20 20:30 118 22 117/71 (86) 93 11/29/20 20:30 21 102/58 Mechanical Ventilator 100 11/29/20 20:15 118 19 95/45 (62) 93 11/29/20 20:15 19 96/45 100 11/29/20 20:00 Mechanical Ventilator Mechanical Ventilator Mechanical Ventilator 11/29/20 20:00 19 95/45 Mechanical Ventilator 100 11/29/20 20:00 135/59 11/29/20 20:00 100 11/29/20 20:00 125 11/29/20 20:00 124 33 135/59 (84) 90 11/29/20 19:45 125 29 126/64 (84) 92 11/29/20 19:45 24 135/59 Mechanical Ventilator 100 11/29/20 19:43 24 135/59 Mechanical Ventilator 100 11/29/20 19:30 131 30 114/66 (82) 93 11/29/20 19:30 30 126/64 Mechanical Ventilator 100 11/29/20 19:27 128 25 100 11/29/20 19:26 Mechanical Ventilator 11/29/20 19:15 27 114/66 Mechanical Ventilator 100 11/29/20 19:15 127 27 139/67 (91) 92 11/29/20 19:00 98.3 124 27 138/64 (88) 94 11/29/20 19:00 27 138/64 Endotracheal Tube 100 11/29/20 19:00 138/64 11/29/20 18:15 28 130/71 Endotracheal Tube 100 11/29/20 18:00 28 139/62 Endotracheal Tube 100 11/29/20 18:00 139/62 11/29/20 17:45 28 124/70 Endotracheal Tube 100 11/29/20 17:30 28 122/73 Endotracheal Tube 100 11/29/20 17:30 124/70 11/29/20 17:06 21 107/61 Endotracheal Tube 100 11/29/20 17:00 115/67 11/29/20 16:00 138 11/29/20 16:00 146/77 11/29/20 16:00 137 30 146/77 (100) 89 11/29/20 16:00 Endotracheal Tube Endotracheal Tube 11/29/20 15:45 138 29 129/53 (78) 89 11/29/20 15:30 111/61 11/29/20 15:30 138 27 111/61 (78) 88 11/29/20 15:20 137 31 100 11/29/20 15:15 138 21 135/69 (91) 88 11/29/20 15:15 135/69 11/29/20 15:00 142/60 11/29/20 15:00 153 21 142/60 (87) 87 11/29/20 14:45 157 20 111/79 (90) 87 11/29/20 14:45 111/79 11/29/20 14:30 157 20 121/68 (85) 88 11/29/20 14:15 154 20 128/70 (89) 90 11/29/20 14:00 155 34 144/50 (81) 89 11/29/20 13:50 158 24 158/52 (87) 90 11/29/20 13:38 162 118/45 (69) 67 11/29/20 13:29 169 20 144/107 (119) 74 11/29/20 13:21 176 16 156/89 (111) 72 11/29/20 13:10 95 30 40/19 (26) 11/29/20 13:08 109 27 62/36 (45) 63 11/29/20 13:04 130 27 100 11/29/20 13:04 130 27 81 Mechanical Ventilator 100 11/29/20 13:00 142 27 80/59 (66) 11/29/20 12:51 152 24 147/66 (93) 11/29/20 12:43 160 109/78 (88) 11/29/20 12:00 Non-Rebreather 100.0 Ambu-Bag 15.0 11/29/20 12:00 138 11/29/20 12:00 98.4 143 20 169/83 (111) 94 Intake and Output 11/29/20 11/30/20 19:00 07:00 Intake Total 162.66 ml 1304.50 ml Output Total 420 ml 740 ml Balance -257.34 ml 564.50 ml IV Total 162.66 ml 1304.50 ml Output Urine Total 420 ml 740 ml Current Medications Medications (Trade) Dose Ordered Sig/Kayla Route PRN Reason Start Time Stop Time Status Last Admin Dose Admin Acetaminophen (Tylenol) 650 mg Q6H PRN ORAL For Headache 11/14/20 13:15 12/14/20 13:14 11/30/20 06:03 Albuterol Sulfate (Proventil MDI) 2 puff Q4H PRN INH Shortness of Breath 11/15/20 10:30 02/13/21 10:29 11/17/20 06:04 Bisacodyl (Dulcolax) 10 mg Q48H PRN RECTAL Constipation 11/28/20 13:06 02/26/21 13:05 Ceftriaxone Sodium 1 gm/ Dextrose 55 ml @ 110 mls/hr Q24H IVPB 11/15/20 16:30 12/01/20 16:29 11/29/20 17:33 Chlorhexidine Gluconate (Leora-Hex 2%) 1 applic DAILY@2000 TOPIC 11/30/20 20:00 02/28/21 19:59 Dextrose 1,000 ml @ 0 mls/hr Q24H PRN IV PN interrupted or unavailable 11/24/20 20:00 12/24/20 19:59 Dextrose (Dextrose 50%) 25 ml Q30M PRN IV Hypoglycemia 11/24/20 11:30 02/22/21 11:29 Dextrose (Dextrose 50%) 50 ml Q30M PRN IV Hypoglycemia 11/24/20 11:30 02/22/21 11:29 Docusate Sodium (Colace) 100 mg TWICE A DAY ORAL 11/17/20 14:15 12/17/20 14:14 11/27/20 17:08 Enoxaparin Sodium (Lovenox) 80 mg EVERY 12 HOURS SUBQ 11/22/20 21:00 02/16/21 09:59 11/29/20 19:43 Famotidine (Pepcid I.v.) 20 mg Q12HR IVP 1/17/21 21:00 12/23/20 20:59 11/30/20 09:20 Fat Emulsion Intravenous 168 ml/Amino Acids/ Electrolytes/ Dextrose 1,680 ml @ 70 mls/hr Q24H IV 11/25/20 20:00 12/25/20 19:59 11/29/20 19:43 Fentanyl Citrate 250 ml @ 1 mls/hr Q24H PRN IV To Patient Comfort 11/29/20 14:45 12/01/20 14:44 11/30/20 05:46 Guaifenesin/ Codeine Phosphate (Robitussin with codeine) 5 ml Q6H PRN ORAL For Cough 11/21/20 23:30 12/21/20 23:29 11/21/20 23:32 Hydralazine HCl (Apresoline) 10 mg Q6H PRN IV For High Blood Pressure 11/28/20 02:45 02/26/21 02:44 11/28/20 02:54 Insulin Aspart (NovoLOG) No Dose Q4HR SUBQ 11/25/20 13:00 02/23/21 12:59 11/30/20 09:24 Insulin Detemir (Levemir) 34 units Q12HR SUBQ 11/30/20 21:00 02/28/21 20:59 Lorazepam (Ativan 2mg/ml 1ml) 0.25 mg Q6H PRN IV For Anxiety 11/25/20 22:00 12/02/20 21:59 11/29/20 06:16 Methylprednisolone Sodium Succinate (Solu-MEDROL) 40 mg DAILY IVP 11/29/20 09:00 02/27/21 08:59 11/30/20 09:20 Norepinephrine Bitartrate 16 mg/ Dextrose 516 ml @ 0 mls/hr Q24H IV 11/30/20 12:30 12/03/20 12:29 Norepinephrine Bitartrate 4 mg/ Sodium Chloride 250 ml @ 7.5 mls/hr Q24H IV 11/29/20 14:45 11/30/20 12:30 11/30/20 11:22 Phenylephrine HCl 50 mg/Dextrose 250 ml @ 6 mls/hr Q24H IV 11/30/20 07:45 12/03/20 07:35 11/30/20 07:59 Laboratory Tests 11/29/20 12:30: POC Whole Blood Glucose 345H 11/29/20 17:42: Arterial Blood pH 7.321L, Arterial Blood Partial Pressure CO2 47.2H, Arterial Blood Partial Pressure O2 58.2L, Arterial Blood HCO3 23.8, Arterial Blood Oxygen Saturation 89.2*L, Arterial Blood Base Excess -2.6L, Ted Test Positive 11/29/20 19:57: POC Whole Blood Glucose 314H 11/30/20 06:37: White Blood Count 40.2*H, Red Blood Count 4.85, Hemoglobin 14.2, Hematocrit 44.9, Mean Corpuscular Volume 93, Mean Corpuscular Hemoglobin 29.3, Mean Corpuscular Hemoglobin Concent 31.7L, Red Cell Distribution Width 12.6, Platelet Count 135L, Mean Platelet Volume 10.7H, Neutrophils (%) (Auto) , Lymphocytes (%) (Auto) , Monocytes (%) (Auto) , Eosinophils (%) (Auto) , Basophils (%) (Auto) , Differential Total Cells Counted 100, Neutrophils % (Manual) 89H, Lymphocytes % (Manual) 5L, Monocytes % (Manual) 6, Eosinophils % (Manual) 0, Basophils % (Manual) 0, Band Neutrophils 0, Nucleated Red Blood Cells 1, Platelet Estimate DecreasedL, Platelet Morphology Normal, Red Blood Cell Morphology , Anisocytosis 1+, Sodium Level 153H, Potassium Level 4.1, Chloride Level 116H, Carbon Dioxide Level 31, Anion Gap 6, Blood Urea Nitrogen 28H, Creatinine 0.9, Estimat Glomerular Filtration Rate > 60, Glucose Level 226H, Calcium Level 8.4L, Phosphorus Level 4.2, Magnesium Level 2.2, Total Bilirubin 1.1H, Direct Bilirubin 0.7H, Aspartate Amino Transf (AST/SGOT) 154H, Alanine Aminotransferase (ALT/SGPT) 367H, Alkaline Phosphatase 171H, Total Protein 5.3L, Albumin 1.8L, Globulin 3.5, Albumin/Globulin Ratio 0.5L 11/30/20 08:15: Arterial Blood pH 7.158*L, Arterial Blood Partial Pressure CO2 61.0*H, Arterial Blood Partial Pressure O2 48.2*L, Arterial Blood HCO3 21.2L, Arterial Blood Oxygen Saturation 79.5*L, Arterial Blood Base Excess -8.5L, Ted Test Positive Height (Feet): 5 Height (Inches): 1.00 Weight (Pounds): 180 General Appearance: moderate distress EENT: other - Intubated on ventilator Cardiovascular: tachycardia Respiratory/Chest: decreased breath sounds Abdomen: distended John Martin MD Nov 30, 2020 11:00
--- NOTE | 2020-11-30 11:08 | General Progress Note ---
Subjective ROS Limited/Unobtainable: No Allergies: Coded Allergies: No Known Allergies (Unverified , 11/10/17) Objective Last 24 Hour Vital Signs Date Time Temp Pulse Resp B/P (MAP) Pulse Ox O2 Delivery O2 Flow Rate FiO2 11/30/20 07:59 140 72/56 11/30/20 07:28 51/22 11/30/20 06:30 14 104/53 Mechanical Ventilator 100 11/30/20 06:00 104/53 11/30/20 06:00 133 14 104/53 (70) 96 11/30/20 05:46 25 109/49 Mechanical Ventilator 100 11/30/20 05:30 12 92/59 Mechanical Ventilator 100 11/30/20 05:00 84/49 11/30/20 05:00 100.8 129 14 100/55 (70) 96 11/30/20 04:30 14 107/56 Mechanical Ventilator 100 11/30/20 04:00 99.8 131 14 107/41 (63) 94 11/30/20 04:00 135 11/30/20 04:00 107/56 11/30/20 04:00 Mechanical Ventilator Mechanical Ventilator Mechanical Ventilator 11/30/20 03:30 132 22 100 11/30/20 03:30 15 128/58 Mechanical Ventilator 100 11/30/20 03:15 17 115/54 Mechanical Ventilator 100 11/30/20 03:00 127 25 108/58 (75) 95 11/30/20 03:00 22 130/52 Mechanical Ventilator 100 11/30/20 03:00 128/58 11/30/20 02:45 22 108/58 Mechanical Ventilator 100 11/30/20 02:30 12 91/40 100 11/30/20 02:15 14 97/47 Mechanical Ventilator 100 11/30/20 02:00 115 10 98/47 (64) 96 11/30/20 02:00 19 92/59 Mechanical Ventilator 100 11/30/20 02:00 98/47 11/30/20 01:15 14 106/42 Mechanical Ventilator 100 11/30/20 01:00 113 14 92/46 (61) 96 11/30/20 01:00 98/47 11/30/20 00:43 110/46 11/30/20 00:15 14 92/46 Mechanical Ventilator 100 11/30/20 00:00 111 11/30/20 00:00 105/43 11/30/20 00:00 Mechanical Ventilator Mechanical Ventilator Mechanical Ventilator 11/30/20 00:00 100 11/30/20 00:00 98.7 117 13 105/43 (63) 96 11/29/20 23:15 23 109/49 Mechanical Ventilator 100 11/29/20 23:08 126 17 100 11/29/20 23:00 117 16 97/47 (64) 95 11/29/20 23:00 111/48 11/29/20 22:15 17 97/47 Mechanical Ventilator 100 11/29/20 22:15 117 32 99/44 (62) 95 11/29/20 22:00 20 104/49 100 11/29/20 22:00 99/44 11/29/20 22:00 118 18 103/57 (72) 96 11/29/20 21:45 24 99/44 Mechanical Ventilator 100 11/29/20 21:45 120 18 108/48 (68) 95 11/29/20 21:30 19 103/57 Mechanical Ventilator 100 11/29/20 21:30 122 18 97/52 (67) 93 11/29/20 21:15 122 18 97/52 (67) 93 11/29/20 21:15 19 108/48 Mechanical Ventilator 100 11/29/20 21:00 25 119/59 Mechanical Ventilator 100 11/29/20 21:00 119/59 11/29/20 21:00 114 19 114/54 (74) 93 11/29/20 20:45 19 114/54 Mechanical Ventilator 100 11/29/20 20:45 115 19 102/58 (73) 92 11/29/20 20:30 118 22 117/71 (86) 93 11/29/20 20:30 21 102/58 Mechanical Ventilator 100 11/29/20 20:15 118 19 95/45 (62) 93 11/29/20 20:15 19 96/45 100 11/29/20 20:00 Mechanical Ventilator Mechanical Ventilator Mechanical Ventilator 11/29/20 20:00 19 95/45 Mechanical Ventilator 100 11/29/20 20:00 135/59 11/29/20 20:00 100 11/29/20 20:00 125 11/29/20 20:00 124 33 135/59 (84) 90 11/29/20 19:45 125 29 126/64 (84) 92 11/29/20 19:45 24 135/59 Mechanical Ventilator 100 11/29/20 19:43 24 135/59 Mechanical Ventilator 100 11/29/20 19:30 131 30 114/66 (82) 93 11/29/20 19:30 30 126/64 Mechanical Ventilator 100 11/29/20 19:27 128 25 100 11/29/20 19:26 Mechanical Ventilator 11/29/20 19:15 27 114/66 Mechanical Ventilator 100 11/29/20 19:15 127 27 139/67 (91) 92 11/29/20 19:00 98.3 124 27 138/64 (88) 94 11/29/20 19:00 27 138/64 Endotracheal Tube 100 11/29/20 19:00 138/64 11/29/20 18:15 28 130/71 Endotracheal Tube 100 11/29/20 18:00 28 139/62 Endotracheal Tube 100 11/29/20 18:00 139/62 11/29/20 17:45 28 124/70 Endotracheal Tube 100 11/29/20 17:30 28 122/73 Endotracheal Tube 100 11/29/20 17:30 124/70 11/29/20 17:06 21 107/61 Endotracheal Tube 100 11/29/20 17:00 115/67 11/29/20 16:00 138 11/29/20 16:00 146/77 11/29/20 16:00 137 30 146/77 (100) 89 11/29/20 16:00 Endotracheal Tube Endotracheal Tube 11/29/20 15:45 138 29 129/53 (78) 89 11/29/20 15:30 111/61 11/29/20 15:30 138 27 111/61 (78) 88 11/29/20 15:20 137 31 100 11/29/20 15:15 138 21 135/69 (91) 88 11/29/20 15:15 135/69 11/29/20 15:00 142/60 11/29/20 15:00 153 21 142/60 (87) 87 11/29/20 14:45 157 20 111/79 (90) 87 11/29/20 14:45 111/79 11/29/20 14:30 157 20 121/68 (85) 88 11/29/20 14:15 154 20 128/70 (89) 90 11/29/20 14:00 155 34 144/50 (81) 89 11/29/20 13:50 158 24 158/52 (87) 90 11/29/20 13:38 162 118/45 (69) 67 11/29/20 13:29 169 20 144/107 (119) 74 11/29/20 13:21 176 16 156/89 (111) 72 11/29/20 13:10 95 30 40/19 (26) 11/29/20 13:08 109 27 62/36 (45) 63 11/29/20 13:04 130 27 100 11/29/20 13:04 130 27 81 Mechanical Ventilator 100 11/29/20 13:00 142 27 80/59 (66) 11/29/20 12:51 152 24 147/66 (93) 11/29/20 12:43 160 109/78 (88) 11/29/20 12:00 Non-Rebreather 100.0 Ambu-Bag 15.0 11/29/20 12:00 138 11/29/20 12:00 98.4 143 20 169/83 (111) 94 Intake and Output 11/29/20 11/30/20 19:00 07:00 Intake Total 162.66 ml 1304.50 ml Output Total 420 ml 740 ml Balance -257.34 ml 564.50 ml IV Total 162.66 ml 1304.50 ml Output Urine Total 420 ml 740 ml Laboratory Tests 11/29/20 12:30: POC Whole Blood Glucose 345H 11/29/20 17:42: Arterial Blood pH 7.321L, Arterial Blood Partial Pressure CO2 47.2H, Arterial Blood Partial Pressure O2 58.2L, Arterial Blood HCO3 23.8, Arterial Blood Oxygen Saturation 89.2*L, Arterial Blood Base Excess -2.6L, Ted Test Positive 11/29/20 19:57: POC Whole Blood Glucose 314H 11/30/20 06:37: White Blood Count 40.2*H, Red Blood Count 4.85, Hemoglobin 14.2, Hematocrit 44.9, Mean Corpuscular Volume 93, Mean Corpuscular Hemoglobin 29.3, Mean Corpuscular Hemoglobin Concent 31.7L, Red Cell Distribution Width 12.6, Platelet Count 135L, Mean Platelet Volume 10.7H, Neutrophils (%) (Auto) , Lymphocytes (%) (Auto) , Monocytes (%) (Auto) , Eosinophils (%) (Auto) , Basophils (%) (Auto) , Differential Total Cells Counted 100, Neutrophils % (Manual) 89H, Lymphocytes % (Manual) 5L, Monocytes % (Manual) 6, Eosinophils % (Manual) 0, Basophils % (Manual) 0, Band Neutrophils 0, Nucleated Red Blood Cells 1, Platelet Estimate DecreasedL, Platelet Morphology Normal, Red Blood Cell Morphology , Anisocytosis 1+, Sodium Level 153H, Potassium Level 4.1, Chloride Level 116H, Carbon Dioxide Level 31, Anion Gap 6, Blood Urea Nitrogen 28H, Creatinine 0.9, Estimat Glomerular Filtration Rate > 60, Glucose Level 226H, Calcium Level 8.4L, Phosphorus Level 4.2, Magnesium Level 2.2, Total Bilirubin 1.1H, Direct Bilirubin 0.7H, Aspartate Amino Transf (AST/SGOT) 154H, Alanine Aminotransferase (ALT/SGPT) 367H, Alkaline Phosphatase 171H, Total Protein 5.3L, Albumin 1.8L, Globulin 3.5, Albumin/Globulin Ratio 0.5L 11/30/20 08:15: Arterial Blood pH 7.158*L, Arterial Blood Partial Pressure CO2 61.0*H, Arterial Blood Partial Pressure O2 48.2*L, Arterial Blood HCO3 21.2L, Arterial Blood Oxygen Saturation 79.5*L, Arterial Blood Base Excess -8.5L, Ted Test Positive Height (Feet): 5 Height (Inches): 1.00 Weight (Pounds): 180 General Appearance: no apparent distress EENT: normal ENT inspection Neck: supple Cardiovascular: normal rate Respiratory/Chest: decreased breath sounds Abdomen: normal bowel sounds, non tender, soft Extremities: non-tender Assessment/Plan Assessment/Plan: Covid positive PNA mild transaminitis most likely due to above>>>>improving DM smoker NPO now intubated repeat LFTS abd us if needed fu hepatitis panel>>> neg covid care NPO place NGTF will start NGTF if tolerated and dc TPN will fu Jose Armando Andrews MD Nov 30, 2020 11:08
--- NOTE | 2020-11-30 11:21 | NUR ---
NURSE NOTES: Dr. Andrews contacted to clarify tube feed orders since patient is on TPN. Awaiting call back.
--- NOTE | 2020-11-30 15:51 | NUR ---
NURSE NOTES: Dr. Gannon called and reported ETT leak but retaining volumes and abg results after thoravent. Reported pt status. Awaiting call back.
[2020-11-30] MEDS: cefTRIAXone 1 GM in D5W 55 ML IVPB SCH (17:50)
--- NOTE | 2020-11-30 19:32 | NUR ---
NURSE NOTES: received pt orally intubated -vento2 sat95% lethargic open eyes touch does not follows command on jamel soft restraint non complaint sr rate 70 rt chest tube turo-vent to suction on tube feeding tolerating no residual 30-60cc and on tpn iv at 70 cc/hr reposition and suction
[2020-11-30] MEDS: TPN IV SCH (20:29)
[2020-11-30] MEDS: FAT EMULSION 20% IV SCH (20:29)
[2020-11-30] MEDS: Dyna-Hex 2% Top Sol 2oz TOPIC SCH (20:29)
[2020-12-01] VITALS (41 sets, daily range): BP systolic 98–164; BP diastolic 46–78
--- NOTE | 2020-12-01 | NUR ---
NURSE NOTES: bs 555 insulin coverage given tolerating tube feeding no residual reposition and suction
[2020-12-01] MEDS: Insulin NovoLOG Flexpen S/S (Mod) SUBQ SCH ×6 (01:00→21:00)
--- NOTE | 2020-12-01 04:00 | NUR ---
NURSE NOTES: complete bed bath oral care and back care done
--- NOTE | 2020-12-01 05:00 | NUR ---
NURSE NOTES: bs 557 insulin coverage given
[2020-12-01 06:26] LABS: HEMATOCRIT 40.2 % (37.0-47.0); HEMOGLOBIN 12.2 G/DL (12.0-16.0); MEAN CORPUSCULAR VOLUME 97 FL (80-99); PLATELET COUNT 41 K/UL (150-450); RED BLOOD COUNT 4.13 M/UL (4.20-5.40); RED CELL DISTRIBUTION WIDTH 13.2 % (11.6-14.8)
[2020-12-01 06:47] LABS: WHITE BLOOD COUNT 25.6 K/UL (4.8-10.8)
--- NOTE | 2020-12-01 07:42 | NUR ---
NURSE HAND-OFF REPORT: Latest Vital Signs: Temperature 99.0 , Pulse 125 , B/P 116 /56 , Respiratory Rate 22 , O2 SAT 94 , Mechanical Ventilator, O2 Flow Rate . Vital Sign Comment: EKG Rhythm: Sinus Tachycardia Rhythm change?: N Notified?: Eitan Bansal NP, MD Response: No New Orders Received Latest Rosen Fall Score: 75 Fall Risk: High Risk Safety Measures: Call light Within Reach, Bed Alarm Zone 2, Side Rails Side Rails x3, Bed position Low and Locked. Fall Precautions: Door Sign Patient Fall Education Report given to garima elder using sbar.
[2020-12-01] MEDS: Phenylephrine 50 MG in D5W 245 ML IV SCH (07:45)
--- NOTE | 2020-12-01 07:57 | NUR ---
RADIOLOGY DEPT., CHEST X-RAY DONE.-P.DYE
--- NOTE | 2020-12-01 08:00 | NUR ---
NURSE NOTES: Pt was assessed after receiving change of shift report from Marisela GOMES. Eyes are closed, does not respond to voice, however withdraws to pain. Bilateral pupils 3mm and reactive to light, with active gag reflex. Orally intubated, ETT 7.5 at 21cm lipline with vent settings AC 16, VT500, Peep 5, FIo2 100% with O2Sat fluctuating from 88 to 98%. Right upper thoravent connected to low intermittent suction. ST on cardiac cath technician, HR 122. Currently on Levophed drip at 10mcg/min to maintain SBP above 90. Temp 99.8F axillary. Left nare NGT with feeding Glucerna 1.2 infusing at 50ml/hour with 10ml/residual. TPN is infusing at 70ml/hour. Right upper arm double lumen PICC line connected to Levophed and TPN, patent/intact. Garcia catheter is present, draining dark qian urine. Skin is intact. HOB at 30 degrees, bed locked, in lowest position, three side rails up. Will continue to monitor pt and follow plan of care.
--- NOTE | 2020-12-01 08:36 | NUR ---
RD ASSESSMENT & RECOMMENDATIONS SEE CARE ACTIVITY FOR COMPLETE ASSESSMENT DAILY ESTIMATED NEEDS: Needs based on Critical care, obesity 54.5kg adjusted body wt 22-28 kcals/kg 1509-2473 total kcals 1.2-2 g protein/kg 65-109 g total protein 25-35 mL/kg 9834-1280 total fluid mLs NUTRITION DIAGNOSIS: Predicted inadequate energy intake r/t Covid 19 PNA as evidenced by pt in resp distress, now on high flow o2, NPO unable to tolerate oral po, now on TPN- now intubated w/ NGT feeds. (CURRENT TF: Glucerna 1.2 goal of 60ml/hr) ENTERAL NUTRITION RECOMMENDATIONS: Glucerna 1.2 @ 50ml/hr x 24 hrs to provide 1200ml, 1440kcal, 72g pro, 966ml free water - As medically appropriate or should pt require oral intubation rec to obtain GI access, initiate non oral feeds of Glucerna 1.2 @ 20ml/hr. - Advance as tolerated 10ml/hr q4-6 hrs to goal. - Flush per HOB over 30 degrees FEED W/ HEMODYNAMIC STABILITY/ TROPHIC FEEDS OTHERWISE PARENTERAL NUTRITION RECOMMENDATIONS: D/AA Rate: 50 IL Rate: 7 Total Rate: 57 Volume: 1368 % Dextrose: 15 % AA: 5.5 Energy (kcals/kg): 1212 Protein (g/kg protein): 66 Nonprotein KCALS: 948 GIR (mg CHO/kg/min): 1.7 % Fat KCALS: 27.7 NPC: N Ratio: 90:1 TPN Comment: * FOR SOLE SOURCE NUTRITION-> D15% AA 5.5% @ 50ml/hr + IL20% @ 7ml/hr-> total of 57ml/hr, all 3:1 * TPN @ goal provides 22kcal/1.2g prot per kg adjusted body wt * Monitor lytes, replete as needed * Monitor triglyceride trend w/ TPN * Monitor LFTs w/ TPN ADDITIONAL RECOMMENDATIONS: 1) NPO, on high flow o2-> now TPN ordered TF recs above now that pt is intubated/ rec to wean off TPN 2) Calibrated bedscale wt 3) Monitor BGs closely w/ TPN + Solumedrol, need to adjust insulin Now on TF's as well-> rec to wean off TPN 4) Triglycerides and LFT's trending up-> rec to DC TPN w/ current TF's 5) Feed with hemodynamic stability
--- NOTE | 2020-12-01 08:59 | Nephrology Progress Note ---
Assessment/Plan Problem List: (1) COVID-19 (2) Abnormal LFTs (3) Pneumonia (4) Hypoxia Assessment Hypernatremia Hypokalemia Elevated blood sugar Hypoxia COVID-19 pneumonia Plan December 01: Patient intubated, ventilator, full code. Patient on TPN. Today's labs still pending. Continue per current treatment plan. November 30: Remains intubated. Labs reviewed. Serum sodium elevated. On TPN. Discussed with pharmacist. LFTs elevated. Down on Intralipid from 20% to 10%. Patient hypotensive. Clonidine patch discontinued November 29: Patient in ICU now. On mechanical ventilation. Labs reviewed. Continue TPN and monitor electrolyte and renal parameters. Continue per consultants. November 28: Labs reviewed. On TPN. Electrolytes and renal parameters stable. Full code. On high flow oxygen on nonrebreather mask. November 27: Labs reviewed. Patient on TPN ordered by Dr. Curry. Medication list reviewed. Main IV discontinued. Continue to follow-up renal parameters and electrolytes. Blood pressure stable. November 26: Labs reviewed. Renal parameters stable. Levemir dose increased for high blood sugar. Continue as is. November 25: Labs reviewed. Electrolytes and renal parameters stable. Blood sugar up. Levemir dose increased. Continue to monitor renal parameters. November 24: Electrolytes improving. Clonidine patch for blood pressure given. On high flow oxygen due to pneumothorax. No BiPAP. Discussed with . Previously: Start D5W Potassium supplement Monitor electrolytes Levemir 10 units, monitor blood sugar Vitamin D level Pulmonary support Per orders Subjective ROS Limited/Unobtainable: Yes Objective Objective Last 24 Hour Vital Signs Date Time Temp Pulse Resp B/P (MAP) Pulse Ox O2 Delivery O2 Flow Rate FiO2 12/01/20 07:02 127 24 100 12/01/20 06:00 116/56 12/01/20 06:00 125 22 118/50 (72) 94 12/01/20 05:30 123 23 112/53 (72) 96 12/01/20 05:00 122 23 120/60 (80) 95 12/01/20 05:00 102/43 12/01/20 04:30 129 26 127/59 (81) 85 12/01/20 04:00 99.0 129 25 136/52 (80) 90 12/01/20 04:00 Mechanical Ventilator Mechanical Ventilator Mechanical Ventilator 12/01/20 04:00 111/53 12/01/20 04:00 100 12/01/20 04:00 129 12/01/20 03:30 128 23 136/57 (83) 92 12/01/20 03:00 127/61 12/01/20 03:00 127 24 142/58 (86) 92 12/01/20 02:30 127 24 143/51 (81) 94 12/01/20 02:00 124 24 100 12/01/20 02:00 119/53 12/01/20 02:00 124 21 119/53 (75) 95 12/01/20 01:30 126 27 125/53 (77) 90 12/01/20 01:00 151/55 12/01/20 01:00 123 29 151/55 (87) 90 12/01/20 00:30 123 27 140/58 (85) 92 12/01/20 00:00 100 12/01/20 00:00 140/61 12/01/20 00:00 98.0 123 22 140/61 (87) 93 12/01/20 00:00 Mechanical Ventilator Mechanical Ventilator Mechanical Ventilator 12/01/20 00:00 128 11/30/20 23:30 121 24 130/62 (84) 93 11/30/20 23:26 122 23 92 Mechanical Ventilator 100 11/30/20 23:26 119/60 11/30/20 23:23 122 23 100 11/30/20 23:15 119 26 119/60 (79) 93 11/30/20 23:05 119 34 126/57 (80) 93 11/30/20 23:00 119 33 84/50 (61) 92 11/30/20 23:00 123/57 11/30/20 22:30 122 26 127/62 (83) 92 11/30/20 22:15 123 22 129/52 (77) 93 11/30/20 22:00 122 22 140/71 (94) 92 11/30/20 22:00 126/52 11/30/20 21:45 123 31 115/58 (77) 92 11/30/20 21:30 125 22 141/44 (76) 92 11/30/20 21:15 126 22 168/60 (96) 92 11/30/20 21:00 125 25 159/74 (102) 93 11/30/20 21:00 168/60 11/30/20 20:45 126 22 168/70 (102) 93 11/30/20 20:30 124 20 154/77 (102) 94 11/30/20 20:15 123 18 151/66 (94) 95 11/30/20 20:00 Mechanical Ventilator Mechanical Ventilator Mechanical Ventilator 11/30/20 20:00 100 11/30/20 20:00 97.5 122 17 153/55 (87) 95 11/30/20 20:00 151/66 11/30/20 20:00 120 11/30/20 19:46 126 18 100 11/30/20 19:45 129 23 151/52 (85) 92 11/30/20 19:30 127 20 135/67 (89) 88 11/30/20 19:15 126 20 153/60 (91) 91 11/30/20 19:00 153/60 11/30/20 19:00 125 19 143/63 (89) 92 11/30/20 19:00 125 19 143/63 (89) 92 11/30/20 18:30 124 18 133/62 (85) 92 11/30/20 18:00 126 18 134/60 (84) 90 11/30/20 17:30 127 18 131/60 (83) 89 11/30/20 17:00 128 27 124/65 (84) 90 11/30/20 16:30 128 17 121/60 (80) 91 11/30/20 16:00 98.5 130 25 126/57 (80) 90 11/30/20 16:00 127 11/30/20 16:00 100 11/30/20 16:00 Mechanical Ventilator Mechanical Ventilator Mechanical Ventilator 11/30/20 15:30 133 28 132/60 (84) 90 11/30/20 15:00 135 19 123/64 (83) 89 11/30/20 14:30 137 20 125/56 (79) 89 11/30/20 14:00 100.1 11/30/20 14:00 100.1 140 20 118/65 (82) 87 11/30/20 13:30 143 28 131/61 (84) 89 11/30/20 13:20 87/62 11/30/20 13:00 101.4 142 20 123/65 (84) 88 11/30/20 12:45 142 23 110/62 (78) 88 11/30/20 12:30 100.0 141 20 126/62 (83) 88 11/30/20 12:15 142 21 117/50 (72) 88 11/30/20 12:00 Mechanical Ventilator Mechanical Ventilator Mechanical Ventilator 11/30/20 12:00 100 11/30/20 12:00 99.9 141 24 129/64 (85) 88 11/30/20 12:00 140 19 100 11/30/20 12:00 142 11/30/20 11:45 141 19 140/56 (84) 89 11/30/20 11:30 142 26 127/57 (80) 89 11/30/20 11:22 85/52 11/30/20 11:15 141 28 130/70 (90) 87 11/30/20 11:00 143 32 82/52 (62) 85 11/30/20 10:45 147 31 127/68 (87) 88 11/30/20 10:30 148 33 121/55 (77) 89 11/30/20 10:15 151 28 140/71 (94) 86 11/30/20 10:00 151 19 126/54 (78) 85 11/30/20 09:45 150 23 114/67 (83) 83 11/30/20 09:30 150 26 141/86 (104) 84 11/30/20 09:15 147 16 121/63 (82) 85 11/30/20 09:00 147 18 131/59 (83) 85 Intake and Output 11/30/20 12/01/20 19:00 07:00 Intake Total 48.375 ml 1462.885 ml Output Total 540 ml 590 ml Balance -491.625 ml 872.885 ml Free Water 50 ml IV Total 48.375 ml 932.885 ml Tube Feeding 480 ml Output Urine Total 540 ml 490 ml Chest Tube Drainage Total 100 ml Laboratory Tests 11/30/20 12:42: POC Whole Blood Glucose [Pending] 11/30/20 13:27: Arterial Blood pH 7.175*L, Arterial Blood Partial Pressure CO2 75.8*H, Arterial Blood Partial Pressure O2 52.2L, Arterial Blood HCO3 27.3H, Arterial Blood Oxygen Saturation 84.4*L, Arterial Blood Base Excess -3.0L, Ted Test Positive 12/01/20 05:54: White Blood Count 25.6*H, Red Blood Count 4.13L, Hemoglobin 12.2, Hematocrit 40.2, Mean Corpuscular Volume 97, Mean Corpuscular Hemoglobin 29.7, Mean Corpuscular Hemoglobin Concent 30.5L, Red Cell Distribution Width 13.2, Platelet Count 41#L, Mean Platelet Volume 11.4H, Neutrophils (%) (Auto) , Lymphocytes (%) (Auto) , Monocytes (%) (Auto) , Eosinophils (%) (Auto) , Basophils (%) (Auto) , Differential Total Cells Counted 100, Neutrophils % (Manual) 95H, Lymphocytes % (Manual) 3L, Monocytes % (Manual) 1, Eosinophils % (Manual) 1, Basophils % (Manual) 0, Band Neutrophils 0, Platelet Estimate DecreasedL, Platelet Morphology Normal, Red Blood Cell Morphology Normal 12/01/20 08:01: Arterial Blood pH 7.158*L, Arterial Blood Partial Pressure CO2 71.3*H, Arterial Blood Partial Pressure O2 60.3L, Arterial Blood HCO3 24.7, Arterial Blood Oxygen Saturation 89.7*L, Arterial Blood Base Excess -5.2L, Ted Test Positive Height (Feet): 5 Height (Inches): 1.00 Weight (Pounds): 180 General Appearance: mild distress EENT: other Cardiovascular: tachycardia Respiratory/Chest: decreased breath sounds Abdomen: distended John Martin MD Dec 01, 2020 08:59
[2020-12-01] MEDS: Enoxaparin 80mg Inj SUBQ SCH (09:00)
[2020-12-01] MEDS: Docusate 100mg cap ORAL SCH (09:06)
[2020-12-01] MEDS: Solu-MEDROL 40mg Inj IVP SCH (09:06)
[2020-12-01] MEDS: Levemir Flexpen SUBQ SCH ×2 (09:07→21:00)
--- NOTE | 2020-12-01 09:31 | General Progress Note ---
Subjective ROS Limited/Unobtainable: No Allergies: Coded Allergies: No Known Allergies (Unverified , 11/10/17) Objective Last 24 Hour Vital Signs Date Time Temp Pulse Resp B/P (MAP) Pulse Ox O2 Delivery O2 Flow Rate FiO2 12/01/20 07:02 127 24 100 12/01/20 06:00 116/56 12/01/20 06:00 125 22 118/50 (72) 94 12/01/20 05:30 123 23 112/53 (72) 96 12/01/20 05:00 122 23 120/60 (80) 95 12/01/20 05:00 102/43 12/01/20 04:30 129 26 127/59 (81) 85 12/01/20 04:00 99.0 129 25 136/52 (80) 90 12/01/20 04:00 Mechanical Ventilator Mechanical Ventilator Mechanical Ventilator 12/01/20 04:00 111/53 12/01/20 04:00 100 12/01/20 04:00 129 12/01/20 03:30 128 23 136/57 (83) 92 12/01/20 03:00 127/61 12/01/20 03:00 127 24 142/58 (86) 92 12/01/20 02:30 127 24 143/51 (81) 94 12/01/20 02:00 124 24 100 12/01/20 02:00 119/53 12/01/20 02:00 124 21 119/53 (75) 95 12/01/20 01:30 126 27 125/53 (77) 90 12/01/20 01:00 151/55 12/01/20 01:00 123 29 151/55 (87) 90 12/01/20 00:30 123 27 140/58 (85) 92 12/01/20 00:00 100 12/01/20 00:00 140/61 12/01/20 00:00 98.0 123 22 140/61 (87) 93 12/01/20 00:00 Mechanical Ventilator Mechanical Ventilator Mechanical Ventilator 12/01/20 00:00 128 11/30/20 23:30 121 24 130/62 (84) 93 11/30/20 23:26 122 23 92 Mechanical Ventilator 100 11/30/20 23:26 119/60 11/30/20 23:23 122 23 100 11/30/20 23:15 119 26 119/60 (79) 93 11/30/20 23:05 119 34 126/57 (80) 93 11/30/20 23:00 119 33 84/50 (61) 92 11/30/20 23:00 123/57 11/30/20 22:30 122 26 127/62 (83) 92 11/30/20 22:15 123 22 129/52 (77) 93 11/30/20 22:00 122 22 140/71 (94) 92 11/30/20 22:00 126/52 11/30/20 21:45 123 31 115/58 (77) 92 11/30/20 21:30 125 22 141/44 (76) 92 11/30/20 21:15 126 22 168/60 (96) 92 11/30/20 21:00 125 25 159/74 (102) 93 11/30/20 21:00 168/60 11/30/20 20:45 126 22 168/70 (102) 93 11/30/20 20:30 124 20 154/77 (102) 94 11/30/20 20:15 123 18 151/66 (94) 95 11/30/20 20:00 Mechanical Ventilator Mechanical Ventilator Mechanical Ventilator 11/30/20 20:00 100 11/30/20 20:00 97.5 122 17 153/55 (87) 95 11/30/20 20:00 151/66 11/30/20 20:00 120 11/30/20 19:46 126 18 100 11/30/20 19:45 129 23 151/52 (85) 92 11/30/20 19:30 127 20 135/67 (89) 88 11/30/20 19:15 126 20 153/60 (91) 91 11/30/20 19:00 153/60 11/30/20 19:00 125 19 143/63 (89) 92 11/30/20 19:00 125 19 143/63 (89) 92 11/30/20 18:30 124 18 133/62 (85) 92 11/30/20 18:00 126 18 134/60 (84) 90 11/30/20 17:30 127 18 131/60 (83) 89 11/30/20 17:00 128 27 124/65 (84) 90 11/30/20 16:30 128 17 121/60 (80) 91 11/30/20 16:00 98.5 130 25 126/57 (80) 90 11/30/20 16:00 127 11/30/20 16:00 100 11/30/20 16:00 Mechanical Ventilator Mechanical Ventilator Mechanical Ventilator 11/30/20 15:30 133 28 132/60 (84) 90 11/30/20 15:00 135 19 123/64 (83) 89 11/30/20 14:30 137 20 125/56 (79) 89 11/30/20 14:00 100.1 11/30/20 14:00 100.1 140 20 118/65 (82) 87 11/30/20 13:30 143 28 131/61 (84) 89 11/30/20 13:20 87/62 11/30/20 13:00 101.4 142 20 123/65 (84) 88 11/30/20 12:45 142 23 110/62 (78) 88 11/30/20 12:30 100.0 141 20 126/62 (83) 88 11/30/20 12:15 142 21 117/50 (72) 88 11/30/20 12:00 Mechanical Ventilator Mechanical Ventilator Mechanical Ventilator 11/30/20 12:00 100 11/30/20 12:00 99.9 141 24 129/64 (85) 88 11/30/20 12:00 140 19 100 11/30/20 12:00 142 11/30/20 11:45 141 19 140/56 (84) 89 11/30/20 11:30 142 26 127/57 (80) 89 11/30/20 11:22 85/52 11/30/20 11:15 141 28 130/70 (90) 87 11/30/20 11:00 143 32 82/52 (62) 85 11/30/20 10:45 147 31 127/68 (87) 88 11/30/20 10:30 148 33 121/55 (77) 89 11/30/20 10:15 151 28 140/71 (94) 86 11/30/20 10:00 151 19 126/54 (78) 85 11/30/20 09:45 150 23 114/67 (83) 83 Intake and Output 11/30/20 12/01/20 19:00 07:00 Intake Total 48.375 ml 1462.885 ml Output Total 540 ml 590 ml Balance -491.625 ml 872.885 ml Free Water 50 ml IV Total 48.375 ml 932.885 ml Tube Feeding 480 ml Output Urine Total 540 ml 490 ml Chest Tube Drainage Total 100 ml Laboratory Tests 11/30/20 12:42: POC Whole Blood Glucose [Pending] 11/30/20 13:27: Arterial Blood pH 7.175*L, Arterial Blood Partial Pressure CO2 75.8*H, Arterial Blood Partial Pressure O2 52.2L, Arterial Blood HCO3 27.3H, Arterial Blood Oxygen Saturation 84.4*L, Arterial Blood Base Excess -3.0L, Ted Test Positive 12/01/20 05:54: White Blood Count 25.6*H, Red Blood Count 4.13L, Hemoglobin 12.2, Hematocrit 40.2, Mean Corpuscular Volume 97, Mean Corpuscular Hemoglobin 29.7, Mean Corpuscular Hemoglobin Concent 30.5L, Red Cell Distribution Width 13.2, Platelet Count 41#L, Mean Platelet Volume 11.4H, Neutrophils (%) (Auto) , Lymphocytes (%) (Auto) , Monocytes (%) (Auto) , Eosinophils (%) (Auto) , Basophils (%) (Auto) , Differential Total Cells Counted 100, Neutrophils % (Manual) 95H, Lymphocytes % (Manual) 3L, Monocytes % (Manual) 1, Eosinophils % (Manual) 1, Basophils % (Manual) 0, Band Neutrophils 0, Platelet Estimate DecreasedL, Platelet Morphology Normal, Red Blood Cell Morphology Normal 12/01/20 08:01: Arterial Blood pH 7.158*L, Arterial Blood Partial Pressure CO2 71.3*H, Arterial Blood Partial Pressure O2 60.3L, Arterial Blood HCO3 24.7, Arterial Blood Oxygen Saturation 89.7*L, Arterial Blood Base Excess -5.2L, Ted Test Positive Height (Feet): 5 Height (Inches): 1.00 Weight (Pounds): 180 General Appearance: no apparent distress EENT: normal ENT inspection Neck: supple Cardiovascular: normal rate Respiratory/Chest: decreased breath sounds Abdomen: normal bowel sounds, non tender, soft Extremities: non-tender Assessment/Plan Assessment/Plan: Covid positive PNA mild transaminitis most likely due to above>>>>improving DM smoker NPO now intubated repeat LFTS abd us if needed fu hepatitis panel>>> neg covid care NGTF DC TPN will fu Jose Armando Andrews MD Dec 01, 2020 09:31
--- NOTE | 2020-12-01 10:00 | NUR ---
NURSE NOTES: AM meds were administered; Lovenox was held for low platelets/out of range. Oral care was done. Labs were drawn this morning, however specimen had to be redrawn again due to "contaminated specimen" per civil laboratory technician.
--- NOTE | 2020-12-01 11:23 | Pulmonology Progress Note ---
Subjective ROS Limited/Unobtainable: No Interval Events: Intubated 11/29/20; R thoravent placed Constitutional: Denies: fever HEENT: Repors: no symptoms Respiratory: Reports: no symptoms, shortness of breath, dyspnea at rest Cardiovascular: Reports: no symptoms Gastrointestinal/Abdominal: Reports: other - on TPN Neurologic: Reports: other - Dizziness Psychiatric: Reports: other - on restraint Musculoskeletal: Denies: pain Allergies: Coded Allergies: No Known Allergies (Unverified , 11/10/17) Objective Last 24 Hour Vital Signs Date Time Temp Pulse Resp B/P (MAP) Pulse Ox O2 Delivery O2 Flow Rate FiO2 12/01/20 07:02 127 24 100 12/01/20 06:00 116/56 12/01/20 06:00 125 22 118/50 (72) 94 12/01/20 05:30 123 23 112/53 (72) 96 12/01/20 05:00 122 23 120/60 (80) 95 12/01/20 05:00 102/43 12/01/20 04:30 129 26 127/59 (81) 85 12/01/20 04:00 99.0 129 25 136/52 (80) 90 12/01/20 04:00 Mechanical Ventilator Mechanical Ventilator Mechanical Ventilator 12/01/20 04:00 111/53 12/01/20 04:00 100 12/01/20 04:00 129 12/01/20 03:30 128 23 136/57 (83) 92 12/01/20 03:00 127/61 12/01/20 03:00 127 24 142/58 (86) 92 12/01/20 02:30 127 24 143/51 (81) 94 12/01/20 02:00 124 24 100 12/01/20 02:00 119/53 12/01/20 02:00 124 21 119/53 (75) 95 12/01/20 01:30 126 27 125/53 (77) 90 12/01/20 01:00 151/55 12/01/20 01:00 123 29 151/55 (87) 90 12/01/20 00:30 123 27 140/58 (85) 92 12/01/20 00:00 100 12/01/20 00:00 140/61 12/01/20 00:00 98.0 123 22 140/61 (87) 93 12/01/20 00:00 Mechanical Ventilator Mechanical Ventilator Mechanical Ventilator 12/01/20 00:00 128 11/30/20 23:30 121 24 130/62 (84) 93 11/30/20 23:26 122 23 92 Mechanical Ventilator 100 11/30/20 23:26 119/60 11/30/20 23:23 122 23 100 11/30/20 23:15 119 26 119/60 (79) 93 11/30/20 23:05 119 34 126/57 (80) 93 11/30/20 23:00 119 33 84/50 (61) 92 11/30/20 23:00 123/57 11/30/20 22:30 122 26 127/62 (83) 92 11/30/20 22:15 123 22 129/52 (77) 93 11/30/20 22:00 122 22 140/71 (94) 92 11/30/20 22:00 126/52 11/30/20 21:45 123 31 115/58 (77) 92 11/30/20 21:30 125 22 141/44 (76) 92 11/30/20 21:15 126 22 168/60 (96) 92 11/30/20 21:00 125 25 159/74 (102) 93 11/30/20 21:00 168/60 11/30/20 20:45 126 22 168/70 (102) 93 11/30/20 20:30 124 20 154/77 (102) 94 11/30/20 20:15 123 18 151/66 (94) 95 11/30/20 20:00 Mechanical Ventilator Mechanical Ventilator Mechanical Ventilator 11/30/20 20:00 100 11/30/20 20:00 97.5 122 17 153/55 (87) 95 11/30/20 20:00 151/66 11/30/20 20:00 120 11/30/20 19:46 126 18 100 11/30/20 19:45 129 23 151/52 (85) 92 11/30/20 19:30 127 20 135/67 (89) 88 11/30/20 19:15 126 20 153/60 (91) 91 11/30/20 19:00 153/60 11/30/20 19:00 125 19 143/63 (89) 92 11/30/20 19:00 125 19 143/63 (89) 92 11/30/20 18:30 124 18 133/62 (85) 92 11/30/20 18:00 126 18 134/60 (84) 90 11/30/20 17:30 127 18 131/60 (83) 89 11/30/20 17:00 128 27 124/65 (84) 90 11/30/20 16:30 128 17 121/60 (80) 91 11/30/20 16:00 98.5 130 25 126/57 (80) 90 11/30/20 16:00 127 11/30/20 16:00 100 11/30/20 16:00 Mechanical Ventilator Mechanical Ventilator Mechanical Ventilator 11/30/20 15:30 133 28 132/60 (84) 90 11/30/20 15:00 135 19 123/64 (83) 89 11/30/20 14:30 137 20 125/56 (79) 89 11/30/20 14:00 100.1 11/30/20 14:00 100.1 140 20 118/65 (82) 87 11/30/20 13:30 143 28 131/61 (84) 89 11/30/20 13:20 87/62 11/30/20 13:00 101.4 142 20 123/65 (84) 88 11/30/20 12:45 142 23 110/62 (78) 88 11/30/20 12:30 100.0 141 20 126/62 (83) 88 11/30/20 12:15 142 21 117/50 (72) 88 11/30/20 12:00 Mechanical Ventilator Mechanical Ventilator Mechanical Ventilator 11/30/20 12:00 100 11/30/20 12:00 99.9 141 24 129/64 (85) 88 11/30/20 12:00 140 19 100 11/30/20 12:00 142 11/30/20 11:45 141 19 140/56 (84) 89 11/30/20 11:30 142 26 127/57 (80) 89 Intake and Output 11/30/20 12/01/20 19:00 07:00 Intake Total 48.375 ml 1462.885 ml Output Total 540 ml 590 ml Balance -491.625 ml 872.885 ml Free Water 50 ml IV Total 48.375 ml 932.885 ml Tube Feeding 480 ml Output Urine Total 540 ml 490 ml Chest Tube Drainage Total 100 ml General Appearance: no acute distress HEENT: normocephalic Respiratory: chest wall non-tender Cardiovascular: normal peripheral pulses Abdomen: normal bowel sounds Laboratory Tests 11/30/20 12:42: POC Whole Blood Glucose [Pending] 11/30/20 13:27: Arterial Blood pH 7.175*L, Arterial Blood Partial Pressure CO2 75.8*H, Arterial Blood Partial Pressure O2 52.2L, Arterial Blood HCO3 27.3H, Arterial Blood Oxygen Saturation 84.4*L, Arterial Blood Base Excess -3.0L, Ted Test Positive 12/01/20 05:54: White Blood Count 25.6*H, Red Blood Count 4.13L, Hemoglobin 12.2, Hematocrit 40.2, Mean Corpuscular Volume 97, Mean Corpuscular Hemoglobin 29.7, Mean Corpuscular Hemoglobin Concent 30.5L, Red Cell Distribution Width 13.2, Platelet Count 41#L, Mean Platelet Volume 11.4H, Neutrophils (%) (Auto) , Lymphocytes (%) (Auto) , Monocytes (%) (Auto) , Eosinophils (%) (Auto) , Basophils (%) (Auto) , Differential Total Cells Counted 100, Neutrophils % (Manual) 95H, Lymphocytes % (Manual) 3L, Monocytes % (Manual) 1, Eosinophils % (Manual) 1, Basophils % (Manual) 0, Band Neutrophils 0, Platelet Estimate DecreasedL, Platelet Morphology Normal, Red Blood Cell Morphology Normal 12/01/20 08:01: Arterial Blood pH 7.158*L, Arterial Blood Partial Pressure CO2 71.3*H, Arterial Blood Partial Pressure O2 60.3L, Arterial Blood HCO3 24.7, Arterial Blood Oxygen Saturation 89.7*L, Arterial Blood Base Excess -5.2L, Ted Test Positive Current Medications Medications (Trade) Dose Ordered Sig/Kayla Route PRN Reason Start Time Stop Time Status Last Admin Dose Admin Acetaminophen (Tylenol) 650 mg Q6H PRN ORAL For Headache 11/14/20 13:15 12/14/20 13:14 11/30/20 13:26 Albuterol Sulfate (Proventil MDI) 2 puff Q4H PRN INH Shortness of Breath 11/15/20 10:30 02/13/21 10:29 11/17/20 06:04 Bisacodyl (Dulcolax) 10 mg Q48H PRN RECTAL Constipation 11/28/20 13:06 02/26/21 13:05 Ceftriaxone Sodium 1 gm/ Dextrose 55 ml @ 110 mls/hr Q24H IVPB 11/15/20 16:30 12/01/20 16:29 11/30/20 17:50 Chlorhexidine Gluconate (Leora-Hex 2%) 1 applic DAILY@2000 TOPIC 11/30/20 20:00 02/28/21 19:59 11/30/20 20:29 Dextrose 1,000 ml @ 0 mls/hr Q24H PRN IV PN interrupted or unavailable 11/24/20 20:00 12/24/20 19:59 Dextrose (Dextrose 50%) 25 ml Q30M PRN IV Hypoglycemia 11/24/20 11:30 02/22/21 11:29 Dextrose (Dextrose 50%) 50 ml Q30M PRN IV Hypoglycemia 11/24/20 11:30 02/22/21 11:29 Docusate Sodium (Colace) 100 mg TWICE A DAY ORAL 11/17/20 14:15 12/17/20 14:14 12/01/20 09:06 Enoxaparin Sodium (Lovenox) 80 mg EVERY 12 HOURS SUBQ 11/22/20 21:00 02/16/21 09:59 11/29/20 19:43 Famotidine (Pepcid I.v.) 20 mg Q12HR IVP 11/23/20 21:00 12/23/20 20:59 12/01/20 09:06 Fentanyl Citrate 250 ml @ 1 mls/hr Q24H PRN IV To Patient Comfort 11/29/20 14:45 12/01/20 14:44 11/30/20 05:46 Guaifenesin/ Codeine Phosphate (Robitussin with codeine) 5 ml Q6H PRN ORAL For Cough 11/21/20 23:30 12/21/20 23:29 11/21/20 23:32 Hydralazine HCl (Apresoline) 10 mg Q6H PRN IV For High Blood Pressure 11/28/20 02:45 02/26/21 02:44 11/28/20 02:54 Insulin Aspart (NovoLOG) No Dose Q4HR SUBQ 11/25/20 13:00 02/23/21 12:59 12/01/20 10:17 Insulin Detemir (Levemir) 34 units Q12HR SUBQ 11/30/20 21:00 02/28/21 20:59 12/01/20 09:07 Lorazepam (Ativan 2mg/ml 1ml) 0.25 mg Q6H PRN IV For Anxiety 11/25/20 22:00 12/02/20 21:59 11/29/20 06:16 Methylprednisolone Sodium Succinate (Solu-MEDROL) 40 mg DAILY IVP 11/29/20 09:00 02/27/21 08:59 12/01/20 09:06 Norepinephrine Bitartrate 16 mg/ Dextrose 516 ml @ 0 mls/hr Q24H IV 11/30/20 12:30 12/03/20 12:29 11/30/20 23:26 Phenylephrine HCl 50 mg/Dextrose 250 ml @ 6 mls/hr Q24H IV 11/30/20 07:45 12/03/20 07:35 11/30/20 07:59 Assessment/Plan Assessment/Plan 1. Elevated inflammatory markers -Will continue Lovenox full dose 2. Elevated AST - trend LFTs 3. Hyperglycemia without history of diabetes mellitus - Accu-checks - Continue insulin sliding scale 4. Pneumonia, likely COVID-19 related -On specific therapies 5. Respiratory Failure - Intubated 11/29/20 -On 100% FiO2; PEEP6 6. R PTX -Thoravent in place -Seen by surgery; thoravent replaced Poor prognosis Will discuss with family Jose Elias Gannon MD Dec 01, 2020 11:23
--- NOTE | 2020-12-01 11:30 | NUR ---
NURSE NOTES: TPN was discontinued by Dr Andrews. Pt is now on Glucerna 1.2 infusing at 50ml/hour.
--- NOTE | 2020-12-01 11:36 | Infectious Diseases Prog Note ---
Assessment/Plan Assessment/Plan antibiotics : ceftriaxone A 1. covid 19 pneumonia on 100 % Fi O2 with saturation 94 % s/p remdesivir s/p dexamethasone 2. Obesity. 3. Hypertension. 4. Leukocytosis increased likely secondary to steroids P 1. continue solumedrol increase dose 2. Continue ceftriaxone. 3. Continue isolation. Subjective ROS Limited/Unobtainable: Yes Allergies: Coded Allergies: No Known Allergies (Unverified , 11/10/17) Objective Last 24 Hour Vital Signs Date Time Temp Pulse Resp B/P (MAP) Pulse Ox O2 Delivery O2 Flow Rate FiO2 12/01/20 07:02 127 24 100 12/01/20 06:00 116/56 12/01/20 06:00 125 22 118/50 (72) 94 12/01/20 05:30 123 23 112/53 (72) 96 12/01/20 05:00 122 23 120/60 (80) 95 12/01/20 05:00 102/43 12/01/20 04:30 129 26 127/59 (81) 85 12/01/20 04:00 99.0 129 25 136/52 (80) 90 12/01/20 04:00 Mechanical Ventilator Mechanical Ventilator Mechanical Ventilator 12/01/20 04:00 111/53 12/01/20 04:00 100 12/01/20 04:00 129 12/01/20 03:30 128 23 136/57 (83) 92 12/01/20 03:00 127/61 12/01/20 03:00 127 24 142/58 (86) 92 12/01/20 02:30 127 24 143/51 (81) 94 12/01/20 02:00 124 24 100 12/01/20 02:00 119/53 12/01/20 02:00 124 21 119/53 (75) 95 12/01/20 01:30 126 27 125/53 (77) 90 12/01/20 01:00 151/55 12/01/20 01:00 123 29 151/55 (87) 90 12/01/20 00:30 123 27 140/58 (85) 92 12/01/20 00:00 100 12/01/20 00:00 140/61 12/01/20 00:00 98.0 123 22 140/61 (87) 93 12/01/20 00:00 Mechanical Ventilator Mechanical Ventilator Mechanical Ventilator 12/01/20 00:00 128 11/30/20 23:30 121 24 130/62 (84) 93 11/30/20 23:26 122 23 92 Mechanical Ventilator 100 11/30/20 23:26 119/60 11/30/20 23:23 122 23 100 11/30/20 23:15 119 26 119/60 (79) 93 11/30/20 23:05 119 34 126/57 (80) 93 11/30/20 23:00 119 33 84/50 (61) 92 11/30/20 23:00 123/57 11/30/20 22:30 122 26 127/62 (83) 92 11/30/20 22:15 123 22 129/52 (77) 93 11/30/20 22:00 122 22 140/71 (94) 92 11/30/20 22:00 126/52 11/30/20 21:45 123 31 115/58 (77) 92 11/30/20 21:30 125 22 141/44 (76) 92 11/30/20 21:15 126 22 168/60 (96) 92 11/30/20 21:00 125 25 159/74 (102) 93 11/30/20 21:00 168/60 11/30/20 20:45 126 22 168/70 (102) 93 11/30/20 20:30 124 20 154/77 (102) 94 11/30/20 20:15 123 18 151/66 (94) 95 11/30/20 20:00 Mechanical Ventilator Mechanical Ventilator Mechanical Ventilator 11/30/20 20:00 100 11/30/20 20:00 97.5 122 17 153/55 (87) 95 11/30/20 20:00 151/66 11/30/20 20:00 120 11/30/20 19:46 126 18 100 11/30/20 19:45 129 23 151/52 (85) 92 11/30/20 19:30 127 20 135/67 (89) 88 11/30/20 19:15 126 20 153/60 (91) 91 11/30/20 19:00 153/60 11/30/20 19:00 125 19 143/63 (89) 92 11/30/20 19:00 125 19 143/63 (89) 92 11/30/20 18:30 124 18 133/62 (85) 92 11/30/20 18:00 126 18 134/60 (84) 90 11/30/20 17:30 127 18 131/60 (83) 89 11/30/20 17:00 128 27 124/65 (84) 90 11/30/20 16:30 128 17 121/60 (80) 91 11/30/20 16:00 98.5 130 25 126/57 (80) 90 11/30/20 16:00 127 11/30/20 16:00 100 11/30/20 16:00 Mechanical Ventilator Mechanical Ventilator Mechanical Ventilator 11/30/20 15:30 133 28 132/60 (84) 90 11/30/20 15:00 135 19 123/64 (83) 89 11/30/20 14:30 137 20 125/56 (79) 89 11/30/20 14:00 100.1 11/30/20 14:00 100.1 140 20 118/65 (82) 87 11/30/20 13:30 143 28 131/61 (84) 89 11/30/20 13:20 87/62 11/30/20 13:00 101.4 142 20 123/65 (84) 88 11/30/20 12:45 142 23 110/62 (78) 88 11/30/20 12:30 100.0 141 20 126/62 (83) 88 11/30/20 12:15 142 21 117/50 (72) 88 11/30/20 12:00 Mechanical Ventilator Mechanical Ventilator Mechanical Ventilator 11/30/20 12:00 100 11/30/20 12:00 99.9 141 24 129/64 (85) 88 11/30/20 12:00 140 19 100 11/30/20 12:00 142 11/30/20 11:45 141 19 140/56 (84) 89 Height (Feet): 5 Height (Inches): 1.00 Weight (Pounds): 180 Laboratory Tests Test 11/30/20 12:42 11/30/20 13:27 12/01/20 05:54 12/01/20 08:01 POC Whole Blood Glucose Pending Arterial Blood pH 7.175 (7.350-7.450) 7.158 (7.350-7.450) Arterial Blood Partial Pressure CO2 75.8 mmHg (35.0-45.0) *H 71.3 mmHg (35.0-45.0) *H Arterial Blood Partial Pressure O2 52.2 mmHg (75.0-100.0) L 60.3 mmHg (75.0-100.0) L Arterial Blood HCO3 27.3 mmol/L (22.0-26.0) H 24.7 mmol/L (22.0-26.0) Arterial Blood Oxygen Saturation 84.4 % (95-100) *L 89.7 % (95-100) *L Arterial Blood Base Excess -3.0 (-2-2) L -5.2 (-2-2) L Ted Test Positive Positive White Blood Count 25.6 K/UL (4.8-10.8) *H Red Blood Count 4.13 M/UL (4.20-5.40) L Hemoglobin 12.2 G/DL (12.0-16.0) Hematocrit 40.2 % (37.0-47.0) Mean Corpuscular Volume 97 FL (80-99) Mean Corpuscular Hemoglobin 29.7 PG (27.0-31.0) Mean Corpuscular Hemoglobin Concent 30.5 G/DL (32.0-36.0) L Red Cell Distribution Width 13.2 % (11.6-14.8) Platelet Count 41 K/UL (150-450) #L Mean Platelet Volume 11.4 FL (6.5-10.1) H Neutrophils (%) (Auto) % (45.0-75.0) Lymphocytes (%) (Auto) % (20.0-45.0) Monocytes (%) (Auto) % (1.0-10.0) Eosinophils (%) (Auto) % (0.0-3.0) Basophils (%) (Auto) % (0.0-2.0) Differential Total Cells Counted 100 Neutrophils % (Manual) 95 % (45-75) H Lymphocytes % (Manual) 3 % (20-45) L Monocytes % (Manual) 1 % (1-10) Eosinophils % (Manual) 1 % (0-3) Basophils % (Manual) 0 % (0-2) Band Neutrophils 0 % (0-8) Platelet Estimate Decreased L Platelet Morphology Normal Red Blood Cell Morphology Normal Current Medications Medications (Trade) Dose Ordered Sig/Kayla Route PRN Reason Start Time Stop Time Status Last Admin Dose Admin Acetaminophen (Tylenol) 650 mg Q6H PRN ORAL For Headache 11/14/20 13:15 12/14/20 13:14 11/30/20 13:26 Albuterol Sulfate (Proventil MDI) 2 puff Q4H PRN INH Shortness of Breath 11/15/20 10:30 02/13/21 10:29 11/17/20 06:04 Bisacodyl (Dulcolax) 10 mg Q48H PRN RECTAL Constipation 11/28/20 13:06 02/26/21 13:05 Ceftriaxone Sodium 1 gm/ Dextrose 55 ml @ 110 mls/hr Q24H IVPB 11/15/20 16:30 12/01/20 16:29 11/30/20 17:50 Chlorhexidine Gluconate (Leora-Hex 2%) 1 applic DAILY@2000 TOPIC 11/30/20 20:00 02/28/21 19:59 11/30/20 20:29 Dextrose 1,000 ml @ 0 mls/hr Q24H PRN IV PN interrupted or unavailable 11/24/20 20:00 12/24/20 19:59 Dextrose (Dextrose 50%) 25 ml Q30M PRN IV Hypoglycemia 11/24/20 11:30 02/22/21 11:29 Dextrose (Dextrose 50%) 50 ml Q30M PRN IV Hypoglycemia 11/24/20 11:30 02/22/21 11:29 Docusate Sodium (Colace) 100 mg TWICE A DAY ORAL 11/17/20 14:15 12/17/20 14:14 12/01/20 09:06 Enoxaparin Sodium (Lovenox) 80 mg EVERY 12 HOURS SUBQ 11/22/20 21:00 02/16/21 09:59 11/29/20 19:43 Famotidine (Pepcid I.v.) 20 mg Q12HR IVP 11/23/20 21:00 12/23/20 20:59 12/01/20 09:06 Fentanyl Citrate 250 ml @ 1 mls/hr Q24H PRN IV To Patient Comfort 11/29/20 14:45 12/01/20 14:44 11/30/20 05:46 Guaifenesin/ Codeine Phosphate (Robitussin with codeine) 5 ml Q6H PRN ORAL For Cough 11/21/20 23:30 12/21/20 23:29 11/21/20 23:32 Hydralazine HCl (Apresoline) 10 mg Q6H PRN IV For High Blood Pressure 11/28/20 02:45 02/26/21 02:44 11/28/20 02:54 Insulin Aspart (NovoLOG) No Dose Q4HR SUBQ 11/25/20 13:00 02/23/21 12:59 12/01/20 10:17 Insulin Detemir (Levemir) 34 units Q12HR SUBQ 11/30/20 21:00 02/28/21 20:59 12/01/20 09:07 Lorazepam (Ativan 2mg/ml 1ml) 0.25 mg Q6H PRN IV For Anxiety 11/25/20 22:00 12/02/20 21:59 11/29/20 06:16 Methylprednisolone Sodium Succinate (Solu-MEDROL) 40 mg DAILY IVP 11/29/20 09:00 02/27/21 08:59 12/01/20 09:06 Norepinephrine Bitartrate 16 mg/ Dextrose 516 ml @ 0 mls/hr Q24H IV 11/30/20 12:30 12/03/20 12:29 11/30/20 23:26 Phenylephrine HCl 50 mg/Dextrose 250 ml @ 6 mls/hr Q24H IV 11/30/20 07:45 12/03/20 07:35 11/30/20 07:59 Arthur Blair MD Dec 01, 2020 11:36
--- NOTE | 2020-12-01 12:15 | NUR ---
NURSE NOTES: Labs were redrawn for 3rd time and sent to lab, (per label printer previous specimen was hemolyzed). Awaiting for results. Pt was seen by Dr Kramer to reassess donte. Repeat STAT chest xray was ordered.
[2020-12-01] MEDS ORDERED: Acetaminophen 650mg/20.3ml NG PRN (12:45)
[2020-12-01] MEDS: Solu-MEDROL 125mg Inj IVP SCH ×2 (12:52→21:07)
--- NOTE | 2020-12-01 13:30 | NUR ---
NURSE NOTES: Lab results were reported to Dr Martin, including K=6.1. Orders were received for Kayexalate 30gm x1, Midodrine 10mg Q8hrs, 0.45%NS to be infused at 100ml/hour and Albumin 5% 500mlvial. Orders were processed.
[2020-12-01 13:56] LABS: ALBUMIN 1.5 G/DL (3.4-5.0); ALBUMIN/GLOBULIN RATIO 0.5 (1.0-2.7); BILIRUBIN,TOTAL 1.5 MG/DL (0.2-1.0); CALCIUM 7.9 MG/DL (8.5-10.1); CREATININE 2.7 MG/DL (0.55-1.30); PHOSPHORUS 5.9 MG/DL (2.5-4.9); POTASSIUM 6.1 MMOL/L (3.5-5.1)
[2020-12-01 14:02] LABS: BILIRUBIN,DIRECT 1.4 MG/DL (0.0-0.3)
--- NOTE | 2020-12-01 14:23 | NUR ---
CASE MANAGEMENT:REVIEW 12/01/20 SI: PNA. PNEUMOTHORAX W/THORAVENT 99.8 125 20 112/48 90% ON VENT SUPPORT W/100% FIO2 WBC+25.6 PLT-41 K+6.1 BUN+75 CR+2.7 GLUCOSE+441 AST/ALT+2014/3992 IS: IV SOLUMEDROL 60 MG Q12 IV ROCEPHIN Q24 LEVOPHED GTT PHENYLEPHRINE GTT LEVEMIR SQ Q12 IV PEPCID Q12 LOVENOX SQ Q12 : ICU DCP: FROM HOME PLAN: OFF TPN/IL POOR PROGNOSIS
[2020-12-01] MEDS ORDERED: Sodium Polystyrene Sulfonate 15gm Powder NG SCH (14:45)
--- NOTE | 2020-12-01 14:49 | Diagnostic Imaging Report ---
Indication: Dyspnea Technique: One view of the chest Comparison: 11/30/2020 Findings: Right sided chest vent catheter is again demonstrated, tip position now pointed cephalad, still satisfactory. Other tube and line positions are stable and satisfactory. There is a small right apical pneumothorax, slightly larger than on the previous exam but still small. Bilateral infiltrates are unchanged. Subcutaneous emphysema has decreased. Impression: Slightly larger but still small right apical pneumothorax Decreased subcutaneous emphysema Otherwise stable findings as described
--- NOTE | 2020-12-01 15:14 | Diagnostic Imaging Report ---
Indication: Dyspnea Technique: One view of the chest Comparison: 4 hours earlier Findings: Interim enlargement of previously demonstrated right pneumothorax despite apparent adequate position of thoracic vent catheter. Bilateral infiltrates are unchanged. There is slightly decreased subcutaneous emphysema in the right chest wall. Other tube and line positions are stable Impression: Enlarging right pneumothorax, despite apparent satisfactory chest vent position Other stable findings as described
--- NOTE | 2020-12-01 15:30 | NUR ---
NURSE NOTES: Repeat chest xray results were reported to Dr Kramer.
[2020-12-01] MEDS: Midodrine 10mg tab ORAL SCH ×2 (16:01→17:57)
--- NOTE | 2020-12-01 16:28 | NUR ---
INSURANCE CLINICALS AND REVIEW FAXED TO [employer]; [phone] F: [phone]
--- NOTE | 2020-12-01 16:30 | NUR ---
NURSE NOTES: Pt was administered Albuminar 5% IV, Midodrine 10mg NGT, Kayexalate 30gm NGT and IV fluid has been added, 0.45% NS infusing at 100ml/hour. Levophed is infusing at 12mcg/min to maintain SBP above 90bpm.
[2020-12-01] MEDS: Docusate 100mg/10ml Liq NG SCH (17:57)
[2020-12-01] MEDS ORDERED: Docusate 100mg/10ml Liq NG SCH (18:00)
--- NOTE | 2020-12-01 18:00 | NUR ---
NURSE NOTES: NGT feeding has been replaced with Nepro infusing at 35ml/hour per Dr Martin's order. Pt was cleaned, gown/bed linens were changed. Oral care was done.
--- NOTE | 2020-12-01 19:15 | NUR ---
NURSE HAND-OFF REPORT: Latest Vital Signs: Temperature 99.5 , Pulse 106 , B/P 164 /63 , Respiratory Rate 22 , O2 SAT 97 , Mechanical Ventilator, ETT 7.5 at 21cm/lipline, AC16, Peep 5, VT500, FIO2 100%. Vital Sign Comment: Levophed is infusing at 10mcg/min. Pt is also now on Midodrine 10mg NGT Q8hrs. EKG Rhythm: Sinus Tachycardia Rhythm change?: Marta CAMERON Notified?: Eitan Bansal NP, MD Response: No New Orders Received Latest Rosen Fall Score: 75 Fall Risk: High Risk Safety Measures: Call light Within Reach, Bed Alarm Zone 2, Side Rails Side Rails x3, Bed position Low and Locked. Fall Precautions: Door Sign Patient Fall Education Report given to Marisela GOMES. Endorsed plan of care.
--- NOTE | 2020-12-01 20:00 | NUR ---
NURSE NOTES: RECEIVED REPORT FROM CHICO RN PT LETHARGIC OPEN EYES TO TOUCH ON WEST SOFT WREST RESTRAINT NAN COMPLAINT ORALLY INTUBATED -VENT 02 SAT 97 % CHEST TUBE -SUCTION TOLERATING FEEDING NO RESIDUAL REPOSITION AND SUCTION IV INFUSING AHMET PICC DRESSING DRY AND INTACT URINARY OUTPUT GOOD DR MARR WELL PUT CHEST PUT IN AM PT NO C/O SOB
[2020-12-01] MEDS: Dyna-Hex 2% Top Sol 2oz TOPIC SCH (20:23)
[2020-12-01] MEDS: Pantoprazole Inj IVP SCH (21:06)
[2020-12-02] VITALS (24 sets, daily range): BP systolic 91–136; BP diastolic 39–62
--- NOTE | 2020-12-02 | NUR ---
reposition and suction
[2020-12-02] MEDS: Insulin NovoLOG Flexpen S/S (Mod) SUBQ SCH ×6 (01:27→21:00)
--- NOTE | 2020-12-02 04:00 | NUR ---
NURSE NOTES: complete bed bath oral care and back care done
[2020-12-02 05:14] LABS: HEMATOCRIT 35.5 % (37.0-47.0); HEMOGLOBIN 11.2 G/DL (12.0-16.0); MEAN CORPUSCULAR VOLUME 94 FL (80-99); PLATELET COUNT 22 K/UL (150-450); RED BLOOD COUNT 3.78 M/UL (4.20-5.40); RED CELL DISTRIBUTION WIDTH 12.9 % (11.6-14.8); WHITE BLOOD COUNT 21.5 K/UL (4.8-10.8)
[2020-12-02 05:20] LABS: ALBUMIN 2.1 G/DL (3.4-5.0); ALBUMIN/GLOBULIN RATIO 0.8 (1.0-2.7); BILIRUBIN,TOTAL 1.7 MG/DL (0.2-1.0); CREATININE 3.2 MG/DL (0.55-1.30); POTASSIUM 5.6 MMOL/L (3.5-5.1)
[2020-12-02 05:28] LABS: CREATINE KINASE 349 U/L (26-308); GAMMA GLUTAMYL TRANSPEPTIDASE 323 U/L (5-85); LACTATE DEHYDROGENASE 1483 U/L (81-234); PHOSPHORUS 6.9 MG/DL (2.5-4.9)
[2020-12-02 05:45] LABS: BILIRUBIN,DIRECT 1.3 MG/DL (0.0-0.3)
[2020-12-02 05:49] LABS: AMMONIA 78 umol/L (11-32)
--- NOTE | 2020-12-02 06:00 | NUR ---
NURSE NOTES: bs 282 insulin coverage given
--- NOTE | 2020-12-02 07:20 | NUR ---
NURSE HAND-OFF REPORT: Latest Vital Signs: Temperature 98.5 , Pulse 119 , B/P 115 /46 , Respiratory Rate 23 , O2 SAT 94 , Mechanical Ventilator, O2 Flow Rate . Vital Sign Comment: EKG Rhythm: Sinus Tachycardia Rhythm change?: N Notified?: Eitan Bansal NP, MD Response: No New Orders Received Latest Rosen Fall Score: 75 Fall Risk: High Risk Safety Measures: Call light Within Reach, Bed Alarm Zone 2, Side Rails Side Rails x3, Bed position Low and Locked. Fall Precautions: Door Sign Patient Fall Education Report given to georgette rn using sbar.
[2020-12-02] MEDS: Phenylephrine 50 MG in D5W 245 ML IV SCH (07:45)
--- NOTE | 2020-12-02 08:00 | NUR ---
NURSE NOTES: Pt was assessed after receiving change of shift report from Marisela GOMES. Eyes are closed, does not respond to voice, however withdraws to pain. Bilateral pupils 3mm and reactive to light, with active gag reflex. Orally intubated, ETT 7.5 at 21cm lipline with vent settings AC 16, VT500, Peep 5, FIo2 100% with O2Sat fluctuating from 90-97%. Right upper thoravent connected to low intermittent suction. ST on laboratory monitor, HR 116. Currently on Levophed drip at 4mcg/min to maintain SBP above 90. Temp 98.6F axillary. Left nare NGT with feeding Nepro infusing at 35ml/hour with 10ml/residual. Right upper arm double lumen PICC line connected to Levophed and IV fluid 0.45NS infusing 100ml/hour, patent/intact. Garcia catheter is present, pt is oliguric, draining dark qian urine. Skin is intact. HOB at 30 degrees, bed locked, in lowest position, three side rails up. Will continue to monitor pt and follow plan of care.
--- NOTE | 2020-12-02 08:01 | NUR ---
CASE MANAGEMENT:REVIEW 12/02/20 SI: PNA. PNEUMOTHORAX W/THORAVENT 98.5 121 23 130/45 94% ON VENT SUPPORT W/100% FIO2 WBC=21.5 PLT-22 K+5.6 BUN+87 CR+3.2 IS: IV SOLUMEDROL 60 MG Q12 IVF@100/HR IV ROCEPHIN Q24 LEVOPHED GTT LEVEMIR SQ Q12 IV PROTONIX Q12 : ICU DCP: FROM HOME PLAN: OFF TPN/IL POOR PROGNOSIS
--- NOTE | 2020-12-02 08:27 | General Progress Note ---
Subjective ROS Limited/Unobtainable: No Allergies: Coded Allergies: No Known Allergies (Unverified , 11/10/17) Objective Last 24 Hour Vital Signs Date Time Temp Pulse Resp B/P (MAP) Pulse Ox O2 Delivery O2 Flow Rate FiO2 12/02/20 06:00 115/46 12/02/20 05:00 139/38 12/02/20 04:00 119 23 130/45 (73) 94 12/02/20 04:00 118/50 12/02/20 04:00 Mechanical Ventilator Mechanical Ventilator Mechanical Ventilator 12/02/20 04:00 121 12/02/20 04:00 Mechanical Ventilator Mechanical Ventilator Mechanical Ventilator 12/02/20 04:00 100 12/02/20 03:45 118 22 130/46 (74) 94 12/02/20 03:30 118 23 128/48 (74) 94 12/02/20 03:18 118 22 90 12/02/20 03:00 131/64 12/02/20 03:00 114 22 115/46 (69) 94 12/02/20 02:30 115 20 130/42 (71) 94 12/02/20 02:17 140/46 12/02/20 02:00 118 25 136/47 (76) 94 12/02/20 00:00 Mechanical Ventilator Mechanical Ventilator Mechanical Ventilator 12/02/20 00:00 112 12/02/20 00:00 148/45 12/02/20 00:00 100 12/02/20 00:00 98.5 115 21 133/42 (72) 95 12/01/20 23:30 114 22 144/47 (79) 96 12/01/20 23:00 116 21 140/53 (82) 95 12/01/20 23:00 135/50 12/01/20 22:59 117 23 90 12/01/20 22:30 118 22 128/48 (74) 95 12/01/20 22:00 114 20 138/51 (80) 95 12/01/20 22:00 133/55 12/01/20 21:30 116 22 149/47 (81) 95 12/01/20 21:00 115 21 134/58 (83) 96 12/01/20 21:00 142/87 12/01/20 20:30 115 22 128/55 (79) 96 12/01/20 20:00 100 12/01/20 20:00 145/47 12/01/20 20:00 Mechanical Ventilator Mechanical Ventilator Mechanical Ventilator 12/01/20 20:00 115 12/01/20 20:00 99.0 113 23 153/52 (85) 97 12/01/20 19:30 110 21 139/50 (79) 98 12/01/20 19:15 109 22 164/63 (96) 98 12/01/20 19:00 164/63 12/01/20 19:00 106 22 154/63 (93) 99 12/01/20 18:46 106 22 90 12/01/20 17:00 116/53 12/01/20 16:00 100 12/01/20 16:00 Mechanical Ventilator Mechanical Ventilator Mechanical Ventilator 12/01/20 16:00 121 12/01/20 16:00 107/59 12/01/20 16:00 99.5 121 18 102/49 (66) 97 12/01/20 15:30 123 18 99/46 (63) 98 12/01/20 15:03 119 18 90 12/01/20 15:00 128 21 104/54 (71) 96 12/01/20 15:00 98/49 12/01/20 14:30 126 19 106/59 (75) 95 12/01/20 14:00 106/51 12/01/20 14:00 129 20 102/78 (86) 96 12/01/20 13:30 128 21 115/54 (74) 96 12/01/20 13:24 99.8 12/01/20 13:00 129 22 98/52 (67) 96 12/01/20 13:00 92/53 12/01/20 12:30 100.5 128 21 100/53 (69) 96 12/01/20 12:00 Mechanical Ventilator Mechanical Ventilator Mechanical Ventilator 12/01/20 12:00 100 12/01/20 12:00 130 12/01/20 12:00 91/54 12/01/20 12:00 129 23 100/51 (67) 95 12/01/20 11:30 130 22 113/59 (77) 95 12/01/20 11:06 131 23 100 12/01/20 11:00 134 25 104/49 (67) 96 12/01/20 11:00 100/51 12/01/20 10:30 130 23 112/57 (75) 97 12/01/20 10:00 130 24 114/50 (71) 97 12/01/20 10:00 109/53 12/01/20 09:30 129 24 115/61 (79) 90 12/01/20 09:00 116/55 12/01/20 09:00 130 24 115/50 (71) 90 12/01/20 08:30 128 24 104/58 (73) 90 Intake and Output 12/01/20 12/02/20 19:00 07:00 Intake Total 1467.20 ml 1719.31 ml Output Total 420 ml 470 ml Balance 1047.20 ml 1249.31 ml Free Water 180 ml 100 ml IV Total 747.20 ml 1239.31 ml Tube Feeding 540 ml 380 ml Output Urine Total 420 ml 410 ml Stool Total 0 ml Chest Tube Drainage Total 60 ml Laboratory Tests 12/01/20 12:48: POC Whole Blood Glucose 376H 12/01/20 13:15: Sodium Level 140, Potassium Level 6.1*H, Chloride Level 106, Carbon Dioxide Level 27, Anion Gap 6, Blood Urea Nitrogen 75H, Creatinine 2.7#H, Estimat Glomerular Filtration Rate 17.6, Glucose Level 441#H, Uric Acid 7.8H, Calcium Level 7.9L, Phosphorus Level 5.9H, Magnesium Level 2.1, Total Bilirubin 1.5H, Direct Bilirubin 1.4H, Aspartate Amino Transf (AST/SGOT) 2015H, Alanine Aminotransferase (ALT/SGPT) 3993H, Alkaline Phosphatase 187H, C-Reactive Protein, Quantitative 15.0H, Pro-B-Type Natriuretic Peptide 1953H, Total Protein 4.4L, Albumin 1.5L, Globulin 2.9, Albumin/Globulin Ratio 0.5L 12/01/20 21:29: POC Whole Blood Glucose 272H 12/02/20 01:12: POC Whole Blood Glucose [Pending] 12/02/20 04:00: White Blood Count 21.5H, Red Blood Count 3.78L, Hemoglobin 11.2L, Hematocrit 35.5L, Mean Corpuscular Volume 94, Mean Corpuscular Hemoglobin 29.7, Mean Corpuscular Hemoglobin Concent 31.6L, Red Cell Distribution Width 12.9, Platelet Count 22L, Mean Platelet Volume 10.0, Neutrophils (%) (Auto) , Lymphocytes (%) (Auto) , Monocytes (%) (Auto) , Eosinophils (%) (Auto) , Basophils (%) (Auto) , Neutrophils % (Manual) [Pending], Lymphocytes % (Manual) [Pending], Platelet Estimate [Pending], Platelet Morphology [Pending], Sodium Level 132L, Potassium Level 5.6H, Chloride Level 101, Carbon Dioxide Level 24, Anion Gap 7, Blood Urea Nitrogen 87H, Creatinine 3.2H, Estimat Glomerular Filtration Rate 14.5, Glucose Level 306#H, Lactic Acid Level 2.00, Uric Acid 8.4H, Calcium Level 8.0L, Phosphorus Level 6.9H, Magnesium Level 2.1, Total Bilirubin 1.7H, Direct Bilirubin 1.3H, Gamma Glutamyl Transpeptidase 323H, Aspartate Amino Transf (AST/SGOT) 1890H, Alanine Aminotransferase (ALT/SGPT) 3808H, Alkaline Phosphatase 191H, Ammonia 78H, Lactate Dehydrogenase 1483H, Total Creatine Kinase 349H, C-Reactive Protein, Quantitative 12.1H, Pro-B-Type Natriuretic Peptide 1816H, Total Protein 4.7L, Albumin 2.1L, Globulin 2.6, Albumin/Globulin Ratio 0.8L 12/02/20 05:26: POC Whole Blood Glucose [Pending] Height (Feet): 5 Height (Inches): 1.00 Weight (Pounds): 180 General Appearance: lethargic EENT: normal ENT inspection Neck: supple Cardiovascular: normal rate Respiratory/Chest: decreased breath sounds Abdomen: normal bowel sounds, non tender, soft Extremities: non-tender Assessment/Plan Assessment/Plan: Covid positive PNA mild transaminitis most likely due to above>>>>improving DM smoker now intubated shock liver repeat LFTS abd us if needed fu hepatitis panel>>> neg covid care NGTF poor prognosis pending chest tube placement today will fu Jose Armando Andrews MD Dec 02, 2020 08:27
--- NOTE | 2020-12-02 09:00 | NUR ---
NURSE NOTES: AM meds were administered. IV fluid is now NS at 100ml/hour per Dr. Martin's order. at the nurse's station and aware of AM lab results. Pt will also be administered Albuminar 25% IV and Kayexalate 30gm NGT. Accucheck glucose resulted 324 and was covered with Novolog per sliding scale. Levemir 34 units also administered per Q12/hr order. ABG results were reported to Dominic WISEMAN and order was received to change ventilator rate to AC20. Repeat ABGs will be done at 1100.
[2020-12-02] MEDS ORDERED: Calcium Chloride 10% 10ml carpuject IVP ONE (09:02)
[2020-12-02] MEDS ORDERED: DOPamine 400mg/250ml BTL IV ONE (09:02)
[2020-12-02] MEDS ORDERED: Sodium Bicarbonate 8.4% 50ml Inj ONE (09:02)
[2020-12-02] MEDS: Pantoprazole Inj IVP SCH ×2 (09:09→22:01)
[2020-12-02] MEDS: Solu-MEDROL 125mg Inj IVP SCH ×2 (09:10→22:01)
[2020-12-02] MEDS: Midodrine 10mg tab ORAL SCH ×3 (09:10→17:43)
[2020-12-02] MEDS: Docusate 100mg/10ml Liq NG SCH ×3 (09:10→17:43)
--- NOTE | 2020-12-02 09:29 | Infectious Diseases Prog Note ---
Assessment/Plan Assessment/Plan A; 1. COVID-19 pneumonia. 2. Obesity. 3. Hypertension. 4. Leukocytosis is likely secondary to steroids. 5. Hypoxemia 6. Elevated transaminase 7. DM 8. Right pneumothorax 9. Acute renal failure PLAN: 1. Finished Remdesivir course 2. Continue Solumedrol 3. Abdominal US Subjective ROS Limited/Unobtainable: Yes Neurologic: Reports: other - on restraint Allergies: Coded Allergies: No Known Allergies (Unverified , 11/10/17) Objective Last 24 Hour Vital Signs Date Time Temp Pulse Resp B/P (MAP) Pulse Ox O2 Delivery O2 Flow Rate FiO2 12/02/20 06:36 119 20 90 12/02/20 06:00 115/46 12/02/20 05:00 139/38 12/02/20 04:00 119 23 130/45 (73) 94 12/02/20 04:00 118/50 12/02/20 04:00 Mechanical Ventilator Mechanical Ventilator Mechanical Ventilator 12/02/20 04:00 121 12/02/20 04:00 Mechanical Ventilator Mechanical Ventilator Mechanical Ventilator 12/02/20 04:00 100 12/02/20 03:45 118 22 130/46 (74) 94 12/02/20 03:30 118 23 128/48 (74) 94 12/02/20 03:18 118 22 90 12/02/20 03:00 131/64 12/02/20 03:00 114 22 115/46 (69) 94 12/02/20 02:30 115 20 130/42 (71) 94 12/02/20 02:17 140/46 12/02/20 02:00 118 25 136/47 (76) 94 12/02/20 00:00 Mechanical Ventilator Mechanical Ventilator Mechanical Ventilator 12/02/20 00:00 112 12/02/20 00:00 148/45 12/02/20 00:00 100 12/02/20 00:00 98.5 115 21 133/42 (72) 95 12/01/20 23:30 114 22 144/47 (79) 96 12/01/20 23:00 116 21 140/53 (82) 95 12/01/20 23:00 135/50 12/01/20 22:59 117 23 90 12/01/20 22:30 118 22 128/48 (74) 95 12/01/20 22:00 114 20 138/51 (80) 95 12/01/20 22:00 133/55 12/01/20 21:30 116 22 149/47 (81) 95 12/01/20 21:00 115 21 134/58 (83) 96 12/01/20 21:00 142/87 12/01/20 20:30 115 22 128/55 (79) 96 12/01/20 20:00 100 12/01/20 20:00 145/47 12/01/20 20:00 Mechanical Ventilator Mechanical Ventilator Mechanical Ventilator 12/01/20 20:00 115 12/01/20 20:00 99.0 113 23 153/52 (85) 97 12/01/20 19:30 110 21 139/50 (79) 98 12/01/20 19:15 109 22 164/63 (96) 98 12/01/20 19:00 164/63 12/01/20 19:00 106 22 154/63 (93) 99 12/01/20 18:46 106 22 90 12/01/20 17:00 116/53 12/01/20 16:00 100 12/01/20 16:00 Mechanical Ventilator Mechanical Ventilator Mechanical Ventilator 12/01/20 16:00 121 12/01/20 16:00 107/59 12/01/20 16:00 99.5 121 18 102/49 (66) 97 12/01/20 15:30 123 18 99/46 (63) 98 12/01/20 15:03 119 18 90 12/01/20 15:00 128 21 104/54 (71) 96 12/01/20 15:00 98/49 12/01/20 14:30 126 19 106/59 (75) 95 12/01/20 14:00 106/51 12/01/20 14:00 129 20 102/78 (86) 96 12/01/20 13:30 128 21 115/54 (74) 96 12/01/20 13:24 99.8 12/01/20 13:00 129 22 98/52 (67) 96 12/01/20 13:00 92/53 12/01/20 12:30 100.5 128 21 100/53 (69) 96 12/01/20 12:00 Mechanical Ventilator Mechanical Ventilator Mechanical Ventilator 12/01/20 12:00 100 12/01/20 12:00 130 12/01/20 12:00 91/54 12/01/20 12:00 129 23 100/51 (67) 95 12/01/20 11:30 130 22 113/59 (77) 95 12/01/20 11:06 131 23 100 12/01/20 11:00 134 25 104/49 (67) 96 12/01/20 11:00 100/51 12/01/20 10:30 130 23 112/57 (75) 97 12/01/20 10:00 130 24 114/50 (71) 97 12/01/20 10:00 109/53 12/01/20 09:30 129 24 115/61 (79) 90 Height (Feet): 5 Height (Inches): 1.00 Weight (Pounds): 180 HEENT: other - orally intubated Respiratory/Chest: other - on ventilator, FIO2=90%, R chest tube Cardiovascular: tachycardia, other - R arm PICC line Abdomen: soft, non tender Neurologic/Psychiatric: aphasia Laboratory Tests Test 12/01/20 12:48 12/01/20 13:15 12/01/20 21:29 12/02/20 01:12 POC Whole Blood Glucose 376 MG/DL (74-106) H 272 MG/DL (74-106) H Pending Sodium Level 140 MMOL/L (136-145) Potassium Level 6.1 MMOL/L (3.5-5.1) *H Chloride Level 106 MMOL/L (98-107) Carbon Dioxide Level 27 MMOL/L (21-32) Anion Gap 6 mmol/L (5-15) Blood Urea Nitrogen 75 mg/dL (7-18) H Creatinine 2.7 MG/DL (0.55-1.30) #H Estimat Glomerular Filtration Rate 17.6 mL/min (>60) Glucose Level 441 MG/DL (74-106) #H Uric Acid 7.8 MG/DL (2.6-7.2) H Calcium Level 7.9 MG/DL (8.5-10.1) L Phosphorus Level 5.9 MG/DL (2.5-4.9) H Magnesium Level 2.1 MG/DL (1.8-2.4) Total Bilirubin 1.5 MG/DL (0.2-1.0) H Direct Bilirubin 1.4 MG/DL (0.0-0.3) H Aspartate Amino Transf (AST/SGOT) 2015 U/L (15-37) H Alanine Aminotransferase (ALT/SGPT) 3993 U/L (12-78) H Alkaline Phosphatase 187 U/L (46-116) H C-Reactive Protein, Quantitative 15.0 mg/dL (0.00-0.90) H Pro-B-Type Natriuretic Peptide 1953 pg/mL (0-125) H Total Protein 4.4 G/DL (6.4-8.2) L Albumin 1.5 G/DL (3.4-5.0) L Globulin 2.9 g/dL Albumin/Globulin Ratio 0.5 (1.0-2.7) L Test 12/02/20 04:00 12/02/20 05:26 12/02/20 08:20 White Blood Count 21.5 K/UL (4.8-10.8) H Red Blood Count 3.78 M/UL (4.20-5.40) L Hemoglobin 11.2 G/DL (12.0-16.0) L Hematocrit 35.5 % (37.0-47.0) L Mean Corpuscular Volume 94 FL (80-99) Mean Corpuscular Hemoglobin 29.7 PG (27.0-31.0) Mean Corpuscular Hemoglobin Concent 31.6 G/DL (32.0-36.0) L Red Cell Distribution Width 12.9 % (11.6-14.8) Platelet Count 22 K/UL (150-450) L Mean Platelet Volume 10.0 FL (6.5-10.1) Neutrophils (%) (Auto) % (45.0-75.0) Lymphocytes (%) (Auto) % (20.0-45.0) Monocytes (%) (Auto) % (1.0-10.0) Eosinophils (%) (Auto) % (0.0-3.0) Basophils (%) (Auto) % (0.0-2.0) Differential Total Cells Counted 100 Neutrophils % (Manual) 95 % (45-75) H Lymphocytes % (Manual) Pending Monocytes % (Manual) 2 % (1-10) Eosinophils % (Manual) 0 % (0-3) Basophils % (Manual) 1 % (0-2) Myelocytes % 1 % (0-0) H Band Neutrophils 1 % (0-8) Platelet Estimate Decreased L Platelet Morphology Normal Hypochromasia 1+ Sodium Level 132 MMOL/L (136-145) L Potassium Level 5.6 MMOL/L (3.5-5.1) H Chloride Level 101 MMOL/L (98-107) Carbon Dioxide Level 24 MMOL/L (21-32) Anion Gap 7 mmol/L (5-15) Blood Urea Nitrogen 87 mg/dL (7-18) H Creatinine 3.2 MG/DL (0.55-1.30) H Estimat Glomerular Filtration Rate 14.5 mL/min (>60) Glucose Level 306 MG/DL (74-106) #H Lactic Acid Level 2.00 mmol/L (0.4-2.0) Uric Acid 8.4 MG/DL (2.6-7.2) H Calcium Level 8.0 MG/DL (8.5-10.1) L Phosphorus Level 6.9 MG/DL (2.5-4.9) H Magnesium Level 2.1 MG/DL (1.8-2.4) Total Bilirubin 1.7 MG/DL (0.2-1.0) H Direct Bilirubin 1.3 MG/DL (0.0-0.3) H Gamma Glutamyl Transpeptidase 323 U/L (5-85) H Aspartate Amino Transf (AST/SGOT) 1890 U/L (15-37) H Alanine Aminotransferase (ALT/SGPT) 3808 U/L (12-78) H Alkaline Phosphatase 191 U/L (46-116) H Ammonia 78 umol/L (11-32) H Lactate Dehydrogenase 1483 U/L (81-234) H Total Creatine Kinase 349 U/L (26-308) H C-Reactive Protein, Quantitative 12.1 mg/dL (0.00-0.90) H Pro-B-Type Natriuretic Peptide 1816 pg/mL (0-125) H Total Protein 4.7 G/DL (6.4-8.2) L Albumin 2.1 G/DL (3.4-5.0) L Globulin 2.6 g/dL Albumin/Globulin Ratio 0.8 (1.0-2.7) L POC Whole Blood Glucose Pending Arterial Blood pH 7.066 (7.350-7.450) Arterial Blood Partial Pressure CO2 84.4 mmHg (35.0-45.0) *H Arterial Blood Partial Pressure O2 65.6 mmHg (75.0-100.0) L Arterial Blood HCO3 22.8 mmol/L (22.0-26.0) Arterial Blood Oxygen Saturation 90.6 % (95-100) L Arterial Blood Base Excess -8.5 (-2-2) L Ted Test Positive Current Medications Medications (Trade) Dose Ordered Sig/Kayla Route PRN Reason Start Time Stop Time Status Last Admin Dose Admin Acetaminophen (Tylenol) 650 mg Q6H PRN NG Temp >100.5 12/01/20 12:45 12/31/20 12:44 12/01/20 12:54 Acetaminophen (Tylenol) 650 mg Q6H PRN ORAL For Headache 11/14/20 13:15 12/14/20 13:14 11/30/20 13:26 Albumin Human 100 ml @ 100 mls/hr ONCE IV 12/02/20 09:00 12/02/20 11:00 Albuterol Sulfate (Proventil MDI) 2 puff Q4H PRN INH Shortness of Breath 11/15/20 10:30 02/13/21 10:29 11/17/20 06:04 Bisacodyl (Dulcolax) 10 mg Q48H PRN RECTAL Constipation 11/28/20 13:06 02/26/21 13:05 Chlorhexidine Gluconate (Leora-Hex 2%) 1 applic DAILY@2000 TOPIC 11/30/20 20:00 02/28/21 19:59 12/01/20 20:23 Dextrose (Dextrose 50%) 25 ml Q30M PRN IV Hypoglycemia 11/24/20 11:30 02/22/21 11:29 Dextrose (Dextrose 50%) 50 ml Q30M PRN IV Hypoglycemia 11/24/20 11:30 02/22/21 11:29 Docusate Sodium (Colace) 100 mg TID NG 12/01/20 18:00 12/31/20 17:59 12/02/20 09:10 Guaifenesin/ Codeine Phosphate (Robitussin with codeine) 5 ml Q6H PRN ORAL For Cough 11/21/20 23:30 12/21/20 23:29 11/21/20 23:32 Hydralazine HCl (Apresoline) 10 mg Q6H PRN IV For High Blood Pressure 11/28/20 02:45 02/26/21 02:44 11/28/20 02:54 Insulin Aspart (NovoLOG) No Dose Q4HR SUBQ 11/25/20 13:00 02/23/21 12:59 12/02/20 05:00 Insulin Detemir (Levemir) 34 units Q12HR SUBQ 11/30/20 21:00 02/28/21 20:59 12/01/20 21:00 Lorazepam (Ativan 2mg/ml 1ml) 0.25 mg Q6H PRN IV For Anxiety 11/25/20 22:00 12/02/20 21:59 11/29/20 06:16 Methylprednisolone Sodium Succinate (Solu-MEDROL) 60 mg EVERY 12 HOURS IVP 12/01/20 13:00 03/01/21 12:59 12/02/20 09:10 Midodrine (Pro-Amatine) 10 mg THREE TIMES A DAY ORAL 12/01/20 15:00 03/01/21 14:59 12/02/20 09:10 Norepinephrine Bitartrate 16 mg/ Dextrose 516 ml @ 0 mls/hr Q24H IV 11/30/20 12:30 12/03/20 12:29 12/02/20 02:17 Pantoprazole (Protonix) 40 mg EVERY 12 HOURS IVP 12/01/20 21:00 12/31/20 20:59 12/02/20 09:09 Phenylephrine HCl 50 mg/Dextrose 250 ml @ 6 mls/hr Q24H IV 11/30/20 07:45 12/03/20 07:35 11/30/20 07:59 Sodium Chloride 1,000 ml @ 100 mls/hr Q10H IV 12/02/20 09:00 01/01/21 08:59 12/02/20 09:08 Herminio Reid MD Dec 02, 2020 09:29
--- NOTE | 2020-12-02 09:48 | Nephrology Progress Note ---
Assessment/Plan Problem List: (1) COVID-19 (2) Abnormal LFTs (3) Pneumonia (4) Hypoxia Assessment Hypernatremia Hypokalemia Elevated blood sugar Hypoxia COVID-19 pneumonia Plan December 02: Patient developed acute renal failure and shock liver. TPN stopped. IV fluid and albumin boluses given. Monitor renal parameters. Kayexalate for high potassium. Per orders. Discussed with ELISEO Guerrero. December 01: Patient intubated, ventilator, full code. Patient on TPN. Today's labs still pending. Continue per current treatment plan. November 30: Remains intubated. Labs reviewed. Serum sodium elevated. On TPN. Discussed with pharmacist. LFTs elevated. Down on Intralipid from 20% to 10%. Patient hypotensive. Clonidine patch discontinued November 29: Patient in ICU now. On mechanical ventilation. Labs reviewed. Continue TPN and monitor electrolyte and renal parameters. Continue per consultants. November 28: Labs reviewed. On TPN. Electrolytes and renal parameters stable. Full code. On high flow oxygen on nonrebreather mask. November 27: Labs reviewed. Patient on TPN ordered by Dr. Curry. Medication list reviewed. Main IV discontinued. Continue to follow-up renal parameters an d electrolytes. Blood pressure stable. November 26: Labs reviewed. Renal parameters stable. Levemir dose increased for high blood sugar. Continue as is. November 25: Labs reviewed. Electrolytes and renal parameters stable. Blood sugar up. Levemir dose increased. Continue to monitor renal parameters. November 24: Electrolytes improving. Clonidine patch for blood pressure given. On high flow oxygen due to pneumothorax. No BiPAP. Discussed with . Previously: Start D5W Potassium supplement Monitor electrolytes Levemir 10 units, monitor blood sugar Vitamin D level Pulmonary support Per orders Subjective ROS Limited/Unobtainable: Yes Objective Objective Last 24 Hour Vital Signs Date Time Temp Pulse Resp B/P (MAP) Pulse Ox O2 Delivery O2 Flow Rate FiO2 12/02/20 06:36 119 20 90 12/02/20 06:00 115/46 12/02/20 05:00 139/38 12/02/20 04:00 119 23 130/45 (73) 94 12/02/20 04:00 118/50 12/02/20 04:00 Mechanical Ventilator Mechanical Ventilator Mechanical Ventilator 12/02/20 04:00 121 12/02/20 04:00 Mechanical Ventilator Mechanical Ventilator Mechanical Ventilator 12/02/20 04:00 100 12/02/20 03:45 118 22 130/46 (74) 94 12/02/20 03:30 118 23 128/48 (74) 94 12/02/20 03:18 118 22 90 12/02/20 03:00 131/64 12/02/20 03:00 114 22 115/46 (69) 94 12/02/20 02:30 115 20 130/42 (71) 94 12/02/20 02:17 140/46 12/02/20 02:00 118 25 136/47 (76) 94 12/02/20 00:00 Mechanical Ventilator Mechanical Ventilator Mechanical Ventilator 12/02/20 00:00 112 12/02/20 00:00 148/45 12/02/20 00:00 100 12/02/20 00:00 98.5 115 21 133/42 (72) 95 12/01/20 23:30 114 22 144/47 (79) 96 12/01/20 23:00 116 21 140/53 (82) 95 12/01/20 23:00 135/50 12/01/20 22:59 117 23 90 12/01/20 22:30 118 22 128/48 (74) 95 12/01/20 22:00 114 20 138/51 (80) 95 12/01/20 22:00 133/55 12/01/20 21:30 116 22 149/47 (81) 95 12/01/20 21:00 115 21 134/58 (83) 96 12/01/20 21:00 142/87 12/01/20 20:30 115 22 128/55 (79) 96 12/01/20 20:00 100 12/01/20 20:00 145/47 12/01/20 20:00 Mechanical Ventilator Mechanical Ventilator Mechanical Ventilator 12/01/20 20:00 115 12/01/20 20:00 99.0 113 23 153/52 (85) 97 12/01/20 19:30 110 21 139/50 (79) 98 12/01/20 19:15 109 22 164/63 (96) 98 12/01/20 19:00 164/63 12/01/20 19:00 106 22 154/63 (93) 99 12/01/20 18:46 106 22 90 12/01/20 17:00 116/53 12/01/20 16:00 100 12/01/20 16:00 Mechanical Ventilator Mechanical Ventilator Mechanical Ventilator 12/01/20 16:00 121 12/01/20 16:00 107/59 12/01/20 16:00 99.5 121 18 102/49 (66) 97 12/01/20 15:30 123 18 99/46 (63) 98 12/01/20 15:03 119 18 90 12/01/20 15:00 128 21 104/54 (71) 96 12/01/20 15:00 98/49 12/01/20 14:30 126 19 106/59 (75) 95 12/01/20 14:00 106/51 12/01/20 14:00 129 20 102/78 (86) 96 12/01/20 13:30 128 21 115/54 (74) 96 12/01/20 13:24 99.8 12/01/20 13:00 129 22 98/52 (67) 96 12/01/20 13:00 92/53 12/01/20 12:30 100.5 128 21 100/53 (69) 96 12/01/20 12:00 Mechanical Ventilator Mechanical Ventilator Mechanical Ventilator 12/01/20 12:00 100 12/01/20 12:00 130 12/01/20 12:00 91/54 12/01/20 12:00 129 23 100/51 (67) 95 12/01/20 11:30 130 22 113/59 (77) 95 12/01/20 11:06 131 23 100 12/01/20 11:00 134 25 104/49 (67) 96 12/01/20 11:00 100/51 12/01/20 10:30 130 23 112/57 (75) 97 12/01/20 10:00 130 24 114/50 (71) 97 12/01/20 10:00 109/53 Intake and Output 12/01/20 12/02/20 19:00 07:00 Intake Total 1467.20 ml 1719.31 ml Output Total 420 ml 470 ml Balance 1047.20 ml 1249.31 ml Free Water 180 ml 100 ml IV Total 747.20 ml 1239.31 ml Tube Feeding 540 ml 380 ml Output Urine Total 420 ml 410 ml Stool Total 0 ml Chest Tube Drainage Total 60 ml Current Medications Medications (Trade) Dose Ordered Sig/Kayla Route PRN Reason Start Time Stop Time Status Last Admin Dose Admin Acetaminophen (Tylenol) 650 mg Q6H PRN NG Temp >100.5 12/01/20 12:45 12/31/20 12:44 12/01/20 12:54 Acetaminophen (Tylenol) 650 mg Q6H PRN ORAL For Headache 11/14/20 13:15 12/14/20 13:14 11/30/20 13:26 Albumin Human 100 ml @ 100 mls/hr ONCE IV 12/02/20 09:00 12/02/20 11:00 Albuterol Sulfate (Proventil MDI) 2 puff Q4H PRN INH Shortness of Breath 11/15/20 10:30 02/13/21 10:29 11/17/20 06:04 Bisacodyl (Dulcolax) 10 mg Q48H PRN RECTAL Constipation 11/28/20 13:06 02/26/21 13:05 Chlorhexidine Gluconate (Leora-Hex 2%) 1 applic DAILY@2000 TOPIC 11/30/20 20:00 02/28/21 19:59 12/01/20 20:23 Dextrose (Dextrose 50%) 25 ml Q30M PRN IV Hypoglycemia 11/24/20 11:30 02/22/21 11:29 Dextrose (Dextrose 50%) 50 ml Q30M PRN IV Hypoglycemia 11/24/20 11:30 02/22/21 11:29 Docusate Sodium (Colace) 100 mg TID NG 12/01/20 18:00 12/31/20 17:59 12/02/20 09:10 Guaifenesin/ Codeine Phosphate (Robitussin with codeine) 5 ml Q6H PRN ORAL For Cough 11/21/20 23:30 12/21/20 23:29 11/21/20 23:32 Hydralazine HCl (Apresoline) 10 mg Q6H PRN IV For High Blood Pressure 11/28/20 02:45 02/26/21 02:44 11/28/20 02:54 Insulin Aspart (NovoLOG) No Dose Q4HR SUBQ 11/25/20 13:00 02/23/21 12:59 12/02/20 05:00 Insulin Detemir (Levemir) 34 units Q12HR SUBQ 11/30/20 21:00 02/28/21 20:59 12/01/20 21:00 Lorazepam (Ativan 2mg/ml 1ml) 0.25 mg Q6H PRN IV For Anxiety 11/25/20 22:00 12/02/20 21:59 11/29/20 06:16 Methylprednisolone Sodium Succinate (Solu-MEDROL) 60 mg EVERY 12 HOURS IVP 12/01/20 13:00 03/01/21 12:59 12/02/20 09:10 Midodrine (Pro-Amatine) 10 mg THREE TIMES A DAY ORAL 12/01/20 15:00 03/01/21 14:59 12/02/20 09:10 Norepinephrine Bitartrate 16 mg/ Dextrose 516 ml @ 0 mls/hr Q24H IV 11/30/20 12:30 12/03/20 12:29 12/02/20 02:17 Pantoprazole (Protonix) 40 mg EVERY 12 HOURS IVP 12/01/20 21:00 12/31/20 20:59 12/02/20 09:09 Phenylephrine HCl 50 mg/Dextrose 250 ml @ 6 mls/hr Q24H IV 11/30/20 07:45 12/03/20 07:35 11/30/20 07:59 Sodium Chloride 1,000 ml @ 100 mls/hr Q10H IV 12/02/20 09:00 01/01/21 08:59 12/02/20 09:08 Laboratory Tests 12/01/20 12:48: POC Whole Blood Glucose 376H 12/01/20 13:15: Sodium Level 140, Potassium Level 6.1*H, Chloride Level 106, Carbon Dioxide Level 27, Anion Gap 6, Blood Urea Nitrogen 75H, Creatinine 2.7#H, Estimat Glomerular Filtration Rate 17.6, Glucose Level 441#H, Uric Acid 7.8H, Calcium Level 7.9L, Phosphorus Level 5.9H, Magnesium Level 2.1, Total Bilirubin 1.5H, Direct Bilirubin 1.4H, Aspartate Amino Transf (AST/SGOT) 2015H, Alanine Aminotransferase (ALT/SGPT) 3993H, Alkaline Phosphatase 187H, C-Reactive Protein, Quantitative 15.0H, Pro-B-Type Natriuretic Peptide 1953H, Total Protein 4.4L, Albumin 1.5L, Globulin 2.9, Albumin/Globulin Ratio 0.5L 12/01/20 21:29: POC Whole Blood Glucose 272H 12/02/20 01:12: POC Whole Blood Glucose [Pending] 12/02/20 04:00: White Blood Count 21.5H, Red Blood Count 3.78L, Hemoglobin 11.2L, Hematocrit 35.5L, Mean Corpuscular Volume 94, Mean Corpuscular Hemoglobin 29.7, Mean Corpuscular Hemoglobin Concent 31.6L, Red Cell Distribution Width 12.9, Platelet Count 22L, Mean Platelet Volume 10.0, Neutrophils (%) (Auto) , Lymphocytes (%) (Auto) , Monocytes (%) (Auto) , Eosinophils (%) (Auto) , Basophils (%) (Auto) , Differential Total Cells Counted 100, Neutrophils % (Manual) 95H, Lymphocytes % (Manual) [Pending], Monocytes % (Manual) 2, Eosinophils % (Manual) 0, Basophils % (Manual) 1, Myelocytes % 1H, Band Neutrophils 1, Platelet Estimate DecreasedL, Platelet Morphology Normal, Hypochromasia 1+, Sodium Level 132L, Potassium Level 5.6H, Chloride Level 101, Carbon Dioxide Level 24, Anion Gap 7, Blood Urea Nitrogen 87H, Creatinine 3.2H, Estimat Glomerular Filtration Rate 14.5, Glucose Level 306#H, Lactic Acid Level 2.00, Uric Acid 8.4H, Calcium Level 8.0L, P hosphorus Level 6.9H, Magnesium Level 2.1, Total Bilirubin 1.7H, Direct Bilirubin 1.3H, Gamma Glutamyl Transpeptidase 323H, Aspartate Amino Transf (AST/SGOT) 1890H, Alanine Aminotransferase (ALT/SGPT) 3808H, Alkaline Phosphatase 191H, Ammonia 78H, Lactate Dehydrogenase 1483H, Total Creatine Kinase 349H, C-Reactive Protein, Quantitative 12.1H, Pro-B-Type Natriuretic Peptide 1816H, Total Protein 4.7L, Albumin 2.1L, Globulin 2.6, Albumin/Globulin Ratio 0.8L 12/02/20 05:26: POC Whole Blood Glucose [Pending] 12/02/20 08:20: Arterial Blood pH 7.066*L, Arterial Blood Partial Pressure CO2 84.4*H, Arterial Blood Partial Pressure O2 65.6L, Arterial Blood HCO3 22.8, Arterial Blood Oxygen Saturation 90.6L, Arterial Blood Base Excess -8.5L, Ted Test Positive Height (Feet): 5 Height (Inches): 1.00 Weight (Pounds): 180 General Appearance: no apparent distress EENT: other - Intubated on ventilator Cardiovascular: tachycardia Respiratory/Chest: decreased breath sounds Abdomen: distended John Martin MD Dec 02, 2020 09:48
[2020-12-02] MEDS: Levemir Flexpen SUBQ SCH ×2 (09:51→22:32)
[2020-12-02] MEDS ORDERED: Sodium Polystyrene Sulfonate 15gm Powder NG SCH (10:00)
--- NOTE | 2020-12-02 10:00 | NUR ---
NURSE NOTES: Dr Kramer is at bedside, right chest thoravent was replaced with chest tube, connected to suction as ordered. MD aware of platelet lab results and order was received for 1 unit of platelet transfusion. Order was processed. MD spoke with pt's family over the phone regarding chest tube placement and update on pt's current status.
--- NOTE | 2020-12-02 11:00 | NUR ---
NURSE NOTES: Repeat ABGs were done post AC rate change, and results were reported to Dr. Gannon. Per MD, "continue same vent settings". RT notified. Pt's family contacted the nurse's station and expressed family request/wish to change code status to DNR. Family spoke with Dr Gannon earlier this morning and made the decision to change the code status. Family was also updated on pt's current status.
--- NOTE | 2020-12-02 11:05 | NUR ---
RADIOLOGY DEPT., CHEST FOR CHEST VENT REPLACEMENT PERFORMED.HORTENSIA
--- NOTE | 2020-12-02 11:11 | Operative Note - PDOC ---
Operative Note Operative Note Date of Operation/Procedure: Dec 02, 2020 Pre-op Diagnosis: right recurrent pneumothorax Procedure: Right tube thoracostomy 24 Armenian bore tube Post-op Diagnosis: same as pre-op Surgeon: Kenneth Kramer MD Anesthesia: local Specimen: none Complications: none Condition: unstable Fluids: none Estimated Blood Loss: minimal Drains: other Implant(s) used?: No Indications for Procedure 68-year-old female with right-sided pneumothorax status post Thora vent unfortunately despite fully functional Thora vent continues to have persistent air leak larger than with the vent could tolerated and has reaccumulated a right-sided pneumothorax that is worsening. ABG noted. Larger bore tube thoracostomy indicated and recommended as compared to the minimally invasive. I discussed the current findings care plan with the patient's daughter and have obtained consent. I did express in detail her worsening condition over the cour se of the past few days as could be identified not related to the pneumothorax but the overall condition the consumptive coagulopathy platelets now 22 trending down worsening overall condition. I explained that the larger chest tube is more invasive than the minimal invasive Thora vent but necessary at this time though the overall prognosis is guarded given her overall condition Description of Procedure Patient was made comfortable the bedside in supine position. Given her platelet count overall condition great care was taken into identifying and planning a chest tube placement to ensure no significant harm comes to the patient. The prior Thora vent was removed and the site was cleansed appropriately as well as the tract and prepped draped in standard surgical fashion. Her prior site was fairly large at the initial incision that was placed by the initial Thora vent and the tract was clearly identified and forming from her Thora vent placement that has been there for some days now. I was able to easily use the same track to place a forcep and and identify entry into the pleural cavity. This is already hemostatic and open and therefore utilized for the placement of the new chest tube. Site was irrigated copiously with normal saline and then ChloraPrep was used and the site was cleaned. Betadine was then used. A 24 Armenian chest tube was gently inserted over a forcep directly into the pleural cavity and placed appropriately. The incision was reapproximated with a 2-0 nylon around the tube anchoring the tube in position. Xeroform was placed dressings were placed tape was placed. Patient was placed to Pleur-evac and suctioning initiated. A appropriate titling was identified as well as an air leak noted. Checks x-ray obtained and the pneumothorax has mainly resolved. We will continue to Pleur-evac suction. No bleeding identified throughout the procedure fortunately. We will continue to monitor. Thank you Kenneth Kramer Dec 02, 2020 11:11
--- NOTE | 2020-12-02 11:46 | Diagnostic Imaging Report ---
Indication: Post chest tube placement Technique: One view of the chest Comparison: 12/01/2020 Findings: Interim removal of previously demonstrated chest vent catheter, interim replacement with a large bore right chest tube, tip projected inferomedial. Interim decrease in size of right pneumothorax. Bilateral infiltrates persist. Other tubes and lines remain in stable satisfactory positions. Previously demonstrated subcutaneous emphysema is no longer visualized Impression: Decreased right pneumothorax, status post replacement of vent catheter with a large bore chest tube
--- NOTE | 2020-12-02 12:30 | NUR ---
NURSE NOTES: Received telephone consent from family for blood transfusion. Blood bank was contacted and spoke with pathologist Dr Keane regarding platelet transfusion for platelet =22 k/uL. Awaiting for blood bank to dispense blood product (1 unit of platelets). Pt remains with SBP above 90 while maintained on Levophed drip at 4mcg/min. Afebrile. Pt remains tachycardic, HR 110-118, administered Midodrine 10mg. MD aware of tachycardia.
--- NOTE | 2020-12-02 12:31 | NUR ---
insurance CLINICALS AND REVIEW FAXED TO [facility]ADOR[facility]uro; [phone] F: [phone] 2020 [id number]
--- NOTE | 2020-12-02 13:35 | Diagnostic Imaging Report ---
EXAM: ULTRASOUND US ABD Complete CLINICAL HISTORY: Abdominal pain. COMPARISON: None TECHNIQUE: Ultrasound examination of the abdomen includes grayscale images, and color and spectral doppler analysis. FINDINGS: Study is technically limited. Patient has right chest tube partially obscuring the right upper quadrant. There is also abundance of bowel gas. The liver is mildly echogenic likely fatty change. No ductal dilatation noted. Spleen is within normal limits. The gallbladder is without sludge or stone. Common bile duct measures 7 mm. Pancreas grossly unremarkable to the extent visualized. The kidneys are normal in size, shape and axis. Aorta and cava are obscured. IMPRESSION: TECHNICALLY LIMITED STUDY. FATTY LIVER. AORTA AND CAVA ARE OBSCURED.
--- NOTE | 2020-12-02 14:20 | NUR ---
NURSE NOTES: Spoke with Dr Andrews over the phone regarding pt's current status. No new orders at this time. Pt is tolerating NGt feeding Nepro at goal rate of 35ml/hour, residuals remain below 10ml.
--- NOTE | 2020-12-02 16:30 | NUR ---
NURSE NOTES: Pt was cleaned and repositioned for comfort. Oral care was done. Remains on Levophed at 4mcg/min to maintain SBP above 90. Chest tube entry site dressing dry/intact and no signs of bleeding noted. Remains afebrile. Tolerating NGT feeding. Residuals remain below 10ml.
--- NOTE | 2020-12-02 18:00 | NUR ---
NURSE NOTES: Accucheck glucose level resulted 209 and was covered with Novolog insulin per sliding scale.
--- NOTE | 2020-12-02 19:00 | NUR ---
NURSE NOTES: Received patient from ELISEO Guerrero. patient opens eyes, withdraws to pain. sinus tachycardia on the monitor (HR 114). ETT 7.5, 21cm at the lip. vent settings AC 20 TV 500 FiO2 100% PEEP 5. chest tube on the right side, 50ml output from AM shift. NGT on the left nare running Nepro @35ml/hr, tolerating well. Garcia in place and draining well to gravity. Left upper arm PICC in place, dressing cleanr, dry, and intact. Levophed 4mcg/min and NS @100ml/hr. Bilateral soft restraints in place. bed to lowest position and locked. call light within easy reach. side rails up x2. will continue plan of care.
--- NOTE | 2020-12-02 19:15 | NUR ---
NURSE HAND-OFF REPORT: Latest Vital Signs: Temperature 98.8 , Pulse 116 , B/P 116 /42 , Respiratory Rate 22 , O2 SAT 88 , Mechanical Ventilator AC20, VT500, Peep 5, FIO2 100%. Vital Sign Comment: Remains on Levophed drip at 4mcg/min to maintain SBP above 90. O2Sat fluctuates from 88-92%. Chest tube entry/site dressing remains dry/intact and no signs of bleeding noted. EKG Rhythm: Sinus Tachycardia Rhythm change?: Marta CAMERON Notified?: Eitan Bansal NP, MD Response: No New Orders Received Latest Rosen Fall Score: 75 Fall Risk: High Risk Safety Measures: Call light Within Reach, Bed Alarm Zone 2, Side Rails Side Rails x3, Bed position Low and Locked. Fall Precautions: Door Sign Patient Fall Education Report given to Xander GOMES. Endorsed plan of care.
[2020-12-02] MEDS: Dyna-Hex 2% Top Sol 2oz TOPIC SCH (22:01)
--- NOTE | 2020-12-02 22:15 | NUR ---
NURSE NOTES: Platelet infusion started. vital signs stable. will monitor closely
--- NOTE | 2020-12-02 23:15 | NUR ---
NURSE NOTES: Platelets infusion complete. vital signs complete. no adverse infusion transfusion noted.
[2020-12-03] VITALS (18 sets, daily range): BP systolic 65–100; BP diastolic 30–43
[2020-12-03] MEDS: Insulin NovoLOG Flexpen S/S (Mod) SUBQ SCH ×4 (00:06→13:59)
--- NOTE | 2020-12-03 01:00 | NUR ---
NURSE NOTES: noted patient BP 96/42. titrated Levophed from 4mcg/min to 6mcg/min. will monitor closely
--- NOTE | 2020-12-03 02:28 | NUR ---
NURSE NOTES: noted patient BP 94/38. Levophed titrated from 6mcg/min to 8mcg/min. will monitor closely
--- NOTE | 2020-12-03 03:00 | NUR ---
NURSE NOTES: noted patient BP 93/41. titrated Levophed from 8mcg/min to 10mcg/min. will monitor closely.
--- NOTE | 2020-12-03 04:15 | NUR ---
NURSE NOTES: bed bath performed. no BM. vital signs stable
[2020-12-03 05:19] LABS: HEMATOCRIT 28.3 % (37.0-47.0); MEAN CORPUSCULAR VOLUME 91 FL (80-99); PLATELET COUNT 49 K/UL (150-450); RED BLOOD COUNT 3.11 M/UL (4.20-5.40); RED CELL DISTRIBUTION WIDTH 13.1 % (11.6-14.8)
[2020-12-03 05:21] LABS: INR 1.5 (0.9-1.1)
[2020-12-03 05:39] LABS: WHITE BLOOD COUNT 25.4 K/UL (4.8-10.8)
[2020-12-03 05:44] LABS: ALANINE AMINOTRANSFERASE 2610 U/L (12-78); ALBUMIN 2.3 G/DL (3.4-5.0); ALKALINE PHOSPHATASE 207 U/L (46-116); ANION GAP 11 mmol/L (5-15); ASPARTATE AMINO TRANSFERASE 1091 U/L (15-37); BILIRUBIN,TOTAL 2.3 MG/DL (0.2-1.0); BLOOD UREA NITROGEN 125 mg/dL (7-18); CALCIUM 7.4 MG/DL (8.5-10.1); CARBON DIOXIDE 24 MMOL/L (21-32); CHLORIDE 103 MMOL/L (98-107); CREATINE KINASE 178 U/L (26-308); CREATININE 4.3 MG/DL (0.55-1.30); PHOSPHORUS 7.4 MG/DL (2.5-4.9); POTASSIUM 5.4 MMOL/L (3.5-5.1); SODIUM 138 MMOL/L (136-145)
[2020-12-03 06:04] LABS: BILIRUBIN,DIRECT 1.8 MG/DL (0.0-0.3)
--- NOTE | 2020-12-03 06:29 | NUR ---
CASE MANAGEMENT:REVIEW 12/03/20 SI: PNA. RT PNEUMOTHORAX W/CHEST TUBE 98.0 114 26 97/39 92% ON VENT SUPPORT W/100% FIO2 WBC+25.4 H/H-9.0/28.3 PLT-49 K+5.4 BUN+125 CR+4.3 AST/ALT+1091/2610 IS: IV ALBUMIN 50ML Q8HRS IVF@100/HR IV PROTONIX Q12 MIDODRINE NG TID IV SOLUMEDROL 60MG Q12 LEVOPHED GTT : ICU DCP: FROM HOME PLAN: POOR PROGNOSIS ~ MD TO SPEAK WITH FAMILY
--- NOTE | 2020-12-03 06:37 | NUR ---
NURSE NOTES: patient had a large BM. liquid and brown. cleaned patient.
--- NOTE | 2020-12-03 07:00 | NUR ---
NURSE HAND-OFF REPORT: Latest Vital Signs: Temperature 98.0 , Pulse 111 , B/P 104 /42 , Respiratory Rate 25 , O2 SAT 84 , Mechanical Ventilator, O2 Flow Rate . Vital Sign Comment: stable EKG Rhythm: Sinus Tachycardia Rhythm change?: N Notified?: Eitan Bansal NP, MD Response: No New Orders Received Latest Rosen Fall Score: 75 Fall Risk: High Risk Safety Measures: Call light Within Reach, Bed Alarm Zone 2, Side Rails Side Rails x3, Bed position Low and Locked. Fall Precautions: Door Sign Patient Fall Education Report given to ELISEO Kapadia.
--- NOTE | 2020-12-03 07:02 | NUR ---
RESPIRATORY NOTE: PT received on AC/VC 20,500,100%,+5. Alarms are on and audible. Vent circuit is secure and out of the way. Chest tube in place on right side. Absent to diminished BS on RT side. Rhonchi on Left side. Endorsed by night nurse of possible torn ETT cuff. Audible leak noted from ETT cuff. Unable to correct by adding air to ETT cuff. Danica RN. aware. Will continue to closely monitor.
--- NOTE | 2020-12-03 07:20 | NUR ---
NURSE NOTES:RECEIVED REPORT FROM [employer] SUPERVISOR OF [facility] SHIFT. RECEIVED PT ON DROPLET PRECAUTION ISOLATION ROOM. PT IS POSITIVE COVID -19 .PT IS DNR AND DNI STATUS .PT IS ORALLY INTUBATED TOLERATING WELL CURRENT VENT SETTINGS. ET TUBE SIZE # 7.5 AT 21CM ,LT CHRISTINE AND CONNECTED TO A VENTILATOR. AC 20,TV 500, FIO2 100% ,PEEP 5,O2 SAT 93%.NGT IN PLACE RECEIVING NEPRO @ 35 CC/HRS, NO RESIDUAL NOTED AT THIS TIME. CHEST TUBE ON RT UPPER CHEST IN PLACE AND INTACT. F/C DRAINING 5CC/HRS. DR CABAN CAME TO SEE THE PT AND MADE AWARE AND NOTIFIED REGARDING K+ 5.4. M.D STATED THAT WILL ORDER KAYAXALATED 30G. FULL BODY ASSESSMENT DONE. PT REPOSITIONED IN BED TO PROVIDE COMFORT AND TO PREVENT SKIN BREAK DOWN. WILL CONT TO MONITOR.
--- NOTE | 2020-12-03 08:39 | General Progress Note ---
Subjective ROS Limited/Unobtainable: No Allergies: Coded Allergies: No Known Allergies (Unverified , 11/10/17) Objective Last 24 Hour Vital Signs Date Time Temp Pulse Resp B/P (MAP) Pulse Ox O2 Delivery O2 Flow Rate FiO2 12/03/20 08:00 100 12/03/20 08:00 Mechanical Ventilator Mechanical Ventilator Mechanical Ventilator 12/03/20 08:00 95/39 12/03/20 07:00 111 25 92/34 (53) 84 12/03/20 07:00 104/42 12/03/20 06:45 92/34 12/03/20 06:30 99/38 12/03/20 06:15 97/39 12/03/20 06:00 114 26 100/42 (61) 92 12/03/20 06:00 100/42 12/03/20 05:30 113 24 99/41 (60) 91 12/03/20 05:30 92/39 12/03/20 05:15 86/41 12/03/20 05:00 83/40 12/03/20 05:00 112 24 90/35 (53) 87 12/03/20 04:45 90/35 12/03/20 04:30 93/36 12/03/20 04:15 97/40 12/03/20 04:00 Mechanical Ventilator Mechanical Ventilator Mechanical Ventilator 12/03/20 04:00 100 12/03/20 04:00 87/24 12/03/20 04:00 114 12/03/20 04:00 98.0 114 24 92/35 (54) 87 12/03/20 03:45 86/37 12/03/20 03:30 92/37 12/03/20 03:15 96/40 12/03/20 03:00 112 23 100 12/03/20 03:00 93/41 12/03/20 03:00 113 24 93/41 (58) 87 12/03/20 02:45 89/39 12/03/20 02:30 96/39 12/03/20 02:00 115 23 100/36 (57) 88 12/03/20 02:00 94/38 12/03/20 01:45 100/36 12/03/20 01:30 102/40 12/03/20 01:15 97/42 12/03/20 01:00 104/39 12/03/20 01:00 114 23 96/42 (60) 88 12/03/20 00:00 Mechanical Ventilator Mechanical Ventilator Mechanical Ventilator 12/03/20 00:00 117 12/03/20 00:00 98.6 115 23 100/40 (60) 87 12/03/20 00:00 100 12/03/20 00:00 104/41 12/02/20 23:00 115 23 100 12/02/20 23:00 116 23 102/39 (60) 87 12/02/20 23:00 102/38 12/02/20 22:00 116 23 111/41 (64) 88 12/02/20 22:00 102/41 12/02/20 21:00 121/42 12/02/20 21:00 116 23 121/42 (68) 91 12/02/20 20:00 109/41 12/02/20 20:00 Mechanical Ventilator Mechanical Ventilator Mechanical Ventilator 12/02/20 20:00 98.6 114 21 109/41 (63) 91 12/02/20 20:00 115 12/02/20 20:00 100 12/02/20 19:00 115 23 100 12/02/20 19:00 116 22 111/41 (64) 88 12/02/20 19:00 116/42 12/02/20 18:30 117 22 119/42 (67) 88 12/02/20 18:00 118/43 12/02/20 18:00 98.8 116 22 117/41 (66) 90 12/02/20 17:00 115 21 117/41 (66) 91 12/02/20 17:00 131/43 12/02/20 16:00 Mechanical Ventilator Mechanical Ventilator Mechanical Ventilator 12/02/20 16:00 127/42 12/02/20 16:00 119 22 127/42 (70) 91 12/02/20 16:00 100 12/02/20 16:00 115 12/02/20 15:06 118 22 100 12/02/20 15:00 119 23 118/41 (66) 92 12/02/20 15:00 118/41 12/02/20 14:00 101/62 12/02/20 14:00 115 21 101/62 (75) 93 12/02/20 13:00 118/49 12/02/20 13:00 119 24 118/49 (72) 95 12/02/20 12:00 100 12/02/20 12:00 Mechanical Ventilator Mechanical Ventilator Mechanical Ventilator 12/02/20 12:00 119 23 122/45 (70) 95 12/02/20 12:00 122/45 12/02/20 12:00 118 12/02/20 11:00 120 22 124/45 (71) 94 12/02/20 11:00 124/45 12/02/20 10:52 119 22 90 12/02/20 10:00 133/48 12/02/20 10:00 100 12/02/20 10:00 118 22 133/46 (75) 95 12/02/20 09:00 115 20 108/41 (63) 95 12/02/20 09:00 108/40 Intake and Output 12/02/20 12/03/20 19:00 07:00 Intake Total 1907.88 ml 1871.51 ml Output Total 140 ml 310 ml Balance 1767.88 ml 1561.51 ml Free Water 120 ml 60 ml IV Total 1367.88 ml 1391.51 ml Tube Feeding 420 ml 420 ml Output Urine Total 140 ml 160 ml Chest Tube Drainage Total 150 ml Laboratory Tests 12/02/20 10:52: Arterial Blood pH 7.123*L, Arterial Blood Partial Pressure CO2 73.8*H, Arterial Blood Partial Pressure O2 66.7L, Arterial Blood HCO3 23.6, Arterial Blood Oxygen Saturation 91.8L, Arterial Blood Base Excess -6.5L, Ted Test Positive 12/02/20 22:03: POC Whole Blood Glucose 134H 12/02/20 23:18: POC Whole Blood Glucose 152H 12/03/20 03:00: White Blood Count 25.4*H, Red Blood Count 3.11L, Hemoglobin 9.0L, Hematocrit 28.3L, Mean Corpuscular Volume 91, Mean Corpuscular Hemoglobin 28.9, Mean Corpuscular Hemoglobin Concent 31.8L, Red Cell Distribution Width 13.1, Platelet Count 49#L, Mean Platelet Volume 9.2, Neutrophils (%) (Auto) , Lymphocytes (%) (Auto) , Monocytes (%) (Auto) , Eosinophils (%) (Auto) , Basophils (%) (Auto) , Differential Total Cells Counted 100, Neutrophils % (Manual) 95H, Lymphocytes % (Manual) 1L, Monocytes % (Manual) 3, Eosinophils % (Manual) 0, Basophils % (Manual) 0, Band Neutrophils 1, Platelet Estimate DecreasedL, Platelet Morphology Normal, Hypochromasia 1+, Prothrombin Time 15.6H, Prothromb Time International Ratio 1.5H, Activated Partial Thromboplast Time 33, Sodium Level 138, Potassium Level 5.4H, Chloride Level 103, Carbon Dioxide Level 24, Anion Gap 11, Blood Urea Nitrogen 125H, Creatinine 4.3H, Estimat Glomerular Filtration Rate 10.2, Glucose Level 126#H, Uric Acid 8.3H, Calcium Level 7.4L, Phosphorus Level 7.4H, Magnesium Level 2.1, Total Bilirubin 2.3H, Direct Bilirubin 1.8H, Aspartate Amino Transf (AST/SGOT) 1091H, Alanine Aminotransferase (ALT/SGPT) 2610H, Alkaline Phosphatase 207H, Total Creatine Kinase 178, C-Reactive Protein, Quantitative 7.5H, Pro-B-Type Natriuretic Peptide 5834H, Total Protein 4.6L, Albumin 2.3L, Globulin 2.3, Albumin/Globulin Ratio 1.0 Height (Feet): 5 Height (Inches): 1.00 Weight (Pounds): 180 General Appearance: no apparent distress EENT: normal ENT inspection Neck: supple Cardiovascular: normal rate Respiratory/Chest: decreased breath sounds Abdomen: normal bowel sounds, non tender, soft Extremities: non-tender Assessment/Plan Assessment/Plan: Covid positive PNA mild transaminitis most likely due to above>>>>improving DM smoker now intubated shock liver repeat LFTS abd us if needed fu hepatitis panel>>> neg covid care NGTF poor prognosis DNR will Jose Armando Huffman MD Dec 03, 2020 08:39
[2020-12-03] MEDS: Docusate 100mg/10ml Liq NG SCH ×2 (09:06→13:50)
[2020-12-03] MEDS: Midodrine 10mg tab ORAL SCH ×2 (09:06→13:50)
[2020-12-03] MEDS: Pantoprazole Inj IVP SCH (09:06)
[2020-12-03] MEDS: Solu-MEDROL 125mg Inj IVP SCH (09:06)
[2020-12-03] MEDS: Levemir Flexpen SUBQ SCH (09:34)
[2020-12-03] MEDS ORDERED: Sodium Polystyrene Sulfonate 15gm Powder NG SCH (09:45)
--- NOTE | 2020-12-03 09:59 | NUR ---
RADIOLOGY DEPT., CHEST X-RAY DONE.-P.DYE
--- NOTE | 2020-12-03 10:20 | Pulmonology Progress Note ---
Subjective ROS Limited/Unobtainable: No Interval Events: Intubated 11/29/20; R chest tube in place Constitutional: Denies: fever HEENT: Repors: no symptoms Respiratory: Reports: no symptoms, shortness of breath, dyspnea at rest Cardiovascular: Reports: no symptoms Gastrointestinal/Abdominal: Reports: other - on TPN Neurologic: Reports: other - Dizziness Psychiatric: Reports: other - on restraint Musculoskeletal: Denies: pain Allergies: Coded Allergies: No Known Allergies (Unverified , 11/10/17) Objective Last 24 Hour Vital Signs Date Time Temp Pulse Resp B/P (MAP) Pulse Ox O2 Delivery O2 Flow Rate FiO2 12/03/20 08:00 100 12/03/20 08:00 Mechanical Ventilator Mechanical Ventilator Mechanical Ventilator 12/03/20 08:00 95/39 12/03/20 07:02 112 24 100 12/03/20 07:00 111 25 92/34 (53) 84 12/03/20 07:00 104/42 12/03/20 06:45 92/34 12/03/20 06:30 99/38 12/03/20 06:15 97/39 12/03/20 06:00 114 26 100/42 (61) 92 12/03/20 06:00 100/42 12/03/20 05:30 113 24 99/41 (60) 91 12/03/20 05:30 92/39 12/03/20 05:15 86/41 12/03/20 05:00 83/40 12/03/20 05:00 112 24 90/35 (53) 87 12/03/20 04:45 90/35 12/03/20 04:30 93/36 12/03/20 04:15 97/40 12/03/20 04:00 Mechanical Ventilator Mechanical Ventilator Mechanical Ventilator 12/03/20 04:00 100 12/03/20 04:00 87/24 12/03/20 04:00 114 12/03/20 04:00 98.0 114 24 92/35 (54) 87 12/03/20 03:45 86/37 12/03/20 03:30 92/37 12/03/20 03:15 96/40 12/03/20 03:00 112 23 100 12/03/20 03:00 93/41 12/03/20 03:00 113 24 93/41 (58) 87 12/03/20 02:45 89/39 12/03/20 02:30 96/39 12/03/20 02:00 115 23 100/36 (57) 88 12/03/20 02:00 94/38 12/03/20 01:45 100/36 12/03/20 01:30 102/40 12/03/20 01:15 97/42 12/03/20 01:00 104/39 12/03/20 01:00 114 23 96/42 (60) 88 12/03/20 00:00 Mechanical Ventilator Mechanical Ventilator Mechanical Ventilator 12/03/20 00:00 117 12/03/20 00:00 98.6 115 23 100/40 (60) 87 12/03/20 00:00 100 12/03/20 00:00 104/41 12/02/20 23:00 115 23 100 12/02/20 23:00 116 23 102/39 (60) 87 12/02/20 23:00 102/38 12/02/20 22:00 116 23 111/41 (64) 88 12/02/20 22:00 102/41 12/02/20 21:00 121/42 12/02/20 21:00 116 23 121/42 (68) 91 12/02/20 20:00 109/41 12/02/20 20:00 Mechanical Ventilator Mechanical Ventilator Mechanical Ventilator 12/02/20 20:00 98.6 114 21 109/41 (63) 91 12/02/20 20:00 115 12/02/20 20:00 100 12/02/20 19:00 115 23 100 12/02/20 19:00 116 22 111/41 (64) 88 12/02/20 19:00 116/42 12/02/20 18:30 117 22 119/42 (67) 88 12/02/20 18:00 118/43 12/02/20 18:00 98.8 116 22 117/41 (66) 90 12/02/20 17:00 115 21 117/41 (66) 91 12/02/20 17:00 131/43 12/02/20 16:00 Mechanical Ventilator Mechanical Ventilator Mechanical Ventilator 12/02/20 16:00 127/42 12/02/20 16:00 119 22 127/42 (70) 91 12/02/20 16:00 100 12/02/20 16:00 115 12/02/20 15:06 118 22 100 12/02/20 15:00 119 23 118/41 (66) 92 12/02/20 15:00 118/41 12/02/20 14:00 101/62 12/02/20 14:00 115 21 101/62 (75) 93 12/02/20 13:00 118/49 12/02/20 13:00 119 24 118/49 (72) 95 12/02/20 12:00 100 12/02/20 12:00 Mechanical Ventilator Mechanical Ventilator Mechanical Ventilator 12/02/20 12:00 119 23 122/45 (70) 95 12/02/20 12:00 122/45 12/02/20 12:00 118 12/02/20 11:00 120 22 124/45 (71) 94 12/02/20 11:00 124/45 12/02/20 10:52 119 22 90 Intake and Output 12/02/20 12/03/20 19:00 07:00 Intake Total 1907.88 ml 1871.51 ml Output Total 140 ml 310 ml Balance 1767.88 ml 1561.51 ml Free Water 120 ml 60 ml IV Total 1367.88 ml 1391.51 ml Tube Feeding 420 ml 420 ml Output Urine Total 140 ml 160 ml Chest Tube Drainage Total 150 ml General Appearance: no acute distress HEENT: normocephalic Respiratory: chest wall non-tender Cardiovascular: normal peripheral pulses Abdomen: normal bowel sounds Laboratory Tests 12/02/20 10:52: Arterial Blood pH 7.123*L, Arterial Blood Partial Pressure CO2 73.8*H, Arterial Blood Partial Pressure O2 66.7L, Arterial Blood HCO3 23.6, Arterial Blood Oxygen Saturation 91.8L, Arterial Blood Base Excess -6.5L, Ted Test Positive 12/02/20 22:03: POC Whole Blood Glucose 134H 12/02/20 23:18: POC Whole Blood Glucose 152H 12/03/20 03:00: White Blood Count 25.4*H, Red Blood Count 3.11L, Hemoglobin 9.0L, Hematocrit 28.3L, Mean Corpuscular Volume 91, Mean Corpuscular Hemoglobin 28.9, Mean Corpuscular Hemoglobin Concent 31.8L, Red Cell Distribution Width 13.1, Platelet Count 49#L, Mean Platelet Volume 9.2, Neutrophils (%) (Auto) , Lymphocytes (%) (Auto) , Monocytes (%) (Auto) , Eosinophils (%) (Auto) , Basophils (%) (Auto) , Differential Total Cells Counted 100, Neutrophils % (Manual) 95H, Lymphocytes % (Manual) 1L, Monocytes % (Manual) 3, Eosinophils % (Manual) 0, Basophils % (Manual) 0, Band Neutrophils 1, Platelet Estimate DecreasedL, Platelet Morphology Normal, Hypochromasia 1+, Prothrombin Time 15.6H, Prothromb Time International Ratio 1.5H, Activated Partial Thromboplast Time 33, Sodium Level 138, Potassium Level 5.4H, Chloride Level 103, Carbon Dioxide Level 24, Anion Gap 11, Blood Urea Nitrogen 125H, Creatinine 4.3H, Estimat Glomerular Filtration Rate 10.2, Glucose Level 126#H, Uric Acid 8.3H, Calcium Level 7.4L, Phosphorus Level 7.4H, Magnesium Level 2.1, Total Bilirubin 2.3H, Direct Bilirubin 1.8H, Aspartate Amino Transf (AST/SGOT) 1091H, Alanine Aminotransferase (ALT/SGPT) 2610H, Alkaline Phosphatase 207H, Total Creatine Kinase 178, C-Reactive Protein, Quantitative 7.5H, Pro-B-Type Natriuretic Peptide 5834H, Total Protein 4.6L, Albumin 2.3L, Globulin 2.3, Albumin/Globulin Ratio 1.0 Current Medications Medications (Trade) Dose Ordered Sig/Kayla Route PRN Reason Start Time Stop Time Status Last Admin Dose Admin Acetaminophen (Tylenol) 650 mg Q6H PRN NG Temp >100.5 12/01/20 12:45 12/31/20 12:44 12/01/20 12:54 Acetaminophen (Tylenol) 650 mg Q6H PRN ORAL For Headache 11/14/20 13:15 12/14/20 13:14 11/30/20 13:26 Albuterol Sulfate (Proventil MDI) 2 puff Q4H PRN INH Shortness of Breath 11/15/20 10:30 02/13/21 10:29 11/17/20 06:04 Bisacodyl (Dulcolax) 10 mg Q48H PRN RECTAL Constipation 11/28/20 13:06 02/26/21 13:05 Chlorhexidine Gluconate (Leora-Hex 2%) 1 applic DAILY@2000 TOPIC 11/30/20 20:00 02/28/21 19:59 12/02/20 22:01 Dextrose (Dextrose 50%) 25 ml Q30M PRN IV Hypoglycemia 11/24/20 11:30 02/22/21 11:29 Dextrose (Dextrose 50%) 50 ml Q30M PRN IV Hypoglycemia 11/24/20 11:30 02/22/21 11:29 Docusate Sodium (Colace) 100 mg TID NG 12/01/20 18:00 12/31/20 17:59 12/03/20 09:06 Guaifenesin/ Codeine Phosphate (Robitussin with codeine) 5 ml Q6H PRN ORAL For Cough 11/21/20 23:30 12/21/20 23:29 11/21/20 23:32 Hydralazine HCl (Apresoline) 10 mg Q4H PRN IV SBP > 160mmHg 12/02/20 09:45 02/26/21 02:44 Insulin Aspart (NovoLOG) No Dose Q4HR SUBQ 11/25/20 13:00 02/23/21 12:59 12/03/20 09:33 Insulin Detemir (Levemir) 34 units Q12HR SUBQ 11/30/20 21:00 02/28/21 20:59 12/03/20 09:34 Methylprednisolone Sodium Succinate (Solu-MEDROL) 60 mg EVERY 12 HOURS IVP 12/01/20 13:00 03/01/21 12:59 12/03/20 09:06 Midodrine (Pro-Amatine) 10 mg THREE TIMES A DAY ORAL 12/01/20 15:00 03/01/21 14:59 12/03/20 09:06 Norepinephrine Bitartrate 16 mg/ Dextrose 516 ml @ 0 mls/hr Q24H IV 11/30/20 12:30 12/03/20 12:29 12/02/20 02:17 Pantoprazole (Protonix) 40 mg EVERY 12 HOURS IVP 12/01/20 21:00 12/31/20 20:59 12/03/20 09:06 Sodium Polystyrene Sulfonate (Kayexalate) 30 gm ONCE NG 12/03/20 09:45 12/03/20 12:00 Sodium Chloride 1,000 ml @ 100 mls/hr Q10H IV 12/02/20 09:00 01/01/21 08:59 12/03/20 05:00 Assessment/Plan Assessment/Plan 1. Pneumonia, COVID-19 related -On specific therapies 2. Respiratory Failure - Intubated 11/29/20 -On 100% FiO2; PEEP6 3. R PTX -R Ct in place -Seen by surgery; 4. Poor prognosis Discussed with family Now DNR GHISLAINEI Jose Elias Gannon MD Dec 03, 2020 10:20
[2020-12-03] MEDS ORDERED: D5NS 1,000 ML IV SCH (10:33)
--- NOTE | 2020-12-03 10:37 | Nephrology Progress Note ---
Assessment/Plan Problem List: (1) COVID-19 (2) Abnormal LFTs (3) Pneumonia (4) Hypoxia Assessment Hypernatremia Hypokalemia Elevated blood sugar Hypoxia COVID-19 pneumonia Plan December 03: Renal function deteriorating. Levemir insulin is stopped. As the patient is n.p.o. IV changed to D5 normal saline. Kayexalate given. Will attempt dialysis for acute renal failure. Patient is DNR. Per orders. December 02: Patient developed acute renal failure and shock liver. TPN stopped. IV fluid and albumin boluses given. Monitor renal parameters. Kayexalate for high potassium. Per orders. Discussed with ELISEO Guerrero. December 01: Patient intubated, ventilator, full code. Patient on TPN. Today's labs still pending. Continue per current treatment plan. November 30: Remains intubated. Labs reviewed. Serum sodium elevated. On TPN. Discussed with pharmacist. LFTs elevated. Down on Intralipid from 20% to 10%. Patient hypotensive. Clonidine patch discontinued November 29: Patient in ICU now. On mechanical ventilation. Labs reviewed. Continue TPN and monitor electrolyte and renal parameters. Continue per consultants. November 28: Labs reviewed. On TPN. Electrolytes and renal parameters stable. Full code. On high flow oxygen on nonrebreather mask. November 27: Labs reviewed. Patient on TPN ordered by Dr. Curry. Medication list reviewed. Main IV discontinued. Continue to follow-up renal parameters and electrolytes. Blood pressure stable. November 26: Labs reviewed. Renal parameters stable. Levemir dose increased for high blood sugar. Continue as is. November 25: Labs reviewed. Electrolytes and renal parameters stable. Blood sugar up. Levemir dose increased. Continue to monitor renal parameters. November 24: Electrolytes improving. Clonidine patch for blood pressure given. On high flow oxygen due to pneumothorax. No BiPAP. Discussed with . Previously: Start D5W Potassium supplement Monitor electrolytes Levemir 10 units, monitor blood sugar Vitamin D level Pulmonary support Per orders Subjective ROS Limited/Unobtainable: Yes Objective Objective Last 24 Hour Vital Signs Date Time Temp Pulse Resp B/P (MAP) Pulse Ox O2 Delivery O2 Flow Rate FiO2 12/03/20 10:00 109 21 90/42 (58) 90 12/03/20 09:00 110 16 97/40 (59) 90 12/03/20 08:00 100 12/03/20 08:00 98.8 111 21 95/39 (57) 91 12/03/20 08:00 Mechanical Ventilator Mechanical Ventilator Mechanical Ventilator 12/03/20 08:00 95/39 12/03/20 07:02 112 24 100 12/03/20 07:00 111 25 92/34 (53) 84 12/03/20 07:00 104/42 12/03/20 06:45 92/34 12/03/20 06:30 99/38 12/03/20 06:15 97/39 12/03/20 06:00 114 26 100/42 (61) 92 12/03/20 06:00 100/42 12/03/20 05:30 113 24 99/41 (60) 91 12/03/20 05:30 92/39 12/03/20 05:15 86/41 12/03/20 05:00 83/40 12/03/20 05:00 112 24 90/35 (53) 87 12/03/20 04:45 90/35 12/03/20 04:30 93/36 12/03/20 04:15 97/40 12/03/20 04:00 Mechanical Ventilator Mechanical Ventilator Mechanical Ventilator 12/03/20 04:00 100 12/03/20 04:00 87/24 12/03/20 04:00 114 12/03/20 04:00 98.0 114 24 92/35 (54) 87 12/03/20 03:45 86/37 12/03/20 03:30 92/37 12/03/20 03:15 96/40 12/03/20 03:00 112 23 100 12/03/20 03:00 93/41 12/03/20 03:00 113 24 93/41 (58) 87 12/03/20 02:45 89/39 12/03/20 02:30 96/39 12/03/20 02:00 115 23 100/36 (57) 88 12/03/20 02:00 94/38 12/03/20 01:45 100/36 12/03/20 01:30 102/40 12/03/20 01:15 97/42 12/03/20 01:00 104/39 12/03/20 01:00 114 23 96/42 (60) 88 12/03/20 00:00 Mechanical Ventilator Mechanical Ventilator Mechanical Ventilator 12/03/20 00:00 117 12/03/20 00:00 98.6 115 23 100/40 (60) 87 12/03/20 00:00 100 12/03/20 00:00 104/41 12/02/20 23:00 115 23 100 12/02/20 23:00 116 23 102/39 (60) 87 12/02/20 23:00 102/38 12/02/20 22:00 116 23 111/41 (64) 88 12/02/20 22:00 102/41 12/02/20 21:00 121/42 12/02/20 21:00 116 23 121/42 (68) 91 12/02/20 20:00 109/41 12/02/20 20:00 Mechanical Ventilator Mechanical Ventilator Mechanical Ventilator 12/02/20 20:00 98.6 114 21 109/41 (63) 91 12/02/20 20:00 115 12/02/20 20:00 100 12/02/20 19:00 115 23 100 12/02/20 19:00 116 22 111/41 (64) 88 12/02/20 19:00 116/42 12/02/20 18:30 117 22 119/42 (67) 88 12/02/20 18:00 118/43 12/02/20 18:00 98.8 116 22 117/41 (66) 90 12/02/20 17:00 115 21 117/41 (66) 91 12/02/20 17:00 131/43 12/02/20 16:00 Mechanical Ventilator Mechanical Ventilator Mechanical Ventilator 12/02/20 16:00 127/42 12/02/20 16:00 119 22 127/42 (70) 91 12/02/20 16:00 100 12/02/20 16:00 115 12/02/20 15:06 118 22 100 12/02/20 15:00 119 23 118/41 (66) 92 12/02/20 15:00 118/41 12/02/20 14:00 101/62 12/02/20 14:00 115 21 101/62 (75) 93 12/02/20 13:00 118/49 12/02/20 13:00 119 24 118/49 (72) 95 12/02/20 12:00 100 12/02/20 12:00 Mechanical Ventilator Mechanical Ventilator Mechanical Ventilator 12/02/20 12:00 119 23 122/45 (70) 95 12/02/20 12:00 122/45 12/02/20 12:00 118 12/02/20 11:00 120 22 124/45 (71) 94 12/02/20 11:00 124/45 12/02/20 10:52 119 22 90 Intake and Output 12/02/20 12/03/20 19:00 07:00 Intake Total 1907.88 ml 1871.51 ml Output Total 140 ml 310 ml Balance 1767.88 ml 1561.51 ml Free Water 120 ml 60 ml IV Total 1367.88 ml 1391.51 ml Tube Feeding 420 ml 420 ml Output Urine Total 140 ml 160 ml Chest Tube Drainage Total 150 ml Current Medications Medications (Trade) Dose Ordered Sig/Kayla Route PRN Reason Start Time Stop Time Status Last Admin Dose Admin Acetaminophen (Tylenol) 650 mg Q6H PRN NG Temp >100.5 12/01/20 12:45 12/31/20 12:44 12/01/20 12:54 Acetaminophen (Tylenol) 650 mg Q6H PRN ORAL For Headache 11/14/20 13:15 12/14/20 13:14 11/30/20 13:26 Albuterol Sulfate (Proventil MDI) 2 puff Q4H PRN INH Shortness of Breath 11/15/20 10:30 02/13/21 10:29 11/17/20 06:04 Bisacodyl (Dulcolax) 10 mg Q48H PRN RECTAL Constipation 11/28/20 13:06 02/26/21 13:05 Chlorhexidine Gluconate (Leora-Hex 2%) 1 applic DAILY@2000 TOPIC 11/30/20 20:00 02/28/21 19:59 12/02/20 22:01 Dextrose (Dextrose 50%) 25 ml Q30M PRN IV Hypoglycemia 11/24/20 11:30 02/22/21 11:29 Dextrose (Dextrose 50%) 50 ml Q30M PRN IV Hypoglycemia 11/24/20 11:30 02/22/21 11:29 Dextrose/Sodium Chloride 1,000 ml @ 100 mls/hr Q10H IV 12/03/20 10:33 01/02/21 10:32 Docusate Sodium (Colace) 100 mg TID NG 12/01/20 18:00 12/31/20 17:59 12/03/20 09:06 Guaifenesin/ Codeine Phosphate (Robitussin with codeine) 5 ml Q6H PRN ORAL For Cough 11/21/20 23:30 12/21/20 23:29 11/21/20 23:32 Hydralazine HCl (Apresoline) 10 mg Q4H PRN IV SBP > 160mmHg 12/02/20 09:45 02/26/21 02:44 Insulin Aspart (NovoLOG) No Dose Q4HR SUBQ 11/25/20 13:00 02/23/21 12:59 12/03/20 09:33 Methylprednisolone Sodium Succinate (Solu-MEDROL) 60 mg EVERY 12 HOURS IVP 12/01/20 13:00 03/01/21 12:59 12/03/20 09:06 Midodrine (Pro-Amatine) 10 mg THREE TIMES A DAY ORAL 12/01/20 15:00 03/01/21 14:59 12/03/20 09:06 Norepinephrine Bitartrate 16 mg/ Dextrose 516 ml @ 0 mls/hr Q24H IV 11/30/20 12:30 12/03/20 12:29 12/02/20 02:17 Pantoprazole (Protonix) 40 mg EVERY 12 HOURS IVP 12/01/20 21:00 12/31/20 20:59 12/03/20 09:06 Sodium Polystyrene Sulfonate (Kayexalate) 30 gm ONCE NG 12/03/20 09:45 12/03/20 12:00 Laboratory Tests 12/02/20 10:52: Arterial Blood pH 7.123*L, Arterial Blood Partial Pressure CO2 73.8*H, Arterial Blood Partial Pressure O2 66.7L, Arterial Blood HCO3 23.6, Arterial Blood Oxygen Saturation 91.8L, Arterial Blood Base Excess -6.5L, Ted Test Positive 12/02/20 22:03: POC Whole Blood Glucose 134H 12/02/20 23:18: POC Whole Blood Glucose 152H 12/03/20 03:00: White Blood Count 25.4*H, Red Blood Count 3.11L, Hemoglobin 9.0L, Hematocrit 28.3L, Mean Corpuscular Volume 91, Mean Corpuscular Hemoglobin 28.9, Mean Corpuscular Hemoglobin Concent 31.8L, Red Cell Distribution Width 13.1, Platelet Count 49#L, Mean Platelet Volume 9.2, Neutrophils (%) (Auto) , Lymphocytes (%) (Auto) , Monocytes (%) (Auto) , Eosinophils (%) (Auto) , Basophils (%) (Auto) , Differential Total Cells Counted 100, Neutrophils % (Manual) 95H, Lymphocytes % (Manual) 1L, Monocytes % (Manual) 3, Eosinophils % (Manual) 0, Basophils % (Manual) 0, Band Neutrophils 1, Platelet Estimate DecreasedL, Platelet Morphology Normal, Hypochromasia 1+, Prothrombin Time 15.6H, Prothromb Time International Ratio 1.5H, Activated Partial Thromboplast Time 33, Sodium Level 138, Potassium Level 5.4H, Chloride Level 103, Carbon Dioxide Level 24, Anion Gap 11, Blood Urea Nitrogen 125H, Creatinine 4.3H, Estimat Glomerular Filtration Rate 10.2, Glucose Level 126#H, Uric Acid 8.3H, Calcium Level 7.4L, Phosphorus Level 7.4H, Magnesium Level 2.1, Total Bilirubin 2.3H, Direct Bilirubin 1.8H, Aspartate Amino Transf (AST/SGOT) 1091H, Alanine Aminotransferase (ALT/SGPT) 2610H, Alkaline Phosphatase 207H, Total Creatine Kinase 178, C-Reactive Protein, Quantitative 7.5H, Pro-B-Type Natriuretic Peptide 5834H, Total Protein 4.6L, Albumin 2.3L, Globulin 2.3, Albumin/Globulin Ratio 1.0 Height (Feet): 5 Height (Inches): 1.00 Weight (Pounds): 180 General Appearance: mild distress EENT: other - Intubated on ventilator Cardiovascular: tachycardia Respiratory/Chest: decreased breath sounds Abdomen: distended John Martin MD Dec 03, 2020 10:37
--- NOTE | 2020-12-03 11:30 | Infectious Diseases Prog Note ---
Assessment/Plan Assessment/Plan antibiotics : none A 1. covid 19 pneumonia on 100 % Fi O2 with saturation 90 % s/p remdesivir s/p dexamethasone 2. Obesity. 3. Hypertension. 4. Leukocytosis increased likely secondary to steroids P 1. continue solumedrol 2. Continue isolation. Subjective ROS Limited/Unobtainable: Yes Allergies: Coded Allergies: No Known Allergies (Unverified , 11/10/17) Objective Last 24 Hour Vital Signs Date Time Temp Pulse Resp B/P (MAP) Pulse Ox O2 Delivery O2 Flow Rate FiO2 12/03/20 10:00 109 21 90/42 (58) 90 12/03/20 10:00 90/40 12/03/20 09:00 97/40 12/03/20 09:00 110 16 97/40 (59) 90 12/03/20 08:00 110 12/03/20 08:00 100 12/03/20 08:00 98.8 111 21 95/39 (57) 91 12/03/20 08:00 Mechanical Ventilator Mechanical Ventilator Mechanical Ventilator 12/03/20 08:00 95/39 12/03/20 07:02 112 24 100 12/03/20 07:00 111 25 92/34 (53) 84 12/03/20 07:00 104/42 12/03/20 06:45 92/34 12/03/20 06:30 99/38 12/03/20 06:15 97/39 12/03/20 06:00 114 26 100/42 (61) 92 12/03/20 06:00 100/42 12/03/20 05:30 113 24 99/41 (60) 91 12/03/20 05:30 92/39 12/03/20 05:15 86/41 12/03/20 05:00 83/40 12/03/20 05:00 112 24 90/35 (53) 87 12/03/20 04:45 90/35 12/03/20 04:30 93/36 12/03/20 04:15 97/40 12/03/20 04:00 Mechanical Ventilator Mechanical Ventilator Mechanical Ventilator 12/03/20 04:00 100 12/03/20 04:00 87/24 12/03/20 04:00 114 12/03/20 04:00 98.0 114 24 92/35 (54) 87 12/03/20 03:45 86/37 12/03/20 03:30 92/37 12/03/20 03:15 96/40 12/03/20 03:00 112 23 100 12/03/20 03:00 93/41 12/03/20 03:00 113 24 93/41 (58) 87 12/03/20 02:45 89/39 12/03/20 02:30 96/39 12/03/20 02:00 115 23 100/36 (57) 88 12/03/20 02:00 94/38 12/03/20 01:45 100/36 12/03/20 01:30 102/40 12/03/20 01:15 97/42 12/03/20 01:00 104/39 12/03/20 01:00 114 23 96/42 (60) 88 12/03/20 00:00 Mechanical Ventilator Mechanical Ventilator Mechanical Ventilator 12/03/20 00:00 117 12/03/20 00:00 98.6 115 23 100/40 (60) 87 12/03/20 00:00 100 12/03/20 00:00 104/41 12/02/20 23:00 115 23 100 12/02/20 23:00 116 23 102/39 (60) 87 12/02/20 23:00 102/38 12/02/20 22:00 116 23 111/41 (64) 88 12/02/20 22:00 102/41 12/02/20 21:00 121/42 12/02/20 21:00 116 23 121/42 (68) 91 12/02/20 20:00 109/41 12/02/20 20:00 Mechanical Ventilator Mechanical Ventilator Mechanical Ventilator 12/02/20 20:00 98.6 114 21 109/41 (63) 91 12/02/20 20:00 115 12/02/20 20:00 100 12/02/20 19:00 115 23 100 12/02/20 19:00 116 22 111/41 (64) 88 12/02/20 19:00 116/42 12/02/20 18:30 117 22 119/42 (67) 88 12/02/20 18:00 118/43 12/02/20 18:00 98.8 116 22 117/41 (66) 90 12/02/20 17:00 115 21 117/41 (66) 91 12/02/20 17:00 131/43 12/02/20 16:00 Mechanical Ventilator Mechanical Ventilator Mechanical Ventilator 12/02/20 16:00 127/42 12/02/20 16:00 119 22 127/42 (70) 91 12/02/20 16:00 100 12/02/20 16:00 115 12/02/20 15:06 118 22 100 12/02/20 15:00 119 23 118/41 (66) 92 12/02/20 15:00 118/41 12/02/20 14:00 101/62 12/02/20 14:00 115 21 101/62 (75) 93 12/02/20 13:00 118/49 12/02/20 13:00 119 24 118/49 (72) 95 12/02/20 12:00 100 12/02/20 12:00 Mechanical Ventilator Mechanical Ventilator Mechanical Ventilator 12/02/20 12:00 119 23 122/45 (70) 95 12/02/20 12:00 122/45 12/02/20 12:00 118 Height (Feet): 5 Height (Inches): 1.00 Weight (Pounds): 180 Laboratory Tests Test 12/02/20 22:03 12/02/20 23:18 12/03/20 03:00 POC Whole Blood Glucose 134 MG/DL (74-106) H 152 MG/DL (74-106) H White Blood Count 25.4 K/UL (4.8-10.8) *H Red Blood Count 3.11 M/UL (4.20-5.40) L Hemoglobin 9.0 G/DL (12.0-16.0) L Hematocrit 28.3 % (37.0-47.0) L Mean Corpuscular Volume 91 FL (80-99) Mean Corpuscular Hemoglobin 28.9 PG (27.0-31.0) Mean Corpuscular Hemoglobin Concent 31.8 G/DL (32.0-36.0) L Red Cell Distribution Width 13.1 % (11.6-14.8) Platelet Count 49 K/UL (150-450) #L Mean Platelet Volume 9.2 FL (6.5-10.1) Neutrophils (%) (Auto) % (45.0-75.0) Lymphocytes (%) (Auto) % (20.0-45.0) Monocytes (%) (Auto) % (1.0-10.0) Eosinophils (%) (Auto) % (0.0-3.0) Basophils (%) (Auto) % (0.0-2.0) Differential Total Cells Counted 100 Neutrophils % (Manual) 95 % (45-75) H Lymphocytes % (Manual) 1 % (20-45) L Monocytes % (Manual) 3 % (1-10) Eosinophils % (Manual) 0 % (0-3) Basophils % (Manual) 0 % (0-2) Band Neutrophils 1 % (0-8) Platelet Estimate Decreased L Platelet Morphology Normal Hypochromasia 1+ Prothrombin Time 15.6 SEC (9.30-11.50) H Prothromb Time International Ratio 1.5 (0.9-1.1) H Activated Partial Thromboplast Time 33 SEC (23-33) Sodium Level 138 MMOL/L (136-145) Potassium Level 5.4 MMOL/L (3.5-5.1) H Chloride Level 103 MMOL/L (98-107) Carbon Dioxide Level 24 MMOL/L (21-32) Anion Gap 11 mmol/L (5-15) Blood Urea Nitrogen 125 mg/dL (7-18) H Creatinine 4.3 MG/DL (0.55-1.30) H Estimat Glomerular Filtration Rate 10.2 mL/min (>60) Glucose Level 126 MG/DL (74-106) #H Uric Acid 8.3 MG/DL (2.6-7.2) H Calcium Level 7.4 MG/DL (8.5-10.1) L Phosphorus Level 7.4 MG/DL (2.5-4.9) H Magnesium Level 2.1 MG/DL (1.8-2.4) Total Bilirubin 2.3 MG/DL (0.2-1.0) H Direct Bilirubin 1.8 MG/DL (0.0-0.3) H Aspartate Amino Transf (AST/SGOT) 1091 U/L (15-37) H Alanine Aminotransferase (ALT/SGPT) 2610 U/L (12-78) H Alkaline Phosphatase 207 U/L (46-116) H Total Creatine Kinase 178 U/L (26-308) C-Reactive Protein, Quantitative 7.5 mg/dL (0.00-0.90) H Pro-B-Type Natriuretic Peptide 5834 pg/mL (0-125) H Total Protein 4.6 G/DL (6.4-8.2) L Albumin 2.3 G/DL (3.4-5.0) L Globulin 2.3 g/dL Albumin/Globulin Ratio 1.0 (1.0-2.7) Current Medications Medications (Trade) Dose Ordered Sig/Kayla Route PRN Reason Start Time Stop Time Status Last Admin Dose Admin Acetaminophen (Tylenol) 650 mg Q6H PRN NG Temp >100.5 12/01/20 12:45 12/31/20 12:44 12/01/20 12:54 Acetaminophen (Tylenol) 650 mg Q6H PRN ORAL For Headache 11/14/20 13:15 12/14/20 13:14 11/30/20 13:26 Albuterol Sulfate (Proventil MDI) 2 puff Q4H PRN INH Shortness of Breath 11/15/20 10:30 02/13/21 10:29 11/17/20 06:04 Bisacodyl (Dulcolax) 10 mg Q48H PRN RECTAL Constipation 11/28/20 13:06 02/26/21 13:05 Chlorhexidine Gluconate (Leora-Hex 2%) 1 applic DAILY@2000 TOPIC 11/30/20 20:00 02/28/21 19:59 12/02/20 22:01 Dextrose (Dextrose 50%) 25 ml Q30M PRN IV Hypoglycemia 11/24/20 11:30 02/22/21 11:29 Dextrose (Dextrose 50%) 50 ml Q30M PRN IV Hypoglycemia 11/24/20 11:30 02/22/21 11:29 Dextrose/Sodium Chloride 1,000 ml @ 100 mls/hr Q10H IV 12/03/20 10:33 01/02/21 10:32 Docusate Sodium (Colace) 100 mg TID NG 12/01/20 18:00 12/31/20 17:59 12/03/20 09:06 Guaifenesin/ Codeine Phosphate (Robitussin with codeine) 5 ml Q6H PRN ORAL For Cough 11/21/20 23:30 12/21/20 23:29 11/21/20 23:32 Hydralazine HCl (Apresoline) 10 mg Q4H PRN IV SBP > 160mmHg 12/02/20 09:45 02/26/21 02:44 Insulin Aspart (NovoLOG) No Dose Q4HR SUBQ 11/25/20 13:00 02/23/21 12:59 12/03/20 09:33 Methylprednisolone Sodium Succinate (Solu-MEDROL) 60 mg EVERY 12 HOURS IVP 12/01/20 13:00 03/01/21 12:59 12/03/20 09:06 Midodrine (Pro-Amatine) 10 mg THREE TIMES A DAY ORAL 12/01/20 15:00 03/01/21 14:59 12/03/20 09:06 Norepinephrine Bitartrate 16 mg/ Dextrose 516 ml @ 0 mls/hr Q24H IV 11/30/20 12:30 12/03/20 12:29 12/02/20 02:17 Pantoprazole (Protonix) 40 mg EVERY 12 HOURS IVP 12/01/20 21:00 12/31/20 20:59 12/03/20 09:06 Sodium Polystyrene Sulfonate (Kayexalate) 30 gm ONCE NG 12/03/20 09:45 12/03/20 12:00 Arthur Blair MD Dec 03, 2020 11:30
--- NOTE | 2020-12-03 12:59 | Diagnostic Imaging Report ---
Indication: Cough Technique: One view of the chest Comparison: 12/02/2020 Findings: Right chest tube remains, tip now pointing cephalad rather than caudad. Previously demonstrated right pneumothorax has markedly improved, with only a sliver now visible near the apex. Other tube and line positions are unchanged and satisfactory. Bilateral infiltrates appear slightly worse, but this is probably artifact of differences in exposure technique Impression: Decreased and now nearly resolved right pneumothorax Stable to slightly worse bilateral infiltrates Stable tube and line positions
[2020-12-03] MEDS ORDERED: Norepinephrine 4mg/NS Premix 250 ML IV SCH (13:00)
[2020-12-03] MEDS ORDERED: Norepinephrine Bitartrate 16 MG in D5W 500ml 484 ML IV PRN (13:00)
--- NOTE | 2020-12-03 13:30 | NUR ---
NURSE NOTES: PLACED A TELEPHONE CALL TO DR HASSAN OFFICES AND MADE AWARE AND NOTIFIED REGARDING PT HAS A VERY LOW B/P 85/41 AND IS RECEIVING 30MCG/KG/MIN. DR HASSAN SATATED " NOTHING WE CAN DO". NO NEW ORDERS RECEIVED FROM M.Yuridia AT THIS TIME. WILL CONT TO MONITOR.
--- NOTE | 2020-12-03 14:48 | NUR ---
NURSE NOTES: PLACED A TELEPHONE CALL TO DR CHINO REGARDING PT B/P 65/41, AND HAVING SMALL SEIZURES .FORTUNATO WISEMAN CAME TO SEE THE PT AND MADE AWARE AND NOTIFIED REGARDING PT HAVING SMALL SEIZURES.FORTUNATO ORDER TO GIVE ATIVAN 1MG IVP Q 2HRS PRN,S FOR SEIZURES . PT IS DNR AND DNI STATUS. PT IS RECEIVING LEVOPHED DRIP @ 30 mcg kg/min.PT DAUGHTER IN LOVE CAME TO SEE THE PT AND MADE HER AWARE AND NOTIFIED REGARDING CRITICAL CONDITIONS.
[2020-12-03] MEDS ORDERED: LORazepam Inj 2mg/ml 1ml IV PRN (15:15)
--- NOTE | 2020-12-03 16:55 | Surgery Progress Note ---
Surgery Progress Note Subjective Procedure Performed Right tube thoracostomy 24 Bahraini bore tube Additional Comments right ptx resolved now with larger tube leak present ill appearing declining liver insufficiency renal worse prognosis guarded Objective Last 24 Hour Vital Signs Date Time Temp Pulse Resp B/P (MAP) Pulse Ox O2 Delivery O2 Flow Rate FiO2 12/03/20 16:00 74 20 66/30 (42) 95 12/03/20 16:00 71 12/03/20 16:00 100 12/03/20 16:00 Mechanical Ventilator Mechanical Ventilator Mechanical Ventilator 12/03/20 15:00 78 22 66/35 (45) 88 12/03/20 15:00 66/35 12/03/20 14:16 66/34 12/03/20 14:00 97 25 65/41 (49) 87 12/03/20 14:00 65/41 12/03/20 13:00 106 35 84/37 (53) 89 12/03/20 13:00 61/15 12/03/20 12:00 100 12/03/20 12:00 107 21 89/41 (57) 91 12/03/20 12:00 107 12/03/20 12:00 89/41 12/03/20 12:00 98.6 108 23 89/41 (57) 93 12/03/20 12:00 Mechanical Ventilator Mechanical Ventilator Mechanical Ventilator 12/03/20 11:45 90/40 12/03/20 11:00 118 24 100 12/03/20 11:00 110 20 93/43 (60) 91 12/03/20 11:00 108 23 93/43 (60) 93 12/03/20 10:00 109 21 90/42 (58) 90 12/03/20 10:00 90/40 12/03/20 09:00 97/40 12/03/20 09:00 110 16 97/40 (59) 90 12/03/20 08:00 110 12/03/20 08:00 100 12/03/20 08:00 98.8 111 21 95/39 (57) 91 12/03/20 08:00 Mechanical Ventilator Mechanical Ventilator Mechanical Ventilator 12/03/20 08:00 95/39 12/03/20 07:02 112 24 100 12/03/20 07:00 111 25 92/34 (53) 84 12/03/20 07:00 104/42 12/03/20 06:45 92/34 12/03/20 06:30 99/38 12/03/20 06:15 97/39 12/03/20 06:00 114 26 100/42 (61) 92 12/03/20 06:00 100/42 12/03/20 05:30 113 24 99/41 (60) 91 12/03/20 05:30 92/39 12/03/20 05:15 86/41 12/03/20 05:00 83/40 12/03/20 05:00 112 24 90/35 (53) 87 12/03/20 04:45 90/35 12/03/20 04:30 93/36 12/03/20 04:15 97/40 12/03/20 04:00 Mechanical Ventilator Mechanical Ventilator Mechanical Ventilator 12/03/20 04:00 100 12/03/20 04:00 87/24 12/03/20 04:00 114 12/03/20 04:00 98.0 114 24 92/35 (54) 87 12/03/20 03:45 86/37 12/03/20 03:30 92/37 12/03/20 03:15 96/40 12/03/20 03:00 112 23 100 12/03/20 03:00 93/41 12/03/20 03:00 113 24 93/41 (58) 87 12/03/20 02:45 89/39 12/03/20 02:30 96/39 12/03/20 02:00 115 23 100/36 (57) 88 12/03/20 02:00 94/38 12/03/20 01:45 100/36 12/03/20 01:30 102/40 12/03/20 01:15 97/42 12/03/20 01:00 104/39 12/03/20 01:00 114 23 96/42 (60) 88 12/03/20 00:00 Mechanical Ventilator Mechanical Ventilator Mechanical Ventilator 12/03/20 00:00 117 12/03/20 00:00 98.6 115 23 100/40 (60) 87 12/03/20 00:00 100 12/03/20 00:00 104/41 12/02/20 23:00 115 23 100 12/02/20 23:00 116 23 102/39 (60) 87 12/02/20 23:00 102/38 1/26/21 22:00 116 23 111/41 (64) 88 12/02/20 22:00 102/41 12/02/20 21:00 121/42 12/02/20 21:00 116 23 121/42 (68) 91 12/02/20 20:00 109/41 12/02/20 20:00 Mechanical Ventilator Mechanical Ventilator Mechanical Ventilator 12/02/20 20:00 98.6 114 21 109/41 (63) 91 12/02/20 20:00 115 12/02/20 20:00 100 12/02/20 19:00 115 23 100 12/02/20 19:00 116 22 111/41 (64) 88 12/02/20 19:00 116/42 12/02/20 18:30 117 22 119/42 (67) 88 12/02/20 18:00 118/43 12/02/20 18:00 98.8 116 22 117/41 (66) 90 12/02/20 17:00 115 21 117/41 (66) 91 12/02/20 17:00 131/43 I&O Intake and Output 12/02/20 12/03/20 19:00 07:00 Intake Total 1907.88 ml 1871.51 ml Output Total 140 ml 310 ml Balance 1767.88 ml 1561.51 ml Free Water 120 ml 60 ml IV Total 1367.88 ml 1391.51 ml Tube Feeding 420 ml 420 ml Output Urine Total 140 ml 160 ml Chest Tube Drainage Total 150 ml Dressing: saturated Cardiovascular: RSR Respiratory: decreased breath sounds Abdomen: decreased bowel sounds Extremities: edema, no cyanosis Laboratory Tests Test 12/02/20 22:03 12/02/20 23:18 12/03/20 03:00 12/03/20 13:56 POC Whole Blood Glucose 134 MG/DL (74-106) H 152 MG/DL (74-106) H Pending White Blood Count 25.4 K/UL (4.8-10.8) *H Red Blood Count 3.11 M/UL (4.20-5.40) L Hemoglobin 9.0 G/DL (12.0-16.0) L Hematocrit 28.3 % (37.0-47.0) L Mean Corpuscular Volume 91 FL (80-99) Mean Corpuscular Hemoglobin 28.9 PG (27.0-31.0) Mean Corpuscular Hemoglobin Concent 31.8 G/DL (32.0-36.0) L Red Cell Distribution Width 13.1 % (11.6-14.8) Platelet Count 49 K/UL (150-450) #L Mean Platelet Volume 9.2 FL (6.5-10.1) Neutrophils (%) (Auto) % (45.0-75.0) Lymphocytes (%) (Auto) % (20.0-45.0) Monocytes (%) (Auto) % (1.0-10.0) Eosinophils (%) (Auto) % (0.0-3.0) Basophils (%) (Auto) % (0.0-2.0) Differential Total Cells Counted 100 Neutrophils % (Manual) 95 % (45-75) H Lymphocytes % (Manual) 1 % (20-45) L Monocytes % (Manual) 3 % (1-10) Eosinophils % (Manual) 0 % (0-3) Basophils % (Manual) 0 % (0-2) Band Neutrophils 1 % (0-8) Platelet Estimate Decreased L Platelet Morphology Normal Hypochromasia 1+ Prothrombin Time 15.6 SEC (9.30-11.50) H Prothromb Time International Ratio 1.5 (0.9-1.1) H Activated Partial Thromboplast Time 33 SEC (23-33) Sodium Level 138 MMOL/L (136-145) Potassium Level 5.4 MMOL/L (3.5-5.1) H Chloride Level 103 MMOL/L (98-107) Carbon Dioxide Level 24 MMOL/L (21-32) Anion Gap 11 mmol/L (5-15) Blood Urea Nitrogen 125 mg/dL (7-18) H Creatinine 4.3 MG/DL (0.55-1.30) H Estimat Glomerular Filtration Rate 10.2 mL/min (>60) Glucose Level 126 MG/DL (74-106) #H Uric Acid 8.3 MG/DL (2.6-7.2) H Calcium Level 7.4 MG/DL (8.5-10.1) L Phosphorus Level 7.4 MG/DL (2.5-4.9) H Magnesium Level 2.1 MG/DL (1.8-2.4) Total Bilirubin 2.3 MG/DL (0.2-1.0) H Direct Bilirubin 1.8 MG/DL (0.0-0.3) H Aspartate Amino Transf (AST/SGOT) 1091 U/L (15-37) H Alanine Aminotransferase (ALT/SGPT) 2610 U/L (12-78) H Alkaline Phosphatase 207 U/L (46-116) H Total Creatine Kinase 178 U/L (26-308) C-Reactive Protein, Quantitative 7.5 mg/dL (0.00-0.90) H Pro-B-Type Natriuretic Peptide 5834 pg/mL (0-125) H Total Protein 4.6 G/DL (6.4-8.2) L Albumin 2.3 G/DL (3.4-5.0) L Globulin 2.3 g/dL Albumin/Globulin Ratio 1.0 (1.0-2.7) Plan Problems: (1) Headache (2) Injury of lower extremity (3) Abnormal LFTs (4) Hypoxia (5) Pneumonia (6) COVID-19 (7) Pneumothorax Assessment & Plan: right ptx s/p thoravent x2 now with large chest tube ptx resolved for now large leak worsening condition overall liver insufficiency renal worse prognosis guarded cont ct to suction no bleeding Kenneth Kramer Dec 03, 2020 16:55
[2020-12-03] MEDS ORDERED: Sterile Water Irrig 1000ml IRRIG ONE (17:24)
[2020-12-03] MEDS ORDERED: NS 275ml ONE (17:24)
--- NOTE | 2020-12-03 17:25 | NUR ---
NURSE NOTES: DR MANCILLA PRONOUNCE THE PT AT 1725 PM. NO B/P ,ASYSTOLE ,NO SPONTANEOUS BREATHING. CAROLA ADDISON RN IN CHARGE NOTIFIED DR HASSAN AND PT FAMILY REGARDING PT PASS AWAY.
--- NOTE | 2020-12-03 17:49 | NUR ---
RESPIRATORY NOTE: Received call from ICU and was informed that pt had .
--- NOTE | 2020-12-03 18:36 | NUR ---
INSURANCE CLINICALS AND REVIEW FAXED TO [facility]; [phone] F: [phone]
--- NOTE | 2020-12-04 03:38 | Emergency Room Report ---
Physical Exam Called to pronounce patient Last 24 Hour Vital Signs Date Time Temp Pulse Resp B/P (MAP) Pulse Ox O2 Delivery O2 Flow Rate FiO2 12/03/20 16:00 74 20 66/30 (42) 95 12/03/20 16:00 71 12/03/20 16:00 100 12/03/20 16:00 Mechanical Ventilator Mechanical Ventilator Mechanical Ventilator 12/03/20 16:00 66/30 12/03/20 15:15 81 27 100 12/03/20 15:00 78 22 66/35 (45) 88 12/03/20 15:00 66/35 12/03/20 14:16 66/34 12/03/20 14:00 97 25 65/41 (49) 87 12/03/20 14:00 65/41 12/03/20 13:00 106 35 84/37 (53) 89 12/03/20 13:00 61/15 12/03/20 12:00 100 12/03/20 12:00 107 21 89/41 (57) 91 12/03/20 12:00 107 12/03/20 12:00 89/41 12/03/20 12:00 98.6 108 23 89/41 (57) 93 12/03/20 12:00 Mechanical Ventilator Mechanical Ventilator Mechanical Ventilator 12/03/20 11:45 90/40 12/03/20 11:00 118 24 100 12/03/20 11:00 110 20 93/43 (60) 91 12/03/20 11:00 108 23 93/43 (60) 93 12/03/20 10:00 109 21 90/42 (58) 90 12/03/20 10:00 90/40 12/03/20 09:00 97/40 12/03/20 09:00 110 16 97/40 (59) 90 12/03/20 08:00 110 12/03/20 08:00 100 12/03/20 08:00 98.8 111 21 95/39 (57) 91 12/03/20 08:00 Mechanical Ventilator Mechanical Ventilator Mechanical Ventilator 12/03/20 08:00 95/39 12/03/20 07:02 112 24 100 12/03/20 07:00 111 25 92/34 (53) 84 12/03/20 07:00 104/42 12/03/20 06:45 92/34 12/03/20 06:30 99/38 12/03/20 06:15 97/39 12/03/20 06:00 114 26 100/42 (61) 92 12/03/20 06:00 100/42 12/03/20 05:30 113 24 99/41 (60) 91 12/03/20 05:30 92/39 12/03/20 05:15 86/41 12/03/20 05:00 83/40 12/03/20 05:00 112 24 90/35 (53) 87 12/03/20 04:45 90/35 12/03/20 04:30 93/36 12/03/20 04:15 97/40 12/03/20 04:00 Mechanical Ventilator Mechanical Ventilator Mechanical Ventilator 12/03/20 04:00 100 12/03/20 04:00 87/24 12/03/20 04:00 114 12/03/20 04:00 98.0 114 24 92/35 (54) 87 12/03/20 03:45 86/37 Sp02 EP Interpretation: reviewed, abnormal - As interpreted by me General Appearance: other - Unresponsive Head: normocephalic, atraumatic Eyes: bilateral eye other - Pupils fixed and 3 mm ENT: other - Endotracheal tube present Neck: supple Respiratory: other - No breath sounds or chest rise Cardiovascular #1: other - No pulses Cardiovascular #2: 0 radial (R) Gastrointestinal: overweight Musculoskeletal: other - Flaccid Neurologic: other - Unresponsive Psychiatric: other - Unresponsive Skin: other - Cold and sallow Medical Decision Making Diagnostic Impression: Primary Impression: COVID-19 Additional Impressions: Hypoxia Pneumonia ER Course Patient examined without signs of life. Patient pronounced at 1725. Status: worsened Disposition: Condition: Referrals: NON PHYSICIAN (PCP) Additional Instructions: Please note that this report is being documented using DRAGON technology. This can lead to erroneous entry secondary to incorrect interpretation by the dictating instrument. Fabrice Nieto MD Dec 04, 2020 03:38
--- NOTE | 2020-12-08 14:22 | Discharge Summary ---
Discharge Summary Discharge Summary _ Date of admission: 11/14/2020 Date of expiration: 12/03/2020 History of Present Illness and Brief Hospital Course Ms. Diego was a 68-year-old female with past medical history of obesity, and hypertension, who presented to the ER for evaluation of progressively worsening shortness of breath. Patient tested positive for COVID-19 on 11/07/2020 from an outside source. Associated symptoms included body aches, chills, fatigue, chest pain, and cough. The initial chest x-ray showed patchy bilateral infiltrates. Patient received Lovenox, ceftriaxone and azithromycin, dexamethasone, and albuterol in the ER and was admitted to the hospital for further management. For COVID-19 pneumonia, she was started on remdesivir, broad-spectrum antibiotics and steroids. She also received Lovenox due to elevated inflammat ory markers. She continued to show worsening hypoxia and was placed on high flow oxygen and nonrebreather mask, which was later switched to BiPAP. However, her oxygenation was complicated by a small pneumothorax found on chest x-ray on November 21, 2020. Her BiPAP was discontinued and she was put on nonrebreather mask and high flow oxygen again. Given worsening respiratory shikha lure and acidosis, she was intubated on November 29, 2020. Given prior history of right sided pneumothorax, Thoravent was placed, which was later switched to right chest tube. Her nutrition was complicated by constant use of supplemental oxygen. She even tually received TPN. However, patient developed acute renal failure and shock liver. TPN was stopped. Throughout her hospitalization, her prognosis remained poor and worsened. By the time she was intubated, her CODE STATUS was switched to DNR per family request. On December 03, 2020, patient was found to be in asystole on alarm security or surveillance monitor. CODE BLUE was not called given her DNR status. Unfortunately, patient was pronounced at 1725. Cause of : Cardiopulmonary arrest Consultants: Infectious disease Dr. Blair Nephrology Dr. Oseguera Gastroenterology Dr. Andrews surgery Dr. Kramer Final diagnoses COVID-19 pneumonia Obesity Hypertension Leukocytosis Abnormal LFTs Hypoxemic respiratory failure Diabetes mellitus Smoker Right-sided pneumothorax I have been assigned to dictate discharge summary for this account. Dominic Toro Dec 08, 2020 14:22
== END 2020-12-03 17:25 | disposition expired | DRG 207 ==
LOC: EMR 01:48 → 2E 03:15 → EDBEDREQSVC 04:13 → EDBEDREQ 04:13 → OBSVTOIN 07:59 → 2E 21:28 → ICU 11-18 08:13 → 2W 11-24 08:15 → ICU 11-29 12:49
PROC: XW033E5 Introduction of Remdesivir Anti-infective into Peripheral Vein, Percutaneous Approach, New Technology Group 5 (ICD-10-PCS; 2020-11-15)
PROC: 5A09457 Assistance with Respiratory Ventilation, 24-96 Consecutive Hours, Continuous Positive Airway Pressure (ICD-10-PCS; 2020-11-18)
PROC: 05H333Z Insertion of Infusion Device into Right Innominate Vein, Percutaneous Approach (ICD-10-PCS; 2020-11-24)
PROC: 0BH17EZ Insertion of Endotracheal Airway into Trachea, Via Natural or Artificial Opening (ICD-10-PCS; 2020-11-29)
PROC: 5A1955Z Respiratory Ventilation, Greater than 96 Consecutive Hours (ICD-10-PCS; 2020-11-29)
PROC: 0W9900Z Drainage of Right Pleural Cavity with Drainage Device, Open Approach (ICD-10-PCS; principal; 2020-11-30)
PROC: 30233R1 Transfusion of Nonautologous Platelets into Peripheral Vein, Percutaneous Approach (ICD-10-PCS; 2020-12-02)
PROC: 5A12012 Performance of Cardiac Output, Single, Manual (ICD-10-PCS; 2020-12-03)
DX: U07.1 COVID-19 (principal); J12.82 Pneumonia due to coronavirus disease 2019; K72.00 Acute and subacute hepatic failure without coma; E87.1 Hypo-osmolality and hyponatremia; E87.0 Hyperosmolality and hypernatremia; J93.9 Pneumothorax, unspecified; N17.9 Acute kidney failure, unspecified; E11.65 Type 2 diabetes mellitus with hyperglycemia; R09.02 Hypoxemia; E83.51 Hypocalcemia; E66.9 Obesity, unspecified; I10 Essential (primary) hypertension; E87.6 Hypokalemia; F17.200 Nicotine dependence, unspecified, uncomplicated; T38.0X5A Adverse effect of glucocorticoids and synthetic analogues, initial encounter; D72.829 Elevated white blood cell count, unspecified; Z66 Do not resuscitate
CPT/HCPCS: 36415; 36569; 71045; 74018; 76700; 76937; 80048; 80053; 80061; 81003; 82140; 82248; 82306; 82550; 82728; 82803; 82962; 82977; 83036; 83605; 83615; 83690; 83735; 83880; 84100; 84439; 84443; 84481; 84484; 84550; 85007; 85025; 85379; 85610; 85730; 86140; 86705; 86709; 86710; 86803; 86850; 86900; 86901; 87040; 87340; 93005; 94002; 94003; 94640; 94660; 96365; 96367; 96375; 99291; J0171; J1815; J2370; J3490; J7030; J7620; S5561